=== PATIENT | female | born 1930 | race Caucasian/White ===

== ENCOUNTER → 2017-03-08 | Outpatient (CLI) | payer MEDICARE, BC ==
--- NOTE | 2017-03-08 17:31 | XR ---
EXAMINATION TYPE: XR thoracic spine complete DATE OF EXAM: 03/08/2017 5:08 PM COMPARISON: 03/18/2016 HISTORY: Back pain TECHNIQUE: 3 views FINDINGS: There is a mild thoracic kyphotic curvature. There is degenerative disc space narrowing and spur formation. There is slight anterior wedging of several thoracic vertebra. This is 5-10%. There is no sign of paraspinal mass. Posterior elements are intact. IMPRESSION: Mild anterior wedging of several thoracic vertebra is fairly stable compared to old chest x-ray. Spondylosis. No acute fracture seen.
--- NOTE | 2017-03-08 18:07 | XR ---
EXAMINATION TYPE: XR chest 2V DATE OF EXAM: 03/08/2017 5:08 PM COMPARISON: 03/18/2016 HISTORY: Back pain TECHNIQUE: Frontal and lateral views of the chest are obtained. FINDINGS: The heart is enlarged. There is no heart failure. There are no hilar masses. Costophrenic angles are clear. There is minor spurring in the thoracic spine. IMPRESSION: Mild cardiomegaly. No heart failure. No adverse change compared to old exam.
== END | disposition home or self-care (01) ==
LOC: RADXRMAIN 16:20
PROVIDERS: ATTEND Internal Medicine Geriatric Medicine
DX: M48.54XA Collapsed vertebra, not elsewhere classified, thoracic region, initial encounter for fracture (principal); M47.894 Other spondylosis, thoracic region; I51.7 Cardiomegaly
CPT/HCPCS: 71020; 72072

== ENCOUNTER → 2017-07-14 | Outpatient (CLI) | payer MEDICARE, BC ==
--- NOTE | 2017-07-15 10:12 | MM ---
Reason for exam: screening (asymptomatic). Last mammogram was performed 1 year and 4 months ago. History: Patient is postmenopausal. Family history of breast cancer in sister at age 78. Physical Findings: A clinical breast exam by your physician is recommended on an annual basis and results should be correlated with mammographic findings. MG 3D Screening Mammo W/Cad Bilateral CC and MLO view(s) were taken. Prior study comparison: March 24, 2016, bilateral MG 3d screening mammo w/cad. March 20, 2015, bilateral MG screening mammo w CAD. There are scattered fibroglandular densities. Finding: There are typically benign diffuse/scattered calcifications in both breasts. No suspicious abnormality. No significant changes in finding since March 24, 2016 and March 20, 2015. ASSESSMENT: Negative, BI-RAD 1 RECOMMENDATION: Routine screening mammogram of both breasts in 1 year.
== END ==
LOC: RADMAMWWP 13:18
PROVIDERS: ATTEND Internal Medicine Geriatric Medicine
DX: Z12.31 Encounter for screening mammogram for malignant neoplasm of breast (principal)
CPT/HCPCS: 77063; G0202

== ENCOUNTER 2018-07-06 23:09 | Inpatient (IN) | payer MEDICARE, BC ==
[2018-07-06 23:53] LABS: Basophils # (A) 0.1 k/uL (0-0.2); Basophils % (A) 0 %; Eosinophils # (A) 0.2 k/uL (0-0.7); Eosinophils % (A) 2 %; HCT 45.8 % (34.0-46.0); HGB 14.3 gm/dL (11.4-16.0); Lymphocytes # (A) 2.9 k/uL (1.0-4.8); Lymphocytes % (A) 24 %; MCH 28.9 pg (25.0-35.0); MCHC 31.2 g/dL (31.0-37.0); MCV 92.6 fL (80.0-100.0); Mean Platelet Volume 6.9; Monocytes # (A) 0.7 k/uL (0-1.0); Monocytes % (A) 6 %; Neutrophils # (A) 7.9 k/uL (1.3-7.7); Neutrophils % (A) 66 %; Platelet Count 320 k/uL (150-450); RBC 4.95 m/uL (3.80-5.40); RDW 13.8 % (11.5-15.5)
[2018-07-07 00:02] LABS: Albumin 4.1 g/dL (3.5-5.0); Calcium 9.6 mg/dL (8.4-10.2); Potassium 3.8 mmol/L (3.5-5.1); Total Bilirubin 1.5 mg/dL (0.2-1.3); Total Protein 7.3 g/dL (6.3-8.2)
[2018-07-07] MEDS ORDERED: ONDANSETRON 4 MG/2 ML VIAL IVP STA (00:32)
--- NOTE | 2018-07-07 00:41 | ED ---
Dizziness HPI - General Chief Complaint: Dizziness Stated Complaint: dizziness/vomiting Time Seen by Provider: 07/06/18 23:32 Source: patient Mode of arrival: wheelchair Limitations: no limitations - History of Present Illness MD Complaint: dizziness, difficulty walking -: hour(s) Timing: sudden onset Description: sense of movement, off-balance, difficulty walking, nausea History of Same: No History of Trauma: No Severity: severe Improves With: remaining still Worsens With: movement Associated Symptoms: denies other symptoms - Related Data Home Medications Medication Instructions Recorded Confirmed Budesonide-Formot 160-4.5 Mcg 2 puff INHALATION RT-BID PRN 10/15/15 03/18/16 [Symbicort 160-4.5 Mcg Inhaler] Cholecalciferol [Vitamin D3] 1,000 unit PO DAILY 10/15/15 03/18/16 HYDROcodone/APAP 5-325MG [[place] 1 tab PO Q4HR PRN 10/15/15 03/18/16 5-325] Lansoprazole 30 mg PO DAILY 10/15/15 03/18/16 Metoprolol Tartrate [Lopressor] 25 mg PO BID 10/15/15 03/18/16 Vitamin B Complex 1 cap PO DAILY 10/15/15 03/18/16 cloNIDine HCL [Catapres] 0.4 mg PO TID 10/15/15 03/18/16 Multivitamins, Thera [Theragran] 1 tab PO DAILY 11/12/15 03/18/16 Losartan [Cozaar] 50 mg PO BID 03/15/16 03/18/16 Baclofen [Lioresal] 10 mg PO DAILY 03/18/16 03/18/16 Bimatoprost [[place] .01% Ophth 1 drop BOTH EYES HS 03/18/16 03/18/16 Soln] Furosemide [Lasix] 40 mg PO DAILY 03/18/16 03/18/16 Previous Rx's Medication Instructions Recorded amLODIPine [Norvasc] 5 mg PO DAILY #10 tab 03/18/16 Allergies Allergy/AdvReac Type Severity Reaction Status Date / Time Sulfa (Sulfonamide Allergy Rash/Hives Verified 07/06/18 23:18 Antibiotics) calcium AdvReac Unknown Unknown Verified 07/06/18 23:18 baclofen AdvReac NUMBNESS Verified 07/06/18 23:18 WAS WORSE IN FEET" UNSTEADY" clotrimazole AdvReac Unknown Verified 07/06/18 23:18 fluconazole AdvReac Unknown Verified 07/06/18 23:18 Review of Systems ROS Statement: Those systems with pertinent positive or pertinent negative responses have been documented in the HPI. ROS Other: All systems not noted in ROS Statement are negative. Constitutional: Denies: fever, chills, weakness Eyes: Denies: vision change ENT: Denies: ear pain, hearing loss Respiratory: Denies: cough, dyspnea Cardiovascular: Denies: chest pain, palpitations, orthopnea, edema Gastrointestinal: Reports: abdominal pain, nausea, vomiting. Denies: diarrhea, constipation, hematemesis Genitourinary: Denies: dysuria, frequency, hematuria Musculoskeletal: Denies: back pain Skin: Denies: rash Neurological: Denies: headache, weakness, numbness Past Medical History Past Medical History: Asthma, Eye Disorder, GERD/Reflux, Hypertension, Osteoarthritis (OA) Additional Past Medical History / Comment(s): glaucoma,lower back pain, NEUROPATHY History of Any Multi-Drug Resistant Organisms: None Reported Past Surgical History: Orthopedic Surgery Additional Past Surgical History / Comment(s): eye surgery- stent in rt eye for glaucoma, carpal tunnel repair padmini.BILATERAL CATARACT Past Anesthesia/Blood Transfusion Reactions: No Reported Reaction Past Psychological History: No Psychological Hx Reported Smoking Status: Never smoker Past Alcohol Use History: None Reported Past Drug Use History: None Reported - Past Family History Sister(s) Family Medical History: Cancer Additional Family Medical History / Comment(s): breast cancer General Exam Limitations: no limitations General appearance: alert, other (Patient having intermittent retching during exam, especially after movement of her head.) Head exam: Present: atraumatic, normocephalic Eye exam: Present: normal appearance, PERRL, EOMI, nystagmus. Absent: scleral icterus, conjunctival injection ENT exam: Present: normal oropharynx Neck exam: Present: normal inspection Respiratory exam: Present: normal lung sounds bilaterally. Absent: respiratory distress, wheezes, rales, rhonchi, stridor Cardiovascular Exam: Present: regular rate, normal rhythm, normal heart sounds. Absent: systolic murmur, diastolic murmur, rubs, gallop GI/Abdominal exam: Present: soft. Absent: distended, tenderness, guarding, rebound, mass Extremities exam: Present: normal inspection, normal capillary refill. Absent: pedal edema, calf tenderness Back exam: Present: normal inspection. Absent: CVA tenderness (R), CVA tenderness (L) Neurological exam: Present: alert, oriented X3, CN II-XII intact. Absent: motor sensory deficit Skin exam: Present: warm, dry, intact, normal color. Absent: rash Course Vital Signs 07/06/18 23:16 Temperature 97.9 F Pulse Rate 85 Respiratory 18 Rate Blood Pressure 181/88 O2 Sat by Pulse 97 Oximetry EKG Findings - EKG Results: EKG: interpreted by ALLYN ROLDAN, sinus rhythm (Rate 79 bpm), normal axis, normal QRS, normal ST/T, no acute changes - CT, Pacemaker, Normal: Normal tracing: normal tracing Medical Decision Making - Lab Data Result diagrams: 07/06/18 23:40 07/06/18 23:40 Lab Results 07/06/18 07/06/18 07/06/18 Range/Units 23:40 23:40 23:40 WBC 12.0 H (3.8-10.6) k/uL RBC 4.95 (3.80-5.40) m/uL Hgb 14.3 (11.4-16.0) gm/dL Hct 45.8 (34.0-46.0) % MCV 92.6 (80.0-100.0) fL MCH 28.9 (25.0-35.0) pg MCHC 31.2 (31.0-37.0) g/dL RDW 13.8 (11.5-15.5) % Plt Count 320 (150-450) k/uL Neutrophils % 66 % Lymphocytes % 24 % Monocytes % 6 % Eosinophils % 2 % Basophils % 0 % Neutrophils # 7.9 H (1.3-7.7) k/uL Lymphocytes # 2.9 (1.0-4.8) k/uL Monocytes # 0.7 (0-1.0) k/uL Eosinophils # 0.2 (0-0.7) k/uL Basophils # 0.1 (0-0.2) k/uL Sodium 139 (137-145) mmol/L Potassium 3.8 (3.5-5.1) mmol/L Chloride 103 (98-107) mmol/L Carbon Dioxide 26 (22-30) mmol/L Anion Gap 10 mmol/L BUN 19 H (7-17) mg/dL Creatinine 0.82 (0.52-1.04) mg/dL Est GFR (CKD-EPI)AfAm 75 (>60 ml/min/1.73 sqM) Est GFR (CKD-EPI)NonAf 65 (>60 ml/min/1.73 sqM) Glucose 157 H (74-99) mg/dL Plasma Lactic Acid Aubrey 1.8 (0.7-2.0) mmol/L Calcium 9.6 (8.4-10.2) mg/dL Total Bilirubin 1.5 H (0.2-1.3) mg/dL AST 38 H (14-36) U/L ALT 29 (9-52) U/L Alkaline Phosphatase 102 (38-126) U/L Troponin I (0.000-0.034) ng/mL Total Protein 7.3 (6.3-8.2) g/dL Albumin 4.1 (3.5-5.0) g/dL Urine Color Urine Appearance (Clear) Urine pH (5.0-8.0) Ur Specific [place] (1.001-1.035) Urine Protein (Negative) Urine Glucose (UA) (Negative) Urine Ketones (Negative) Urine Blood (Negative) Urine Nitrite (Negative) Urine Bilirubin (Negative) Urine Urobilinogen (<2.0) mg/dL Ur Leukocyte Esterase (Negative) Urine RBC (0-5) /hpf Urine WBC (0-5) /hpf Ur Squamous Epith Cells (0-4) /hpf Amorphous Sediment (None) /hpf Urine Bacteria (None) /hpf Urine Mucus (None) /hpf 07/06/18 07/07/18 Range/Units 23:40 02:05 WBC (3.8-10.6) k/uL RBC (3.80-5.40) m/uL Hgb (11.4-16.0) gm/dL Hct (34.0-46.0) % MCV (80.0-100.0) fL MCH (25.0-35.0) pg MCHC (31.0-37.0) g/dL RDW (11.5-15.5) % Plt Count (150-450) k/uL Neutrophils % % Lymphocytes % % Monocytes % % Eosinophils % % Basophils % % Neutrophils # (1.3-7.7) k/uL Lymphocytes # (1.0-4.8) k/uL Monocytes # (0-1.0) k/uL Eosinophils # (0-0.7) k/uL Basophils # (0-0.2) k/uL Sodium (137-145) mmol/L Potassium (3.5-5.1) mmol/L Chloride (98-107) mmol/L Carbon Dioxide (22-30) mmol/L Anion Gap mmol/L BUN (7-17) mg/dL Creatinine (0.52-1.04) mg/dL Est GFR (CKD-EPI)AfAm (>60 ml/min/1.73 sqM) Est GFR (CKD-EPI)NonAf (>60 ml/min/1.73 sqM) Glucose (74-99) mg/dL Plasma Lactic Acid Aubrey (0.7-2.0) mmol/L Calcium (8.4-10.2) mg/dL Total Bilirubin (0.2-1.3) mg/dL AST (14-36) U/L ALT (9-52) U/L Alkaline Phosphatase (38-126) U/L Troponin I <0.012 (0.000-0.034) ng/mL Total Protein (6.3-8.2) g/dL Albumin (3.5-5.0) g/dL Urine Color Light Yellow Urine Appearance Clear (Clear) Urine pH 6.5 (5.0-8.0) Ur Specific [place] 1.009 (1.001-1.035) Urine Protein 2+ H (Negative) Urine Glucose (UA) Negative (Negative) Urine Ketones Negative (Negative) Urine Blood Negative (Negative) Urine Nitrite Negative (Negative) Urine Bilirubin Negative (Negative) Urine Urobilinogen <2.0 (<2.0) mg/dL Ur Leukocyte Esterase Negative (Negative) Urine RBC 10 H (0-5) /hpf Urine WBC 1 (0-5) /hpf Ur Squamous Epith Cells 2 (0-4) /hpf Amorphous Sediment Rare H (None) /hpf Urine Bacteria Rare H (None) /hpf Urine Mucus Rare H (None) /hpf Disposition Referrals: Grupo Beard MD [Primary Care Provider] - 1-2 days
--- NOTE | 2018-07-07 00:43 | XR ---
EXAMINATION TYPE: XR chest 1V portable DATE OF EXAM: 07/07/2018 COMPARISON: 03/08/2017 HISTORY: Dizziness TECHNIQUE: Single frontal view of the chest is obtained. FINDINGS: Heart appears enlarged. Thoracic aorta is atheromatous. There is no heart failure. There i s no pleural effusion. Costophrenic angles are clear. IMPRESSION: Cardiomegaly. No active cardiopulmonary disease. Inspiration is improved slightly compar ed to old exam.
[2018-07-07 02:30] LABS: Amorphous Sediment,Urine Rare /hpf; Appearance,Urine Clear (Clear); Bacteria,Urine Rare /hpf; Bilirubin,Urine Negative (Negative); Blood,Urine Negative (Negative); Color,Urine Light Yellow; Glucose,Urine (UA) Negative (Negative); Ketones,Urine Negative (Negative); Leukocyte Esterase,Urine Negative (Negative); Mucus,Urine Rare /hpf; Nitrite,Urine Negative (Negative); PH, Urine 6.5 (5.0-8.0); Protein,Urine 2+ (Negative); RBC,Urine 10 /hpf (0-5); Specific Gravity,Urine 1.009 (1.001-1.035); Squamous Epithelial Cell,Urine 2 /hpf (0-4); Urobilinogen,Urine <2.0 mg/dL (<2.0); WBC,Urine 1 /hpf (0-5)
--- NOTE | 2018-07-07 02:35 | CT ---
EXAMINATION TYPE: CT brain wo con DATE OF EXAM: 07/07/2018 COMPARISON: None HISTORY: Dizziness CT DLP: 995.50 mGycm Automated exposure control for dose reduction was used. FINDINGS: There is some hypodensity in the cortex right cerebellar hemisphere suggestive of old small cortical infarct. Ventricles of normal size. There is no mass effect nor midline shift. There is no sign of intracrania l hemorrhage. The calvarium is intact. 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 NO ACUTE INTRACRANIAL ABNORMALITY.
[2018-07-07] MEDS ORDERED: MECLIZINE 12.5 MG TAB PO STA (03:40)
[2018-07-07] MEDS ORDERED: ASPIRIN 81 MG PO STA (03:57)
[2018-07-07] MEDS ORDERED: SYMBICORT 160-4.5 MCG INHALER INHALATION PRN (04:01)
[2018-07-07] MEDS ORDERED: HYDROcodone/APAP 5-325MG 1 EACH TAB PO PRN (04:01)
[2018-07-07] MEDS: SODIUM CHLORIDE 0.9% 1,000 ML IV SCH (04:33)
[2018-07-07 06:02] VITALS: BMI 33.5
[2018-07-07] MEDS ORDERED: ONDANSETRON 4 MG/2 ML VIAL IVP PRN (07:16)
[2018-07-07] MEDS ORDERED: cloNIDine HCL 0.2 MG TAB PO SCH (09:00)
[2018-07-07] MEDS ORDERED: BACLOFEN 10 MG TAB PO SCH (09:00)
[2018-07-07] MEDS ORDERED: FAMOTIDINE 20 MG TAB PO SCH (09:00)
[2018-07-07] MEDS: CHOLECALCIFEROL 1,000 UNIT TAB PO SCH (09:09)
[2018-07-07] MEDS: DOCUSATE 100 MG CAP PO SCH ×3 (09:09→23:44)
[2018-07-07] MEDS: PANTOPRAZOLE 40 MG TABLET PO SCH (09:09)
[2018-07-07] MEDS: cloNIDine HCL 0.1 MG TAB PO SCH ×3 (09:11→21:12)
[2018-07-07] MEDS: METOPROLOL TARTRATE 25 MG TAB PO SCH ×2 (09:12→21:12)
[2018-07-07] MEDS: LOSARTAN 50 MG TAB PO SCH ×2 (10:59→21:12)
[2018-07-07] MEDS: amLODIPine 5 MG TAB PO SCH (10:59)
[2018-07-07] MEDS: predniSONE 20 MG TAB PO SCH (10:59)
[2018-07-07] MEDS: FUROSEMIDE 40 MG TAB PO SCH (11:42)
--- NOTE | 2018-07-07 11:50 | US ---
EXAMINATION TYPE: US carotid duplex BILAT DATE OF EXAM: 07/07/2018 COMPARISON: NONE CLINICAL HISTORY: Stenosis. Vertigo, stenosis EXAM MEASUREMENTS: RIGHT: Peak Systolic Velocity (PSV) cm/sec ----- Right CCA: 100.2 ----- Right ICA: 84.5 ----- Right ECA: 114.7 ICA/CCA ratio: 0.8 RIGHT: End Diastole cm/sec ----- Right CCA: 17.3 ----- Right ICA: 16.4 ----- Right ECA: 0.0 LEFT: Peak Systolic Velocity (PSV) cm/sec ----- Left CCA: 97.0 ----- Left ICA: 107.3 ----- Left ECA: 142.0 ICA/CCA ratio: 1.1 LEFT: End Diastole cm/sec ----- Left CCA: 15.3 ----- Left ICA: 24.5 ----- Left ECA: 3.1 VERTEBRALS (direction of flow): Right Vertebral: Antegrade Left Vertebral: Antegrade Rhythm: Arrhythmia Elevated velocities left ECA, otherwise no evidence of significant stenosis Grayscale, color Doppler, spectral Doppler imaging performed of the carotid arteries. Waveform analys is does not show significant stenosis of the proximal internal carotid arteries bilaterally by Dopple r criteria IMPRESSION: No hemodynamic significant stenosis of the proximal internal carotid arteries bilaterall y by Doppler criteria, an indirect measurement of carotid stenosis, cardiac arrhythmia noted incident ally
[2018-07-07] MEDS ORDERED: IPRATROPIUM-ALBUTEROL 3 ML NEB INHALATION PRN (11:59)
--- NOTE | 2018-07-07 12:00 | P.HPIM ---
History of Present Illness H&P Date: 07/07/18 Chief Complaint: dizziness 88 years old female patient of Dr. Beard with past medical history of asthma, GERD, hypertension presents with an episode of dizziness when she woke up this morning. Dizziness is associated with headache, nausea and vomiting and fullness in the right ear. No improvement with meclizine given in the ER Patient denies any previous history of stroke or similar presentation. She denies any ear ache, tinnitus or ringing in the ears. CT head was done in the ER that suggested a small cerebellar infarct on the right that is old. Carotid Dopplers ordered. MRI and MRA of the head and neck ordered for evaluation for cerebellar stroke. Continue patient on aspirin, atorvastatin. Neurology evaluation pending Review of Systems Constitutional: Denies chills, Denies fever, Denies lethargy, Denies malaise, Denies poor appetite, Denies weakness, Denies weight loss Eyes: denies decreased vision, denies diplopia, denies discharge, denies pain Ears: deny: decreased hearing, positive for ear fullness on the right Ears, nose, mouth and throat: Denies dental pain, endorses headache, Denies nasal discharge, Denies nose pain Cardiovascular: Denies chest pain, Denies decreased exercise tolerance, Denies edema, Denies high blood pressure, Denies irregular heart beat, Denies palpitations, Denies paroxysmal nocturnal dyspnea, Denies rapid heart beat, Denies shortness of breath Respiratory: Denies congestion, Denies cough, Denies cough with sputum, Denies dyspnea, Denies home oxygen, Denies wheezing Gastrointestinal: Denies abdominal pain, Denies change in bowel habits, Denies coffee ground emesis, Denies early satiety, Denies excessive gas, Denies heartburn, Denies hematemesis, Denies hematochezia, Denies loss of appetite, Denies nausea, Denies vomiting Genitourinary: Denies dysuria, Denies flank pain, Denies kidney stones, Denies menorrhagia, Denies urgency, Denies urinary frequency Musculoskeletal: Denies gait dysfunction, Denies limitation of motion, Denies morning stiffness, Denies muscle cramps Integumentary: Denies rash, Denies wounds, Denies brittle nails, Denies change in hair/nails, Denies darkening of skin Neurological: Denies balance difficulties, Denies change in speech, Denies double vision, Denies gait dysfunction, Denies loss of vision, Denies motor disturbance, Denies numbness, Denies paralysis, Denies paresthesias, Denies seizures endorses vertical Psychiatric: Denies anxiety, Denies depression Endocrine: Denies excessive sweating, Denies excessive thirst, Denies high blood sugars, Denies palpitations Hematologic/Lymphatic: Denies easy bruising, Denies lymphadenopathy Past Medical History Past Medical History: Asthma, Eye Disorder, GERD/Reflux, Hypertension, Osteoarthritis (OA) Additional Past Medical History / Comment(s): glaucoma,lower back pain, NEUROPATHY History of Any Multi-Drug Resistant Organisms: None Reported Past Surgical History: Orthopedic Surgery Additional Past Surgical History / Comment(s): eye surgery- stent in rt eye for glaucoma, carpal tunnel repair padmini.BILATERAL CATARACT Past Anesthesia/Blood Transfusion Reactions: No Reported Reaction Past Psychological History: No Psychological Hx Reported Smoking Status: Never smoker Past Alcohol Use History: None Reported Past Drug Use History: None Reported - Past Family History Sister(s) Family Medical History: Cancer Additional Family Medical History / Comment(s): breast cancer Medications and Allergies Home Medications Medication Instructions Recorded Confirmed Type Cholecalciferol [Vitamin D3] 1,000 unit PO DAILY 10/15/15 07/07/18 History HYDROcodone/APAP 5-325MG [[place] 1 tab PO Q4HR PRN 10/15/15 07/07/18 History 5-325] Lansoprazole 30 mg PO DAILY 10/15/15 07/07/18 History Metoprolol Tartrate [Lopressor] 25 mg PO BID 10/15/15 07/07/18 History Vitamin B Complex 1 cap PO DAILY 10/15/15 07/07/18 History cloNIDine HCL [Catapres] 0.4 mg PO TID 10/15/15 07/07/18 History Losartan [Cozaar] 50 mg PO BID 03/15/16 07/07/18 History Furosemide [Lasix] 40 mg PO DAILY 03/18/16 07/07/18 History amLODIPine [Norvasc] 5 mg PO DAILY #10 tab 03/18/16 07/07/18 Rx Gabapentin [Neurontin] 100 mg PO BID 07/07/18 07/07/18 History Tracie-L[place] 1 tab PO DAILY 07/07/18 07/07/18 History Allergies Allergy/AdvReac Type Severity Reaction Status Date / Time Sulfa (Sulfonamide Allergy Rash/Hives Verified 07/07/18 09:54 Antibiotics) calcium AdvReac Unknown Unknown Verified 07/07/18 09:54 baclofen AdvReac NUMBNESS Verified 07/07/18 09:54 WAS WORSE IN FEET" UNSTEADY" clotrimazole AdvReac Unknown Verified 07/07/18 09:54 fluconazole AdvReac Unknown Verified 07/07/18 09:54 Physical Exam Vitals: Vital Signs Temp Pulse Pulse Resp BP BP Pulse Ox 07/07/18 08:00 98.0 F 93 20 165/76 94 L 07/07/18 07:39 95 07/07/18 06:14 84 21 07/07/18 05:03 97.6 F 84 21 154/75 94 L 07/07/18 04:07 81 16 165/83 94 L 07/06/18 23:16 97.9 F 85 18 181/88 97 Intake and Output 07/06/18 07/07/18 07/07/18 22:59 06:59 14:59 Intake Total 20 Balance 20 Intake: IV 20 Sodium Chloride 0.9% 1, 20 000 ml @ 20 mls/hr IV . Q24H [facility] Rx#:[id number] Other: Voiding Method Bedpan Diaper # Voids 1 Weight 91.6 kg - Constitutional General appearance: cooperative, no acute distress, obese - EENT Eyes: anicteric sclerae, PERRLA, normal appearance ENT: hearing grossly normal, no cerumen impaction seen on examination of the ear , no sign of inflammation or otitis media - Neck Neck: no lymphadenopathy, normal ROM, no other, no rigidity, no stridor, no thyromegaly - Respiratory Respiratory: bilateral: CTA, negative: diminished, dullness, rales, rhonchi - Cardiovascular Rhythm: regular Heart sounds: normal: S1, S2 Abnormal Heart Sounds: no systolic murmur, no diastolic murmur, no rub, no S3 Gallop, no S4 Gallop, no click, no other - Gastrointestinal General gastrointestinal: normal bowel sounds, soft - Integumentary Integumentary: no rash - Neurologic Neurologic: CNII-XII intact no motor or sensory deficit noted, no coordination defect, normal proprioception - Musculoskeletal Musculoskeletal: strength equal bilaterally - Psychiatric Psychiatric: A&O x's 3, appropriate affect Results CBC & Chem 7: 07/06/18 23:40 07/06/18 23:40 Labs: Abnormal Lab Results - Last 24 Hours (Table) 07/06/18 07/06/18 07/07/18 Range/Units 23:40 23:40 02:05 WBC 12.0 H (3.8-10.6) k/uL Neutrophils # 7.9 H (1.3-7.7) k/uL BUN 19 H (7-17) mg/dL Glucose 157 H (74-99) mg/dL Total Bilirubin 1.5 H (0.2-1.3) mg/dL AST 38 H (14-36) U/L Urine Protein 2+ H (Negative) Urine RBC 10 H (0-5) /hpf Amorphous Sediment Rare H (None) /hpf Urine Bacteria Rare H (None) /hpf Urine Mucus Rare H (None) /hpf Thrombosis Risk Factor Assmnt - DVT/VTE Prophylaxis DVT/VTE Prophylaxis: Pharmacologic Prophylaxis ordered Assessment and Plan Plan: #1 acute vertigo likely differential cerebellar infarct as patient has a history of old cerebellar infarct. Other differential include vestibular neuritis due to persistent nausea and vomiting with headache and ear fullness. Carotid Dopplers ordered. CT head showing finding of old infarct in the right cerebellar region. MRI/MRA ordered. Meclizine ordered for dizziness. Prednisone 60 mg by mouth daily for possible vestibular neuritis. Continue aspirin and Lipitor 40 mg by mouth daily lipid panel ordered Neurology evaluation pending #2 Hypertensive urgency - blood pressure well controlled on losartan 50 bid , metoprolol 25 MG PO bid , Lasix 40 MG PO DAILY , clonidine 0.3 mg 3 times a day AND NORVASC 5 MG PO DAILY # 3 asthma DuoNeb as needed for shortness of breath. Continue Symbicort twice a day #4 history of glaucoma continue latanoprost drops at bedtime #5 GI prophylaxis continue 40 mg by mouth daily X #6 DVT prophylaxis with heparin every 12 CODE STATUS full code
[2018-07-07 12:10] LABS: Cholesterol 189 mg/dL (<200); HDL Cholesterol 45 mg/dL (40-60); LDL Cholesterol,Calculated 129 mg/dL (0-99); Triglycerides 77 mg/dL (<150)
[2018-07-07] MEDS: ONDANSETRON 4 MG/2 ML VIAL IVP PRN ×2 (12:31→17:50)
[2018-07-07] MEDS ORDERED: PROMETHAZINE INJ 12.5 MG in SODIUM CHLORIDE 0.9% 50 ML IVPB PRN (13:27)
[2018-07-07] MEDS: METOCLOPRAMIDE 5 MG/ML 2 ML VIAL IVP PRN ×2 (13:45→22:28)
--- NOTE | 2018-07-07 14:08 | ECHOF ---
Referral Reason:stroke MEASUREMENTS -------- HEIGHT: 165.1 cm WEIGHT: 91.2 kg BP: 165/76 IVSd: 1.1 cm (0.6 - 1.1) LVIDd: 3.2 cm (3.9 - 5.3) LVPWd: 1.1 cm (0.6 - 1.1) IVSs: 1.3 cm LVIDs: 1.5 cm LVPWs: 1.3 cm LAESV Index (A-L): 29.95 ml/m Ao Diam: 2.9 cm (2.0 - 3.7) AV Cusp: 1.9 cm (1.5 - 2.6) LA Diam: 4.2 cm (2.7 - 3.8) MV E Edin: 0.89 m/s MV DecT: 257 ms MV A Edin: 1.11 m/s MV E/A Ratio: 0.80 RAP: 10.00 mmHg RVSP: 77.53 mmHg FINDINGS -------- Sinus rhythm. This was a technically adequate study. The left ventricular size is normal. There is borderline concentric left ventricular hypertrophy. Overall left ventricular systolic function is normal with, an EF between 55 - 60 %. The right ventricle is normal in size and function. LA is midly dilated 29-33ml/m2. RA appears enlarged. There is mild aortic valve sclerosis. There is no evidence of aortic regurgitation. There is no e vidence of aortic stenosis. The mitral valve leaflets are mildly thickened. Mild mitral annular calcification present. Mild m itral regurgitation is present. [id number] tricuspid regurgitation present. There is severe pulmonary hypertension. The rig ht ventricular systolic pressure, as measured by Doppler, is 77.53mmHg. The pulmonic valve was not well visualized. The aortic root size is normal. The IVC is dilated with normal collapse. There is no pericardial effusion. CONCLUSIONS -------- 1. Sinus rhythm. 2. This was a technically adequate study. 3. The left ventricular size is normal. 4. There is borderline concentric left ventricular hypertrophy. 5. Overall left ventricular systolic function is normal with, an EF between 55 - 60 %. 6. LA is midly dilated 29-33ml/m2. 7. RA appears enlarged. 8. There is mild aortic valve sclerosis. 9. The mitral valve leaflets are mildly thickened. 10. Mild mitral annular calcification present. 11. Mild mitral regurgitation is present. 12. [id number] tricuspid regurgitation present. 13. There is severe pulmonary hypertension. 14. The right ventricular systolic pressure, as measured by Doppler, is 77.53mmHg. 15. The pulmonic valve was not well visualized. 16. The aortic root size is normal. 17. The IVC is dilated with normal collapse. 18. There is no pericardial effusion. CNC APPLICATIONS ENGINEER: Buck Rubalcava RDCS
[2018-07-07] MEDS: MECLIZINE 12.5 MG TAB PO PRN ×2 (14:09→22:33)
[2018-07-07] MEDS: ATORVASTATIN 40 MG TAB PO SCH (21:12)
[2018-07-07] MEDS: LATANOPROST 0.005% OPHTH DROPS 2.5 ML BTL BOTH EYES SCH (21:15)
[2018-07-07] MEDS: HEPARIN SODIUM,PORCINE 5,000 UNIT/ML 1 ML VIAL SQ SCH (21:16)
--- NOTE | 2018-07-07 22:15 | P.CNNES ---
History of Present Illness Consult date: 07/07/18 Reason for Consult: Patient with symptoms of vertigo. History of Present Illness: This patient is a 88-year-old right-handed white female who was admitted to Hospital with symptoms of acute onset of dizziness and unsteadiness. Patient states that she went to bed yesterday and laid down and within 10 minutes she began expressing severe vertigo. She describes it as a spinning sensation. She was unable to stand up due to the severity of her symptoms yesterday. The onset of the dizziness and vertigo was also associated with headache as well as some nausea and vomiting. She did also notice fullness in both ears worse on her right side prior to the event. She has no previous history of vertigo or closed head injury. She denies any previous history of stroke. She was brought into the emergency room at [facility] for further evaluation. She was seen in the ER by Dr. Patel and was sent for a computed tomography scan of the brain. 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 No evidence of acute intracranial abnormality was noted. Patient denies having any history of stroke in the past. These may be silent areas of infarction. She has been complaining of increase balance issues and difficulty with ambulation. According to the patient she was evaluated in the ER and was given Antivert which did not really help her symptoms. She did not have any severe vomiting in the ER. Given the CAT scan findings which suggest right cerebellar strokes it is unclear as to the age of these infarctions. We have recommended the patient undergo MRI of the brain as well as MRA of the vertebral arteries for further evaluation. The patient did have evidence of hypertensive urgency on her initial presentation to the ER. Her antihypertensive medications are being adjusted by Dr. Diaz. The patient underwent carotid Doppler ultrasound study today the results of which indicated no evidence of any significant carotid artery stenosis. We have recommended the patient to be started on aspirin for secondary stroke prevention. Her neurological examination at this time is nonfocal. She does not show evidence of nystagmus on gaze testing. It is still of some concern as to her CAT scan of the brain results. We have recommended to follow up with the MRI MRA of the brain as noted above. Overall the patient's prognosis at this time remains guarded. We will continue close neurological follow-up with the patient during this admission. Her overall prognosis remains guarded. Neurology is now been consulted for further evaluation and recommendations. Review of Systems Constitutional: Denies chills, Denies fever Eyes: denies blurred vision, denies pain Ears, nose, mouth and throat: Denies headache, Denies sore throat Cardiovascular: Denies chest pain, Denies shortness of breath Respiratory: Denies cough Gastrointestinal: Denies abdominal pain, Denies diarrhea, Denies nausea, Denies vomiting Genitourinary: Denies dysuria, Denies hematuria Musculoskeletal: Denies myalgias Integumentary: Denies pruritus, Denies rash Neurological: Reports balance difficulties, Reports confusion, Reports headaches , Reports lack of coordination, Reports tingling, Reports vertigo, Denies numbness, Denies weakness Psychiatric: Denies anxiety, Denies depression Endocrine: Denies fatigue, Denies weight change Past Medical History Past Medical History: Asthma, Eye Disorder, GERD/Reflux, Hypertension, Osteoarthritis (OA) Additional Past Medical History / Comment(s): glaucoma,lower back pain, NEUROPATHY History of Any Multi-Drug Resistant Organisms: None Reported Past Surgical History: Orthopedic Surgery Additional Past Surgical History / Comment(s): eye surgery- stent in rt eye for glaucoma, carpal tunnel repair padmini.BILATERAL CATARACT Past Anesthesia/Blood Transfusion Reactions: No Reported Reaction Past Psychological History: No Psychological Hx Reported Smoking Status: Never smoker Past Alcohol Use History: None Reported Past Drug Use History: None Reported - Past Family History Sister(s) Family Medical History: Cancer Additional Family Medical History / Comment(s): breast cancer Medications and Allergies Home Medications Medication Instructions Recorded Confirmed Type Cholecalciferol [Vitamin D3] 1,000 unit PO DAILY 10/15/15 07/07/18 History HYDROcodone/APAP 5-325MG [[place] 1 tab PO Q4HR PRN 10/15/15 07/07/18 History 5-325] Lansoprazole 30 mg PO DAILY 10/15/15 07/07/18 History Metoprolol Tartrate [Lopressor] 25 mg PO BID 10/15/15 07/07/18 History Vitamin B Complex 1 cap PO DAILY 10/15/15 07/07/18 History cloNIDine HCL [Catapres] 0.4 mg PO TID 10/15/15 07/07/18 History Losartan [Cozaar] 50 mg PO BID 03/15/16 07/07/18 History Furosemide [Lasix] 40 mg PO DAILY 03/18/16 07/07/18 History amLODIPine [Norvasc] 5 mg PO DAILY #10 tab 03/18/16 07/07/18 Rx Gabapentin [Neurontin] 100 mg PO BID 07/07/18 07/07/18 History Tracie-Lpoez 1 tab PO DAILY 07/07/18 07/07/18 History Allergies Allergy/AdvReac Type Severity Reaction Status Date / Time Sulfa (Sulfonamide Allergy Rash/Hives Verified 07/07/18 09:54 Antibiotics) calcium AdvReac Unknown Unknown Verified 07/07/18 09:54 baclofen AdvReac NUMBNESS Verified 07/07/18 09:54 WAS WORSE IN FEET" UNSTEADY" clotrimazole AdvReac Unknown Verified 07/07/18 09:54 fluconazole AdvReac Unknown Verified 07/07/18 09:54 Physical Examination - Vital Signs Vital Signs: Vital Signs Temp Pulse Pulse Resp BP BP Pulse Ox 07/07/18 12:00 98.1 F 74 23 158/85 96 07/07/18 08:00 98.0 F 93 20 165/76 94 L 07/07/18 07:39 95 07/07/18 06:14 84 21 07/07/18 05:03 97.6 F 84 21 154/75 94 L 07/07/18 04:07 81 16 165/83 94 L 07/06/18 23:16 97.9 F 85 18 181/88 97 Intake and Output 07/07/18 07/07/18 07/07/18 06:59 14:59 22:59 Intake Total 20 100 Balance 20 100 Intake: IV 20 100 Sodium Chloride 0.9% 1, 20 100 000 ml @ 20 mls/hr IV . Q24H [facility] Rx#:[id number] Other: Voiding Method Bedpan Diaper # Voids 1 3 Weight 91.6 kg - Constitutional General appearance: average body habitus, cooperative - EENT EENT: PERRL, mucous membranes moist - Respiratory Respiratory: lungs clear, normal breath sounds - Cardiovascular Cardiovascular: regular rate, normal S1, normal S2 Extremities: no peripheral edema bilaterally - Gastrointestinal Gastrointestinal: normoactive bowel sounds - Integumentary Integumentary: normal - Neurologic Cranial nerve examination: PERRL, EOMI, VFF, V1/V2/V3 grossly intact, face symmetric, tongue midline, intact gag reflex, intact corneal reflex, normal palatal elevation Speech examination: intact Sensorimotor examination: intact Motor examination - right side: 4/5: biceps, triceps, wrist flexion, wrist extension, tail end rider, hip flexors, knee extensors, dorsiflexion, toe extension (EHL) , plantarflexion Motor examination - left side: 4/5: biceps, triceps, wrist flexion, wrist extension, tail end rider, hip flexors, knee extensors, dorsiflexion, toe extension (EHL) , plantarflexion Detailed sensory examination: intact Reflex and gait examination: intact Reflexes: 1+: ankle, bicep, knee, tricep - Musculoskeletal Musculoskeletal: no pain - Psychiatric Psychiatric: mood/affect appropriate, cooperative Results - Laboratory Findings CBC and BMP: 07/06/18 23:40 07/06/18 23:40 Abnormal Lab Findings: Abnormal Labs 07/06/18 07/06/18 07/07/18 23:40 23:40 02:05 WBC 12.0 H Neutrophils # 7.9 H BUN 19 H Glucose 157 H Total Bilirubin 1.5 H AST 38 H LDL Cholesterol, Calc Urine Protein 2+ H Urine RBC 10 H Amorphous Sediment Rare H Urine Bacteria Rare H Urine Mucus Rare H 07/07/18 08:03 WBC Neutrophils # BUN Glucose Total Bilirubin AST LDL Cholesterol, Calc 129 H Urine Protein Urine RBC Amorphous Sediment Urine Bacteria Urine Mucus Assessment and Plan (1) Cerebellar stroke Current Visit: Yes Status: Acute Code(s): I63.9 - CEREBRAL INFARCTION, UNSPECIFIED SNOMED Code(s): 35113916182431383 (2) Benign paroxysmal positional vertigo Current Visit: Yes Status: Acute Code(s): H81.10 - BENIGN PAROXYSMAL VERTIGO , UNSPECIFIED EAR SNOMED Code(s): 502146684 (3) TIA (transient ischemic attack) Current Visit: Yes Status: Acute Code(s): G45.9 - TRANSIENT CEREBRAL ISCHEMIC ATTACK, UNSPECIFIED SNOMED Code(s): 313731307 (4) Hypertensive urgency Current Visit: Yes Status: Acute Code(s): I16.0 - HYPERTENSIVE URGENCY SNOMED Code(s): 489961703 Plan: This patient is a 88-year-old right-handed white female who was admitted to Hospital with symptoms of dizziness and headache. Symptoms began acutely yesterday while she was trying to go to bed. After laying in bed for 10 minutes her symptoms began with severe dizziness and vertigo. The room was spinning severely for her and she was unable to stand and ambulate. She was brought into the emergency room at [facility] for further evaluation. She underwent a computed tomography scan of the brain which revealed evidence of multiple ischemic infarctions involving the right cerebellum. We have recommended the patient undergo an MRI of the brain as well as MRA for further evaluation. The exact age of her strokes involving the right cerebellum is unknown. We will await the final interpretation from radiology regarding these CAT scan findings. The patient is advised to continue on 1 aspirin daily for secondary stroke prevention. She was given some Antivert but this was not of much benefit for her. We have recommended a MRA to be done to evaluate for vertebral artery stenosis. Neurologically she otherwise remains very much intact with no focal weakness or paresthesias. Her neurological examination suggest possibility of cerebellar stroke. The differential would also include benign paroxysmal positional vertigo. We will give further recommendations pending the results of her MRI and MRA. Her overall prognosis at this time remains very guarded. We will continue close neurological follow-up for the patient during this admission. Time with Patient: Greater than 30
[2018-07-08] MEDS: SODIUM CHLORIDE 0.9% 1,000 ML IV SCH (05:22)
[2018-07-08] MEDS: ASPIRIN 325 MG TAB PO SCH ×2 (05:34→08:20)
[2018-07-08] MEDS: DOCUSATE 100 MG CAP PO SCH ×2 (08:19→17:12)
[2018-07-08] MEDS: predniSONE 20 MG TAB PO SCH (08:20)
[2018-07-08] MEDS: CHOLECALCIFEROL 1,000 UNIT TAB PO SCH (08:21)
[2018-07-08] MEDS: FUROSEMIDE 40 MG TAB PO SCH (08:21)
[2018-07-08] MEDS: METOPROLOL TARTRATE 25 MG TAB PO SCH ×2 (08:22→21:50)
[2018-07-08] MEDS: HEPARIN SODIUM,PORCINE 5,000 UNIT/ML 1 ML VIAL SQ SCH ×2 (08:22→21:50)
[2018-07-08] MEDS: amLODIPine 5 MG TAB PO SCH (08:22)
[2018-07-08] MEDS: PANTOPRAZOLE 40 MG TABLET PO SCH (08:22)
[2018-07-08] MEDS: cloNIDine HCL 0.1 MG TAB PO SCH ×3 (08:23→23:41)
[2018-07-08] MEDS: LOSARTAN 50 MG TAB PO SCH ×2 (08:23→21:50)
--- NOTE | 2018-07-08 12:02 | P.PN ---
Subjective Progress Note Date: 07/08/18 Principal diagnosis: Dizziness Patient symptoms has improved overnight and feels at least 50% better than yesterday no major events reported by nursing staff Objective - Vital Signs Vital signs: Vital Signs Temp 97.9 F 07/08/18 07:00 Pulse 72 07/08/18 07:00 Resp 18 07/08/18 07:00 BP 168/81 07/08/18 07:00 Pulse Ox 97 07/08/18 07:00 Intake & Output 07/07/18 07/08/18 07/08/18 18:59 06:59 18:59 Intake Total 100 720 Balance 100 720 Weight 91.6 kg Intake: IV 100 Sodium Chloride 0.9% 1, 100 000 ml @ 20 mls/hr IV . Q24H [facility] Rx#:[id number] Oral 720 Other: Voiding Method Bedpan Bedside Commode Bedside Commode Diaper Diaper # Voids 3 4 3 - Exam Gen.: in stated age, no acute distress Heart: Normal S1-S2 Lungs: Clear to auscultation bilaterally Abdomen: Soft, no tenderness, positive bowel sounds in all 4 quadrant no guarding or rebound Skin: No new rash Psych: Alert and oriented 3 Neuro: No focal deficit - Labs CBC & Chem 7: 07/06/18 23:40 07/06/18 23:40 Labs: Abnormal Lab Results - Last 24 Hours (Table) 07/07/18 Range/Units 08:03 LDL Cholesterol, Calc 129 H (0-99) mg/dL Assessment and Plan Assessment: 1. Dizziness. 2. History of CVA. 3. Benign paroxysmal positional vertigo. 4. Uncontrolled hypertension 5. Glaucoma. 6. Asthma. MRI and MRA an process with follow-up on test results continue with PT OT evaluation check on her orthostatic repeat blood work in the morning and monitor vital signs closely and I would like to continue with evidence based medicine at this point. Will follow-up with neurology recommendation regarding discharge planning
[2018-07-08] MEDS: MECLIZINE 12.5 MG TAB PO PRN (14:39)
--- NOTE | 2018-07-08 21:16 | P.PN ---
Subjective Progress Note Date: 07/08/18 This patient is a pleasant 88-year-old right-handed white female who is being evaluated for sudden onset of vertigo and dizziness. She was brought into the hospital yesterday and underwent a computed tomography scan of the brain which revealed evidence of an old right cerebellar infarct. Patient symptoms suggested possibility of recurrent cerebellar stroke. She is been scheduled for MRI of the brain which unfortunately cannot be done until Tuesday. She needs to obtain clearance in terms of her stents that are in her eyes to see if they are MRI compatible. The patient otherwise states she is feeling somewhat better but still has some degree of dizziness. She is staying in bed most of the day and avoid standing and walking in her room at this time. As noted her CAT scan of the brain revealed evidence of old right cerebellar stroke. The patient is quite clear and appropriate for her age. She is answering all questions appropriately. We will give further recommendations depending on the results of her MRI and MRA study. Overall she seems to be doing quite well today and we will continue close neurological follow-up with this patient during this admission. Objective - Vital Signs Vital signs: Vital Signs Temp 97.8 F 07/08/18 14:41 Pulse 86 07/08/18 16:00 Resp 16 07/08/18 16:00 BP 178/80 07/08/18 14:41 Pulse Ox 91 L 07/08/18 14:41 Intake & Output 07/08/18 07/08/18 07/09/18 06:59 18:59 06:59 Intake Total 720 580 Balance 720 580 Weight 91.6 kg Intake: Oral 720 580 Other: Voiding Method Bedside Commode Bedside Commode Diaper # Voids 4 9 - Exam Physical examination: PHYSICAL EXAMINATION: Patient is resting comfortably in bed. VITAL SIGNS: Blood pressure is [178/80]. Heart rate is [86]. Respiration is [16] . Temperature is [97.0]. HEENT: Head is atraumatic, neck is supple, there were no carotid bruits. CHEST: Lungs are clear to auscultation and percussion. CARDIAC: S1, S2 normal rate and rhythm. There is no murmur. ABDOMEN: Soft and nontender. Bowel sounds are present. EXTREMITIES: There is no pedal edema. Peripheral pulses are present. Neurological examination: Patient neurological examinations unchanged from yesterday. - Labs CBC & Chem 7: 07/06/18 23:40 07/06/18 23:40 Assessment and Plan (1) Cerebellar stroke Current Visit: Yes Status: Acute Code(s): I63.9 - CEREBRAL INFARCTION, UNSPECIFIED SNOMED Code(s): 47364857480232726 (2) Benign paroxysmal positional vertigo Current Visit: Yes Status: Acute Code(s): H81.10 - BENIGN PAROXYSMAL VERTIGO , UNSPECIFIED EAR SNOMED Code(s): 633275061 (3) TIA (transient ischemic attack) Current Visit: Yes Status: Acute Code(s): G45.9 - TRANSIENT CEREBRAL ISCHEMIC ATTACK, UNSPECIFIED SNOMED Code(s): 346036508 (4) Hypertensive urgency Current Visit: Yes Status: Acute Code(s): I16.0 - HYPERTENSIVE URGENCY SNOMED Code(s): 119332926 Plan: This patient is a pleasant 88-year-old right-handed white female being evaluated for recent episode of severe and acute dizziness and vertigo. She is being scheduled for MRI and MRA of the brain for further evaluation. CAT scan of the brain did reveal evidence of old right cerebellar stroke. Her symptoms also could be related to benign paroxysmal positional vertigo. Further recommendations will be given depending on the results of her MRI and MRA. The patient's blood pressure is being closely monitored. She has noticed slight improvement in her condition but still has some episodic dizziness. 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 We will continue close neurological follow-up for this patient during this admission. Her overall prognosis at this time remains guarded.
[2018-07-08] MEDS: ATORVASTATIN 40 MG TAB PO SCH (21:50)
[2018-07-08] MEDS: LATANOPROST 0.005% OPHTH DROPS 2.5 ML BTL BOTH EYES SCH (21:51)
[2018-07-09] MEDS: DOCUSATE 100 MG CAP PO SCH ×3 (00:23→15:23)
[2018-07-09] MEDS: SODIUM CHLORIDE 0.9% 1,000 ML IV SCH (05:17)
[2018-07-09] MEDS: ACETAMINOPHEN TAB 325 MG TAB PO PRN ×3 (07:34→21:25)
[2018-07-09] MEDS: ONDANSETRON 4 MG/2 ML VIAL IVP PRN (07:34)
[2018-07-09] MEDS: METOPROLOL TARTRATE 25 MG TAB PO SCH ×2 (07:38→21:23)
[2018-07-09] MEDS: predniSONE 20 MG TAB PO SCH (07:39)
[2018-07-09] MEDS: ASPIRIN 325 MG TAB PO SCH (07:39)
[2018-07-09] MEDS: amLODIPine 5 MG TAB PO SCH (07:39)
[2018-07-09] MEDS: LOSARTAN 50 MG TAB PO SCH ×2 (07:40→21:23)
[2018-07-09] MEDS: cloNIDine HCL 0.1 MG TAB PO SCH ×3 (07:41→23:34)
[2018-07-09] MEDS: HEPARIN SODIUM,PORCINE 5,000 UNIT/ML 1 ML VIAL SQ SCH ×2 (07:41→21:23)
[2018-07-09] MEDS: FUROSEMIDE 40 MG TAB PO SCH (07:41)
[2018-07-09] MEDS: CHOLECALCIFEROL 1,000 UNIT TAB PO SCH (07:42)
[2018-07-09] MEDS: PANTOPRAZOLE 40 MG TABLET PO SCH (07:42)
[2018-07-09] MEDS: MECLIZINE 12.5 MG TAB PO PRN ×2 (10:19→23:42)
--- NOTE | 2018-07-09 11:02 | P.PN ---
Subjective Progress Note Date: 07/09/18 Principal diagnosis: Dizziness Patient reported ongoing dizziness when changing position and stated that it's stable from yesterday but patient was able to go to the bathroom successfully on her own without any fall. Patient stated that her dizziness worse when she tries to sit to stand up and keep going Objective - Vital Signs Vital signs: Vital Signs Temp 97.6 F 07/09/18 07:50 Pulse 80 07/09/18 07:50 Resp 18 07/09/18 07:50 BP 199/92 07/09/18 07:50 Pulse Ox 92 L 07/09/18 07:50 Intake & Output 07/08/18 07/09/18 07/09/18 18:59 06:59 18:59 Intake Total 580 450 Balance 580 450 Weight 91.6 kg 91.6 kg Intake: Oral 580 450 Other: Voiding Method Bedside Commode Bedside Commode Toilet Diaper Incontinent # Voids 9 2 1 # Bowel Movements 1 - Exam Gen.: in stated age, no acute distress Heart: Normal S1-S2 Lungs: Clear to auscultation bilaterally Abdomen: Soft, no tenderness, positive bowel sounds in all 4 quadrant no guarding or rebound Skin: No new rash Psych: Alert and oriented 3 Neuro: No focal deficit - Labs CBC & Chem 7: 07/06/18 23:40 07/06/18 23:40 Assessment and Plan Assessment: 1. Dizziness. 2. History of CVA. 3. Benign paroxysmal positional vertigo. 4. Uncontrolled hypertension 5. Glaucoma. 6. Asthma. MRI and MRA an process with follow-up on test results continue with PT OT evaluation check on her orthostatic repeat blood work in the morning and monitor vital signs closely and I would like to continue with evidence based medicine at this point. Will follow-up with neurology recommendation regarding discharge planning. Plan discussed with her son at the bedside who is agreeable to the current treatment plan and will consider discharging based on clinical progress
[2018-07-09] MEDS: LATANOPROST 0.005% OPHTH DROPS 2.5 ML BTL BOTH EYES SCH (21:22)
[2018-07-09] MEDS: ATORVASTATIN 40 MG TAB PO SCH (21:23)
[2018-07-10] MEDS: DOCUSATE 100 MG CAP PO SCH ×3 (00:06→17:54)
[2018-07-10] MEDS: ONDANSETRON 4 MG/2 ML VIAL IVP PRN (02:02)
[2018-07-10] MEDS: SODIUM CHLORIDE 0.9% 1,000 ML IV SCH (05:07)
[2018-07-10] MEDS: ASPIRIN 325 MG TAB PO SCH (08:16)
[2018-07-10] MEDS: amLODIPine 5 MG TAB PO SCH (08:17)
[2018-07-10] MEDS: cloNIDine HCL 0.1 MG TAB PO SCH ×3 (08:17→22:20)
[2018-07-10] MEDS: FUROSEMIDE 40 MG TAB PO SCH (08:17)
[2018-07-10] MEDS: LOSARTAN 50 MG TAB PO SCH ×2 (08:17→20:26)
[2018-07-10] MEDS: predniSONE 20 MG TAB PO SCH (08:17)
[2018-07-10] MEDS: PANTOPRAZOLE 40 MG TABLET PO SCH (08:18)
[2018-07-10] MEDS: METOPROLOL TARTRATE 25 MG TAB PO SCH ×2 (08:18→20:26)
[2018-07-10] MEDS: HEPARIN SODIUM,PORCINE 5,000 UNIT/ML 1 ML VIAL SQ SCH ×2 (08:18→20:26)
[2018-07-10] MEDS: MECLIZINE 12.5 MG TAB PO PRN ×2 (09:19→20:26)
[2018-07-10] MEDS: CHOLECALCIFEROL 1,000 UNIT TAB PO SCH (09:19)
--- NOTE | 2018-07-10 12:11 | CDI ---
Documentation Clarification Form Date: 07/10/18 CDS: Josefina Shepard RN Admit Date: 07/07/18 Patient Name: Sindi Fairchild ATTENTION: The Clinical Documentation Specialists (CDI) and [facility] Coding Staff appreciate your assistance in clarifying documentation. Please respond to the clarification below the line at the bottom and electronically sign. The CDI & [facility] [employer] Coding staff will review the response and follow-up if needed. Please note: Queries are made part of the Legal Health Record. If you have any questions, please contact the author of this message via ITS. Dr. Sandy Diaz MD, Diagnosis and location in medical record Benign paroxysmal positional vertigo. Patient history/risk factors: GERD, asthma, HTN, OA Clinical Indicators: Consult Dr. Rico 9.7: " PT. denies any previous hx of stroke. 1)Cerebellar stroke, 3: TIA" Brain CT: There is some hypodensity in the cortex right cerebellar hemisphere suggestive of old small cortical infarct. Vital Signs on admission: T 97.9, P 85, R 18, 181/88, 97% RA Pt. states weakness and dizziness, difficulty walking, off balance Treatment: ASA daily, Antivert TID Consults: Neurology consult In your professional opinion, can you please clarify primary diagnosis? Benign paroxysmal positional vertigo Cerebellar stroke TIA Other, please specify Unable to determine cerebeller stroke MTDD
[2018-07-10] MEDS: SPIRONOLACTONE 25 MG TAB PO SCH (12:57)
--- NOTE | 2018-07-10 14:52 | P.PN ---
Subjective Progress Note Date: 07/10/18 88 years old female patient of Dr. Beard with past medical history of asthma, GERD, hypertension presents with an episode of dizziness when she woke up this morning. Dizziness is associated with headache, nausea and vomiting and fullness in the right ear. No improvement with meclizine given in the ER Patient denies any previous history of stroke or similar presentation. She denies any ear ache, tinnitus or ringing in the ears. CT head was done in the ER that suggested a small cerebellar infarct on the right that is old. Carotid Dopplers ordered. MRI and MRA of the head and neck ordered for evaluation for cerebellar stroke. Continue patient on aspirin, atorvastatin. Neurology evaluation pending 07/08: Patient symptoms has improved overnight and feels at least 50% better than yesterday no major events reported by nursing staff. MRI and MRA an process with follow-up on test results continue with PT OT evaluation check on her orthostatic repeat blood work in the morning and monitor vital signs closely and I would like to continue with evidence based medicine at this point. Will follow-up with neurology recommendation regarding discharge planning 07/09: Patient reported ongoing dizziness when changing position and stated that it's stable from yesterday but patient was able to go to the bathroom successfully on her own without any fall. Patient stated that her dizziness worse when she tries to sit to stand up and keep going. MRI and MRA an process with follow-up on test results continue with PT OT evaluation check on her orthostatic repeat blood work in the morning and monitor vital signs closely and I would like to continue with evidence based medicine at this point. Will follow-up with neurology recommendation regarding discharge planning. Plan discussed with her son at the bedside who is agreeable to the current treatment plan and will consider discharging based on clinical progress 07/10: Patient has been seen by Dr. Rico for benign paroxysmal positional vertigo suspected. Patient states she continues to have dizziness whenever she moves her head to either side but does okay without it straight on. Prednisone will be decreased from 60-50 mg. Continue to wait for MRI and MRA of the brain for further evaluation as records needed to be obtained from public weigher regarding eye stents. Anticipate this will be completed today. Telemetry will be discontinued. Orthostatic vital signs to be checked. Echocardiogram reveals EF of 55-60%, borderline concentric left hypertrophy, probably mildly dilated, mild mitral regurgitation, moderate tricuspid regurgitation, severe pulmonary hypertension. Carotid ultrasound showed no hemodynamically significant stenosis. Await MRI/MRA of the brain for final diagnosis. Hopefully this can be completed in the next 24 hours and patient will be discharged to rehab. Objective - Vital Signs Vital signs: Vital Signs Temp 97.4 F L 07/10/18 05:00 Pulse 59 L 07/10/18 05:00 Resp 16 07/10/18 05:00 BP 160/79 07/10/18 05:00 Pulse Ox 93 L 07/10/18 05:00 Intake & Output 07/09/18 07/10/18 07/10/18 18:59 06:59 18:59 Intake Total 60 Balance 60 Weight 91.6 kg Intake: Oral 60 Other: Voiding Method Toilet Bedside Commode Bedside Commode Diaper Diaper Diaper Incontinent Incontinent Incontinent # Voids 3 1 # Bowel Movements 1 - Exam General appearance: cooperative, no acute distress, obese - EENT Eyes: anicteric sclerae, PERRLA, normal appearance ENT: hearing grossly normal, no cerumen impaction seen on examination of the ear , no sign of inflammation or otitis media - Neck Neck: no lymphadenopathy, normal ROM, no other, no rigidity, no stridor, no thyromegaly - Respiratory Respiratory: bilateral: CTA, negative: diminished, dullness, rales, rhonchi - Cardiovascular Rhythm: regular Heart sounds: normal: S1, S2 Abnormal Heart Sounds: no systolic murmur, no diastolic murmur, no rub, no S3 Gallop, no S4 Gallop, no click, no other - Gastrointestinal General gastrointestinal: normal bowel sounds, soft - Integumentary Integumentary: no rash - Neurologic Neurologic: CNII-XII intact no motor or sensory deficit noted, no coordination defect, normal proprioception - Musculoskeletal Musculoskeletal: strength equal bilaterally - Psychiatric Psychiatric: A&O x's 3, appropriate affect - Labs CBC & Chem 7: 07/06/18 23:40 07/06/18 23:40 Assessment and Plan Plan: 1 acute vertigo likely differential cerebellar infarct as patient has a history of old cerebellar infarct. Other differential include vestibular neuritis due to persistent nausea and vomiting with headache and ear fullness. Carotid Dopplers as above. CT head showing finding of old infarct in the right cerebellar region. MRI/MRA ordered. Meclizine ordered for dizziness. Prednisone 60 mg decreased to 50 mg for possible vestibular neuritis. Continue aspirin and Lipitor 40 mg by mouth daily. Neurology consult appreciated. #2 Hypertensive urgency - blood pressure well controlled on losartan 50 bid, metoprolol 25 MG PO bid , Lasix 40 MG PO DAILY, clonidine 0.3 mg 3 times a day AND NORVASC 5 MG PO DAILY # 3 asthma, moderate intermittent. DuoNeb as needed for shortness of breath. Continue Symbicort twice a day #4 history of glaucoma continue latanoprost drops at bedtime #5 GI prophylaxis continue 40 mg by mouth daily X #6 DVT prophylaxis with heparin every 12 CODE STATUS full code Discharge plan: Subacute rehab at [facility] or [facility] Impression and plan of care have been directed as dictated by the signing physician. Marcela Love nurse practitioner acting as scribe for signing physician.
[2018-07-10] MEDS: ATORVASTATIN 40 MG TAB PO SCH (20:26)
[2018-07-10] MEDS: LATANOPROST 0.005% OPHTH DROPS 2.5 ML BTL BOTH EYES SCH (20:26)
[2018-07-10 21:59] VITALS: PULSE 55
[2018-07-11] MEDS: DOCUSATE 100 MG CAP PO SCH ×3 (00:11→17:25)
[2018-07-11] MEDS: SODIUM CHLORIDE 0.9% 1,000 ML IV SCH (03:45)
[2018-07-11] MEDS: amLODIPine 5 MG TAB PO SCH (08:45)
[2018-07-11] MEDS: ASPIRIN 325 MG TAB PO SCH (08:45)
[2018-07-11] MEDS: FUROSEMIDE 40 MG TAB PO SCH (08:46)
[2018-07-11] MEDS: HEPARIN SODIUM,PORCINE 5,000 UNIT/ML 1 ML VIAL SQ SCH (08:46)
[2018-07-11] MEDS: LOSARTAN 50 MG TAB PO SCH (08:46)
[2018-07-11] MEDS: CHOLECALCIFEROL 1,000 UNIT TAB PO SCH (08:46)
[2018-07-11] MEDS: METOPROLOL TARTRATE 25 MG TAB PO SCH (08:46)
[2018-07-11] MEDS: cloNIDine HCL 0.1 MG TAB PO SCH ×2 (08:46→17:25)
[2018-07-11] MEDS: PANTOPRAZOLE 40 MG TABLET PO SCH (08:47)
[2018-07-11] MEDS: SPIRONOLACTONE 25 MG TAB PO SCH (08:47)
[2018-07-11] MEDS ORDERED: predniSONE 50 MG TAB PO SCH (09:00)
[2018-07-11 12:35] VITALS: RESP 17; TEMP 97.7
--- NOTE | 2018-07-11 14:26 | MR ---
EXAMINATION TYPE: MR brain wo/w con DATE OF EXAM: 07/11/2018 COMPARISON: CT brain from 4 days ago. HISTORY: Stroke. Patient admitted for dizziness 4 days earlier. TECHNIQUE: Multiplanar, multisequence images of the brain and brainstem is performed without and with IV contras t, utilizing 9 mL intravenous Gadavist . FINDINGS: Diffusion weighted images demonstrate increased signal diffusely involving right cerebellar hemisphere inferior one half portion with diminished signal on ADC mapping that shows T2 hyperintens ity and T1 hypointensity consistent with evolving acute cerebellar infarct. There is new cerebellar edema causing mass effect on the posterior aspect of the velma. Some subtle midline shift at this leve l is present. The area of involvement is roughly 4 cm AP diameter by 5 cm transversely by 3 to 4 cm c raniocaudal dimension. There is no worrisome extra-axial fluid collection. There is ventricular and sulcal prominence consis tent with mild diffuse age-related cerebral atrophy. There are some scattered foci of T2 hyperintensi ty in the deep and periventricular white matter redemonstrated consistent with product of mild chroni c small vessel ischemic change. Suspect old infarct anterior left temporal region axial image 8. Midline structures demonstrate normal morphology. The craniocervical junction appears within normal limits. Post contrast images demonstrate no abnormal enhancement. The dural venous sinuses appear pa tent. There is 6 mm mucous retention cyst or polyp in the anterior medial left maxillary sinus redemo nstrated. IMPRESSION: 1. There is significant evolving acute infarct involving inferior one half the right cerebellum with local swelling and mass effect and subtle midline shift. A [place] level critical message alert has been initiated for Gold Rico MD via the [employer] Critical Results System on 07/11/2018 2:23 PM. This message alert has been sent to Gold Rico MD via the preferences provided by the clinician for the receipt of Radiology Critical Findi ngs. Message ID [id number].
--- NOTE | 2018-07-11 14:35 | MR ---
EXAMINATION TYPE: MR angio head wo/neck wo/w con DATE OF EXAM: 07/11/2018 COMPARISON: Carotid ultrasound from 4 days ago HISTORY: Stroke TECHNIQUE: Time of flight images focusing on the cervical of [place] were performed without contrast.. 2-D and 3-D postprocessing imaging is performed on MRI scanner. MRA images of the neck focusing on carotid arteries is performed without and with IV contrast, patient injected with 9 cc of gadavist fo r the study. FINDINGS: VASCULAR: There is normal three-vessel origin from aortic arch without significant stenosis. Visualiz ed portion of bilateral subclavian arteries show no significant focal stenosis. The right common kay tid artery shows normal origin from right brachiocephalic artery, there is no significant stenosis. N o significant stenosis is seen at right carotid bulb with patent external and internal carotid arteri es seen. There is tortuous course to the proximal right internal carotid artery without significant f ocal stenosis. Left common carotid artery shows no significant stenosis up to carotid bulb. No significant stenosis is seen at left carotid bulb extending into proximal internal and external carotid arteries. Tortuous course to proximal left internal carotid artery is also identified with tortuous course mid to dista l segments also seen. No significant stenosis however is noted. There is complete occlusion of the is small caliber right vertebral artery shortly after its origin. There is patency of the left vertebral artery. Distal basilar artery is markedly small caliber for re ference axial image 81 measuring up to 1.8 cm in diameter. There is patent right posterior communicat ing artery causing filling of right P2 segment and patent left posterior communicating artery causing filling of left P2 segment. There is unusual variant with communication between the bilateral oracle etl developer ior communicating arteries. There are small caliber but patent bilateral P1 segments. Anterior circulation shows tortuous course to the bilateral distal internal carotid arteries with pat ent anterior communicating artery. No significant stenosis is evident. IMPRESSION: 1. 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 2. No significant stenosis in common or internal carotid arteries bilaterally. 3. No aneurysmal change at level of [place].
[2018-07-11] MEDS ORDERED: DEXAMETHASONE SOD PHOSPHATE 10 MG/ML 1 ML VIAL IV STA (14:42)
--- NOTE | 2018-07-11 14:56 | P.PN ---
Subjective Progress Note Date: 07/11/18 This patient is a 88-year-old right-handed white female who was initially seen in neurology consultation back on 07/06/2018. She presented to the hospital with symptoms of severe dizziness and unsteadiness. She was subtotally admitted to the hospital and has been awaiting neuro imaging study with an MRI of the brain. Her CAT scan of the brain which was performed on 07/07/2018 revealed evidence of an old right cerebellar small cortical infarct. No acute intracranial abnormality was noted. The patient was ultimately admitted to the hospital and is undergone a complete stroke evaluation. We have recommended the patient to undergo an MRI and MRA of the brain given her history suggesting possibility of brainstem stroke. Unfortunately she had stents placed in her I and we were awaiting clearance from ophthalmology and Dr. Abreu to see if she could go for MRI of the brain given the placement of her stents. Clearance was finally given to the patient today. She was sent for MRI and MRA of the brain. MRI of the brain results were reviewed today and do indicate a significant evolving acute infarction involving the inferior and one half of the right cerebellar hemisphere with local swelling and mass effect and subtle midline shift. MRA of the brain revealed complete occlusion of the nondominant right vertebral artery shortly after the origin. Markedly small caliber distal basilar artery was also noted. There was no evidence of any aneurysm. We reviewed the results of this MRI and MRA today with the patient in detail. Given the degree of stroke involvement and swelling with mass effect we would recommend the patient to be transferred to a tertiary Center for neurosurgical monitoring. She is at riskrniation syndrome given the location of the stroke involving the posterior fossa of the cranium and the degree of stroke involvement. Clinically the patient has fortunately remained very much stable yet still continues to experience dizziness feeling off and on. She has not had any nausea vomiting. We have recommended starting this patient on IV Decadron 10 mg IV push 1 now followed by a maintenance dose of IV Decadron 6 mg every 4 hours. We have recommended the nursing staff to contact Dr. Diaz regarding the results of this MRI MRA and our recommendations to have this patient transferred to a tertiary center for neurosurgical evaluation and treatment. Her overall prognosis at this time remains very guarded. Objective - Vital Signs Vital signs: Vital Signs Temp 97.7 F 07/11/18 12:34 Pulse 55 L 07/11/18 12:34 Resp 17 07/11/18 12:34 BP 166/84 07/11/18 12:34 Pulse Ox 96 07/11/18 12:34 Intake & Output 07/10/18 07/11/18 07/11/18 18:59 06:59 18:59 Intake Total 840 Output Total 200 Balance 640 Weight 91.6 kg Intake: Oral 840 Output: Urine 200 Other: Voiding Method Bedside Commode Bedside Commode Bedside Commode Diaper Diaper Diaper # Voids 6 1 1 - Exam Physical examination: PHYSICAL EXAMINATION: Patient is resting comfortably in bed. VITAL SIGNS: Blood pressure is [166/64]. Heart rate is [55]. Respiration is [17] . Temperature is [97.7]. HEENT: Head is atraumatic, neck is supple, there were no carotid bruits. CHEST: Lungs are clear to auscultation and percussion. CARDIAC: S1, S2 normal rate and rhythm. There is no murmur. ABDOMEN: Soft and nontender. Bowel sounds are present. EXTREMITIES: There is no pedal edema. Peripheral pulses are present. Neurological examination: Patient neurological examinations unchanged from yesterday. The patient continues to experience episodic dizziness and vertigo. She denies any headache or nausea vomiting symptoms at this time. - Labs CBC & Chem 7: 07/06/18 23:40 07/06/18 23:40 Assessment and Plan (1) Cerebellar stroke Current Visit: Yes Status: Acute Code(s): I63.9 - CEREBRAL INFARCTION, UNSPECIFIED SNOMED Code(s): 91444069173428310 (2) Benign paroxysmal positional vertigo Current Visit: Yes Status: Acute Code(s): H81.10 - BENIGN PAROXYSMAL VERTIGO , UNSPECIFIED EAR SNOMED Code(s): 148041242 (3) TIA (transient ischemic attack) Current Visit: Yes Status: Acute Code(s): G45.9 - TRANSIENT CEREBRAL ISCHEMIC ATTACK, UNSPECIFIED SNOMED Code(s): 668961085 (4) Hypertensive urgency Current Visit: Yes Status: Acute Code(s): I16.0 - HYPERTENSIVE URGENCY SNOMED Code(s): 518518546 Plan: This patient is a 88-year-old right-handed white female who was admitted to [facility] on 07/06/2018 for evaluation of dizziness and unsteady gait. We had recommended a complete stroke evaluation for this patient including MRI MRA study of the brain. Unfortunately we were waiting for clearance from ophthalmology regarding stents in her eyes to see if she could undergo MRI study. Dr. Abreu from ophthalmology was contacted and gave clearance today. She was sent for MRI MRA of the brain the results of which are noted above. MRI of the brain reveals evidence of a large right cerebellar stroke with vasogenic edema and midline shift. Given the extent of her stroke we are recommending the patient is at risk for herniation syndrome given the location in the posterior fossa. For these reasons we are recommending the patient should be transferred to a tertiary center such as [facility] neurosurgery ICU for close monitoring for the next few days. In the meantime we will start the patient on IV Decadron 10 mg IV push followed by IV Decadron 6 mg every 4 hours. We have discussed all of the MRI results today with the patient. We are strongly recommending that she be transferred to neurosurgery ICU for further management of her acute stroke and vasogenic edema with midline shift. Overall she is remaining stable despite her passive stroke. We will continue close neurological follow-up the patient during this admission. We have instructed the nursing staff to contact Dr. Diaz to make arrangements to have this patient transferred to [facility] neurosurgery as soon as possible. This patient's overall prognosis at this time remains very guarded.
--- NOTE | 2018-07-11 15:20 | P.DS ---
Providers Date of admission: 07/07/18 03:57 Expected date of discharge: 07/11/18 Attending physician: Sandy Diaz MD Consults: 07/07/18 03:58 Consult Physician Routine Consulting Provider: Gold Rico Consult Reason/Comments: Vertigo. Previous cerebellar stroke Do you want consulting provider notified?: Yes Primary care physician: [facility] Course: 88 years old female patient of Dr. Beard with past medical history of asthma, GERD, hypertension presents with an episode of dizziness when she woke up this morning. Dizziness is associated with headache, nausea and vomiting and fullness in the right ear. No improvement with meclizine given in the ER Patient denies any previous history of stroke or similar presentation. She denies any ear ache, tinnitus or ringing in the ears. CT head was done in the ER that suggested a small cerebellar infarct on the right that is old. Carotid Dopplers ordered. MRI and MRA of the head and neck ordered for evaluation for cerebellar stroke. Continue patient on aspirin, atorvastatin. Neurology evaluation pending 07/08: Patient symptoms has improved overnight and feels at least 50% better than yesterday no major events reported by nursing staff. MRI and MRA an process with follow-up on test results continue with PT OT evaluation check on her orthostatic repeat blood work in the morning and monitor vital signs closely and I would like to continue with evidence based medicine at this point. Will follow-up with neurology recommendation regarding discharge planning 07/09: Patient reported ongoing dizziness when changing position and stated that it's stable from yesterday but patient was able to go to the bathroom successfully on her own without any fall. Patient stated that her dizziness worse when she tries to sit to stand up and keep going. MRI and MRA an process with follow-up on test results continue with PT OT evaluation check on her orthostatic repeat blood work in the morning and monitor vital signs closely and I would like to continue with evidence based medicine at this point. Will follow-up with neurology recommendation regarding discharge planning. Plan discussed with her son at the bedside who is agreeable to the current treatment plan and will consider discharging based on clinical progress 07/10: Patient has been seen by Dr. Rico for benign paroxysmal positional vertigo suspected. Patient states she continues to have dizziness whenever she moves her head to either side but does okay without it straight on. Prednisone will be decreased from 60-50 mg. Continue to wait for MRI and MRA of the brain for further evaluation as records needed to be obtained from log hauler regarding eye stents. Anticipate this will be completed today. Telemetry will be discontinued. Orthostatic vital signs to be checked. Echocardiogram reveals EF of 55-60%, borderline concentric left hypertrophy, probably mildly dilated, mild mitral regurgitation, moderate tricuspid regurgitation, severe pulmonary hypertension. Carotid ultrasound showed no hemodynamically significant stenosis. Await MRI/MRA of the brain for final diagnosis. Hopefully this can be completed in the next 24 hours and patient will be discharged to rehab. 07/11: Patient symptoms were surprisingly improved today. She underwent an MRI revealed significant evolving acute infarct involving the inferior one half of the right cerebellum with local swelling and mass effect and subtle midline shift. MRI of the brain showed complete occlusion of the nondominant right vertebral artery shortly after origin. Markedly small caliber distal basilar artery. No significant stenosis and common or internal carotid arteries bilaterally. No aneurysmal change at the level of [place]. Dr. Rico recommended urgent transfer to [facility] for neurosurgery as patient is at high risk for herniation syndrome given the location and the posterior fossa. IV Decadron 10 mg IV push followed by 6 mg every 4 hours was ordered by Dr. Rico. Arrangements are in process and patient will be transferred to [facility] wedge arrangements are completed. Discharge diagnoses: 1. Acute ischemic infarct involving the inferior one half of the right cerebellum with vasogenic edema and midline shift #2 Hypertensive urgency # 3 asthma, moderate intermittent. #4 history of glaucoma Impression and plan of care have been directed as dictated by the signing physician. Marcela Love nurse practitioner acting as scribe for signing physician. Patient Condition at Discharge: Stable Plan - Discharge Summary Discharge Rx Participant: No New Discharge Prescriptions: No Action HYDROcodone/APAP 5-325MG [Jackson 5-325] 1 tab PO Q4HR PRN PRN Reason: Pain Cholecalciferol [Vitamin D3] 1,000 unit PO DAILY cloNIDine HCL [Catapres] 0.4 mg PO TID Metoprolol Tartrate [Lopressor] 25 mg PO BID Lansoprazole 30 mg PO DAILY Vitamin B Complex 1 cap PO DAILY Losartan [Cozaar] 50 mg PO BID Furosemide [Lasix] 40 mg PO DAILY amLODIPine [Norvasc] 5 mg PO DAILY #10 tab Gabapentin [Neurontin] 100 mg PO BID Tracie-Lopez 1 tab PO DAILY Discharge Medication List Cholecalciferol [Vitamin D3] 1,000 unit PO DAILY 10/15/15 [History] HYDROcodone/APAP 5-325MG [Jackson 5-325] 1 tab PO Q4HR PRN 10/15/15 [History] Lansoprazole 30 mg PO DAILY 10/15/15 [History] Metoprolol Tartrate [Lopressor] 25 mg PO BID 10/15/15 [History] Vitamin B Complex 1 cap PO DAILY 10/15/15 [History] cloNIDine HCL [Catapres] 0.4 mg PO TID 10/15/15 [History] Losartan [Cozaar] 50 mg PO BID 03/15/16 [History] Furosemide [Lasix] 40 mg PO DAILY 03/18/16 [History] amLODIPine [Norvasc] 5 mg PO DAILY #10 tab 03/18/16 [Rx] Gabapentin [Neurontin] 100 mg PO BID 07/07/18 [History] Tracie-Lopez 1 tab PO DAILY 07/07/18 [History] Follow up Appointment(s)/Referral(s): Grupo Beard MD [Primary Care Provider] - 1-2 days
[2018-07-11 17:26] VITALS: BP 176/83
[2018-07-11] MEDS: ONDANSETRON 4 MG/2 ML VIAL IVP PRN (18:19)
[2018-07-11] MEDS ORDERED: DEXAMETHASONE SOD PHOSPHATE 4 MG/ML 1 ML VIAL IV SCH (20:00)
== END 2018-07-11 18:25 | disposition short-term general hospital (02) | DRG 64 ==
LOC: EC 23:09 → 6ICU 07-07 03:57 → 5MS5E 07-07 16:35
PROVIDERS: ADMIT Internal Medicine; ATTEND Internal Medicine
DX: I63.211 Cerebral infarction due to unspecified occlusion or stenosis of right vertebral artery (principal); G93.6 Cerebral edema; H40.9 Unspecified glaucoma; H81.10 Benign paroxysmal vertigo, unspecified ear; I08.1 Rheumatic disorders of both mitral and tricuspid valves; I10 Essential (primary) hypertension; I16.0 Hypertensive urgency; I27.20 Pulmonary hypertension, unspecified; J45.909 Unspecified asthma, uncomplicated; K21.9 Gastro-esophageal reflux disease without esophagitis; Z79.51 Long term (current) use of inhaled steroids; Z79.899 Other long term (current) drug therapy; Z80.3 Family history of malignant neoplasm of breast; Z79.891 Long term (current) use of opiate analgesic; Z88.2 Allergy status to sulfonamides; Z98.42 Cataract extraction status, left eye; Z98.41 Cataract extraction status, right eye; R29.700 NIHSS score 0
CPT/HCPCS: 36415; 70450; 70544; 70549; 70553; 71045; 80053; 80061; 81001; 83605; 84484; 85025; 93005; 93306; 93880; 94760; 96374; 99285

== ENCOUNTER 2018-08-29 10:17 | Emergency (ER) | payer MEDICARE, BC ==
[2018-08-29 10:44] VITALS: TEMP 98.8
[2018-08-29] MEDS ORDERED: hydrALAZINE HCL 20 MG/ML 1 ML VIAL IVP STA (10:55)
--- NOTE | 2018-08-29 11:12 | ED ---
General Adult HPI - General Chief complaint: Recheck/Abnormal Lab/Rx Stated complaint: high bp Time Seen by Provider: 08/29/18 10:35 Source: patient, family, RN notes reviewed Mode of arrival: ambulatory - History of Present Illness Initial comments: This is an 88-year-old female presents emergency Department complaining that she woke up this morning and just didn't feel right felt a little bit dizzy. Patient states she continued Lasix from the house but when the physical therapist came in her blood pressure was elevated physical therapist insisted she come to the emergency department. Patient told me that she is on clonidine but since or Tuesday she's been out of her clonidine so she has been taking it twice a day. Patient denies any chest pain difficulty breathing shortness of breath. Patient denies any recent fever chills or cough. Patient denies any abdominal pain patient denies nausea vomiting diarrhea. Patient denies any new pain anywhere. Patient denies headache patient denies numbness weakness. She denies any near syncopal episode. - Related Data Home Medications Medication Instructions Recorded Confirmed Cholecalciferol [Vitamin D3] 1,000 unit PO DAILY 10/15/15 08/29/18 HYDROcodone/APAP 5-325MG [[place] 1 tab PO Q12HR PRN 10/15/15 08/29/18 5-325] Metoprolol Tartrate [Lopressor] 25 mg PO BID 10/15/15 08/29/18 Vitamin B Complex 1 cap PO DAILY 10/15/15 08/29/18 cloNIDine HCL [Catapres] 0.4 mg PO TID 10/15/15 08/29/18 Losartan [Cozaar] 50 mg PO BID 03/15/16 08/29/18 Gabapentin [Neurontin] 100 mg PO BID 07/07/18 08/29/18 Tracie-Lopez 1 tab PO DAILY 07/07/18 08/29/18 Atorvastatin [Lipitor] 80 mg PO HS 08/29/18 08/29/18 Budesonide-Formot 160-4.5 Mcg 2 puff INHALATION RT-BID 08/29/18 08/29/18 [Symbicort 160-4.5 Mcg Inhaler] Meclizine [Antivert] 12.5 mg PO BID 08/29/18 08/29/18 Tumeric (Unknown Dose) 1 tab PO BID 08/29/18 08/29/18 Previous Rx's Medication Instructions Recorded amLODIPine [Norvasc] 5 mg PO DAILY #10 tab 03/18/16 cloNIDine HCL [Catapres] 0.4 mg PO BID #120 tab 08/29/18 Allergies Allergy/AdvReac Type Severity Reaction Status Date / Time Sulfa (Sulfonamide Allergy Rash/Hives Verified 08/29/18 11:01 Antibiotics) calcium AdvReac Unknown Unknown Verified 08/29/18 11:01 baclofen AdvReac NUMBNESS Verified 08/29/18 11:01 WAS WORSE IN FEET" UNSTEADY" clotrimazole AdvReac Unknown Verified 08/29/18 11:01 fluconazole AdvReac Unknown Verified 08/29/18 11:01 Review of Systems ROS Statement: Those systems with pertinent positive or pertinent negative responses have been documented in the HPI. ROS Other: All systems not noted in ROS Statement are negative. Past Medical History Past Medical History: Asthma, Eye Disorder, GERD/Reflux, Hypertension, Osteoarthritis (OA) Additional Past Medical History / Comment(s): glaucoma,lower back pain, NEUROPATHY History of Any Multi-Drug Resistant Organisms: None Reported Past Surgical History: Orthopedic Surgery Additional Past Surgical History / Comment(s): eye surgery- stent in rt eye for glaucoma, carpal tunnel repair padmini.BILATERAL CATARACT Past Anesthesia/Blood Transfusion Reactions: No Reported Reaction Past Psychological History: No Psychological Hx Reported Smoking Status: Never smoker Past Alcohol Use History: None Reported Past Drug Use History: None Reported - Past Family History Sister(s) Family Medical History: Cancer Additional Family Medical History / Comment(s): breast cancer General Exam - General Exam Comments Initial Comments: GENERAL: Patient is well-developed and well-nourished. Patient is nontoxic and well- hydrated and is in mild distress. ENT: Neck is soft and supple. No significant lymphadenopathy is noted. Oropharynx is clear. Moist mucous membranes. Neck has full range of motion without eliciting any pain. EYES: The sclera were anicteric and conjunctiva were pink and moist. Extraocular movements were intact and pupils were equal round and reactive to light. Eyelids were unremarkable. PULMONARY: Unlabored respirations. Good breath sounds bilaterally. No audible rales rhonchi or wheezing was noted. CARDIOVASCULAR: There is a regular rate and rhythm without any murmurs gallops or rubs. ABDOMEN: Soft and nontender with normal bowel sounds. No palpable organomegaly was noted. There is no palpable pulsatile mass. SKIN: Skin is clear with no lesions or rashes and otherwise unremarkable. NEUROLOGIC: Patient is alert and oriented x3. Cranial nerves II through XII are grossly intact. Motor and sensory are also intact. Normal speech, volume and content. Symmetrical smile. MUSCULOSKELETAL: Normal extremities with adequate strength and full range of motion. No lower extremity swelling or edema. No calf tenderness. LYMPHATICS: No significant lymphadenopathy is noted PSYCHIATRIC: Normal psychiatric evaluation. Course Vital Signs 08/29/18 08/29/18 08/29/18 10:36 10:42 10:50 Temperature 98.8 F Pulse Rate 87 Respiratory 18 Rate Blood Pressure 179/103 179/103 O2 Sat by Pulse 93 L 93 L 94 L Oximetry 08/29/18 08/29/18 08/29/18 11:00 11:01 11:10 Temperature Pulse Rate 86 84 84 Respiratory 18 16 20 Rate Blood Pressure 168/108 174/93 174/93 O2 Sat by Pulse 95 95 Oximetry 08/29/18 08/29/18 08/29/18 11:20 11:30 11:40 Temperature Pulse Rate 92 93 Respiratory 18 18 Rate Blood Pressure 163/84 163/84 160/81 O2 Sat by Pulse 95 95 Oximetry 08/29/18 08/29/18 08/29/18 11:50 12:00 12:10 Temperature Pulse Rate 92 98 97 Respiratory 18 18 18 Rate Blood Pressure 160/81 160/81 158/83 O2 Sat by Pulse 95 94 L 94 L Oximetry Medical Decision Making - Medical Decision Making EKG shows normal sinus rhythm at 92 bpm NH interval 150 QRS is 82 QT interval 370 QTC is 457 per patient's EKG shows no ST segment elevation or depression or T wave abnormalities are noted. Patient got hydralazine in emergency department. Patient received Catapres emergency heart. I spoke with Dr. Beard about the patient Dr. Beard wanted the patient to continue on the Catapres 0.4 mg 3 times a day. Patient's chest x-ray showed no acute abnormalities. I will begin to reevaluate the patient she was feeling good she did get some the emergency department and she will be discharged home with Catapres. Patient ambulated to the bathroom and back and stated she felt back to her baseline. - Lab Data Result diagrams: 08/29/18 10:57 08/29/18 10:57 Lab Results 08/29/18 08/29/18 08/29/18 Range/Units 10:57 10:57 10:57 WBC 12.1 H (3.8-10.6) k/uL RBC 4.80 (3.80-5.40) m/uL Hgb 14.3 (11.4-16.0) gm/dL Hct 44.8 (34.0-46.0) % MCV 93.3 (80.0-100.0) fL MCH 29.8 (25.0-35.0) pg MCHC 31.9 (31.0-37.0) g/dL RDW 13.9 (11.5-15.5) % Plt Count 261 (150-450) k/uL Neutrophils % 78 % Lymphocytes % 14 % Monocytes % 5 % Eosinophils % 1 % Basophils % 1 % Neutrophils # 9.5 H (1.3-7.7) k/uL Lymphocytes # 1.7 (1.0-4.8) k/uL Monocytes # 0.6 (0-1.0) k/uL Eosinophils # 0.1 (0-0.7) k/uL Basophils # 0.1 (0-0.2) k/uL PT (9.0-12.0) sec INR (<1.2) APTT (22.0-30.0) sec Sodium 142 (137-145) mmol/L Potassium (3.5-5.1) mmol/L Chloride 107 (98-107) mmol/L Carbon Dioxide 26 (22-30) mmol/L Anion Gap 9 mmol/L BUN 19 H (7-17) mg/dL Creatinine 0.89 (0.52-1.04) mg/dL Est GFR (CKD-EPI)AfAm 68 (>60 ml/min/1.73 sqM) Est GFR (CKD-EPI)NonAf 59 (>60 ml/min/1.73 sqM) Glucose 143 H (74-99) mg/dL Calcium 9.4 (8.4-10.2) mg/dL Magnesium 1.9 (1.6-2.3) mg/dL Total Bilirubin 2.0 H (0.2-1.3) mg/dL AST 31 (14-36) U/L ALT 24 (9-52) U/L Alkaline Phosphatase 108 (38-126) U/L Total Creatine Kinase 34 (30-135) U/L CK-MB (CK-2) 0.7 (0.0-2.4) ng/mL CK-MB (CK-2) Rel Index 2.1 Troponin I <0.012 (0.000-0.034) ng/mL Total Protein 7.4 (6.3-8.2) g/dL Albumin 4.0 (3.5-5.0) g/dL 08/29/18 Range/Units 10:57 WBC (3.8-10.6) k/uL RBC (3.80-5.40) m/uL Hgb (11.4-16.0) gm/dL Hct (34.0-46.0) % MCV (80.0-100.0) fL MCH (25.0-35.0) pg MCHC (31.0-37.0) g/dL RDW (11.5-15.5) % Plt Count (150-450) k/uL Neutrophils % % Lymphocytes % % Monocytes % % Eosinophils % % Basophils % % Neutrophils # (1.3-7.7) k/uL Lymphocytes # (1.0-4.8) k/uL Monocytes # (0-1.0) k/uL Eosinophils # (0-0.7) k/uL Basophils # (0-0.2) k/uL PT 10.4 (9.0-12.0) sec INR 1.1 (<1.2) APTT 24.3 (22.0-30.0) sec Sodium (137-145) mmol/L Potassium (3.5-5.1) mmol/L Chloride (98-107) mmol/L Carbon Dioxide (22-30) mmol/L Anion Gap mmol/L BUN (7-17) mg/dL Creatinine (0.52-1.04) mg/dL Est GFR (CKD-EPI)AfAm (>60 ml/min/1.73 sqM) Est GFR (CKD-EPI)NonAf (>60 ml/min/1.73 sqM) Glucose (74-99) mg/dL Calcium (8.4-10.2) mg/dL Magnesium (1.6-2.3) mg/dL Total Bilirubin (0.2-1.3) mg/dL AST (14-36) U/L ALT (9-52) U/L Alkaline Phosphatase (38-126) U/L Total Creatine Kinase (30-135) U/L CK-MB (CK-2) (0.0-2.4) ng/mL CK-MB (CK-2) Rel Index Troponin I (0.000-0.034) ng/mL Total Protein (6.3-8.2) g/dL Albumin (3.5-5.0) g/dL Disposition Clinical Impression: Hypertensive urgency Disposition: HOME SELF-CARE Condition: Good Instructions: Hypertension (ED) Prescriptions: cloNIDine HCL [Catapres] 0.4 mg PO BID #120 tab Is patient prescribed a controlled substance at d/c from ED?: No Referrals: Grupo Beard MD [Primary Care Provider] - 1-2 days
[2018-08-29 11:20] LABS: Basophils # (A) 0.1 k/uL (0-0.2); Basophils % (A) 1 %; Eosinophils # (A) 0.1 k/uL (0-0.7); Eosinophils % (A) 1 %; HCT 44.8 % (34.0-46.0); HGB 14.3 gm/dL (11.4-16.0); Lymphocytes # (A) 1.7 k/uL (1.0-4.8); Lymphocytes % (A) 14 %; MCH 29.8 pg (25.0-35.0); MCHC 31.9 g/dL (31.0-37.0); MCV 93.3 fL (80.0-100.0); Mean Platelet Volume 7.3; Monocytes # (A) 0.6 k/uL (0-1.0); Monocytes % (A) 5 %; Neutrophils # (A) 9.5 k/uL (1.3-7.7); Neutrophils % (A) 78 %; Platelet Count 261 k/uL (150-450); RDW 13.9 % (11.5-15.5); WBC 12.1 k/uL (3.8-10.6)
[2018-08-29 11:46] LABS: INR 1.1 (<1.2); Partial Thromboplastin Time 24.3 sec (22.0-30.0); Prothrombin Time 10.4 sec (9.0-12.0)
[2018-08-29 11:50] LABS: Creatine Kinase 34 U/L (30-135)
[2018-08-29 11:53] LABS: Calcium 9.4 mg/dL (8.4-10.2); Magnesium 1.9 mg/dL (1.6-2.3); Total Protein 7.4 g/dL (6.3-8.2)
[2018-08-29] MEDS ORDERED: NITROGLYCERIN OINT 1 INCH/GM PACKET TOPICAL STA (11:56)
[2018-08-29] MEDS ORDERED: LORazepam 2 MG/ML INJ IV STA (11:56)
[2018-08-29 12:02] LABS: Creatine Kinase MB 0.7 ng/mL (0.0-2.4); Troponin I <0.012 ng/mL (0.000-0.034)
--- NOTE | 2018-08-29 12:10 | XR ---
EXAMINATION TYPE: XR chest 2V DATE OF EXAM: 08/29/2018 COMPARISON: 07/07/2018 HISTORY: Shortness of breath TECHNIQUE: Frontal and lateral views of the chest are obtained. FINDINGS: Scattered senescent parenchymal changes noted. Hyperinflation compatible with COPD. No evidence for infiltrate. No evidence for atelectasis. Heart size is stable. Mediastinal structures are stable and grossly unremarkable. No evidence for hilar prominence. Degenerative changes dorsal spine. IMPRESSION: 1. No evidence for acute pulmonary disease.
[2018-08-29] MEDS ORDERED: cloNIDine HCL 0.1 MG TAB PO STA (12:11)
[2018-08-29 12:20] VITALS: BP 158/83; PULSE 97
[2018-08-29 12:21] VITALS: RESP 18
== END 2018-08-29 12:46 | disposition home or self-care (01) ==
LOC: EC 10:17
DX: I16.0 Hypertensive urgency (principal); J45.909 Unspecified asthma, uncomplicated; I10 Essential (primary) hypertension; G62.9 Polyneuropathy, unspecified; Z79.51 Long term (current) use of inhaled steroids; Z79.899 Other long term (current) drug therapy; Z88.2 Allergy status to sulfonamides; Z88.8 Allergy status to other drugs, medicaments and biological substances; Z88.1 Allergy status to other antibiotic agents
CPT/HCPCS: 36415; 93005; 80053; 82550; 82553; 83735; 84484; 85025; 85610; 85730; 71046; 99283; 96374; J0360

== ENCOUNTER 2018-11-27 21:51 | Inpatient (IN) | payer MEDICARE, BC ==
[2018-11-27 22:51] LABS: Basophils # (A) 0.1 k/uL (0-0.2); Basophils % (A) 1 %; Eosinophils # (A) 0.4 k/uL (0-0.7); Eosinophils % (A) 2 %; HCT 42.8 % (34.0-46.0); HGB 12.9 gm/dL (11.4-16.0); Hypochromasia Slight; Lymphocytes # (A) 1.6 k/uL (1.0-4.8); Lymphocytes % (A) 10 %; MCH 28.4 pg (25.0-35.0); MCHC 30.2 g/dL (31.0-37.0); MCV 94.1 fL (80.0-100.0); Mean Platelet Volume 6.7; Monocytes # (A) 0.9 k/uL (0-1.0); Monocytes % (A) 6 %; Neutrophils # (A) 13.5 k/uL (1.3-7.7); Neutrophils % (A) 80 %; Platelet Count 278 k/uL (150-450); RBC 4.55 m/uL (3.80-5.40); WBC 16.8 k/uL (3.8-10.6)
--- NOTE | 2018-11-27 23:01 | XR ---
EXAMINATION TYPE: XR chest 2V DATE OF EXAM: 11/27/2018 COMPARISON: 08/29/2018 HISTORY: Difficulty breathing TECHNIQUE: Frontal and lateral views of the chest are obtained. FINDINGS: There is no heart failure nor confluent pneumonic infiltrate. Costophrenic angles are liam r. Thoracic aorta is atheromatous. There is calcification at the greater tuberosity of the left humer us. IMPRESSION: No active cardiopulmonary disease. 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 No signific ant change compared to old exam.
[2018-11-27 23:04] LABS: Creatine Kinase 60 U/L (30-135)
[2018-11-27 23:05] LABS: Calcium 8.9 mg/dL (8.4-10.2); Potassium 4.5 mmol/L (3.5-5.1); Total Bilirubin 1.2 mg/dL (0.2-1.3)
[2018-11-27 23:12] LABS: INR 0.9 (<1.2); Prothrombin Time 9.5 sec (9.0-12.0)
[2018-11-27 23:16] LABS: Creatine Kinase MB 0.6 ng/mL (0.0-2.4); Troponin I <0.012 ng/mL (0.000-0.034)
[2018-11-27 23:26] LABS: D-Dimer 1.18 mg/L FEU (<0.60)
[2018-11-27] MEDS ORDERED: SODIUM CHLORIDE 0.9% 500 ML 500 ML IV ONE (23:32)
--- NOTE | 2018-11-28 00:32 | CT ---
EXAMINATION TYPE: CT chest angio for PE DATE OF EXAM: 11/27/2018 COMPARISON: 05/13/2014 HISTORY: PE chest pain CT DLP: 430.7 mGycm Automated exposure control for dose reduction was used. CONTRAST: CT Chest for pulmonary embolism performed with with IV Contrast, patient injected with 80 mL of Isovu e 370. FINDINGS: There are 3-D post processed images. There is some interstitial mild nodular infiltrates in both lower lobes. This probably relates to inf lammatory disease. There is a 17 mm noncalcified nodule medial left lower lobe. There is no pleural e ffusion. There is no pleural effusion. Heart is enlarged. There is no pericardial effusion. I see no filling defects in the pulmonary arteries. There are no hilar masses. There is no mediastinal adenopa thy. Thyroid gland is enlarged.. The bony thorax is intact. There is spurring in the thoracic spine. There is no evidence of aortic an eurysm or dissection. There are calcified splenic granulomata. IMPRESSION: No evidence of pulmonary embolism. There is some interstitial and nodular infiltrate in the lower lobes that is increased compared to la st exam. there is stable dominant 17 mm nodule left lower lobe. Pulmonary density likely relates to inflammat ory disease. Mild multinodular goiter.
[2018-11-28] MEDS ORDERED: IPRATROPIUM-ALBUTEROL 3 ML NEB INHALATION STA (01:05)
[2018-11-28] MEDS ORDERED: methylPREDNISolone SOD SUCCI 125 MG/2 ML VIAL IV STA (01:05)
--- NOTE | 2018-11-28 01:05 | ED ---
General Adult HPI - General Source: patient, family Mode of arrival: wheelchair Limitations: no limitations <Migdalia Islas - Last Filed: 11/28/18 01:17> <Renetta Mcintosh - Last Filed: 11/28/18 03:25> - General Chief complaint: Upper Respiratory Infection Stated complaint: Cough, SOB Time Seen by Provider: 11/27/18 21:58 - History of Present Illness Initial comments: 88-year-old female patient with past medical history significant for asthma, acid reflux, and hypertension presents to the emergency department today for complaints of shortness of breath and cough. Patient states for the last 2-3 days she has had a dry nonproductive cough. Denies any fevers or chills with this. She states today she became very short of breath. She says that she becomes winded with talking and with any activity. States that she feels as though she can't catch her breath. She denies any sore throat or nasal congestion. Denies any chest pain, back pain, neck pain, or jaw pain. Denies any leg pain. Patient denies any recent rash, abdominal pain, nausea, vomiting, diarrhea, constipation, back pain, numbness, tingling, dizziness, weakness, hematuria, dysuria, urinary urgency, urinary frequency, headache, visual changes , or any other complaints. (Migdalia Islas) - Related Data Home Medications Medication Instructions Recorded Confirmed Cholecalciferol [Vitamin D3] 1,000 unit PO DAILY 10/15/15 11/27/18 HYDROcodone/APAP 5-325MG [[place] 1 tab PO Q6H PRN 10/15/15 11/27/18 5-325] Metoprolol Tartrate [Lopressor] 25 mg PO BID 10/15/15 11/27/18 Vitamin B Complex 1 cap PO DAILY 10/15/15 11/27/18 Losartan [Cozaar] 50 mg PO BID 03/15/16 11/27/18 Gabapentin [Neurontin] 100 mg PO BID 07/07/18 11/27/18 Tracie-Lopez 1 tab PO DAILY 07/07/18 11/27/18 Lansoprazole 30 mg PO DAILY 11/27/18 11/27/18 cloNIDine HCL [Catapres] 0.2 mg PO TID 11/27/18 11/27/18 Previous Rx's Medication Instructions Recorded amLODIPine [Norvasc] 5 mg PO DAILY #10 tab 03/18/16 Allergies Allergy/AdvReac Type Severity Reaction Status Date / Time Sulfa (Sulfonamide Allergy Rash/Hives Verified 11/27/18 22:26 Antibiotics) calcium AdvReac Unknown Unknown Verified 11/27/18 22:26 baclofen AdvReac NUMBNESS Verified 11/27/18 22:26 WAS WORSE IN FEET" UNSTEADY" clotrimazole AdvReac Unknown Verified 11/27/18 22:26 fluconazole AdvReac Unknown Verified 11/27/18 22:26 Review of Systems ROS Other: All systems not noted in ROS Statement are negative. <Migdalia Islas - Last Filed: 11/28/18 01:17> ROS Other: All systems not noted in ROS Statement are negative. <Renetta Mcintosh - Last Filed: 11/28/18 03:25> ROS Statement: Those systems with pertinent positive or pertinent negative responses have been documented in the HPI. Past Medical History Past Medical History: Asthma, Eye Disorder, GERD/Reflux, Hypertension, Osteoarthritis (OA) Additional Past Medical History / Comment(s): glaucoma,lower back pain, NEUROPATHY History of Any Multi-Drug Resistant Organisms: None Reported Past Surgical History: Orthopedic Surgery Additional Past Surgical History / Comment(s): eye surgery- stent in rt eye for glaucoma, carpal tunnel repair padmini.BILATERAL CATARACT Past Anesthesia/Blood Transfusion Reactions: No Reported Reaction Past Psychological History: No Psychological Hx Reported Smoking Status: Never smoker Past Alcohol Use History: None Reported Past Drug Use History: None Reported - Past Family History Sister(s) Family Medical History: Cancer Additional Family Medical History / Comment(s): breast cancer <Migdalia Islas - Last Filed: 11/28/18 01:17> General Exam Limitations: no limitations General appearance: alert, in no apparent distress, other (Physical well- developed, well-nourished elderly female patient in mild respiratory distress. Vital signs upon presentation are temperature 100.3F, pulse 99, respirations 20 , blood pressure 191/84, pulse ox 91% on room air.) Eye exam: Present: normal appearance, PERRL, EOMI. Absent: scleral icterus, conjunctival injection, periorbital swelling ENT exam: Present: normal exam, normal oropharynx, mucous membranes moist Respiratory exam: Present: decreased breath sounds. Absent: normal lung sounds bilaterally, respiratory distress, wheezes, rales, rhonchi, stridor Cardiovascular Exam: Present: regular rate, normal rhythm, normal heart sounds. Absent: systolic murmur, diastolic murmur, rubs, gallop, clicks GI/Abdominal exam: Present: soft, normal bowel sounds. Absent: distended, tenderness, guarding, rebound, rigid Neurological exam: Present: alert, oriented X3, CN II-XII intact Psychiatric exam: Present: normal affect, normal mood Skin exam: Present: warm, dry, intact, normal color. Absent: rash <Bantle,Migdalia M - Last Filed: 11/28/18 01:17> Vital Signs 11/27/18 11/27/18 11/27/18 21:55 22:13 22:20 Temperature 100.3 F H Pulse Rate 99 89 Respiratory 20 24 14 Rate Blood Pressure 191/84 181/93 O2 Sat by Pulse 91 L 95 Oximetry 11/27/18 11/27/18 11/27/18 23:00 23:10 23:20 Temperature Pulse Rate 80 78 80 Respiratory 0 L 3 L 7 L Rate Blood Pressure 167/86 165/86 165/86 O2 Sat by Pulse 96 96 96 Oximetry 11/27/18 11/27/18 11/27/18 23:30 23:40 23:50 Temperature Pulse Rate 81 74 Respiratory 32 H 22 Rate Blood Pressure 165/86 174/105 174/105 O2 Sat by Pulse 96 95 Oximetry 11/28/18 11/28/18 11/28/18 00:00 00:10 01:10 Temperature Pulse Rate 90 87 85 Respiratory 18 18 18 Rate Blood Pressure 151/98 174/87 158/81 O2 Sat by Pulse 96 97 96 Oximetry 11/28/18 11/28/18 11/28/18 01:46 01:56 01:58 Temperature 98.5 F Pulse Rate 89 92 Respiratory Rate Blood Pressure O2 Sat by Pulse Oximetry 11/28/18 03:19 Temperature 98.4 F Pulse Rate 103 H Respiratory 22 Rate Blood Pressure 156/100 O2 Sat by Pulse 95 Oximetry EKG Findings - EKG Comments: EKG Findings:: EKG obtained at 2208 shows normal sinus rhythm with a ventricular rate of 91, [place] interval 160, QRS duration 84, QT 336, QTc 413. No evidence of ST elevation or depression. <Migdalia Islas - Last Filed: 11/28/18 01:17> Medical Decision Making - Lab Data Result diagrams: 11/27/18 22:13 11/27/18 22:13 - Radiology Data Radiology results: report reviewed, image reviewed <Migdalia Islas - Last Filed: 11/28/18 01:17> - Lab Data Result diagrams: 11/27/18 22:13 11/27/18 22:13 <Renetta Mcintosh - Last Filed: 11/28/18 03:25> - Medical Decision Making 88 year-old female patient presented to the emergency department today for complaints of shortness of breath and dry cough. Physical examination did reveal diminished lung sounds to the posterior lung carrera. Labs reviewed and are relatively unremarkable, however d-dimer was elevated. Chest x-ray showed no acute cardio pulmonary process. CT angiography of the chest to rule out PE was performed, showed no evidence of pulmonary and wasn't however did social inflammatory changes. Patient most likely has a viral pneumonia and asthma exacerbation we will admit with nebulizer treatments, IV steroids, and antibiotics. Patient is agreeable with this plan. (Migdalia Islas) I personally saw and examined the patient. I reviewed and agree with the mid- level provider findings including all diagnostic interpretations and treatment plans as written. I agree with the plan for admission for what is likely a viral pneumonia and asthma exacerbation, I discussed patient care with patient' s primary care physician Dr. Beard who agrees with plan for admission he does want empiric antibiotics to cover community-acquired pneumonia and a consult to patient's hardboard panel printer Dr. Crowley. Admission orders were placed. (Renetta Mcintosh) - Lab Data Lab Results 11/27/18 11/27/18 11/27/18 Range/Units 22:13 22:13 22:13 WBC 16.8 H (3.8-10.6) k/uL RBC 4.55 (3.80-5.40) m/uL Hgb 12.9 (11.4-16.0) gm/dL Hct 42.8 (34.0-46.0) % MCV 94.1 (80.0-100.0) fL MCH 28.4 (25.0-35.0) pg MCHC 30.2 L (31.0-37.0) g/dL RDW 14.0 (11.5-15.5) % Plt Count 278 (150-450) k/uL Neutrophils % 80 % Lymphocytes % 10 % Monocytes % 6 % Eosinophils % 2 % Basophils % 1 % Neutrophils # 13.5 H (1.3-7.7) k/uL Lymphocytes # 1.6 (1.0-4.8) k/uL Monocytes # 0.9 (0-1.0) k/uL Eosinophils # 0.4 (0-0.7) k/uL Basophils # 0.1 (0-0.2) k/uL Hypochromasia Slight PT (9.0-12.0) sec INR (<1.2) APTT (22.0-30.0) sec D-Dimer (<0.60) mg/L FEU Sodium 142 (137-145) mmol/L Potassium 4.5 (3.5-5.1) mmol/L Chloride 105 (98-107) mmol/L Carbon Dioxide 27 (22-30) mmol/L Anion Gap 10 mmol/L BUN 21 H (7-17) mg/dL Creatinine 0.93 (0.52-1.04) mg/dL Est GFR (CKD-EPI)AfAm 65 (>60 ml/min/1.73 sqM) Est GFR (CKD-EPI)NonAf 56 (>60 ml/min/1.73 sqM) Glucose 149 H (74-99) mg/dL Plasma Lactic Acid Aubrey (0.7-2.0) mmol/L Calcium 8.9 (8.4-10.2) mg/dL Total Bilirubin 1.2 (0.2-1.3) mg/dL AST 43 H (14-36) U/L ALT 33 (9-52) U/L Alkaline Phosphatase 121 (38-126) U/L Total Creatine Kinase 60 (30-135) U/L CK-MB (CK-2) 0.6 (0.0-2.4) ng/mL CK-MB (CK-2) Rel Index 1.0 Troponin I <0.012 (0.000-0.034) ng/mL NT-Pro-B Natriuret Pep pg/mL Total Protein 7.0 (6.3-8.2) g/dL Albumin 4.0 (3.5-5.0) g/dL Influenza Type A RNA (Not Detectd) Influenza Type B (PCR) (Not Detectd) 11/27/18 11/27/18 11/27/18 Range/Units 22:13 22:13 22:13 WBC (3.8-10.6) k/uL RBC (3.80-5.40) m/uL Hgb (11.4-16.0) gm/dL Hct (34.0-46.0) % MCV (80.0-100.0) fL MCH (25.0-35.0) pg MCHC (31.0-37.0) g/dL RDW (11.5-15.5) % Plt Count (150-450) k/uL Neutrophils % % Lymphocytes % % Monocytes % % Eosinophils % % Basophils % % Neutrophils # (1.3-7.7) k/uL Lymphocytes # (1.0-4.8) k/uL Monocytes # (0-1.0) k/uL Eosinophils # (0-0.7) k/uL Basophils # (0-0.2) k/uL Hypochromasia PT 9.5 (9.0-12.0) sec INR 0.9 (<1.2) APTT 26.0 (22.0-30.0) sec D-Dimer 1.18 H (<0.60) mg/L FEU Sodium (137-145) mmol/L Potassium (3.5-5.1) mmol/L Chloride (98-107) mmol/L Carbon Dioxide (22-30) mmol/L Anion Gap mmol/L BUN (7-17) mg/dL Creatinine (0.52-1.04) mg/dL Est GFR (CKD-EPI)AfAm (>60 ml/min/1.73 sqM) Est GFR (CKD-EPI)NonAf (>60 ml/min/1.73 sqM) Glucose (74-99) mg/dL Plasma Lactic Acid Aubrey 1.3 (0.7-2.0) mmol/L Calcium (8.4-10.2) mg/dL Total Bilirubin (0.2-1.3) mg/dL AST (14-36) U/L ALT (9-52) U/L Alkaline Phosphatase (38-126) U/L Total Creatine Kinase (30-135) U/L CK-MB (CK-2) (0.0-2.4) ng/mL CK-MB (CK-2) Rel Index Troponin I (0.000-0.034) ng/mL NT-Pro-B Natriuret Pep 545 pg/mL Total Protein (6.3-8.2) g/dL Albumin (3.5-5.0) g/dL Influenza Type A RNA (Not Detectd) Influenza Type B (PCR) (Not Detectd) 11/27/18 Range/Units 22:42 WBC (3.8-10.6) k/uL RBC (3.80-5.40) m/uL Hgb (11.4-16.0) gm/dL Hct (34.0-46.0) % MCV (80.0-100.0) fL MCH (25.0-35.0) pg MCHC (31.0-37.0) g/dL RDW (11.5-15.5) % Plt Count (150-450) k/uL Neutrophils % % Lymphocytes % % Monocytes % % Eosinophils % % Basophils % % Neutrophils # (1.3-7.7) k/uL Lymphocytes # (1.0-4.8) k/uL Monocytes # (0-1.0) k/uL Eosinophils # (0-0.7) k/uL Basophils # (0-0.2) k/uL Hypochromasia PT (9.0-12.0) sec INR (<1.2) APTT (22.0-30.0) sec D-Dimer (<0.60) mg/L FEU Sodium (137-145) mmol/L Potassium (3.5-5.1) mmol/L Chloride (98-107) mmol/L Carbon Dioxide (22-30) mmol/L Anion Gap mmol/L BUN (7-17) mg/dL Creatinine (0.52-1.04) mg/dL Est GFR (CKD-EPI)AfAm (>60 ml/min/1.73 sqM) Est GFR (CKD-EPI)NonAf (>60 ml/min/1.73 sqM) Glucose (74-99) mg/dL Plasma Lactic Acid Aubrey (0.7-2.0) mmol/L Calcium (8.4-10.2) mg/dL Total Bilirubin (0.2-1.3) mg/dL AST (14-36) U/L ALT (9-52) U/L Alkaline Phosphatase (38-126) U/L Total Creatine Kinase (30-135) U/L CK-MB (CK-2) (0.0-2.4) ng/mL CK-MB (CK-2) Rel Index Troponin I (0.000-0.034) ng/mL NT-Pro-B Natriuret Pep pg/mL Total Protein (6.3-8.2) g/dL Albumin (3.5-5.0) g/dL Influenza Type A RNA Not Detected (Not Detectd) Influenza Type B (PCR) Not Detected (Not Detectd) - Radiology Data CT chest angiography for PE was performed. Report was reviewed in its entirety. Impression by Dr. Dallas shows no evidence of pulmonary embolism. There is some interstitial nodular infiltrate in the lower lobes that is increased compared to last exam. There is stable down and 17 mm nodule left lower lobe. Pulmonary density likely related to inflammatory change. Two-view x-ray of the chest is obtained, report was reviewed in its entirety. Impression by Dr. Dallas shows no active cardio pulmonary disease. Calcific tendinitis the left shoulder. No significant change compared to old exam. ( Migdalia Islas) Disposition Decision to Admit Reason: Admit from EC Decision Date: 11/28/18 Decision Time: 01:21 <Migdalia Islas - Last Filed: 11/28/18 01:17> <Renetta Mcnitosh - Last Filed: 11/28/18 03:25> Clinical Impression: Pneumonia, Dyspnea Disposition: ADMITTED IP TO THIS HOSP Condition: Serious
[2018-11-28] MEDS ORDERED: AZITHROMYCIN 500 MG in SODIUM CHLORIDE 0.9% 250 ML IVPB STA (01:09)
[2018-11-28] MEDS ORDERED: IPRATROPIUM-ALBUTEROL 3 ML NEB INHALATION PRN (01:10)
[2018-11-28] MEDS ORDERED: cloNIDine HCL 0.1 MG TAB PO STA (03:12)
[2018-11-28] MEDS: PANTOPRAZOLE 40 MG TABLET PO SCH (08:08)
[2018-11-28] MEDS: METOPROLOL TARTRATE 25 MG TAB PO SCH ×2 (08:08→21:07)
[2018-11-28] MEDS: LOSARTAN 50 MG TAB PO SCH ×2 (08:08→21:07)
[2018-11-28] MEDS: GABAPENTIN 100 MG CAP PO SCH ×2 (08:08→21:07)
[2018-11-28] MEDS: predniSONE 20 MG TAB PO SCH (08:08)
[2018-11-28] MEDS: amLODIPine 5 MG TAB PO SCH (08:08)
[2018-11-28] MEDS: cloNIDine HCL 0.2 MG TAB PO SCH ×3 (08:08→22:23)
[2018-11-28] MEDS: CHOLECALCIFEROL 1,000 UNIT TAB PO SCH (08:08)
[2018-11-28] MEDS ORDERED: NON-FORMULARY DRUG (Vitamin B Complex [Vitamin B Complex] 1 CAP) PO SCH (09:00)
[2018-11-28] MEDS ORDERED: [UNRECOGNIZED DRUG - OTHER] PO SCH (09:00)
[2018-11-28] MEDS: HYDROcodone/APAP 5-325MG 1 EACH TAB PO PRN ×2 (12:22→21:06)
[2018-11-28] MEDS: HEPARIN SODIUM,PORCINE 5,000 UNIT/ML 1 ML VIAL SQ SCH ×2 (12:23→21:08)
[2018-11-28] MEDS: FAMOTIDINE 20 MG TAB PO SCH (15:40)
[2018-11-28] MEDS: FUROSEMIDE 40 MG TAB PO SCH (15:40)
--- NOTE | 2018-11-28 18:33 | CONS ---
CONSULTATION PULMONARY/CRITICAL CARE CONSULTATION: DATE OF CONSULTATION: 11/28/2018 This is an 88-year-old female who apparently presented to the emergency room with complaints of shortness of breath, cough and possible upper respiratory tract infection. This is an 88-year-old female who sees Dr. Beard. She also sees my partner, Dr. Seo, for mild asthma. She apparently has a history of mild asthma, acid reflux disease, hypertension and CVA. She came to the emergency department because of 2 to 3 days' worth of increasing and progressive shortness of breath and cough. The cough is mostly nonproductive, although occasionally she feels like there is something to bring up. There is no fever or chills. No chest pain or chest discomfort. She became very short of breath and felt like she could not really catch her breath. She denied any sore throat. There was no nasal congestion or drainage. Again there was no chest pain or chest discomfort. The patient denies any nausea, vomiting or diarrhea. There are no other complaints to mention. The patient states that her asthma is relatively mild, and she really does not take anything for it on a regular basis. She sees my partner infrequently. HOME MEDICATIONS: Include: 1. Vitamin D3. 2. [place]. 3. Metoprolol .. 4. Vitamin B. 5. Losartan. 6. Gabapentin. 7. Lansoprazole. 8. Clonidine. 9. Amlodipine. ALLERGIES: INCLUDE: 1. SULFA. 2. CALCIUM. 3. BACLOFEN. 4. CLOTRIMAZOLE. 5. FLUCONAZOLE. PAST MEDICAL HISTORY: Includes: 1. Asthma. 2. Gastroesophageal reflux disease. 3. Hypertension. 4. DJD. 5. Neuropathy. 6. Chronic back pain. 7. Glaucoma. 8. 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 9. Some other minor medical problems. As I mentioned above, her asthma is mild. SURGICAL HISTORY: Includes: 1. Eye surgery. 2. Stent in her right eye for glaucoma. 3. Carpal tunnel repair. 4. Bilateral cataract surgery. SOCIAL HISTORY: Negative for tobacco use. She denies any significant alcohol use or any illicit drug use. FAMILY HISTORY: Positive for breast cancer. REVIEW OF SYSTEMS: CONSTITUTIONAL: Negative. NEUROLOGIC: Negative. HEENT: Negative. CARDIOVASCULAR: Negative. PULMONARY: Cough, shortness of breath, minimal phlegm production, chest tightness. GI/: Negative. RHEUMATOLOGIC/IMMUNOLOGIC: Negative. ENDOCRINOLOGIC: Negative. DERMATOLOGIC: Negative. PHYSICAL EXAMINATION: Current vital signs are reviewed. Her temperature is 97.7, heart rate 80, respiratory rate 18, blood pressure 139/66, mean 90, two-liter saturation 94%. Appears in no acute distress. HEENT examination is grossly unremarkable. Mucous membranes are moist. No oral lesions. NECK: Supple. Full range of motion. No adenopathy or thyromegaly. Neck veins are flat. Cardiovascular examination reveals regular rhythm and rate. Heart rate 80. S1, S2 normal. No S3, S4, or murmur. Lungs reveal a few scattered expiratory rhonchi and wheezes. Breath sounds are diminished. There is prolongation. Breath sounds are equal bilaterally. ABDOMEN: Soft but obese. Bowel sounds are heard. Extremities are intact. No cyanosis, clubbing or edema. Skin without rash. There is a mild left facial droop noted; mostly noted in the area of the left nasolabial fold and the corner of the left mouth. LAB DATA: Reviewed. White count 16.8, hemoglobin 12.9, hematocrit 42.8, platelet count normal. PT, INR normal. PTT normal. D-dimer 1.18. Sodium, potassium, chloride, CO2 all normal. Anion gap normal. BUN and creatinine were 21 and 0.93. Glucose 149, AST 43. Influenza studies were negative. Troponins were negative. IMAGING: Chest x-ray was done and evaluated. It shows no active cardiopulmonary disease. A chest CT was done because of the elevated D-dimer. It shows some interstitial nodular infiltrates in the lower lobe that have increased from the previous examination. They likely represent inflammatory disease. There is also a 17 mm non- calcified nodule medial to the left lower lobe. No pleural effusion. Heart is not enlarged. No pericardial effusion. No filling defects in the pulmonary arteries to suggest pulmonary embolism. Medications are reviewed. She is on Rocephin and Zithromax. She is also on Pulmicort. She is getting DuoNeb. She is also getting some prednisone 40 mg a day. ASSESSMENT: 1. Mild asthma exacerbation complicated by purulent tracheobronchitis and possible bronchial pneumonia in lower lobes. 2. Non-calcified 17 mm pulmonary nodule, medial left lower lobe. 3. History of glaucoma. 4. History of gastroesophageal reflux disease. 5. History of hypertension. 6. History of degenerative joint disease. 7. History of neuropathy. 8. Previous right-sided cerebrovascular accident with left facial droop. PLAN: The patient's medications are appropriate. We will follow along. Likely discharge in the next 24-48 hours. No additional recommendations are made at this time. MMODL / IJN: [id number] /
[2018-11-28] MEDS: BUDESONIDE 0.5 MG/2 ML NEBU INHALATION SCH (19:30)
--- NOTE | 2018-11-28 19:59 | P.HPIM ---
History of Present Illness H&P Date: 11/28/18 Chief Complaint: Acute respiratory failure, bilateral pneumonia, COPD exacerbation, intersti 88-year-old female one of my office patient with past medical history of asthma, acid reflux, hypertension, CVA, chronic lower back pain and neuropathy who presented to the emergency department on the 129 with the complaining of severe shortness of breath and slight tightness with cough productive dark phlegm for the last few days become much worse over the last 24 hours started having trouble ambulating started having significant problem with shortness of breath and shortness time. Also has been complaining of slight fullness and discomfort having slight pain when not taking a deep breath with mild pleuritic effect as well. Her workup demurs from shows possible infiltrate by basilar with her d-dimer elevated patient ended up going for CTA showed the slight interstitial effect in the lower lobes bilaterally with increased compared to last exam was done. Patient was loaded with steroid consult pulmonary started on updraft treatment and admitted to the hospital shortly after with the Mike problem. Review of Systems CONSTITUTIONAL: Well-developed no acute respiratory distress. EYES: No icterus sclerae, no conjunctivitis. EARS, NOSE, MOUTH, THROAT, and FACE: No sore throat, lymphadenopathy, carotid bruits or deformity. RESPIRATORY: positive shortnth cough wheeze with significant dyspne along with cough product CARDIOVASCULAR: mild PND orthopnea no angina positive mild dyspnea with exertio and still have mild palpit GASTROINTESTINAL: No Abd pain, Nausea or vomiting, no Diarrhea or constipation, No GI Bleed, no distention or masses. GENITOURINARY: Negative for Hematuria or UTI, no kidney stones. INTEGUMENT/BREAST: Negative for any muscular injury with mild osteoarthritis.. HEMATOLOGIC/LYMPHATIC: Negative for bleed or purpura. MUSCULOSKELTAL: Negative for Myalgia or arthralgia.positive edema NEURLOGICAL: No LOC, Sz or syncope, blurred vision dizziness or abnormality.. BEHAVIORAL/PSYCH: Negative. ENDOCRINE: Negative. 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 History of Any Multi-Drug Resistant Organisms: None Reported Past Surgical History: Orthopedic Surgery Additional Past Surgical History / Comment(s): Lumbar epidural injections, bilateral eyes cataracts removed and stents placed d/t glaucoma, bilateral carpal tunnel releases, colonoscopy. Past Anesthesia/Blood Transfusion Reactions: No Reported Reaction Smoking Status: Never smoker - Past Family History Mother Family Medical History: No Reported History Additional Family Medical History / Comment(s): Mother was healthy and live to be 79yrs old. Father Additional Family Medical History / Comment(s): Father was an alcoholic. Sister(s) Family Medical History: Cancer Additional Family Medical History / Comment(s): breast cancer Medications and Allergies Home Medications Medication Instructions Recorded Confirmed Type Cholecalciferol [Vitamin D3] 1,000 unit PO DAILY 10/15/15 11/27/18 History HYDROcodone/APAP 5-325MG [[place] 1 tab PO Q6H PRN 10/15/15 11/27/18 History 5-325] Metoprolol Tartrate [Lopressor] 25 mg PO BID 10/15/15 11/27/18 History Vitamin B Complex 1 cap PO DAILY 10/15/15 11/27/18 History Losartan [Cozaar] 50 mg PO BID 03/15/16 11/27/18 History amLODIPine [Norvasc] 5 mg PO DAILY #10 tab 03/18/16 11/27/18 Rx Gabapentin [Neurontin] 100 mg PO BID 07/07/18 11/27/18 History Tracie-Lopez 1 tab PO DAILY 07/07/18 11/27/18 History Lansoprazole 30 mg PO DAILY 11/27/18 11/27/18 History cloNIDine HCL [Catapres] 0.2 mg PO TID 11/27/18 11/27/18 History Allergies Allergy/AdvReac Type Severity Reaction Status Date / Time Sulfa (Sulfonamide Allergy Rash/Hives Verified 11/27/18 22:26 Antibiotics) calcium AdvReac Unknown Unknown Verified 11/27/18 22:26 baclofen AdvReac NUMBNESS Verified 11/27/18 22:26 WAS WORSE IN FEET" UNSTEADY" clotrimazole AdvReac Unknown Verified 11/27/18 22:26 fluconazole AdvReac Unknown Verified 11/27/18 22:26 Physical Exam Vitals: Vital Signs Temp Pulse Pulse Resp BP BP Pulse Ox 11/28/18 12:24 97.8 F 80 18 139/66 93 L 11/28/18 07:00 97.7 F 88 18 156/81 93 L 11/28/18 05:28 98.6 F 89 18 138/73 96 11/28/18 03:19 98.4 F 103 H 22 156/100 95 11/28/18 01:58 98.5 F 11/28/18 01:56 92 11/28/18 01:46 89 11/28/18 01:10 85 18 158/81 96 11/28/18 00:10 87 18 174/87 97 11/28/18 00:00 90 18 151/98 96 11/27/18 23:50 74 22 174/105 95 11/27/18 23:40 174/105 11/27/18 23:30 81 32 H 165/86 96 11/27/18 23:20 80 7 L 165/86 96 11/27/18 23:10 78 3 L 165/86 96 11/27/18 23:00 80 0 L 167/86 96 11/27/18 22:20 89 14 181/93 95 11/27/18 22:13 24 11/27/18 21:55 100.3 F H 99 20 191/84 91 L Intake and Output 11/27/18 11/28/18 11/28/18 22:59 06:59 14:59 Output Total 1 Balance -1 Output: Urine 1 Other: Voiding Method Toilet Weight 91.172 kg General Appearance: Alert, cooperative, no distress, appears stated age.she is raising the head 30 to feel little bit better still coughing during the exam Neck HEENT: Supple, no lymphadenopathy, no thyroid enlargement, no carotid bruits. Lungs: decreased breath sound at bases positive for rhonchi with crackle Chest Wall: decreased expansion with deep respiration no tenderness no deformi, still using her accesso Heart: irregular rhythm and rate S1-S2 positive S3 posit positive JVD. Back: Symmetric, no curvature, ROM normal, no CVA tenderness. Abdomen: Soft, non-tender, bowel sounds active all four quadrants, no masses, no organomegaly. Extremities:trace edema with mild discoloration no trauma or injury. Pulses: 2+ and symmetric. Skin: Skin color, texture, tugor normal, no rashes or lesions. Neurologic: Alert oriented with slight confusion cranial nerves II through XII intact, no motor deficit, no abnormal balance or gait. Results CBC & Chem 7: 11/27/18 22:13 11/27/18 22:13 Labs: Abnormal Lab Results - Last 24 Hours (Table) 11/27/18 11/27/18 11/27/18 Range/Units 22:13 22:13 22:13 WBC 16.8 H (3.8-10.6) k/uL MCHC 30.2 L (31.0-37.0) g/dL Neutrophils # 13.5 H (1.3-7.7) k/uL D-Dimer 1.18 H (<0.60) mg/L FEU BUN 21 H (7-17) mg/dL Glucose 149 H (74-99) mg/dL AST 43 H (14-36) U/L Thrombosis Risk Factor Assmnt - DVT/VTE Prophylaxis DVT/VTE Prophylaxis: Pharmacologic Prophylaxis ordered, Mechanical Prophylaxis ordered - Choose All That Apply Any of the Below Risk Factors Present?: Yes Each Factor Represents 1 point: Obesity (BMI >25), Serious lung disease incl. pneumonia (< 1month) Other Risk Factors: No Each Risk Factor Represents 3 Points: Age 75 years or older Other congenital or acquired thrombophilia - If yes, enter type in comment: No Thrombosis Risk Factor Assessment Total Risk Factor Score: 5 Thrombosis Risk Factor Assessment Level: High Risk Assessment and Plan Plan: 1 acute respiratory failure: Combination of bilateral pneumonia, interstitial pneumonitis along with mild obstructive lung disease. 2 bilateral pneumonia: Patient was started on Rocephin and azithromycin continue current management. 3 asthma/COPD with mild exacerbation: Patient was started on Solu-Medrol continue albuterol/ipratropium and Pulmicort will consult pulmonary as well patient seen Dr. Haynes on regular basis. 4 interstitial pneumonitis with possible interstitial edema probably can benefit from smaller dose of diuretics Lasix up to 40 mg daily will be giving while watching the kidney function carefully. 5 hypertension: Has been well controlled on Lopressor 25 mg twice a day Cozaar 50 mg twice a day along with amlodipine 5 mg daily continue medication. 6 chronic pain management: Has been on gabapentin 100 mg twice a day and hydrocodone 5 every 6 hours as needed. 7 hyperglycemia: Patient will be on Accu-Chek with sliding scales coverage for now. 8 GI prophylaxis: Patient will be on Pepcid daily. 9 DVT prophylaxis: Patient will be on heparin subcutaneous. CODE STATUS: Full code. Admit patient to inpatient status for more than 2 nights.
[2018-11-28] MEDS: AZITHROMYCIN 500 MG TAB PO SCH (21:07)
[2018-11-29] MEDS: FAMOTIDINE 20 MG TAB PO SCH (07:04)
[2018-11-29] MEDS: METOPROLOL TARTRATE 25 MG TAB PO SCH ×2 (07:04→21:20)
[2018-11-29] MEDS: predniSONE 20 MG TAB PO SCH (07:05)
[2018-11-29] MEDS: PANTOPRAZOLE 40 MG TABLET PO SCH (07:05)
[2018-11-29] MEDS: CHOLECALCIFEROL 1,000 UNIT TAB PO SCH (07:05)
[2018-11-29] MEDS: FUROSEMIDE 40 MG TAB PO SCH (07:05)
[2018-11-29] MEDS: GABAPENTIN 100 MG CAP PO SCH ×2 (07:05→21:19)
[2018-11-29] MEDS: LOSARTAN 50 MG TAB PO SCH ×2 (07:05→21:20)
[2018-11-29] MEDS: HEPARIN SODIUM,PORCINE 5,000 UNIT/ML 1 ML VIAL SQ SCH ×2 (07:06→21:20)
[2018-11-29] MEDS: amLODIPine 5 MG TAB PO SCH (07:06)
[2018-11-29] MEDS: cloNIDine HCL 0.2 MG TAB PO SCH ×3 (07:08→21:19)
[2018-11-29] MEDS: BUDESONIDE 0.5 MG/2 ML NEBU INHALATION SCH (09:21)
--- NOTE | 2018-11-29 12:27 | P.PN ---
Subjective Progress Note Date: 11/29/18 88-year-old female one of my office patient with past medical history of asthma, acid reflux, hypertension, CVA, chronic lower back pain and neuropathy who presented to the emergency department on the 129 with the complaining of severe shortness of breath and slight tightness with cough productive dark phlegm for the last few days become much worse over the last 24 hours started having trouble ambulating started having significant problem with shortness of breath and shortness time. Also has been complaining of slight fullness and discomfort having slight pain when not taking a deep breath with mild pleuritic effect as well. Her workup demurs from shows possible infiltrate by basilar with her d-dimer elevated patient ended up going for CTA showed the slight interstitial effect in the lower lobes bilaterally with increased compared to last exam was done. Patient was loaded with steroid consult pulmonary started on updraft treatment and admitted to the hospital shortly after with the Mike problem. 11/29: Patient has been seen by Dr. Monique for mild asthma exacerbation with purulent tracheobronchitis and possible bronchial pneumonia in the lower lobes. Patient states that her breathing is much improved from yesterday. She has worked with physical therapy with recommendations for home with homecare. Patient has been afebrile, pulse ox 95% but drops down to 85% with ambulation, blood pressure 162/83, heart rate running in the 80s and 90s. She is continued on antibiotics, nebulizers and oral prednisone. Anticipate discharge home tomorrow or Tuesday. Review of Systems CONSTITUTIONAL: Well-developed no acute respiratory distress. EYES: No icterus sclerae, no conjunctivitis. EARS, NOSE, MOUTH, THROAT, and FACE: No sore throat, lymphadenopathy, carotid bruits or deformity. RESPIRATORY: positive shortnth cough wheeze with significant dyspne along with cough product CARDIOVASCULAR: mild PND orthopnea no angina positive mild dyspnea with exertio and still have mild palpit GASTROINTESTINAL: No Abd pain, Nausea or vomiting, no Diarrhea or constipation, No GI Bleed, no distention or masses. GENITOURINARY: Negative for Hematuria or UTI, no kidney stones. INTEGUMENT/BREAST: Negative for any muscular injury with mild osteoarthritis.. HEMATOLOGIC/LYMPHATIC: Negative for bleed or purpura. MUSCULOSKELTAL: Negative for Myalgia or arthralgia.positive edema NEURLOGICAL: No LOC, Sz or syncope, blurred vision dizziness or abnormality.. BEHAVIORAL/PSYCH: Negative. ENDOCRINE: Negative. Objective - Vital Signs Vital signs: Vital Signs Temp 97.4 F L 11/29/18 04:50 Pulse 76 11/29/18 04:50 Resp 18 11/29/18 04:50 BP 135/80 11/29/18 04:50 Pulse Ox 97 11/29/18 04:50 Intake & Output 11/28/18 11/29/18 11/29/18 18:59 06:59 18:59 Other: Voiding Method Toilet Toilet Toilet # Voids 2 2 - Exam General Appearance: Alert, cooperative, no distress, appears stated age. Neck HEENT: Supple, no lymphadenopathy, no thyroid enlargement, no carotid bruits. Lungs: decreased breath sound at bases positive for rhonchi with crackle Chest Wall: decreased expansion with deep respiration no tenderness no deformi, still using her accesso Heart: irregular rhythm and rate S1-S2 positive S3 posit positive JVD. Back: Symmetric, no curvature, ROM normal, no CVA tenderness. Abdomen: Soft, non-tender, bowel sounds active all four quadrants, no masses, no organomegaly. Extremities:trace edema with mild discoloration no trauma or injury. Pulses: 2+ and symmetric. Skin: Skin color, texture, tugor normal, no rashes or lesions. Neurologic: Alert oriented with slight confusion cranial nerves II through XII intact, no motor deficit, no abnormal balance or gait. - Labs CBC & Chem 7: 11/27/18 22:13 11/27/18 22:13 Labs: Microbiology - Last 24 Hours (Table) 11/27/18 22:13 Blood Culture - Preliminary Blood No Growth after 24 hours Assessment and Plan Plan: 1 acute hypoxic respiratory failure: Combination of bilateral pneumonia, interstitial pneumonitis along with mild asthma exacerbation. Consult with Dr. Ronaldo vela. Continue DuoNeb, Pulmicort, Perforomist, oral prednisone and antibiotics. Patient may require home oxygen. 2 bilateral pneumonia: Patient was started on Rocephin and azithromycin continue current management. 3 mild intermittent asthma with mild exacerbation: Continue prednisone, albuterol/ipratropium and Pulmicort, Perforomist. Patient sees Dr. Seo on regular basis. 4 interstitial pneumonitis with possible interstitial edema probably can benefit from smaller dose of diuretics Lasix up to 40 mg daily will be giving while watching the kidney function carefully. 5 hypertension: Has been well controlled on Lopressor 25 mg twice a day Cozaar 50 mg twice a day along with amlodipine 5 mg daily continue medication. 6 chronic pain management: Has been on gabapentin 100 mg twice a day and hydrocodone 5 every 6 hours as needed. 7 hyperglycemia: Patient will be on Accu-Chek with sliding scales coverage for now. 8 GI prophylaxis: Patient will be on Pepcid daily. 9 DVT prophylaxis: Patient will be on heparin subcutaneous. CODE STATUS: Full code. Discharge plan: Most likely home with homecare on or Tuesday. Patient may require home oxygen. Case management is following. Impression and plan of care have been directed as dictated by the signing physician. Marcela Love nurse practitioner acting as scribe for signing physician.
[2018-11-29] MEDS: IPRATROPIUM-ALBUTEROL 3 ML NEB INHALATION SCH ×3 (12:48→19:24)
--- NOTE | 2018-11-29 14:35 | P.PN ---
Subjective Progress Note Date: 11/29/18 Principal diagnosis: Acute exacerbation of mild chronic persistent bronchial asthma. The patient is seen today 11/29/2017 in follow-up on the regular medical floor. She is awake and alert in no acute distress. Currently sitting up in a chair at the bedside. She is maintaining good O2 saturations in the upper 90s on 2 L/ m per nasal cannula. She did decrease to 85% on room air during a walk. She does qualify for home oxygen. Blood culture reveals no growth to date. She has been maintained on bronchodilators, Pulmicort and Perforomist, antibiotics in the form of ceftriaxone, oral prednisone. She is improving but not quite back to her baseline. Objective - Vital Signs Vital signs: Vital Signs Temp 98.5 F 11/29/18 12:06 Pulse 87 11/29/18 13:49 Resp 16 11/29/18 13:49 BP 162/83 11/29/18 12:06 Pulse Ox 97 11/29/18 12:06 Intake & Output 11/28/18 11/29/18 11/29/18 18:59 06:59 18:59 Intake Total 1210 Balance 1210 Intake: Intake, IV Titration 100 Amount cefTRIAXone 1,000 mg In 100 Sodium Chloride 0.9% 50 ml @ 100 mls/hr IVPB Q24HR [facility] Rx#:[id number] Oral 1110 Other: Voiding Method Toilet Toilet Toilet # Voids 2 2 1 - Exam GENERAL EXAM: Alert, active, comfortable in no apparent distress. On nasal cannula. HEAD: Normocephalic. EYES: Normal reaction of pupils, equal size. NOSE: Clear with pink turbinates. THROAT: No erythema or exudates. NECK: No masses, no JVD. CHEST: No chest wall deformity. LUNGS: Equal air entry with faint end expiratory wheeze. CVS: S1 and S2 normal with no audible murmur, regular rhythm. ABDOMEN: No hepatosplenomegaly, normal bowel sounds, no guarding or rigidity. SPINE: No scoliosis or deformity SKIN: No rashes CENTRAL NERVOUS SYSTEM: No focal deficits, tone is normal in all 4 extremities. EXTREMITIES: There is no peripheral edema. No clubbing, no cyanosis. Peripheral pulses are intact. - Labs CBC & Chem 7: 11/27/18 22:13 11/27/18 22:13 Labs: Microbiology - Last 24 Hours (Table) 11/27/18 22:13 Blood Culture - Preliminary Blood No Growth after 24 hours Assessment and Plan Assessment: Impression: #1 Acute hypoxic respiratory failure secondary to an acute exacerbation of mild intermittent asthma, complicated by tracheobronchitis and possible bronchial pneumonia in the lower lobes. #2 Noncalcified 70 mm pulmonary nodule, medial left lower lobe. #3 Glaucoma. #4 History of gastroesophageal reflux disease. #5 Hypertension. #6 Degenerative joint disease. #7 Neuropathy. 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 Plan: The patient was seen and evaluated by Dr. Higgins. She is improved today as compared to yesterday. We'll continue with the current treatment plan. Continue to titrate the FiO2 as tolerated. Increase her activity as tolerated. We'll continue to follow. I, the cosigning physician, performed a history & physical examination of the patient. Lungs sounds with faint end expiratory wheeze.. Maintaining good O2 saturations in the 90s on 2 L/m per nasal cannula. I discussed the assessment and plan of care with my nurse practitioner, Nitza Enriquez. I attest to the above note as dictated by her.
[2018-11-29] MEDS: FORMOTEROL FUMARATE 20 MCG/2 ML NEBU INHALATION SCH (19:25)
[2018-11-29] MEDS: BUDESONIDE 1 MG/2 ML NEBU INHALATION SCH (19:25)
[2018-11-29] MEDS: AZITHROMYCIN 500 MG TAB PO SCH (21:19)
[2018-11-29] MEDS: HYDROcodone/APAP 5-325MG 1 EACH TAB PO PRN (21:19)
[2018-11-30] MEDS: FORMOTEROL FUMARATE 20 MCG/2 ML NEBU INHALATION SCH ×2 (09:11→20:21)
[2018-11-30] MEDS: BUDESONIDE 1 MG/2 ML NEBU INHALATION SCH ×2 (09:11→20:21)
[2018-11-30] MEDS: IPRATROPIUM-ALBUTEROL 3 ML NEB INHALATION SCH ×4 (09:11→20:21)
[2018-11-30] MEDS: METOPROLOL TARTRATE 25 MG TAB PO SCH ×2 (09:32→21:26)
[2018-11-30] MEDS: GABAPENTIN 100 MG CAP PO SCH ×2 (09:32→21:25)
[2018-11-30] MEDS: HEPARIN SODIUM,PORCINE 5,000 UNIT/ML 1 ML VIAL SQ SCH ×2 (09:32→21:26)
[2018-11-30] MEDS: LOSARTAN 50 MG TAB PO SCH ×2 (09:32→21:25)
[2018-11-30] MEDS: predniSONE 20 MG TAB PO SCH (09:32)
[2018-11-30] MEDS: amLODIPine 5 MG TAB PO SCH (09:32)
[2018-11-30] MEDS: PANTOPRAZOLE 40 MG TABLET PO SCH (09:32)
[2018-11-30] MEDS: CHOLECALCIFEROL 1,000 UNIT TAB PO SCH (09:32)
[2018-11-30] MEDS: FUROSEMIDE 40 MG TAB PO SCH (09:32)
[2018-11-30] MEDS: cloNIDine HCL 0.2 MG TAB PO SCH ×3 (09:34→21:26)
--- NOTE | 2018-11-30 12:03 | P.PN ---
Subjective Progress Note Date: 11/30/18 88-year-old female one of my office patient with past medical history of asthma, acid reflux, hypertension, CVA, chronic lower back pain and neuropathy who presented to the emergency department on the 129 with the complaining of severe shortness of breath and slight tightness with cough productive dark phlegm for the last few days become much worse over the last 24 hours started having trouble ambulating started having significant problem with shortness of breath and shortness time. Also has been complaining of slight fullness and discomfort having slight pain when not taking a deep breath with mild pleuritic effect as well. Her workup demurs from shows possible infiltrate by basilar with her d-dimer elevated patient ended up going for CTA showed the slight interstitial effect in the lower lobes bilaterally with increased compared to last exam was done. Patient was loaded with steroid consult pulmonary started on updraft treatment and admitted to the hospital shortly after with the Mike problem. 11/29: Patient has been seen by Dr. Monique for mild asthma exacerbation with purulent tracheobronchitis and possible bronchial pneumonia in the lower lobes. Patient states that her breathing is much improved from yesterday. She has worked with physical therapy with recommendations for home with homecare. Patient has been afebrile, pulse ox 95% but drops down to 85% with ambulation, blood pressure 162/83, heart rate running in the 80s and 90s. She is continued on antibiotics, nebulizers and oral prednisone. Anticipate discharge home tomorrow or Tuesday. 11/30: Patient has been afebrile, pulse oximetry between 91 and 94% on room air, blood pressure 181/84, heart rate running between 80 and 105. We'll plan to discontinue telemetry. Discussed discharge planning with the patient and she is [facility] the past. Social work is following to make arrangements. We anticipate she will be ready for discharge tomorrow. Review of Systems CONSTITUTIONAL: Well-developed, denies fever, chills EYES: No icterus sclerae, no conjunctivitis. EARS, NOSE, MOUTH, THROAT, and FACE: No sore throat, lymphadenopathy, carotid bruits or deformity. RESPIRATORY: positive shortnth cough wheeze with significant dyspnea along with cough product CARDIOVASCULAR: mild PND orthopnea no angina positive mild dyspnea with exertio and still have mild palpit GASTROINTESTINAL: No Abd pain, Nausea or vomiting, no Diarrhea or constipation, No GI Bleed, no distention or masses. GENITOURINARY: Negative for Hematuria or UTI, no kidney stones. INTEGUMENT/BREAST: Negative for any muscular injury with mild osteoarthritis.. HEMATOLOGIC/LYMPHATIC: Negative for bleed or purpura. MUSCULOSKELTAL: Negative for Myalgia or arthralgia.positive edema NEURLOGICAL: No LOC, Sz or syncope, blurred vision dizziness or abnormality.. BEHAVIORAL/PSYCH: Negative. ENDOCRINE: Negative. Objective - Vital Signs Vital signs: Vital Signs Temp 97.4 F L 11/30/18 05:00 Pulse 95 11/30/18 05:00 Resp 20 11/30/18 05:00 BP 166/82 11/30/18 05:00 Pulse Ox 96 11/30/18 05:00 Intake & Output 11/29/18 11/30/18 11/30/18 18:59 06:59 18:59 Intake Total 1210 200 Balance 1210 200 Intake: Intake, IV Titration 100 Amount cefTRIAXone 1,000 mg In 100 Sodium Chloride 0.9% 50 ml @ 100 mls/hr IVPB Q24HR [facility] Rx#:[id number] Oral 1110 200 Other: Voiding Method Toilet Toilet # Voids 1 2 - Exam General Appearance: Alert, cooperative, no distress, appears stated age. Patient relates to the bathroom and gait appears to be steady Neck HEENT: Supple, no lymphadenopathy, no thyroid enlargement, no carotid bruits. Lungs: decreased breath sound at bases positive for rhonchi with crackle Chest Wall: decreased expansion with deep respiration no tenderness no deformi, still using her accesso Heart: irregular rhythm and rate S1-S2 positive S3 posit positive JVD. Back: Symmetric, no curvature, ROM normal, no CVA tenderness. Abdomen: Soft, non-tender, bowel sounds active all four quadrants, no masses, no organomegaly. Extremities:trace edema with mild discoloration no trauma or injury. Pulses: 2+ and symmetric. Skin: Skin color, texture, tugor normal, no rashes or lesions. Neurologic: Alert oriented with slight confusion cranial nerves II through XII intact, no motor deficit, no abnormal balance or gait. - Labs CBC & Chem 7: 11/27/18 22:13 11/27/18 22:13 Labs: Microbiology - Last 24 Hours (Table) 11/27/18 22:13 Blood Culture - Preliminary Blood No Growth after 48 hours Assessment and Plan Plan: 1 acute hypoxic respiratory failure: Combination of bilateral pneumonia, interstitial pneumonitis along with mild asthma exacerbation. Consult with Dr. Ronaldo vela. Continue DuoNeb, Pulmicort, Perforomist, oral prednisone and antibiotics. Patient may require home oxygen. 2 bilateral pneumonia: Patient was started on Rocephin and azithromycin continue current management. 3 mild intermittent asthma with mild exacerbation: Continue prednisone, albuterol/ipratropium and Pulmicort, Perforomist. Patient sees Dr. Seo on regular basis. 4 interstitial pneumonitis with possible interstitial edema probably can benefit from smaller dose of diuretics Lasix up to 40 mg daily will be giving while watching the kidney function carefully. 5 hypertension: Has been well controlled on Lopressor 25 mg twice a day Cozaar 50 mg twice a day along with amlodipine 5 mg daily continue medication. 6 chronic pain management: Has been on gabapentin 100 mg twice a day and hydrocodone 5 every 6 hours as needed. 7 hyperglycemia: Patient will be on Accu-Chek with sliding scales coverage for now. 8 GI prophylaxis: Patient will be on Pepcid daily. 9 DVT prophylaxis: Patient will be on heparin subcutaneous. CODE STATUS: Full code. Discharge plan: [facility] on Tuesday Impression and plan of care have been directed as dictated by the signing physician. Marcela Love nurse practitioner acting as scribe for signing physician.
--- NOTE | 2018-11-30 13:22 | P.PN ---
Subjective Progress Note Date: 11/30/18 Principal diagnosis: Acute exacerbation of mild chronic persistent bronchial asthma. Patient is seen today 11/30/2018 in follow-up on the regular medical floor. She is awake and alert in no acute distress. She is resting quite comfortably in bed. She has been somewhat slow to progress. Still somewhat bronchospastic and wheezy. Still dyspneic on minimal exertion. She is maintaining O2 saturations in the low 90s on room air. She's been afebrile. A culture reveals no growth to date. She is continued on oral prednisone, DuoNeb inhalations, Pulmicort and Perforomist inhalations, empiric antibiotics. Objective - Vital Signs Vital signs: Vital Signs Temp 97.8 F 11/30/18 11:53 Pulse 90 11/30/18 11:53 Resp 18 11/30/18 11:53 BP 181/84 11/30/18 11:53 Pulse Ox 91 L 11/30/18 11:53 Intake & Output 11/29/18 11/30/18 11/30/18 18:59 06:59 18:59 Intake Total 1210 200 Balance 1210 200 Intake: Intake, IV Titration 100 Amount cefTRIAXone 1,000 mg In 100 Sodium Chloride 0.9% 50 ml @ 100 mls/hr IVPB Q24HR [facility] Rx#:[id number] Oral 1110 200 Other: Voiding Method Toilet Toilet Toilet # Voids 1 2 - Exam GENERAL EXAM: Alert, active, comfortable in no apparent distress. On room air. HEAD: Normocephalic. EYES: Normal reaction of pupils, equal size. NOSE: Clear with pink turbinates. THROAT: No erythema or exudates. NECK: No masses, no JVD. CHEST: No chest wall deformity. LUNGS: Equal air entry with faint end expiratory wheeze. CVS: S1 and S2 normal with no audible murmur, regular rhythm. ABDOMEN: No hepatosplenomegaly, normal bowel sounds, no guarding or rigidity. SPINE: No scoliosis or deformity SKIN: No rashes CENTRAL NERVOUS SYSTEM: No focal deficits, tone is normal in all 4 extremities. EXTREMITIES: There is no peripheral edema. No clubbing, no cyanosis. Peripheral pulses are intact. - Labs CBC & Chem 7: 11/27/18 22:13 11/27/18 22:13 Labs: Microbiology - Last 24 Hours (Table) 11/27/18 22:13 Blood Culture - Preliminary Blood No Growth after 48 hours Assessment and Plan Assessment: Impression: #1 Acute hypoxic respiratory failure secondary to an acute exacerbation of mild intermittent asthma, complicated by tracheobronchitis and possible bronchial pneumonia in the lower lobes. #2 Noncalcified 70 mm pulmonary nodule, medial left lower lobe. #3 Glaucoma. #4 History of gastroesophageal reflux disease. #5 Hypertension. #6 Degenerative joint disease. #7 Neuropathy. 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 Plan: The patient was seen and evaluated by Dr. Higgins. She is improved today as compared to yesterday. We'll continue with the current treatment plan. Repeat a chest x-ray in the a.m. Increase her activity as tolerated. We'll continue to follow. I, the cosigning physician, performed a history & physical examination of the patient. Lungs sounds with faint end expiratory wheeze.. Maintaining good O2 saturations in the 90s on room air. I discussed the assessment and plan of care with my nurse practitioner, Nitza Enriquez. I attest to the above note as dictated by her.
[2018-11-30] MEDS: AZITHROMYCIN 500 MG TAB PO SCH (21:25)
[2018-12-01] MEDS: HYDROcodone/APAP 5-325MG 1 EACH TAB PO PRN ×2 (01:47→09:46)
[2018-12-01] MEDS: FORMOTEROL FUMARATE 20 MCG/2 ML NEBU INHALATION SCH (07:14)
[2018-12-01] MEDS: BUDESONIDE 1 MG/2 ML NEBU INHALATION SCH (07:14)
[2018-12-01] MEDS: IPRATROPIUM-ALBUTEROL 3 ML NEB INHALATION SCH ×2 (07:14→11:03)
[2018-12-01 08:19] LABS: HGB 11.7 gm/dL (11.4-16.0); Hypochromasia Slight; MCH 29.1 pg (25.0-35.0); MCHC 30.9 g/dL (31.0-37.0); MCV 94.3 fL (80.0-100.0); Mean Platelet Volume 6.9; Platelet Count 286 k/uL (150-450); RBC 4.03 m/uL (3.80-5.40); RDW 13.9 % (11.5-15.5); WBC 10.2 k/uL (3.8-10.6)
--- NOTE | 2018-12-01 08:37 | P.DS ---
Providers Date of admission: 11/28/18 01:09 Expected date of discharge: 12/01/18 Attending physician: Grupo Beard Consults: 11/28/18 01:10 Consult Physician Routine Consulting Provider: Kris Seo Consult Reason/Comments: established patient, hypoxia Do you want consulting provider notified?: Yes, Notify in am Primary care physician: [facility] Course: 88-year-old female one of my office patient with past medical history of asthma, acid reflux, hypertension, CVA, chronic lower back pain and neuropathy who presented to the emergency department on the 129 with the complaining of severe shortness of breath and slight tightness with cough productive dark phlegm for the last few days become much worse over the last 24 hours started having trouble ambulating started having significant problem with shortness of breath and shortness time. Also has been complaining of slight fullness and discomfort having slight pain when not taking a deep breath with mild pleuritic effect as well. Her workup demurs from shows possible infiltrate by basilar with her d-dimer elevated patient ended up going for CTA showed the slight interstitial effect in the lower lobes bilaterally with increased compared to last exam was done. Patient was loaded with steroid consult pulmonary started on updraft treatment and admitted to the hospital shortly after with the Mike problem. 11/29: Patient has been seen by Dr. Monique for mild asthma exacerbation with purulent tracheobronchitis and possible bronchial pneumonia in the lower lobes. Patient states that her breathing is much improved from yesterday. She has worked with physical therapy with recommendations for home with homecare. Patient has been afebrile, pulse ox 95% but drops down to 85% with ambulation, blood pressure 162/83, heart rate running in the 80s and 90s. She is continued on antibiotics, nebulizers and oral prednisone. Anticipate discharge home tomorrow or Tuesday. 11/30: Patient has been afebrile, pulse oximetry between 91 and 94% on room air, blood pressure 181/84, heart rate running between 80 and 105. We'll plan to discontinue telemetry. Discussed discharge planning with the patient and she is willing to go to [facility] where she has been in the past. Social work is following to make arrangements. We anticipate she will be ready for discharge tomorrow. 12/01: Pulse ox is 93-97% on room air, heart rate running between 70 and 100, afebrile. Blood pressure 151/77. CBC is normal. Electrolytes normal, CO2 34, BUN 31, creatinine 1. Blood culture showing no growth. Repeat chest x-ray reveals correlate for pulmonary venous hypertension and interstitial edema. Possible basilar atelectasis. Patient has been cleared for discharge by Dr. Monique. Patient will be discharged to [facility] today in stable condition. Discharge diagnoses: 1 acute hypoxic respiratory failure: Combination of bilateral pneumonia, interstitial pneumonitis along with mild asthma exacerbation. 2 bilateral pneumonia 3 mild intermittent asthma with mild exacerbation 4 interstitial pneumonitis with possible interstitial edema 5 hypertension 6 chronic pain management 7 hyperglycemia Discharge plan: [facility] Impression and plan of care have been directed as dictated by the signing physician. Marcela Love nurse practitioner acting as scribe for signing physician. Patient Condition at Discharge: Good Plan - Discharge Summary Discharge Rx Participant: No New Discharge Prescriptions: New Azithromycin [Zithromax] 500 mg PO HS #5 tab Budesonide [Pulmicort] 1 mg INHALATION RT-BID nebu Furosemide [Lasix] 40 mg PO DAILY tab Ipratropium-Albuterol Nebulize [Duoneb 0.5 mg-3 mg/3 ml Soln] 3 ml INHALATION RT-QID ampul.neb predniSONE 0 mg PO DIRECTED #40 tab Continue Cholecalciferol [Vitamin D3] 1,000 unit PO DAILY Metoprolol Tartrate [Lopressor] 25 mg PO BID Vitamin B Complex 1 cap PO DAILY Losartan [Cozaar] 50 mg PO BID amLODIPine [Norvasc] 5 mg PO DAILY #10 tab Tracie-Lopez 1 tab PO DAILY Lansoprazole 30 mg PO DAILY cloNIDine HCL [Catapres] 0.2 mg PO TID HYDROcodone/APAP 5-325MG [Weir 5-325] 1 tab PO Q6H PRN #12 tab PRN Reason: Pain Gabapentin [Neurontin] 100 mg PO BID #6 cap Discharge Medication List Cholecalciferol [Vitamin D3] 1,000 unit PO DAILY 10/15/15 [History] Metoprolol Tartrate [Lopressor] 25 mg PO BID 10/15/15 [History] Vitamin B Complex 1 cap PO DAILY 10/15/15 [History] Losartan [Cozaar] 50 mg PO BID 03/15/16 [History] amLODIPine [Norvasc] 5 mg PO DAILY #10 tab 03/18/16 [Rx] Tracie-Lopez 1 tab PO DAILY 07/07/18 [History] Lansoprazole 30 mg PO DAILY 11/27/18 [History] cloNIDine HCL [Catapres] 0.2 mg PO TID 11/27/18 [History] Azithromycin [Zithromax] 500 mg PO HS #5 tab 12/01/18 [Rx] Budesonide [Pulmicort] 1 mg INHALATION RT-BID nebu 12/01/18 [Rx] Furosemide [Lasix] 40 mg PO DAILY tab 12/01/18 [Rx] Gabapentin [Neurontin] 100 mg PO BID #6 cap 12/01/18 [Rx] HYDROcodone/APAP 5-325MG [Weir 5-325] 1 tab PO Q6H PRN #12 tab 12/01/18 [Rx] Ipratropium-Albuterol Nebulize [Duoneb 0.5 mg-3 mg/3 ml Soln] 3 ml INHALATION RT -QID ampul.neb 12/01/18 [Rx] predniSONE 0 mg PO DIRECTED #40 tab 12/01/18 [Rx] Follow up Appointment(s)/Referral(s): Kris Seo MD [STAFF PHYSICIAN] - 1 Week Grupo Beard MD [Primary Care Provider] - 1 Week (After discharge from [facility]) Discharge Disposition: TRANSFER TO SNF/ECF
[2018-12-01 08:38] LABS: Albumin 3.3 g/dL (3.5-5.0); Calcium 8.5 mg/dL (8.4-10.2); Potassium 3.9 mmol/L (3.5-5.1); Total Bilirubin 0.8 mg/dL (0.2-1.3); Total Protein 5.9 g/dL (6.3-8.2)
--- NOTE | 2018-12-01 09:40 | XR ---
EXAMINATION TYPE: XR chest 1V DATE OF EXAM: 12/01/2018 COMPARISON: Prior chest x-ray 11/27/2018 HISTORY: Follow-up pneumonia TECHNIQUE: Single frontal view of the chest is obtained. FINDINGS: Patient is rotated. Heart is enlarged. No evident pneumothorax or pleural effusion. Interv al patchy basilar density is noted. Interstitium appears prominently. Aorta is ectatic and dense. IMPRESSION: Rotated exam. Correlate for pulmonary venous hypertension and interstitial edema, possibl e basilar atelectasis, follow-up as indicated.
[2018-12-01] MEDS: cloNIDine HCL 0.2 MG TAB PO SCH (09:44)
[2018-12-01] MEDS: GABAPENTIN 100 MG CAP PO SCH (09:44)
[2018-12-01] MEDS: FUROSEMIDE 40 MG TAB PO SCH (09:44)
[2018-12-01] MEDS: predniSONE 20 MG TAB PO SCH (09:44)
[2018-12-01] MEDS: HEPARIN SODIUM,PORCINE 5,000 UNIT/ML 1 ML VIAL SQ SCH (09:45)
[2018-12-01] MEDS: amLODIPine 5 MG TAB PO SCH (09:45)
[2018-12-01] MEDS: CHOLECALCIFEROL 1,000 UNIT TAB PO SCH (09:45)
[2018-12-01] MEDS: PANTOPRAZOLE 40 MG TABLET PO SCH (09:45)
[2018-12-01] MEDS: LOSARTAN 50 MG TAB PO SCH (09:45)
[2018-12-01] MEDS: METOPROLOL TARTRATE 25 MG TAB PO SCH (09:45)
[2018-12-01 12:18] VITALS: PULSE 66; RESP 17; TEMP 97.7
[2018-12-01 12:58] VITALS: BP 188/71
--- NOTE | 2018-12-01 13:20 | P.PN ---
Subjective Progress Note Date: 12/01/18 Principal diagnosis: Acute exacerbation of mild chronic persistent bronchial asthma. The patient is seen today 12/01/2017 in follow-up on the regular medical floor. She is currently up ambulating with her walker. She is doing well. No worsening shortness of breath, cough or congestion. Today's chest x-ray shows basilar atelectasis. She is maintaining good O2 saturations in the 90s on room air. She's been afebrile. Somewhat hypertensive. Blood culture reveals no growth. White count 10.2. Hemoglobin 11.7. Creatinine 1.00. She has been maintained on DuoNeb inhalations, Pulmicort and Perforomist inhalations, prednisone. Antibiotics in the form of ceftriaxone. Objective - Vital Signs Vital signs: Vital Signs Temp 97.7 F 12/01/18 12:17 Pulse 66 12/01/18 12:17 Resp 17 12/01/18 12:17 BP 188/71 12/01/18 12:58 Pulse Ox 94 L 12/01/18 12:17 Intake & Output 11/30/18 12/01/18 12/01/18 18:59 06:59 18:59 Intake Total 0 Balance 0 Intake: Oral 0 Other: Voiding Method Toilet Toilet # Voids 10 2 # Bowel Movements 2 - Exam GENERAL EXAM: Alert, active, comfortable in no apparent distress. On room air. HEAD: Normocephalic. EYES: Normal reaction of pupils, equal size. NOSE: Clear with pink turbinates. THROAT: No erythema or exudates. NECK: No masses, no JVD. CHEST: No chest wall deformity. LUNGS: Equal air entry with faint end expiratory wheeze. CVS: S1 and S2 normal with no audible murmur, regular rhythm. ABDOMEN: No hepatosplenomegaly, normal bowel sounds, no guarding or rigidity. SPINE: No scoliosis or deformity SKIN: No rashes CENTRAL NERVOUS SYSTEM: No focal deficits, tone is normal in all 4 extremities. EXTREMITIES: There is no peripheral edema. No clubbing, no cyanosis. Peripheral pulses are intact. - Labs CBC & Chem 7: 12/01/18 06:59 12/01/18 06:59 Labs: Abnormal Lab Results - Last 24 Hours (Table) 12/01/18 12/01/18 Range/Units 06:59 06:59 MCHC 30.9 L (31.0-37.0) g/dL Carbon Dioxide 34 H (22-30) mmol/L BUN 31 H (7-17) mg/dL Total Protein 5.9 L (6.3-8.2) g/dL Albumin 3.3 L (3.5-5.0) g/dL Microbiology - Last 24 Hours (Table) 11/27/18 22:13 Blood Culture - Preliminary Blood No Growth after 72 hours Assessment and Plan Assessment: Impression: #1 Acute hypoxic respiratory failure secondary to an acute exacerbation of mild intermittent asthma, complicated by tracheobronchitis and possible bronchial pneumonia in the lower lobes. #2 Noncalcified 70 mm pulmonary nodule, medial left lower lobe. #3 Glaucoma. #4 History of gastroesophageal reflux disease. #5 Hypertension. #6 Degenerative joint disease. #7 Neuropathy. 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 Plan: The patient was seen and evaluated by Dr. Higgins. His chest x-ray and labs reviewed. The patient is cleared for discharge from the pulmonary standpoint. Continue prednisone taper. Complete her course of antibiotics. Continue her pulmonary medications. She will follow-up with Dr. Seo in our office in 1-2 weeks' time. I, the cosigning physician, performed a history & physical examination of the patient. Lungs sounds with faint end expiratory wheeze. Maintaining good O2 saturations in the 90s on room air. I discussed the assessment and plan of care with my nurse practitioner, Nitza Enriquez. I attest to the above note as dictated by her.
== END 2018-12-01 13:35 | DRG 193 ==
LOC: EC 21:51 → 4SSUR 11-28 01:09 → 3NMEDONC 11-28 06:12
PROVIDERS: ADMIT Internal Medicine Geriatric Medicine; ATTEND Internal Medicine Geriatric Medicine
DX: J18.9 Pneumonia, unspecified organism (principal); J96.01 Acute respiratory failure with hypoxia; J45.21 Mild intermittent asthma with (acute) exacerbation; J44.1 Chronic obstructive pulmonary disease with (acute) exacerbation; I69.951 Hemiplegia and hemiparesis following unspecified cerebrovascular disease affecting right dominant side; J44.0 Chronic obstructive pulmonary disease with (acute) lower respiratory infection; J98.11 Atelectasis; J84.89 Other specified interstitial pulmonary diseases; G62.9 Polyneuropathy, unspecified; I69.992 Facial weakness following unspecified cerebrovascular disease; R40.2362 Coma scale, best motor response, obeys commands, at arrival to emergency department; R40.2142 Coma scale, eyes open, spontaneous, at arrival to emergency department; R40.2252 Coma scale, best verbal response, oriented, at arrival to emergency department; R91.1 Solitary pulmonary nodule; I10 Essential (primary) hypertension; K21.9 Gastro-esophageal reflux disease without esophagitis; E78.5 Hyperlipidemia, unspecified; G89.29 Other chronic pain; M54.5 Low back pain; M19.90 Unspecified osteoarthritis, unspecified site; H40.9 Unspecified glaucoma; R73.9 Hyperglycemia, unspecified; E66.9 Obesity, unspecified; Z68.33 Body mass index [BMI] 33.0-33.9, adult; Z79.899 Other long term (current) drug therapy; Z96.89 Presence of other specified functional implants; Z98.42 Cataract extraction status, left eye; Z98.41 Cataract extraction status, right eye; Z88.2 Allergy status to sulfonamides; Z88.8 Allergy status to other drugs, medicaments and biological substances; Z80.3 Family history of malignant neoplasm of breast; Z81.1 Family history of alcohol abuse and dependence
CPT/HCPCS: 36415; 71045; 71046; 71275; 80053; 82550; 82553; 83605; 83880; 84484; 85025; 85027; 85379; 85610; 85730; 87040; 87502; 93005; 94640; 94760; 96361; 96365; 96366; 96368; 96375; 99285

== ENCOUNTER → 2018-11-27 | Outpatient (CLI) | payer MEDICARE, BC ==
--- NOTE | 2018-11-29 08:07 | MM ---
Reason for exam: screening (asymptomatic). Last mammogram was performed 1 year and 4 months ago. History: Patient is postmenopausal. Family history of breast cancer in sister at age 78. Physical Findings: A clinical breast exam by your physician is recommended on an annual basis and results should be correlated with mammographic findings. MG 3D Screening Mammo W/Cad Bilateral CC and MLO view(s) were taken. Prior study comparison: July 14, 2017, bilateral MG 3d screening mammo w/cad. March 24, 2016, bilateral MG 3d screening mammo w/cad. The breast tissue is heterogeneously dense. This may lower the sensitivity of mammography. Stable secretory calcifications. There is no discrete abnormality. No significant changes when compared with prior studies. ASSESSMENT: Benign, BI-RAD 2 RECOMMENDATION: Routine screening mammogram of both breasts in 1 year.
== END | disposition home or self-care (01) ==
LOC: RADMAMWWP 10:53
PROVIDERS: ATTEND Internal Medicine Geriatric Medicine
DX: Z12.31 Encounter for screening mammogram for malignant neoplasm of breast (principal)
CPT/HCPCS: 77063; 77067

== ENCOUNTER 2019-03-19 09:04 | Inpatient (IN) | payer MEDICARE, BC ==
--- NOTE | 2019-03-19 09:27 | ED ---
General Adult HPI - General Chief complaint: Fall Stated complaint: weakness Time Seen by Provider: 03/19/19 09:05 Source: patient, EMS, RN notes reviewed Mode of arrival: EMS Limitations: no limitations - History of Present Illness Initial comments: This is an 88-year-old female who presents emergency department complaining that her legs gave out on her today and she fell backwards onto her butt. Patient states she did not get hurt in the fall at all. Patient states lying in bed here she feels just fine. Patient states she has fallen 10 times in the last year and she is very unsteady on her feet normally. Patient states she does not want to leave her home and does not want her halfway. Patient denies any chest pain difficulty breathing shortness of breath. Patient denies any headache patient denies numbness weakness. Patient denies lightheadedness dizziness or near syncopal episode. Patient denies any abdominal pain. Patient denies any fever chills. Patient denies any hip pain or leg pain. Patient states she stopped taking her Lasix weeks ago and on arrival she was 88% on room air and she has noticed increased edema in her legs. - Related Data Home Medications Medication Instructions Recorded Confirmed Cholecalciferol [Vitamin D3 (25 1,000 unit PO DAILY 10/15/15 03/19/19 Mcg = 1000 Iu)] Metoprolol Tartrate [Lopressor] 25 mg PO BID 10/15/15 03/19/19 Vitamin B Complex 1 cap PO DAILY 10/15/15 03/19/19 Tracie-Lopez 1 tab PO DAILY 07/07/18 03/19/19 cloNIDine HCL [Catapres] 0.2 mg PO TID 11/27/18 03/19/19 Aspirin 325 mg PO DAILY 03/19/19 03/19/19 Atorvastatin Calcium [Lipitor] 10 mg PO DAILY 03/19/19 03/19/19 HYDROcodone/APAP 5-325MG [[place] 0.5 tab PO BID PRN 03/19/19 03/19/19 5-325] Sennosides [Senna] 17.2 mg PO DAILY PRN 03/19/19 03/19/19 Previous Rx's Medication Instructions Recorded amLODIPine [Norvasc] 5 mg PO DAILY #10 tab 03/18/16 Gabapentin [Neurontin] 100 mg PO BID #6 cap 12/01/18 Allergies Allergy/AdvReac Type Severity Reaction Status Date / Time clotrimazole Allergy Unknown Verified 03/19/19 10:41 fluconazole Allergy Unknown Verified 03/19/19 10:41 Sulfa (Sulfonamide Allergy Rash/Hives Verified 03/19/19 10:41 Antibiotics) calcium AdvReac Unknown Unknown Verified 03/19/19 10:41 baclofen AdvReac NUMBNESS Verified 03/19/19 10:41 WAS WORSE IN FEET" UNSTEADY" Review of Systems ROS Statement: Those systems with pertinent positive or pertinent negative responses have been documented in the HPI. ROS Other: All systems not noted in ROS Statement are negative. 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 History of Any Multi-Drug Resistant Organisms: None Reported Past Surgical History: Orthopedic Surgery Additional Past Surgical History / Comment(s): Lumbar epidural injections, bilateral eyes cataracts removed and stents placed d/t glaucoma, bilateral carp al tunnel releases, colonoscopy. Past Anesthesia/Blood Transfusion Reactions: No Reported Reaction Past Psychological History: No Psychological Hx Reported Smoking Status: Never smoker Past Alcohol Use History: None Reported Past Drug Use History: None Reported - Past Family History Mother Family Medical History: No Reported History Additional Family Medical History / Comment(s): Mother was healthy and live to be 79yrs old. Father Additional Family Medical History / Comment(s): Father was an alcoholic. Sister(s) Family Medical History: Cancer Additional Family Medical History / Comment(s): breast cancer General Exam - General Exam Comments Initial Comments: GENERAL: Patient is well-developed and well-nourished. Patient is nontoxic and well- hydrated and is in no acute distress. Pulse ox was 88% on room air ENT: Neck is soft and supple. No significant lymphadenopathy is noted. Oropharynx is clear. Moist mucous membranes. Neck has full range of motion without eliciting any pain. EYES: The sclera were anicteric and conjunctiva were pink and moist. Extraocular movements were intact and pupils were equal round and reactive to light. Eyelids were unremarkable. PULMONARY: Unlabored respirations. Good breath sounds bilaterally. No audible rales rhonchi or wheezing was noted. CARDIOVASCULAR: There is a regular rate and rhythm without any murmurs gallops or rubs. ABDOMEN: Soft and nontender with normal bowel sounds. No palpable organomegaly was noted. There is no palpable pulsatile mass. SKIN: Skin is clear with no lesions or rashes and otherwise unremarkable. NEUROLOGIC: Patient is alert and oriented x3. Cranial nerves II through XII are grossly intact. Motor and sensory are also intact. Normal speech, volume and content. Symmetrical smile. MUSCULOSKELETAL: Normal extremities with adequate strength and full range of motion. 2+ edema bilaterally LYMPHATICS: No significant lymphadenopathy is noted PSYCHIATRIC: Normal psychiatric evaluation. Limitations: no limitations Course Vital Signs 03/19/19 03/19/19 03/19/19 09:13 09:22 09:42 Temperature 99.3 F Pulse Rate 94 90 Respiratory 18 18 Rate Blood Pressure 177/93 165/84 O2 Sat by Pulse 88 L 96 96 Oximetry Medical Decision Making - Medical Decision Making EKG shows normal sinus rhythm at 80 bpm MS interval 176 QRS is 90 QT interval 366 QTC is 442. Patient's EKG shows no ST segment elevation or depression or T wave abnormalities are noted. Patient's troponin was elevated I spoke with Dr. Beard he wanted the patient admitted the patient repeated troponins and I consult to cardiology. - Lab Data Result diagrams: 03/19/19 09:30 03/19/19 09:30 Lab Results 03/19/19 03/19/19 03/19/19 Range/Units 09:30 09:30 09:30 WBC 14.0 H (3.8-10.6) k/uL RBC 4.56 (3.80-5.40) m/uL Hgb 12.8 (11.4-16.0) gm/dL Hct 41.9 (34.0-46.0) % MCV 91.9 (80.0-100.0) fL MCH 28.1 (25.0-35.0) pg MCHC 30.6 L (31.0-37.0) g/dL RDW 14.1 (11.5-15.5) % Plt Count 322 (150-450) k/uL Neutrophils % 87 % Lymphocytes % 6 % Monocytes % 5 % Eosinophils % 1 % Basophils % 1 % Neutrophils # 12.2 H (1.3-7.7) k/uL Lymphocytes # 0.8 L (1.0-4.8) k/uL Monocytes # 0.7 (0-1.0) k/uL Eosinophils # 0.1 (0-0.7) k/uL Basophils # 0.1 (0-0.2) k/uL Hypochromasia Slight PT (9.0-12.0) sec INR (<1.2) APTT (22.0-30.0) sec Sodium 142 (137-145) mmol/L Potassium 4.2 (3.5-5.1) mmol/L Chloride 107 (98-107) mmol/L Carbon Dioxide 27 (22-30) mmol/L Anion Gap 8 mmol/L BUN 19 H (7-17) mg/dL Creatinine 0.78 (0.52-1.04) mg/dL Est GFR (CKD-EPI)AfAm 80 (>60 ml/min/1.73 sqM) Est GFR (CKD-EPI)NonAf 69 (>60 ml/min/1.73 sqM) Glucose 125 H (74-99) mg/dL Plasma Lactic Acid Aubrey 1.3 (0.7-2.0) mmol/L Calcium 9.3 (8.4-10.2) mg/dL Total Bilirubin 1.2 (0.2-1.3) mg/dL AST 35 (14-36) U/L ALT 25 (9-52) U/L Alkaline Phosphatase 100 (38-126) U/L Troponin I (0.000-0.034) ng/mL NT-Pro-B Natriuret Pep pg/mL Total Protein 7.4 (6.3-8.2) g/dL Albumin 4.0 (3.5-5.0) g/dL Urine Color Urine Appearance (Clear) Urine pH (5.0-8.0) Ur Specific [place] (1.001-1.035) Urine Protein (Negative) Urine Glucose (UA) (Negative) Urine Ketones (Negative) Urine Blood (Negative) Urine Nitrite (Negative) Urine Bilirubin (Negative) Urine Urobilinogen (<2.0) mg/dL Ur Leukocyte Esterase (Negative) Urine RBC (0-5) /hpf Urine WBC (0-5) /hpf Ur Squamous Epith Cells (0-4) /hpf Hyaline Casts (0-2) /lpf Urine Mucus (None) /hpf Urine Yeast (Budding) (None) /hpf 03/19/19 03/19/19 03/19/19 Range/Units 09:30 09:30 09:30 WBC (3.8-10.6) k/uL RBC (3.80-5.40) m/uL Hgb (11.4-16.0) gm/dL Hct (34.0-46.0) % MCV (80.0-100.0) fL MCH (25.0-35.0) pg MCHC (31.0-37.0) g/dL RDW (11.5-15.5) % Plt Count (150-450) k/uL Neutrophils % % Lymphocytes % % Monocytes % % Eosinophils % % Basophils % % Neutrophils # (1.3-7.7) k/uL Lymphocytes # (1.0-4.8) k/uL Monocytes # (0-1.0) k/uL Eosinophils # (0-0.7) k/uL Basophils # (0-0.2) k/uL Hypochromasia PT 9.8 (9.0-12.0) sec INR 0.9 (<1.2) APTT 24.2 (22.0-30.0) sec Sodium (137-145) mmol/L Potassium (3.5-5.1) mmol/L Chloride (98-107) mmol/L Carbon Dioxide (22-30) mmol/L Anion Gap mmol/L BUN (7-17) mg/dL Creatinine (0.52-1.04) mg/dL Est GFR (CKD-EPI)AfAm (>60 ml/min/1.73 sqM) Est GFR (CKD-EPI)NonAf (>60 ml/min/1.73 sqM) Glucose (74-99) mg/dL Plasma Lactic Acid Aubrey (0.7-2.0) mmol/L Calcium (8.4-10.2) mg/dL Total Bilirubin (0.2-1.3) mg/dL AST (14-36) U/L ALT (9-52) U/L Alkaline Phosphatase (38-126) U/L Troponin I 0.279 H* (0.000-0.034) ng/mL NT-Pro-B Natriuret Pep 720 pg/mL Total Protein (6.3-8.2) g/dL Albumin (3.5-5.0) g/dL Urine Color Urine Appearance (Clear) Urine pH (5.0-8.0) Ur Specific [place] (1.001-1.035) Urine Protein (Negative) Urine Glucose (UA) (Negative) Urine Ketones (Negative) Urine Blood (Negative) Urine Nitrite (Negative) Urine Bilirubin (Negative) Urine Urobilinogen (<2.0) mg/dL Ur Leukocyte Esterase (Negative) Urine RBC (0-5) /hpf Urine WBC (0-5) /hpf Ur Squamous Epith Cells (0-4) /hpf Hyaline Casts (0-2) /lpf Urine Mucus (None) /hpf Urine Yeast (Budding) (None) /hpf 03/19/19 Range/Units 09:30 WBC (3.8-10.6) k/uL RBC (3.80-5.40) m/uL Hgb (11.4-16.0) gm/dL Hct (34.0-46.0) % MCV (80.0-100.0) fL MCH (25.0-35.0) pg MCHC (31.0-37.0) g/dL RDW (11.5-15.5) % Plt Count (150-450) k/uL Neutrophils % % Lymphocytes % % Monocytes % % Eosinophils % % Basophils % % Neutrophils # (1.3-7.7) k/uL Lymphocytes # (1.0-4.8) k/uL Monocytes # (0-1.0) k/uL Eosinophils # (0-0.7) k/uL Basophils # (0-0.2) k/uL Hypochromasia PT (9.0-12.0) sec INR (<1.2) APTT (22.0-30.0) sec Sodium (137-145) mmol/L Potassium (3.5-5.1) mmol/L Chloride (98-107) mmol/L Carbon Dioxide (22-30) mmol/L Anion Gap mmol/L BUN (7-17) mg/dL Creatinine (0.52-1.04) mg/dL Est GFR (CKD-EPI)AfAm (>60 ml/min/1.73 sqM) Est GFR (CKD-EPI)NonAf (>60 ml/min/1.73 sqM) Glucose (74-99) mg/dL Plasma Lactic Acid Aubrey (0.7-2.0) mmol/L Calcium (8.4-10.2) mg/dL Total Bilirubin (0.2-1.3) mg/dL AST (14-36) U/L ALT (9-52) U/L Alkaline Phosphatase (38-126) U/L Troponin I (0.000-0.034) ng/mL NT-Pro-B Natriuret Pep pg/mL Total Protein (6.3-8.2) g/dL Albumin (3.5-5.0) g/dL Urine Color Yellow Urine Appearance Clear (Clear) Urine pH 5.5 (5.0-8.0) Ur Specific [place] 1.015 (1.001-1.035) Urine Protein 2+ H (Negative) Urine Glucose (UA) Negative (Negative) Urine Ketones Negative (Negative) Urine Blood Negative (Negative) Urine Nitrite Negative (Negative) Urine Bilirubin Negative (Negative) Urine Urobilinogen <2.0 (<2.0) mg/dL Ur Leukocyte Esterase Negative (Negative) Urine RBC 1 (0-5) /hpf Urine WBC 1 (0-5) /hpf Ur Squamous Epith Cells 1 (0-4) /hpf Hyaline Casts 102 H (0-2) /lpf Urine Mucus Rare H (None) /hpf Urine Yeast (Budding) Rare H (None) /hpf Disposition Clinical Impression: Generalized weakness, Fall, Elevated troponin Disposition: ADMITTED IP TO THIS HOSP Referrals: Grupo Beard MD [Primary Care Provider] - 1-2 days Time of Disposition: 12:00
[2019-03-19] MEDS ORDERED: FUROSEMIDE 10 MG/ML 4 ML VIAL IV STA (09:28)
[2019-03-19 09:54] LABS: Basophils # (A) 0.1 k/uL (0-0.2); Basophils % (A) 1 %; Eosinophils # (A) 0.1 k/uL (0-0.7); Eosinophils % (A) 1 %; HCT 41.9 % (34.0-46.0); HGB 12.8 gm/dL (11.4-16.0); Hypochromasia Slight; Lymphocytes # (A) 0.8 k/uL (1.0-4.8); Lymphocytes % (A) 6 %; MCH 28.1 pg (25.0-35.0); MCHC 30.6 g/dL (31.0-37.0); MCV 91.9 fL (80.0-100.0); Mean Platelet Volume 7.4; Monocytes # (A) 0.7 k/uL (0-1.0); Monocytes % (A) 5 %; Neutrophils # (A) 12.2 k/uL (1.3-7.7); Neutrophils % (A) 87 %; Platelet Count 322 k/uL (150-450); RBC 4.56 m/uL (3.80-5.40); RDW 14.1 % (11.5-15.5)
[2019-03-19 10:01] LABS: INR 0.9 (<1.2); Partial Thromboplastin Time 24.2 sec (22.0-30.0); Prothrombin Time 9.8 sec (9.0-12.0)
[2019-03-19 10:05] LABS: Appearance,Urine Clear (Clear); Bilirubin,Urine Negative (Negative); Blood,Urine Negative (Negative); Budding Yeast,Urine Rare /hpf; Color,Urine Yellow; Glucose,Urine (UA) Negative (Negative); Hyaline Casts,Urine 102 /lpf (0-2); Ketones,Urine Negative (Negative); Leukocyte Esterase,Urine Negative (Negative); Mucus,Urine Rare /hpf; Nitrite,Urine Negative (Negative); PH, Urine 5.5 (5.0-8.0); Protein,Urine 2+ (Negative); RBC,Urine 1 /hpf (0-5); Specific Gravity,Urine 1.015 (1.001-1.035); Squamous Epithelial Cell,Urine 1 /hpf (0-4); Urobilinogen,Urine <2.0 mg/dL (<2.0); WBC,Urine 1 /hpf (0-5)
--- NOTE | 2019-03-19 10:07 | XR ---
EXAMINATION TYPE: XR chest 2V DATE OF EXAM: 03/19/2019 COMPARISON: Prior chest x-ray 12/27/2018, 12/01/[address] chest 11/27/2018 HISTORY: Weakness, abnormal chest x-ray, multiple fall history TECHNIQUE: Frontal and lateral views of the chest are obtained. FINDINGS: Prominent lung volumes, increased AP diameter chest again noted. The heart is enlarged. Int erstitium is increased. No evident pneumothorax or pleural effusion. There are overlying cardiac lead s. Patient is rotated. IMPRESSION: Exam. Correlate for possible pulmonary venous hypertension and interstitial edema, follo w-up recommended. Patient's previously identified lung mass is not identified with certainty in today 's exam.
[2019-03-19 11:00] LABS: Calcium 9.3 mg/dL (8.4-10.2); Potassium 4.2 mmol/L (3.5-5.1); Total Bilirubin 1.2 mg/dL (0.2-1.3); Total Protein 7.4 g/dL (6.3-8.2)
[2019-03-19] MEDS ORDERED: NITROGLYCERIN SL TABS 0.4 MG TAB SUBLINGUAL PRN (12:35)
[2019-03-19] MEDS ORDERED: ASPIRIN 81 MG PO STA (12:35)
[2019-03-19] MEDS: NITROGLYCERIN OINT 1 INCH/GM PACKET TOPICAL SCH ×2 (16:14→23:23)
[2019-03-19 16:46] LABS: Glucose,Whole Blood 152 mg/dL (75-99)
[2019-03-19] MEDS ORDERED: SENNOSIDES 8.6 MG TAB PO PRN (19:55)
[2019-03-19 20:28] LABS: Glucose,Whole Blood 121 mg/dL (75-99)
[2019-03-19] MEDS: INSULIN ASPART (NovoLOG) 100 UNIT/ML VIAL SQ SCH (20:33)
[2019-03-19] MEDS: GABAPENTIN 100 MG CAP PO SCH (21:14)
[2019-03-19] MEDS: cloNIDine HCL 0.2 MG TAB PO SCH (21:14)
[2019-03-19] MEDS: LOSARTAN 50 MG TAB PO SCH (21:14)
[2019-03-19] MEDS: METOPROLOL TARTRATE 25 MG TAB PO SCH (21:14)
[2019-03-19] MEDS: HYDROcodone/APAP 5-325MG 1 EACH TAB PO PRN (22:02)
[2019-03-20 01:29] LABS: Cholesterol 112 mg/dL (<200); HDL Cholesterol 37 mg/dL (40-60); LDL Cholesterol,Calculated 58 mg/dL (0-99); Triglycerides 86 mg/dL (<150)
[2019-03-20 06:02] LABS: Glucose,Whole Blood 120 mg/dL (75-99)
[2019-03-20] MEDS: INSULIN ASPART (NovoLOG) 100 UNIT/ML VIAL SQ SCH ×4 (06:25→21:25)
[2019-03-20] MEDS: NITROGLYCERIN OINT 1 INCH/GM PACKET TOPICAL SCH (06:25)
[2019-03-20] MEDS ORDERED: ASPIRIN 325 MG TAB PO SCH (09:00)
[2019-03-20] MEDS ORDERED: amLODIPine 5 MG TAB PO SCH (09:00)
[2019-03-20] MEDS: METOPROLOL TARTRATE 25 MG TAB PO SCH ×2 (09:34→20:40)
[2019-03-20] MEDS: ATORVASTATIN 10 MG TAB PO SCH (09:34)
[2019-03-20] MEDS: FUROSEMIDE 40 MG TAB PO SCH (09:34)
[2019-03-20] MEDS: LOSARTAN 50 MG TAB PO SCH ×2 (09:34→20:40)
[2019-03-20] MEDS: CHOLECALCIFEROL 1,000 UNIT TAB PO SCH (09:34)
[2019-03-20] MEDS: cloNIDine HCL 0.2 MG TAB PO SCH ×3 (09:34→20:40)
[2019-03-20] MEDS: GABAPENTIN 100 MG CAP PO SCH ×2 (09:34→20:40)
--- NOTE | 2019-03-20 10:08 | P.CRDCN ---
History of Present Illness Consult date: 03/20/19 Requesting physician: Grupo Beard Reason for Consult (text): abn trop Chief complaint: falls History of present illness: This is a pleasant 88 stroke female who has a known history of h ypertension, prior CVA, asthma, neuropathy, she is a nondiabetic, nonsmoker. She presents to the hospital on this occasion with falling. According to the patient, she was walking with her walker, her legs gave out and she fell down onto her but, subsequent to that she fell back onto her head. She does state that she has a small bump on her head otherwise no injuries. Over the past year patient has fallen more than 10 times. She denies having any dizziness or lightheadedness no syncopal episodes, no chest discomfort or difficulty in breathing. According to her, her balance has been off because of her neuropathy, her legs become weak and she falls. A troponin was drawn in the emergency room which is why cardiology consultation has been requested. Chest x-ray was performed which showed possible pulmonary venous hypertension and interstitial edema. Patient does state that she stopped taking her diuretics at home because she was having to get up and go to the bathroom too frequently. EKG shows normal sinus rhythm with no acute changes. Most recent echocardiogram with Doppler study was performed in 2018 which revealed a normal left ventricular systolic function at that time, mild to moderate tricuspid regurg with severe pulmonary hypertension. Blood pressure on arrival here 177/90, 88% on room air, heart rate in the 90s. Blood pressure this morning 182/80 with a heart rate in the 90s, 100% on 2 L of oxygen. White blood cell count 14.0, hemoglobin 12.8, platelet count 322 sodium 142, potassium 4.2, BUN 19 and creatinine 0.7. Magnesium 1.3. Troponins 0.27, 0.68, 0.72. At the time of my examination this morning, patient is sitting up in her chair at bedside, feels well overall with no complaints. 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 History of Any Multi-Drug Resistant Organisms: None Reported Past Surgical History: Orthopedic Surgery Additional Past Surgical History / Comment(s): Lumbar epidural injections, bilateral eyes cataracts removed and stents placed d/t glaucoma, bilateral carpal tunnel releases, colonoscopy. Past Anesthesia/Blood Transfusion Reactions: No Reported Reaction Smoking Status: Never smoker - Past Family History Mother Family Medical History: No Reported History Additional Family Medical History / Comment(s): Mother was healthy and live to be 79yrs old. Father Additional Family Medical History / Comment(s): Father was an alcoholic. Sister(s) Family Medical History: Cancer Additional Family Medical History / Comment(s): breast cancer Medications and Allergies Home Medications Medication Instructions Recorded Confirmed Type Cholecalciferol [Vitamin D3 (25 1,000 unit PO DAILY 10/15/15 03/19/19 History Mcg = 1000 Iu)] Metoprolol Tartrate [Lopressor] 25 mg PO BID 10/15/15 03/19/19 History Vitamin B Complex 1 cap PO DAILY 10/15/15 03/19/19 History amLODIPine [Norvasc] 5 mg PO DAILY #10 tab 03/18/16 03/19/19 Rx Tracie-Lopez 1 tab PO DAILY 07/07/18 03/19/19 History cloNIDine HCL [Catapres] 0.2 mg PO TID 11/27/18 03/19/19 History Gabapentin [Neurontin] 100 mg PO BID #6 cap 12/01/18 03/19/19 Rx Aspirin 325 mg PO DAILY 03/19/19 03/19/19 History Atorvastatin Calcium [Lipitor] 10 mg PO DAILY 03/19/19 03/19/19 History Furosemide [Lasix] 40 mg PO DAILY 03/19/19 03/19/19 History HYDROcodone/APAP 5-325MG [[place] 0.5 tab PO BID PRN 03/19/19 03/19/19 History 5-325] Losartan [Cozaar] 50 mg PO BID 03/19/19 03/19/19 History Sennosides [Senna] 17.2 mg PO DAILY PRN 03/19/19 03/19/19 History Allergies Allergy/AdvReac Type Severity Reaction Status Date / Time clotrimazole Allergy Unknown Verified 03/19/19 10:41 fluconazole Allergy Unknown Verified 03/19/19 10:41 Sulfa (Sulfonamide Allergy Rash/Hives Verified 03/19/19 10:41 Antibiotics) calcium AdvReac Unknown Unknown Verified 03/19/19 10:41 baclofen AdvReac NUMBNESS Verified 03/19/19 10:41 WAS WORSE IN FEET" UNSTEADY" Physical Exam Vitals: Vital Signs Temp Pulse Pulse Resp BP BP Pulse Ox 03/20/19 08:20 97.8 F 97 18 182/86 100 03/20/19 05:25 185/79 03/20/19 03:59 98.9 F 67 18 184/74 95 03/19/19 23:39 75 18 03/19/19 23:29 98.1 F 75 18 131/69 93 L 03/19/19 20:00 99.1 F 95 18 141/65 95 03/19/19 16:16 95 16 142/67 93 L 03/19/19 12:58 98.4 F 93 18 158/62 95 Intake and Output 03/19/19 03/20/19 03/20/19 22:59 06:59 14:59 Intake Total 118 Output Total 500 200 Balance -382 -200 Intake: Oral 118 Output: Urine 500 200 Other: Voiding Method Bedpan Bedpan Diaper # Voids 1 1 # Bowel Movements 1 Weight 91.5 kg GENERAL EXAM: Alert, active, comfortable in no apparent distress. On room air. HEAD: Normocephalic. EYES: Normal reaction of pupils, equal size. NOSE: Clear with pink turbinates. THROAT: No erythema or exudates. NECK: No masses, no JVD. CHEST: No chest wall deformity. LUNGS: Diminished air entry to bilateral bases CVS: S1 and S2 systolic murmur is heard ABDOMEN: No hepatosplenomegaly, normal bowel sounds, no guarding or rigidity. SPINE: No scoliosis or deformity SKIN: No rashes CENTRAL NERVOUS SYSTEM: No focal deficits, tone is normal in all 4 extremities. Mild left-sided facial droop EXTREMITIES: There is no peripheral edema. No clubbing, no cyanosis. Peripheral pulses are intact. Results 03/19/19 09:30 03/19/19 09:30 Cardiac Enzymes 03/19/19 03/19/19 03/19/19 Range/Units 09:30 09:30 15:34 AST 35 (14-36) U/L Troponin I 0.279 H* 0.680 H* (0.000-0.034) ng/mL 03/19/19 Range/Units 21:34 AST (14-36) U/L Troponin I 0.722 H* (0.000-0.034) ng/mL Coagulation 03/19/19 Range/Units 09:30 PT 9.8 (9.0-12.0) sec APTT 24.2 (22.0-30.0) sec Lipids 03/19/19 Range/Units 09:30 Triglycerides 86 (<150) mg/dL Cholesterol 112 (<200) mg/dL HDL Cholesterol 37 L (40-60) mg/dL CBC 03/19/19 Range/Units 09:30 WBC 14.0 H (3.8-10.6) k/uL RBC 4.56 (3.80-5.40) m/uL Hgb 12.8 (11.4-16.0) gm/dL Hct 41.9 (34.0-46.0) % Plt Count 322 (150-450) k/uL Comprehensive Metabolic Panel 03/19/19 Range/Units 09:30 Sodium 142 (137-145) mmol/L Potassium 4.2 (3.5-5.1) mmol/L Chloride 107 (98-107) mmol/L Carbon Dioxide 27 (22-30) mmol/L BUN 19 H (7-17) mg/dL Creatinine 0.78 (0.52-1.04) mg/dL Glucose 125 H (74-99) mg/dL Calcium 9.3 (8.4-10.2) mg/dL AST 35 (14-36) U/L ALT 25 (9-52) U/L Alkaline Phosphatase 100 (38-126) U/L Total Protein 7.4 (6.3-8.2) g/dL Albumin 4.0 (3.5-5.0) g/dL Current Medications Generic Name Dose Route Start Last Admin Trade Name Freq PRN Reason Stop Dose Admin Hydrocodone Bitart/Acetaminophen 0.5 each 03/19/19 19:55 03/19/19 22:02 [place] 5-325 PO 0.5 each BID PRN Administration Pain Amlodipine Besylate 5 mg 03/20/19 09:00 03/20/19 09:34 Norvasc PO 5 mg DAILY AIC[facility] Administration Aspirin 325 mg 03/20/19 09:00 03/20/19 09:34 Aspirin PO 325 mg DAILY [facility] Administration Atorvastatin Calcium 10 mg 03/20/19 09:00 03/20/19 09:34 Lipitor PO 10 mg DAILY [facility] Administration Cholecalciferol 1,000 unit 03/20/19 09:00 03/20/19 09:34 Vitamin D3 (25 Mcg = 1000 Iu) PO 1,000 unit DAILY [facility] Administration Clonidine 0.2 mg 03/19/19 22:00 03/20/19 09:34 Catapres PO 0.2 mg TID AICHA Administration Furosemide 40 mg 03/20/19 09:00 03/20/19 09:34 Lasix PO 40 mg DAILY [facility] Administration Gabapentin 100 mg 03/19/19 21:00 03/20/19 09:34 Neurontin PO 100 mg BID [facility] Administration Insulin Aspart 0 unit 03/19/19 21:00 03/20/19 06:25 Novolog SQ Not Given ACHS [facility] Protocol Losartan Potassium 50 mg 03/19/19 21:00 03/20/19 09:34 Cozaar PO 50 mg BID [facility] Administration Metoprolol Tartrate 25 mg 03/19/19 21:00 03/20/19 09:34 Lopressor PO 25 mg BID [facility] Administration Nitroglycerin 1 inch 03/19/19 18:00 03/20/19 06:25 Nitro-Bid Oint TOPICAL Not Given Q6HR [facility] Nitroglycerin 0.4 mg 03/19/19 12:35 Nitrostat SUBLINGUAL Q5M PRN Chest Pain Senna 17.2 mg 03/19/19 19:55 Senokot PO DAILY PRN Constipation Intake and Output 03/19/19 03/20/19 03/20/19 22:59 06:59 14:59 Intake Total 118 Output Total 500 200 Balance -382 -200 Intake: Oral 118 Output: Urine 500 200 Other: Voiding Method Bedpan Bedpan Diaper # Voids 1 1 # Bowel Movements 1 Weight 91.5 kg 03/19/19 09:30 03/19/19 09:30 EKG Interpretations (text) EKG shows normal sinus rhythm with no acute changes. Assessment and Plan Plan: Assessment and plan #1 episode of fall, likely secondary to loss of balance, no syncope #2 abnormality in troponin, could be secondary to hypoxia, O2 saturation on admission was 88% #3 hypertension, uncontrolled #4 prior CVA #5 history of asthma Plan We will obtain an echocardiogram with Doppler study. The most recent echo was performed in 2018 and revealed a normal left ventricular systolic function with mild mitral regurgitation, mild to moderate tricuspid regurg and severe pu lmonary hypertension. Chest x-ray also demonstrated some vomiting vascular congestion and patient was given a one-time dose of IV Lasix in the emergency room, continue oral diuretics. Discontinue Nitropaste and decrease aspirin to 81 mg daily. Increase Norvasc to 10 mg daily for more optimal blood pressure control. Further recommendations to follow. DNP note has been reviewed, I agree with a documented findings and plan of care. Patient was seen and examined.
[2019-03-20 11:56] LABS: Glucose,Whole Blood 187 mg/dL (75-99)
--- NOTE | 2019-03-20 12:53 | ECHOF ---
Referral Reason:abn trop MEASUREMENTS -------- HEIGHT: 165.1 cm WEIGHT: 91.2 kg BP: 182/86 RVIDd: 2.9 cm (< 3.3) IVSd: 1.6 cm (0.6 - 1.1) LVIDd: 3.1 cm (3.9 - 5.3) LVPWd: 1.5 cm (0.6 - 1.1) IVSs: 2.0 cm LVIDs: 2.2 cm LVPWs: 2.1 cm LA Diam: 3.7 cm (2.7 - 3.8) LAESV Index (A-L): 28.14 ml/m Ao Diam: 3.4 cm (2.0 - 3.7) AV Cusp: 2.2 cm (1.5 - 2.6) MV EXCURSION: 18.438 mm (> 18.000) MV EF SLOPE: 47 mm/s (70 - 150) EPSS: 0.7 cm MV E Edin: 0.62 m/s MV DecT: 351 ms MV A Edin: 0.98 m/s MV E/A Ratio: 0.63 RAP: 5.00 mmHg RVSP: 39.34 mmHg FINDINGS -------- Sinus rhythm. This was a technically adequate study. The left ventricular size is normal. There is moderate concentric left ventricular hypertrophy. O verall left ventricular systolic function is normal with, an EF between 60 - 65 %. The right ventricle is normal in size. Normal LA size by volume 22+/-6 ml/m2. The right atrium is normal in size. Interatrial and interventricular septum intact. The aortic valve is trileaflet and appears structurally normal. The mitral valve leaflets are mildly thickened. Mild mitral annular calcification present. There is trace to mild mitral regurgitation. Mild tricuspid regurgitation present. There is mild pulmonary hypertension. The right ventricular systolic pressure, as measured by Doppler, is 39.34mmHg. The pulmonic valve was not well visualized. The aortic root size is normal. Normal inferior vena cava with normal inspiratory collapse consistent with estimated right atrial pre ssure of 5 mmHg. The inferior vena cava is mildly dilated. There is no pericardial effusion. CONCLUSIONS -------- 1. Sinus rhythm. 2. This was a technically adequate study. 3. The left ventricular size is normal. 4. There is moderate concentric left ventricular hypertrophy. 5. Overall left ventricular systolic function is normal with, an EF between 60 - 65 %. 6. The right ventricle is normal in size. 7. Normal LA size by volume 22+/-6 ml/m2. 8. The right atrium is normal in size. 9. Interatrial and interventricular septum intact. 10. The aortic valve is trileaflet and appears structurally normal. 11. The mitral valve leaflets are mildly thickened. 12. Mild mitral annular calcification present. 13. There is trace to mild mitral regurgitation. 14. Mild tricuspid regurgitation present. 15. There is mild pulmonary hypertension. 16. The right ventricular systolic pressure, as measured by Doppler, is 39.34mmHg. 17. The pulmonic valve was not well visualized. 18. The aortic root size is normal. 19. Normal inferior vena cava with normal inspiratory collapse consistent with estimated right atrial pressure of 5 mmHg. 20. The inferior vena cava is mildly dilated. 21. There is no pericardial effusion. FIELD RING ASSEMBLER: Fanny Purvis RDCS
--- NOTE | 2019-03-20 13:47 | P.PN ---
Subjective Progress Note Date: 03/20/19 Principal diagnosis: Non-ST DE, generalized weakness, multiple falls, type 2 diabetes, CK D, debility, memory loss, abnormal balance and gait. 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 Patient was hospitalized at [facility] late October early December for pneumonia and worsening distention breath continue to have debilitation but refuses to go for rehab or fci with management. She was not office 2 weeks ago for follow-up was doing well. Patient apparently sustained a fall today backward landed on her but she was not able template to walk continued to have slight confusion and worsening mentation did not feel well with a friend of her end up coming to the emergency department at [facility] of around arrival was quite but hypoxic with pulse ox around 88 percentile EKG didn't show any change troponin was mildly elevated the rest of her blood work was not abnormal patient will be admitted to the hospital will do troponin 3 continue to monitor patient on cold rolling supervisor we'll consult cardiology and depend on her testing the next 24 hours we'll decide on further intervention. 03/20: Patient is feeling slightly but better, still having problem with balance and gait. No fall since yesterday, troponin was still slightly bit abnormal patient be seen cardiology no intervention to be decided time if her echocardio gram doesn't show any wall made motion abnormality patient to be treated medically. Patient still argument about going to assisted living or rehab. Objective - Vital Signs Vital signs: Vital Signs Temp 97.5 F L 03/20/19 11:55 Pulse 69 03/20/19 11:55 Resp 18 03/20/19 11:55 BP 135/61 03/20/19 11:55 Pulse Ox 95 03/20/19 11:55 Intake & Output 03/19/19 03/20/19 03/20/19 18:59 06:59 18:59 Intake Total 118 240 Output Total 1892 350 Balance -1774 -110 Weight 91.626 kg 91.5 kg Intake: Oral 118 240 Output: Urine 1700 350 Post Void Residual 192 Other: Voiding Method Bedpan Bedpan Diaper Diaper # Voids 1 1 1 # Bowel Movements 1 - Exam CONSTITUTIONAL: Well-developed no acute respiratory distress. Elderly mildly overweight EYES: No icterus sclerae, no conjunctivitis. EARS, NOSE, MOUTH, THROAT, and FACE: No sore throat, lymphadenopathy, carotid bruits or deformity. RESPIRATORY: No SOB cough or wheezes. CARDIOVASCULAR: Positive PND or troponin palpitation GASTROINTESTINAL: No Abd pain, Nausea or vomiting, no Diarrhea or constipation, No GI Bleed, no distention or masses. GENITOURINARY: Negative for Hematuria or UTI, no kidney stones. INTEGUMENT/BREAST: Negative for any muscular injury with mild osteoarthritis.. HEMATOLOGIC/LYMPHATIC: Negative for bleed or purpura. MUSCULOSKELTAL: Trace edema with generalized myalgia and arthralgia. NEURLOGICAL: No LOC, Sz or syncope, blurred vision dizziness or abnormality.. Mild memory loss. BEHAVIORAL/PSYCH: Negative. ENDOCRINE: Negative. General Appearance: Alert, cooperative, no distress, appears stated age. Neck HEENT: Supple, no lymphadenopathy, no thyroid enlargement, no carotid bruits. Lungs: Clear to auscultation without crackles or wheezes no rhonchi, no deformity. Chest Wall: Decrease expansion with deep inspiration no tenderness and no deformity was found on exam, no costochondral pain or discomfort. Heart: Regular rate and rhythm, S1, S2 normal, positive S3 positive systolic murmur, no rub or gallop. Back: Symmetric, no curvature, ROM normal, no CVA tenderness. Abdomen: Soft, non-tender, bowel sounds active all four quadrants, no masses, no organomegaly. Extremities: Extremities normal, atraumatic, no cyanosis or edema. Pulses: 2+ and symmetric. Skin: Skin color, texture, tugor normal, no rashes or lesions. Neurologic: Alert oriented x2 cranial nerves II through XII intact, positive generalized weakness with abnormal balance and gait. - Labs CBC & Chem 7: 03/19/19 09:30 03/19/19 09:30 Labs: Abnormal Lab Results - Last 24 Hours (Table) 03/19/19 03/19/19 03/19/19 Range/Units 09:30 15:34 16:21 POC Glucose (mg/dL) 152 H (75-99) mg/dL Troponin I 0.680 H* (0.000-0.034) ng/mL HDL Cholesterol 37 L (40-60) mg/dL 03/19/19 03/19/19 03/20/19 Range/Units 20:26 21:34 06:01 POC Glucose (mg/dL) 121 H 120 H (75-99) mg/dL Troponin I 0.722 H* (0.000-0.034) ng/mL HDL Cholesterol (40-60) mg/dL 03/20/19 Range/Units 11:53 POC Glucose (mg/dL) 187 H (75-99) mg/dL Troponin I (0.000-0.034) ng/mL HDL Cholesterol (40-60) mg/dL Assessment and Plan Plan: 1 non-ST DE: With patient's current symptom patient be admitted to the hospital on cold rolling supervisor consult cardiology continue current management aspirin was giving patient still on beta sanaz continue nitro no heparin at this point specially with high risk for bleed depend on her troponin the next 24 hours we'll decide on further management with her to go for intervention or stress test, echocardiogram was ordered as well. Final decision most likely on medical management no intervention required at this time. 2 mild change mental status: Most likely from her current presentation along with hypoxia hypertension and previous history of CVA continue to do neuro exam every few hours. 3 multiple falls with severe abnormal balance and gait patient will be hospitalized PTOT continue to consult patient about going to assisted living or [facility] re[facility]. 4 hypertension: Has been doing well on clonidine 0.2 mg 3 times a day Norvasc 5 mg daily and metoprolol 25 mg twice a day. 5 hyperlipidemia: Remain on atorvastatin 10 mg daily. 6 type 2 diabetes: Patient is off medication at this point her A1c was 7.0 continue diet control continue Accu-Chek with sliding scales coverage. 7 chronic lower back pain with back injury, patient remain on hydrocodone and gabapentin on as-needed basis. 8 chronic neuropathy: Remain on gabapentin. 9 Severe GERD/GI prophylaxis: Patient will be on Pepcid 20 mg daily. Long talk with patient and her son she'll be agreeable to go to rehab to do physical therapy and possibly to be looking for assisted living afterward.
--- NOTE | 2019-03-20 13:48 | P.HPIM ---
History of Present Illness H&P Date: 03/19/19 Chief Complaint: Non-ST TX, generalized weakness, multiple falls, type 2 lesa minoes, CK D 88-year-old female one of my office patient with past medical history of asthma, diabetes, hypertension, hyperlipidemia and chronic kidney disease who had history of CVA back in July 2018 with slight residual continue to have abnormal balance and gait also known to have chronic history of lower back pain with multiple management by pain management in the past. Patient was hospitalized at [facility] late October early December for pneumonia and worsening distention breath continue to have debilitation but refuses to go for rehab or detention with management. She was not office 2 weeks ago for follow-up was doing well. Patient apparently sustained a fall today backward landed on her but she was not able template to walk continued to have slight confusion and worsening mentation did not feel well with a friend of her end up coming to the emergency department at [facility] of around arrival was quite but hypoxic with pulse ox around 88 percentile EKG didn't show any change troponin was mildly elevated the rest of her blood work was not abnormal patient will be admitted to the hospital will do troponin 3 continue to monitor patient on guide delegate we'll consult cardiology and depend on her testing the next 24 hours we'll decide on further intervention. Review of Systems CONSTITUTIONAL: Well-developed no acute respiratory distress. Elderly mildly overweight EYES: No icterus sclerae, no conjunctivitis. EARS, NOSE, MOUTH, THROAT, and FACE: No sore throat, lymphadenopathy, carotid bruits or deformity. RESPIRATORY: No SOB cough or wheezes. CARDIOVASCULAR: Positive PND or troponin palpitation GASTROINTESTINAL: No Abd pain, Nausea or vomiting, no Diarrhea or constipation, No GI Bleed, no distention or masses. GENITOURINARY: Negative for Hematuria or UTI, no kidney stones. INTEGUMENT/BREAST: Negative for any muscular injury with mild osteoarthritis.. HEMATOLOGIC/LYMPHATIC: Negative for bleed or purpura. MUSCULOSKELTAL: Trace edema with generalized myalgia and arthralgia. NEURLOGICAL: No LOC, Sz or syncope, blurred vision dizziness or abnormality.. Mild memory loss. BEHAVIORAL/PSYCH: Negative. ENDOCRINE: Negative. 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 History of Any Multi-Drug Resistant Organisms: None Reported Past Surgical History: Orthopedic Surgery Additional Past Surgical History / Comment(s): Lumbar epidural injections, bilat eral eyes cataracts removed and stents placed d/t glaucoma, bilateral carpal tunnel releases, colonoscopy. Past Anesthesia/Blood Transfusion Reactions: No Reported Reaction Smoking Status: Never smoker - Past Family History Mother Family Medical History: No Reported History Additional Family Medical History / Comment(s): Mother was healthy and live to be 79yrs old. Father Additional Family Medical History / Comment(s): Father was an alcoholic. Sister(s) Family Medical History: Cancer Additional Family Medical History / Comment(s): breast cancer Medications and Allergies Home Medications Medication Instructions Recorded Confirmed Type Cholecalciferol [Vitamin D3 (25 1,000 unit PO DAILY 10/15/15 03/19/19 History Mcg = 1000 Iu)] Metoprolol Tartrate [Lopressor] 25 mg PO BID 10/15/15 03/19/19 History Vitamin B Complex 1 cap PO DAILY 10/15/15 03/19/19 History amLODIPine [Norvasc] 5 mg PO DAILY #10 tab 03/18/16 03/19/19 Rx Tracie-Lopez 1 tab PO DAILY 07/07/18 03/19/19 History cloNIDine HCL [Catapres] 0.2 mg PO TID 11/27/18 03/19/19 History Gabapentin [Neurontin] 100 mg PO BID #6 cap 12/01/18 03/19/19 Rx Aspirin 325 mg PO DAILY 03/19/19 03/19/19 History Atorvastatin Calcium [Lipitor] 10 mg PO DAILY 03/19/19 03/19/19 History Furosemide [Lasix] 40 mg PO DAILY 03/19/19 03/19/19 History HYDROcodone/APAP 5-325MG [[place] 0.5 tab PO BID PRN 03/19/19 03/19/19 History 5-325] Losartan [Cozaar] 50 mg PO BID 03/19/19 03/19/19 History Sennosides [Senna] 17.2 mg PO DAILY PRN 03/19/19 03/19/19 History Allergies Allergy/AdvReac Type Severity Reaction Status Date / Time clotrimazole Allergy Unknown Verified 03/19/19 10:41 fluconazole Allergy Unknown Verified 03/19/19 10:41 Sulfa (Sulfonamide Allergy Rash/Hives Verified 03/19/19 10:41 Antibiotics) calcium AdvReac Unknown Unknown Verified 03/19/19 10:41 baclofen AdvReac NUMBNESS Verified 03/19/19 10:41 WAS WORSE IN FEET" UNSTEADY" Physical Exam Vitals: Vital Signs Temp Pulse Resp BP Pulse Ox 03/19/19 12:58 98.4 F 93 18 158/62 95 03/19/19 09:42 90 18 165/84 96 03/19/19 09:22 96 03/19/19 09:13 99.3 F 94 18 177/93 88 L Intake and Output 03/18/19 03/19/19 03/19/19 22:59 06:59 14:59 Output Total 1200 Balance -1200 Output: Urine 1200 Other: Weight 91.626 kg General Appearance: Alert, cooperative, no distress, appears stated age. Neck HEENT: Supple, no lymphadenopathy, no thyroid enlargement, no carotid bruits. Lungs: Clear to auscultation without crackles or wheezes no rhonchi, no deformity. Chest Wall: Decrease expansion with deep inspiration no tenderness and no deformity was found on exam, no costochondral pain or discomfort. Heart: Regular rate and rhythm, S1, S2 normal, positive S3 positive systolic murmur, no rub or gallop. Back: Symmetric, no curvature, ROM normal, no CVA tenderness. Abdomen: Soft, non-tender, bowel sounds active all four quadrants, no masses, no organomegaly. Extremities: Extremities normal, atraumatic, no cyanosis or edema. Pulses: 2+ and symmetric. Skin: Skin color, texture, tugor normal, no rashes or lesions. Neurologic: Alert oriented x2 cranial nerves II through XII intact, positive generalized weakness with abnormal balance and gait. Results CBC & Chem 7: 03/19/19 09:30 03/19/19 09:30 Labs: Abnormal Lab Results - Last 24 Hours (Table) 03/19/19 03/19/19 03/19/19 Range/Units 09:30 09:30 09:30 WBC 14.0 H (3.8-10.6) k/uL MCHC 30.6 L (31.0-37.0) g/dL Neutrophils # 12.2 H (1.3-7.7) k/uL Lymphocytes # 0.8 L (1.0-4.8) k/uL BUN 19 H (7-17) mg/dL Glucose 125 H (74-99) mg/dL Troponin I 0.279 H* (0.000-0.034) ng/mL Urine Protein (Negative) Hyaline Casts (0-2) /lpf Urine Mucus (None) /hpf Urine Yeast (Budding) (None) /hpf 03/19/19 Range/Units 09:30 WBC (3.8-10.6) k/uL MCHC (31.0-37.0) g/dL Neutrophils # (1.3-7.7) k/uL Lymphocytes # (1.0-4.8) k/uL BUN (7-17) mg/dL Glucose (74-99) mg/dL Troponin I (0.000-0.034) ng/mL Urine Protein 2+ H (Negative) Hyaline Casts 102 H (0-2) /lpf Urine Mucus Rare H (None) /hpf Urine Yeast (Budding) Rare H (None) /hpf Thrombosis Risk Factor Assmnt - DVT/VTE Prophylaxis DVT/VTE Prophylaxis: Pharmacologic Prophylaxis ordered, Mechanical Prophylaxis ordered - Choose All That Apply Any of the Below Risk Factors Present?: Yes Each Factor Represents 1 point: Obesity (BMI >25) Other Risk Factors: Yes Each Risk Factor Represents 3 Points: Age 75 years or older Other congenital or acquired thrombophilia - If yes, enter type in comment: No Thrombosis Risk Factor Assessment Total Risk Factor Score: 4 Thrombosis Risk Factor Assessment Level: Moderate Risk Assessment and Plan Plan: 1 non-ST TX: With patient's current symptom patient be admitted to the hospital on guide delegate consult cardiology continue current management aspirin was giving patient still on beta sanaz continue nitro no heparin at this point specially with high risk for bleed depend on her troponin the next 24 hours we'll decide on further management with her to go for intervention or stress test, echocardiogram was ordered as well. 2 mild change mental status: Most likely from her current presentation along w ith hypoxia hypertension and previous history of CVA continue to do neuro exam every few hours. 3 multiple falls with severe abnormal balance and gait patient will be hospitalized PTOT continue to consult patient about going to assisted living or [facility] rehab detention. 4 hypertension: Has been doing well on clonidine 0.2 mg 3 times a day Norvasc 5 mg daily and metoprolol 25 mg twice a day. 5 hyperlipidemia: Remain on atorvastatin 10 mg daily. 6 type 2 diabetes: Patient is off medication at this point her A1c was 7.0 continue diet control continue Accu-Chek with sliding scales coverage. 7 chronic lower back pain with back injury, patient remain on hydrocodone and gabapentin on as-needed basis. 8 chronic neuropathy: Remain on gabapentin. Severe GERD/GI prophylaxis: Patient will be on Pepcid 20 mg daily. DVT prophylaxis: Continue patient on heparin 5000 units subcutaneous twice a d ay. CODE STATUS: Full code. Admit patient to inpatient status for more than 2 nights.
[2019-03-20] MEDS ORDERED: hydrALAZINE HCL 50 MG TAB PO SCH (16:00)
[2019-03-20] MEDS ORDERED: hydrALAZINE HCL 20 MG/ML 1 ML VIAL IVP PRN (16:53)
[2019-03-20 17:00] LABS: Glucose,Whole Blood 134 mg/dL (75-99)
[2019-03-20 20:57] LABS: Glucose,Whole Blood 121 mg/dL (75-99)
[2019-03-21] MEDS: HYDROcodone/APAP 5-325MG 1 EACH TAB PO PRN (03:44)
[2019-03-21 06:20] LABS: Glucose,Whole Blood 99 mg/dL (75-99)
[2019-03-21 06:23] LABS: Basophils % (A) 0 %; Eosinophils # (A) 0.6 k/uL (0-0.7); Eosinophils % (A) 6 %; HCT 39.9 % (34.0-46.0); HGB 12.1 gm/dL (11.4-16.0); Hypochromasia Moderate; Lymphocytes # (A) 2.1 k/uL (1.0-4.8); Lymphocytes % (A) 22 %; MCH 28.3 pg (25.0-35.0); MCHC 30.4 g/dL (31.0-37.0); MCV 93.2 fL (80.0-100.0); Mean Platelet Volume 7.3; Monocytes # (A) 0.5 k/uL (0-1.0); Monocytes % (A) 6 %; Neutrophils # (A) 6.2 k/uL (1.3-7.7); Neutrophils % (A) 64 %; Platelet Count 283 k/uL (150-450); RBC 4.28 m/uL (3.80-5.40); RDW 13.8 % (11.5-15.5); WBC 9.6 k/uL (3.8-10.6)
[2019-03-21] MEDS: INSULIN ASPART (NovoLOG) 100 UNIT/ML VIAL SQ SCH ×4 (06:37→21:51)
[2019-03-21 06:38] LABS: Albumin 3.2 g/dL (3.5-5.0); Total Bilirubin 1.3 mg/dL (0.2-1.3)
[2019-03-21] MEDS: ASPIRIN 81 MG PO SCH (09:45)
[2019-03-21] MEDS: amLODIPine 10 MG TAB PO SCH (09:45)
[2019-03-21] MEDS: GABAPENTIN 100 MG CAP PO SCH ×2 (09:45→21:52)
[2019-03-21] MEDS: cloNIDine HCL 0.2 MG TAB PO SCH ×3 (09:45→21:52)
[2019-03-21] MEDS: CHOLECALCIFEROL 1,000 UNIT TAB PO SCH (09:45)
[2019-03-21] MEDS: FUROSEMIDE 40 MG TAB PO SCH (09:46)
[2019-03-21] MEDS: METOPROLOL TARTRATE 25 MG TAB PO SCH ×2 (09:46→21:50)
[2019-03-21] MEDS: ATORVASTATIN 10 MG TAB PO SCH (09:46)
[2019-03-21] MEDS: LOSARTAN 50 MG TAB PO SCH ×2 (09:50→21:51)
[2019-03-21 11:38] LABS: Glucose,Whole Blood 105 mg/dL (75-99)
--- NOTE | 2019-03-21 11:58 | CDI ---
Documentation Clarification Form Date: 03/21/2019 CDS: Lori Erazo, CCS, CCDS Admit Date: 03/20/2019 Patient Name: Sindi Fairchild Discharge Date: ATTENTION: The Clinical Documentation Specialists (CDI) and [facility] Coding Staff appreciate your assistance in clarifying documentation. Please respond to the clarification below the line at the bottom and electronically sign. The CDI & [facility] Coding staff will review the response and follow-up if needed. Please note: Queries are made part of the Legal Health Record. If you have any questions, please contact the author of this message via ITS. Dear Dr. Beard: Patient was admitted with NSTEMI. History/Risk Factors: CKD, Hypertension, DM II with chronic neuropathy, Hyperlipidemia, Chronic low back pain, severe GERD. History of pneumonia, multiple falls. Clinical Indicators: Presented with weakness, multiple falls, mild altered mental status. LAB: BUN: 24 - 19 Creatinine: 0.78 - 0.94 GFR: 55 - 69 Treatment: IV Lasix, Nitro sl, Nitropaste In order to capture the severity of condition, please clarify the stage of CKD if known: CKD Stage 1 (GFR > 90) CKD Stage 2 (GFR 60-89) CKD Stage 3 (GFR 30-59) Other, please specify Unable to determine (Last Revision: January 2018) CKD 2 MTDD
--- NOTE | 2019-03-21 13:56 | P.PN ---
Subjective Progress Note Date: 03/21/19 88-year-old female one of my office patient with past medical history of asthma, diabetes, hypertension, hyperlipidemia and chronic kidney disease who had history of CVA back in July 2018 with slight residual continue to have abnormal balance and gait also known to have chronic history of lower back pain with multiple management by pain management in the past. Patient was hospitalized at [facility] late October early December for pneumonia and worsening distention breath continue to have debilitation but refuses to go for rehab or [place] [facility] with management. She was not office 2 weeks ago for follow-up was doing well. Patient apparently sustained a fall today backward l anded on her but she was not able template to walk continued to have slight confusion and worsening mentation did not feel well with a friend of her end up coming to the emergency department at [facility] of around arrival was quite but hypoxic with pulse ox around 88 percentile EKG didn't show any change troponin was mildly elevated the rest of her blood work was not abnormal patient will be admitted to the hospital will do troponin 3 continue to monitor patient on concaver we'll consult cardiology and depend on her testing the next 24 hours we'll decide on further intervention. 03/20: Patient is feeling slightly but better, still having problem with balance and gait. No fall since yesterday, troponin was still slightly bit abnormal patient be seen cardiology no intervention to be decided time if her echocardiogram doesn't show any wall made motion abnormality patient to be treat ed medically. Patient still argument about going to assisted living or rehab 03/21: Echocardiogram reveals moderate concentric left ventricular hypertrophy, EF 60-65%, trace to mild mitral regurgitation, mild tricuspid regurgitation, mild pulmonary hypertension. Cardiology has determined troponin abnormality secondary to hypoxia. No acute coronary syndrome. The patient is awake alert. She is found sitting in recliner and appears to be comfortable. She has been afebrile, heart rate 60s to 90s, blood pressure 141/63, pulse ox 94% on 2 L nasal cannula. Repeat lab work reveals normal CBC, BUN 24 and creatinine 0.94. Blood sugars have been running between 99 and 134. ProBNP 1550. Patient is being followed by PT and OT with recommendations for subacute rehab. Social work is following for subacute rehab to [facility]. Anticipate patient will be ready for discharge on Tuesday. . Objective - Vital Signs Vital signs: Vital Signs Temp 97.0 F L 03/21/19 08:00 Pulse 97 03/21/19 08:00 Resp 14 03/21/19 08:00 BP 141/63 03/21/19 08:00 Pulse Ox 94 L 03/21/19 08:00 Intake & Output 03/20/19 03/21/19 03/21/19 18:59 06:59 18:59 Intake Total 1062 240 Output Total 350 300 Balance 712 -300 240 Weight 86.6 kg Intake: Oral 1062 240 Output: Urine 350 300 Other: Voiding Method Bedpan Toilet Diaper Diaper # Voids 1 1 1 # Bowel Movements 1 - Exam CONSTITUTIONAL: Well-developed no acute respiratory distress. Elderly mildly overweight, denies fever, denies chills EYES: No icterus sclerae, no conjunctivitis. EARS, NOSE, MOUTH, THROAT, and FACE: No sore throat, lymphadenopathy, carotid bruits or deformity. RESPIRATORY: No SOB cough or wheezes. CARDIOVASCULAR: Positive PND or troponin palpitation GASTROINTESTINAL: No Abd pain, Nausea or vomiting, no Diarrhea or constipation, No GI Bleed, no distention or masses. GENITOURINARY: Negative for Hematuria or UTI, no kidney stones. INTEGUMENT/BREAST: Negative for any muscular injury with mild osteoarthritis.. HEMATOLOGIC/LYMPHATIC: Negative for bleed or purpura. MUSCULOSKELTAL: Trace edema with generalized myalgia and arthralgia. NEURLOGICAL: No LOC, Sz or syncope, blurred vision dizziness or abnormality.. Mild memory loss. BEHAVIORAL/PSYCH: Negative. ENDOCRINE: Negative. General Appearance: Alert, cooperative, no distress, appears stated age. Neck HEENT: Supple, no lymphadenopathy, no thyroid enlargement, no carotid bruits. Lungs: Clear to auscultation without crackles or wheezes no rhonchi, no deformity. Chest Wall: Decrease expansion with deep inspiration no tenderness and no deformity was found on exam, no costochondral pain or discomfort. Heart: Regular rate and rhythm, S1, S2 normal, positive S3 positive systolic murmur, no rub or gallop. Back: Symmetric, no curvature, ROM normal, no CVA tenderness. Abdomen: Soft, non-tender, bowel sounds active all four quadrants, no masses, no organomegaly. Extremities: Extremities normal, atraumatic, no cyanosis or edema. Pulses: 2+ and symmetric. Skin: Skin color, texture, tugor normal, no rashes or lesions. Neurologic: Alert oriented x3 cranial nerves II through XII intact, positive generalized weakness with abnormal balance and gait. - Labs CBC & Chem 7: 03/21/19 06:08 03/21/19 06:08 Labs: Abnormal Lab Results - Last 24 Hours (Table) 03/20/19 03/20/19 03/21/19 Range/Units 16:46 20:55 06:08 MCHC 30.4 L (31.0-37.0) g/dL Carbon Dioxide (22-30) mmol/L BUN (7-17) mg/dL Glucose (74-99) mg/dL POC Glucose (mg/dL) 134 H 121 H (75-99) mg/dL Total Protein (6.3-8.2) g/dL Albumin (3.5-5.0) g/dL 03/21/19 03/21/19 Range/Units 06:08 11:29 MCHC (31.0-37.0) g/dL Carbon Dioxide 34 H (22-30) mmol/L BUN 24 H (7-17) mg/dL Glucose 102 H (74-99) mg/dL POC Glucose (mg/dL) 105 H (75-99) mg/dL Total Protein 6.0 L (6.3-8.2) g/dL Albumin 3.2 L (3.5-5.0) g/dL Assessment and Plan Plan: 1 non-ST MD ruled out by cardiology. Echocardiogram as above. Cardiology consult appreciated. Continue aspirin 81 mg daily, Lipitor 10 mg daily, Lopressor 25 mg twice daily. 2 acute hypoxic respiratory failure with presentation of mild metabolic encephalopathy secondary to hypoxia and hypertension and previous history of CVA. 3 multiple falls with severe abnormal balance and gait patient will be hospitalized PTOT continue to consult patient about going to assisted living or rehab [place] [facility]. 4 hypertension: Has been doing well on clonidine 0.2 mg 3 times a day Norvasc has been increased to 10 mg daily by cardiology, continue metoprolol 25 mg twice a day, losartan 50 mg twice daily, Lasix 40 mg daily. 5 hyperlipidemia: Remain on atorvastatin 10 mg daily. 6 type 2 diabetes: Patient is off medication at this point her A1c was 7.0 continue diet control continue Accu-Chek with sliding scales coverage. 7 chronic lower back pain with back injury, patient remain on hydrocodone and gabapentin on as-needed basis. 8 chronic neuropathy: Remain on gabapentin. 9 Severe GERD/GI prophylaxis: Patient will be on Pepcid 20 mg daily. 10 DVT prophylaxis. Heparin subcu. 11 chronic kidney disease stage II, stable. Discharge plan: Subacute rehab at [facility] on Tuesday Impression and plan of care have been directed as dictated by the signing physician. Marcela Love nurse practitioner acting as scribe for signing phys ician.
--- NOTE | 2019-03-21 14:13 | P.PN ---
Subjective Progress Note Date: 03/21/19 This is a pleasant 88 stroke female who has a known history of hypertension, prior CVA, asthma, neuropathy, she is a nondiabetic, nonsmoker. She presents to the hospital on this occasion with falling. According to the patient, she was walking with her walker, her legs gave out and she fell down onto her but, subsequent to that she fell back onto her head. She does state that she has a small bump on her head otherwise no injuries. Over the past year patient has fallen more than 10 times. She denies having any dizziness or lightheadedness no syncopal episodes, no chest discomfort or difficulty in breathing. According to her, her balance has been off because of her neuropathy, her legs become weak and she falls. A troponin was drawn in the emergency room which is why cardiology consultation has been requested. Chest x-ray was performed which showed possible pulmonary venous hypertension and interstitial edema. Patient does state that she stopped taking her diuretics at home because she was having to get up and go to the bathroom too frequently. EKG shows normal sinus rhythm with no acute changes. Most recent echocardiogram with Doppler study was performed in 2018 which revealed a normal left ventricular systolic function at that time, mild to moderate tricuspid regurg with severe pulmonary hypertension. Blood pressure on arrival here 177/90, 88% on room air, heart rate in the 90s. Blood pressure this morning 182/80 with a heart rate in the 90s, 100% on 2 L of oxygen. White blood cell count 14.0, hemoglobin 12.8, platelet count 322 sodium 142, potassium 4.2, BUN 19 and creatinine 0.7. Magnesium 1.3. Troponins 0.27, 0.68, 0.72. At the time of my examination this morning, patient is sitting up in her chair at bedside, feels well overall with no complaints. 03/21/2018 Patient was seen and examined this morning, sitting up in her chair at bedside. Echocardiogram with Doppler study was performed and revealed a normal left ventricular systolic function. She feels well overall. No dizziness or lightheadedness. Blood pressure 104/50, heart rate in the 60s, 95% on 2 L of oxygen. Objective - Vital Signs Vital signs: Vital Signs Temp 97.6 F 03/21/19 12:00 Pulse 65 03/21/19 12:00 Resp 15 03/21/19 12:00 BP 104/56 05/22/19 12:00 Pulse Ox 95 03/21/19 12:00 Intake & Output 03/20/19 03/21/19 03/21/19 18:59 06:59 18:59 Intake Total 1062 480 Output Total 350 300 Balance 712 -300 480 Weight 86.6 kg Intake: Oral 1062 480 Output: Urine 350 300 Other: Voiding Method Bedpan Toilet Diaper Diaper # Voids 1 1 1 # Bowel Movements 1 - Exam GENERAL EXAM: Alert, active, comfortable in no apparent distress. On room air. HEAD: Normocephalic. EYES: Normal reaction of pupils, equal size. NOSE: Clear with pink turbinates. THROAT: No erythema or exudates. NECK: No masses, no JVD. CHEST: No chest wall deformity. LUNGS: Diminished air entry to bilateral bases CVS: S1 and S2 systolic murmur is heard ABDOMEN: No hepatosplenomegaly, normal bowel sounds, no guarding or rigidity. SPINE: No scoliosis or deformity SKIN: No rashes CENTRAL NERVOUS SYSTEM: No focal deficits, tone is normal in all 4 extremities. Mild left-sided facial droop EXTREMITIES: There is no peripheral edema. No clubbing, no cyanosis. Peripheral pulses are intact. - Labs CBC & Chem 7: 03/21/19 06:08 03/21/19 06:08 Labs: Abnormal Lab Results - Last 24 Hours (Table) 03/20/19 03/20/19 03/21/19 Range/Units 16:46 20:55 06:08 MCHC 30.4 L (31.0-37.0) g/dL Carbon Dioxide (22-30) mmol/L BUN (7-17) mg/dL Glucose (74-99) mg/dL POC Glucose (mg/dL) 134 H 121 H (75-99) mg/dL Total Protein (6.3-8.2) g/dL Albumin (3.5-5.0) g/dL 03/21/19 03/21/19 Range/Units 06:08 11:29 MCHC (31.0-37.0) g/dL Carbon Dioxide 34 H (22-30) mmol/L BUN 24 H (7-17) mg/dL Glucose 102 H (74-99) mg/dL POC Glucose (mg/dL) 105 H (75-99) mg/dL Total Protein 6.0 L (6.3-8.2) g/dL Albumin 3.2 L (3.5-5.0) g/dL Assessment and Plan Plan: Assessment and plan #1 episode of fall, likely secondary to loss of balance, no syncope #2 abnormality in troponin, could be secondary to hypoxia, O2 saturation on admission was 88% #3 hypertension, uncontrolled #4 prior CVA #5 history of asthma Plan Cardiology's perspective, patient may be discharged once cleared by primary. We will follow her along with you now on an as-needed basis only, please don't hesitate to call with any questions. DNP note has been reviewed, I agree with a documented findings and plan of care. Patient was seen and examined.
[2019-03-21 16:38] LABS: Glucose,Whole Blood 110 mg/dL (75-99)
[2019-03-21 20:56] LABS: Glucose,Whole Blood 136 mg/dL (75-99)
[2019-03-21] MEDS: HEPARIN SODIUM,PORCINE 5,000 UNIT/ML 1 ML VIAL SQ SCH (21:52)
[2019-03-21 22:33] VITALS: RESP 20
[2019-03-22] MEDS: HYDROcodone/APAP 5-325MG 1 EACH TAB PO PRN ×2 (00:52→21:53)
[2019-03-22] MEDS: INSULIN ASPART (NovoLOG) 100 UNIT/ML VIAL SQ SCH ×4 (07:38→22:04)
[2019-03-22 07:41] LABS: Glucose,Whole Blood 94 mg/dL (75-99)
[2019-03-22] MEDS: FAMOTIDINE 20 MG TAB PO SCH (09:08)
[2019-03-22] MEDS: amLODIPine 10 MG TAB PO SCH (09:08)
[2019-03-22] MEDS: LOSARTAN 50 MG TAB PO SCH ×2 (09:08→22:05)
[2019-03-22] MEDS: cloNIDine HCL 0.2 MG TAB PO SCH ×3 (09:08→22:05)
[2019-03-22] MEDS: ATORVASTATIN 10 MG TAB PO SCH (09:08)
[2019-03-22] MEDS: FUROSEMIDE 40 MG TAB PO SCH (09:09)
[2019-03-22] MEDS: METOPROLOL TARTRATE 25 MG TAB PO SCH ×2 (09:09→22:05)
[2019-03-22] MEDS: ASPIRIN 81 MG PO SCH (09:09)
[2019-03-22] MEDS: GABAPENTIN 100 MG CAP PO SCH ×2 (09:09→21:52)
[2019-03-22] MEDS: CHOLECALCIFEROL 1,000 UNIT TAB PO SCH (09:09)
[2019-03-22] MEDS: HEPARIN SODIUM,PORCINE 5,000 UNIT/ML 1 ML VIAL SQ SCH ×2 (09:09→21:53)
[2019-03-22 12:22] LABS: Glucose,Whole Blood 101 mg/dL (75-99)
--- NOTE | 2019-03-22 16:30 | P.PN ---
Subjective Progress Note Date: 03/22/19 88-year-old female one of my office patient with past medical history of asthma, diabetes, hypertension, hyperlipidemia and chronic kidney disease who had history of CVA back in July 2018 with slight residual continue to have abnormal balance and gait also known to have chronic history of lower back pain with multiple management by pain management in the past. Patient was hospitalized at [facility] late October early December for pneumonia and worsening distention breath continue to have debilitation but refuses to go for rehab or custodial with management. She was not office 2 weeks ago for follow-up was doing well. 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 03/20: Patient is feeling slightly but better, still having problem with balance and gait. No fall since yesterday, troponin was still slightly bit abnormal patient be seen cardiology no intervention to be decided time if her echocardiogram doesn't show any wall made motion abnormality patient to be treat ed medically. Patient still argument about going to assisted living or rehab 03/21: Echocardiogram reveals moderate concentric left ventricular hypertrophy, EF 60-65%, trace to mild mitral regurgitation, mild tricuspid regurgitation, mild pulmonary hypertension. Cardiology has determined troponin abnormality secondary to hypoxia. No acute coronary syndrome. The patient is awake alert. She is found sitting in recliner and appears to be comfortable. She has been afebrile, heart rate 60s to 90s, blood pressure 141/63, pulse ox 94% on 2 L nasal cannula. Repeat lab work reveals normal CBC, BUN 24 and creatinine 0.94. Blood sugars have been running between 99 and 134. ProBNP 1550. Patient is being followed by PT and OT with recommendations for subacute rehab. Social work is following for subacute rehab to [facility]. Anticipate patient will be ready for discharge on Tuesday. 03/22: Patient is afebrile, heart rate in the 60s, blood pressure 116/48, pulse ox 95% on 2 L nasal cannula. Patient denies any shortness of breath is concerned about she needs home oxygen therapy. Her discharge plan is go to [facility] [place] [facility] [place] tomorrow. Objective - Vital Signs Vital signs: Vital Signs Temp 97.9 F 03/22/19 05:30 Pulse 65 03/22/19 05:30 Resp 20 03/22/19 05:30 BP 100/61 03/22/19 05:30 Pulse Ox 94 L 03/22/19 05:30 Intake & Output 03/21/19 03/22/19 03/22/19 18:59 06:59 18:59 Intake Total 720 100 Output Total 500 Balance 220 100 Intake: Oral 720 100 Output: Urine 500 Other: Voiding Method Toilet Toilet # Voids 1 2 - Exam CONSTITUTIONAL: Well-developed no acute respiratory distress. Elderly mildly overweight, denies fever, denies chills EYES: No icterus sclerae, no conjunctivitis. EARS, NOSE, MOUTH, THROAT, and FACE: No sore throat, lymphadenopathy, carotid bruits or deformity. RESPIRATORY: No SOB cough or wheezes. CARDIOVASCULAR: Positive PND or troponin palpitation GASTROINTESTINAL: No Abd pain, Nausea or vomiting, no Diarrhea or constipation, No GI Bleed, no distention or masses. GENITOURINARY: Negative for Hematuria or UTI, no kidney stones. INTEGUMENT/BREAST: Negative for any muscular injury with mild osteoarthritis.. HEMATOLOGIC/LYMPHATIC: Negative for bleed or purpura. MUSCULOSKELTAL: Trace edema with generalized myalgia and arthralgia. NEURLOGICAL: No LOC, Sz or syncope, blurred vision dizziness or abnormality.. Mild memory loss. BEHAVIORAL/PSYCH: Negative. General Appearance: Alert, cooperative, no distress, appears stated age. Patti ent is resting comfortable in recliner at the bedside. Neck HEENT: Supple, no lymphadenopathy, no thyroid enlargement, no carotid bruits. Lungs: Clear to auscultation without crackles or wheezes no rhonchi, no deformity. Chest Wall: Decrease expansion with deep inspiration no tenderness and no defor mity was found on exam, no costochondral pain or discomfort. Heart: Regular rate and rhythm, S1, S2 normal, positive S3 positive systolic murmur, no rub or gallop. Back: Symmetric, no curvature, ROM normal, no CVA tenderness. Abdomen: Soft, non-tender, bowel sounds active all four quadrants, no masses, no organomegaly. Extremities: Extremities normal, atraumatic, no cyanosis or edema. Pulses: 2+ and symmetric. Skin: Skin color, texture, tugor normal, no rashes or lesions. Neurologic: Alert oriented x3 cranial nerves II through XII intact, positive generalized weakness with abnormal balance and gait. - Labs CBC & Chem 7: 03/21/19 06:08 03/21/19 06:08 Labs: Abnormal Lab Results - Last 24 Hours (Table) 03/21/19 03/21/19 03/21/19 Range/Units 11:29 16:36 20:55 POC Glucose (mg/dL) 105 H 110 H 136 H (75-99) mg/dL Assessment and Plan Plan: 1 non-ST DC ruled out by cardiology. Echocardiogram as above. Cardiology consult appreciated. Continue aspirin 81 mg daily, Lipitor 10 mg daily, Lopressor 25 mg twice daily. 2 acute hypoxic respiratory failure with presentation of mild metabolic encephalopathy secondary to hypoxia and hypertension and previous history of CVA. Continue O2 therapy. 3 multiple falls with severe abnormal balance and gait patient will be hospitalized PTOT continue to consult patient about going to assisted living or rehab custodial. 4 hypertension: Has been doing well on clonidine 0.2 mg 3 times a day Norvasc has been increased to 10 mg daily by cardiology, continue metoprolol 25 mg twice a day, losartan 50 mg twice daily, Lasix 40 mg daily. 5 hyperlipidemia: Remain on atorvastatin 10 mg daily. 6 type 2 diabetes: Patient is off medication at this point her A1c was 7.0 continue diet control continue Accu-Chek with sliding scales coverage. 7 chronic lower back pain with back injury, patient remain on hydrocodone and gabapentin on as-needed basis. 8 chronic neuropathy: Remain on gabapentin. 9 Severe GERD/GI prophylaxis: Patient will be on Pepcid 20 mg daily. 10 DVT prophylaxis. Heparin subcu. 11 chronic kidney disease stage II, stable. Discharge plan: Subacute rehab at [facility] on Tuesday Impression and plan of care have been directed as dictated by the signing physician. Marcela Love nurse practitioner acting as scribe for signing physician.
[2019-03-22 17:54] LABS: Glucose,Whole Blood 160 mg/dL (75-99)
[2019-03-22 20:59] LABS: Glucose,Whole Blood 135 mg/dL (75-99)
[2019-03-23 05:46] VITALS: BP 152/75; PULSE 77; TEMP 97.8
[2019-03-23 07:46] LABS: Glucose,Whole Blood 107 mg/dL (75-99)
[2019-03-23] MEDS: INSULIN ASPART (NovoLOG) 100 UNIT/ML VIAL SQ SCH (08:11)
[2019-03-23] MEDS: HYDROcodone/APAP 5-325MG 1 EACH TAB PO PRN (08:32)
[2019-03-23] MEDS: METOPROLOL TARTRATE 25 MG TAB PO SCH (08:33)
[2019-03-23] MEDS: FAMOTIDINE 20 MG TAB PO SCH (08:33)
[2019-03-23] MEDS: HEPARIN SODIUM,PORCINE 5,000 UNIT/ML 1 ML VIAL SQ SCH (08:33)
[2019-03-23] MEDS: amLODIPine 10 MG TAB PO SCH (08:33)
[2019-03-23] MEDS: GABAPENTIN 100 MG CAP PO SCH (08:33)
[2019-03-23] MEDS: FUROSEMIDE 40 MG TAB PO SCH (08:33)
[2019-03-23] MEDS: CHOLECALCIFEROL 1,000 UNIT TAB PO SCH (08:33)
[2019-03-23] MEDS: cloNIDine HCL 0.2 MG TAB PO SCH (08:33)
[2019-03-23] MEDS: ATORVASTATIN 10 MG TAB PO SCH (08:33)
[2019-03-23] MEDS: ASPIRIN 81 MG PO SCH (08:33)
[2019-03-23] MEDS: LOSARTAN 50 MG TAB PO SCH (08:34)
--- NOTE | 2019-03-23 10:05 | P.DS ---
Providers Date of admission: 03/20/19 13:00 Expected date of discharge: 03/23/19 Attending physician: Grupo Beard Consults: 03/19/19 12:35 Consult Physician Urgent Consulting Provider: [facility] Consult Reason/Comments: Elevated troponin Do you want consulting provider notified?: Yes Primary care physician: Grupo Beard [facility] Course: 88-year-old female one of my office patient with past medical history of asthma, diabetes, hypertension, hyperlipidemia and chronic kidney disease who had history of CVA back in July 2018 with slight residual continue to have abnormal balance and gait also known to have chronic history of lower back pain with multiple management by pain management in the past. Patient was hospitalized at [facility] late October early December for pneumonia and worsening distention breath continue to have debilitation but refuses to go for rehab or custodial with management. She was not office 2 weeks ago for fo llow-up was doing well. Patient apparently sustained a fall today backward landed on her but she was not able template to walk continued to have slight confusion and worsening mentation did not feel well with a friend of her end up coming to the emergency department at [facility] of around arrival was quite but hypoxic with pulse ox around 88 percentile EKG didn't show any change troponin was mildly elevated the rest of her blood work was not abnormal patient will be admitted to the hospital will do troponin 3 continue to monitor patient on cafeteria monitor we'll consult cardiology and depend on her testing the next 24 hours we'll decide on further intervention. 03/20: Patient is feeling slightly but better, still having problem with balance and gait. No fall since yesterday, troponin was still slightly bit abnormal patient be seen cardiology no intervention to be decided time if her echocardiogram doesn't show any wall made motion abnormality patient to be treated medically. Patient still argument about going to assisted living or rehab 03/21: Echocardiogram reveals moderate concentric left ventricular hypertrophy, EF 60-65%, trace to mild mitral regurgitation, mild tricuspid regurgitation, mild pulmonary hypertension. Cardiology has determined troponin abnormality secondary to hypoxia. No acute coronary syndrome. The patient is awake alert. She is found sitting in recliner and appears to be comfortable. She has been afebrile, heart rate 60s to 90s, blood pressure 141/63, pulse ox 94% on 2 L nasal cannula. Repeat lab work reveals normal CBC, BUN 24 and creatinine 0.94. Blood sugars have been running between 99 and 134. ProBNP 1550. Patient is being followed by PT and OT with recommendations for subacute rehab. Social work is following for subacute rehab to [facility]. Anticipate patient will be ready for discharge on Tuesday. 03/22: Patient is afebrile, heart rate in the 60s, blood pressure 116/48, pulse ox 95% on 2 L nasal cannula. Patient denies any shortness of breath is concerned about she needs home oxygen therapy. Her discharge plan is go [facility]. 03/23: Patient denies any new complaints. She states her breathing is a little bit better. She mainly states that she is stiff and sore. She has been afebrile, heart rate in the 70s to 80s, blood pressure 152/75 and pulse ox 93% on 2 L nasal cannula. Patient will continue oxygen therapy at the custodial and will be evaluated there for home oxygen need at the time of discharge. Medication reconciliation has been completed. Patient will be discharged to [facility] in stable condition. Discharge diagnoses: 1 non-ST OH ruled out by cardiology. 2 acute hypoxic respiratory failure with presentation of mild metabolic e ncephalopathy secondary to hypoxia and hypertension and previous history of CVA. 3 multiple falls with severe abnormal balance and gait 4 hypertension 5 hyperlipidemia 6 type 2 diabetes, A1c was 7.0, diet control 7 chronic lower back pain with back injury 8 chronic neuropathy 9 Severe GERD 10 chronic kidney disease stage II, stable. Discharge plan: Subacute rehab at [facility] on Tuesday Impression and plan of care have been directed as dictated by the signing physician. Marcela Love nurse practitioner acting as scribe for signing physician. Patient Condition at Discharge: Good Plan - Discharge Summary Discharge Rx Participant: No New Discharge Prescriptions: New amLODIPine [Norvasc] 10 mg PO DAILY #30 tab Aspirin 81 mg PO DAILY chew Continue Cholecalciferol [Vitamin D3 (25 Mcg = 1000 Iu)] 1,000 unit PO DAILY Metoprolol Tartrate [Lopressor] 25 mg PO BID Vitamin B Complex 1 cap PO DAILY Tracie-Lopez 1 tab PO DAILY cloNIDine HCL [Catapres] 0.2 mg PO TID Sennosides [Senna] 17.2 mg PO DAILY PRN PRN Reason: Constipation Atorvastatin Calcium [Lipitor] 10 mg PO DAILY Furosemide [Lasix] 40 mg PO DAILY Losartan [Cozaar] 50 mg PO BID HYDROcodone/APAP 5-325MG [[place] 5-325] 0.5 tab PO BID PRN #3 tab PRN Reason: Pain Gabapentin [Neurontin] 100 mg PO BID #6 cap Discontinued amLODIPine [Norvasc] 5 mg PO DAILY #10 tab Aspirin 325 mg PO DAILY Discharge Medication List Cholecalciferol [Vitamin D3 (25 Mcg = 1000 Iu)] 1,000 unit PO DAILY 10/15/15 [History] Metoprolol Tartrate [Lopressor] 25 mg PO BID 10/15/15 [History] Vitamin B Complex 1 cap PO DAILY 10/15/15 [History] Tracie-Lopez 1 tab PO DAILY 07/07/18 [History] cloNIDine HCL [Catapres] 0.2 mg PO TID 11/27/18 [History] Atorvastatin Calcium [Lipitor] 10 mg PO DAILY 03/19/19 [History] Furosemide [Lasix] 40 mg PO DAILY 03/19/19 [History] Losartan [Cozaar] 50 mg PO BID 03/19/19 [History] Sennosides [Senna] 17.2 mg PO DAILY PRN 03/19/19 [History] Aspirin 81 mg PO DAILY chew 03/23/19 [Rx] Gabapentin [Neurontin] 100 mg PO BID #6 cap 03/23/19 [Rx] HYDROcodone/APAP 5-325MG [[place] 5-325] 0.5 tab PO BID PRN #3 tab 03/23/19 [Rx] amLODIPine [Norvasc] 10 mg PO DAILY #30 tab 03/23/19 [Rx] Follow up Appointment(s)/Referral(s): Grupo Beard MD [Primary Care Provider] - 1-2 days
[2019-03-23 12:09] LABS: Glucose,Whole Blood 106 mg/dL (75-99)
== END 2019-03-23 13:35 | DRG 189 ==
LOC: EC 09:04 → 3SCARD 12:35 → OBSVTOIN 03-20 13:00 → 4MS4W 03-21 22:19
PROVIDERS: ADMIT Internal Medicine Geriatric Medicine; ATTEND Internal Medicine Geriatric Medicine
DX: J96.01 Acute respiratory failure with hypoxia (principal); G93.41 Metabolic encephalopathy; K21.9 Gastro-esophageal reflux disease without esophagitis; E11.22 Type 2 diabetes mellitus with diabetic chronic kidney disease; E78.5 Hyperlipidemia, unspecified; E11.42 Type 2 diabetes mellitus with diabetic polyneuropathy; G89.29 Other chronic pain; H40.9 Unspecified glaucoma; I07.1 Rheumatic tricuspid insufficiency; I12.9 Hypertensive chronic kidney disease with stage 1 through stage 4 chronic kidney disease, or unspecified chronic kidney disease; I27.20 Pulmonary hypertension, unspecified; J45.909 Unspecified asthma, uncomplicated; N18.2 Chronic kidney disease, stage 2 (mild); R29.6 Repeated falls; W19.XXXA Unspecified fall, initial encounter; Z79.82 Long term (current) use of aspirin; Z79.899 Other long term (current) drug therapy; Z80.3 Family history of malignant neoplasm of breast; Z81.1 Family history of alcohol abuse and dependence; Z86.73 Personal history of transient ischemic attack (TIA), and cerebral infarction without residual deficits; Z88.1 Allergy status to other antibiotic agents; Z88.2 Allergy status to sulfonamides; Z88.8 Allergy status to other drugs, medicaments and biological substances; Z98.42 Cataract extraction status, left eye; Z98.41 Cataract extraction status, right eye; Z96.1 Presence of intraocular lens
CPT/HCPCS: 36415; 71046; 80053; 80061; 81001; 83605; 83880; 84484; 85025; 85610; 85730; 93005; 93306; 96374; 99285

== ENCOUNTER 2021-02-15 11:47 | Inpatient (IN) | payer MEDICARE, BC ==
[2021-02-15 12:46] LABS: Basophils # (A) 0.1 k/uL (0-0.2); Basophils % (A) 1 %; Eosinophils # (A) 0.1 k/uL (0-0.7); Eosinophils % (A) 2 %; HCT 40.9 % (34.0-46.0); HGB 12.7 gm/dL (11.4-16.0); Hypochromasia Marked; Lymphocytes # (A) 0.8 k/uL (1.0-4.8); Lymphocytes % (A) 9 %; MCH 28.3 pg (25.0-35.0); MCHC 31.1 g/dL (31.0-37.0); MCV 91.2 fL (80.0-100.0); Mean Platelet Volume 7.7; Monocytes # (A) 0.5 k/uL (0-1.0); Monocytes % (A) 6 %; Neutrophils # (A) 6.6 k/uL (1.3-7.7); Neutrophils % (A) 81 %; Platelet Count 281 k/uL (150-450); RBC 4.48 m/uL (3.80-5.40); RDW 15.5 % (11.5-15.5); WBC 8.1 k/uL (3.8-10.6)
[2021-02-15 12:55] LABS: Partial Thromboplastin Time 23.7 sec (22.0-30.0); Prothrombin Time 10.4 sec (9.0-12.0)
[2021-02-15 13:02] LABS: Albumin 3.7 g/dL (3.5-5.0); Calcium 8.8 mg/dL (8.4-10.2); Potassium 4.3 mmol/L (3.5-5.1); Total Bilirubin 1.5 mg/dL (0.2-1.3); Total Protein 6.5 g/dL (6.3-8.2)
--- NOTE | 2021-02-15 13:04 | XR ---
EXAMINATION TYPE: XR chest 1V portable DATE OF EXAM: 02/15/2021 COMPARISON: Chest x-ray March 19, 2019 annular study May 12, 2020 HISTORY: Fall injury with weakness and pain. TECHNIQUE: Single frontal view of the chest is obtained. FINDINGS: There is cardiomegaly with ectatic aorta redemonstrated. The osseous structures are irais neralized. Advanced arthropathy bilateral glenohumeral joints again seen. There is new small right pl eural effusion on background chronic parenchymal change. New mild to moderate central vascular conges tion and interstitial edema is seen. IMPRESSION: Suspect CHF exacerbation as there is more prominent cardiomegaly with mild to moderate c entral vascular congestion and interstitial edema bilaterally and new small right pleural effusion no sabine. Correlate clinically.
--- NOTE | 2021-02-15 13:07 | CT ---
EXAMINATION TYPE: CT brain wo con DATE OF EXAM: 02/15/2021 HISTORY: Weakness, fall , Left sided facial trauma and headache. CT DLP: 1098.4 mGycm. Automated Exposure Control for Dose Reduction was Utilized. TECHNIQUE: CT scan of the head is performed without contrast. COMPARISON: CT brain July 07, 2018. MRI brain July 11, 2018. FINDINGS: There is no acute intracranial hemorrhage or midline shift identified. There is mild diff use ventricular and sulcal prominence consistent with diffuse age-related cerebral atrophy. There is mild low-attenuation in the periventricular white matter consistent with chronic small vessel ischemi c change. Suspect old infarct inferior right cerebellar hemisphere correlates with 2018 MRI. Anterio r focal scleral calcification in both globes. Visualized paranasal sinuses are clear. IMPRESSION: No acute intracranial hemorrhage or midline shift. There is mild diffuse age-related ce rebral atrophy and chronic small vessel ischemic change redemonstrated. Old right cerebellar infarct now present.
--- NOTE | 2021-02-15 13:33 | ED ---
General Adult HPI - General Chief complaint: Neuro Symptoms/Deficit Stated complaint: Facial Droop/Slurred speech Time Seen by Provider: 02/15/21 12:11 Source: patient Mode of arrival: wheelchair Limitations: no limitations - History of Present Illness Initial comments: Sindi 89-year-old female is brought to the emergency department today for evaluation of generalized weakness, falls at home, bruising that she cannot explain. Son at bedside reports that he visited her today and felt like her face might be asymmetric maybe have some drooping and her speech was not as clear as usual. - Related Data Home Medications Medication Instructions Recorded Confirmed Metoprolol Tartrate [Lopressor] 25 mg PO BID 10/15/15 02/15/21 cloNIDine HCL [Catapres] 0.2 mg PO TID 11/27/18 02/15/21 Atorvastatin Calcium [Lipitor] 10 mg PO DAILY 03/19/19 02/15/21 Furosemide [Lasix] 40 mg PO DAILY PRN 03/19/19 02/15/21 Albuterol Inhaler [Ventolin Hfa 2 puff INHALATION RT-Q4H PRN 02/15/21 02/15/21 Inhaler] Baclofen [Lioresal] 5 mg PO BID 02/15/21 02/15/21 HYDROcodone/APAP 5-325MG [[place] 0.5 tab PO Q12H PRN 02/15/21 02/15/21 5-325] Lansoprazole 15 mg PO DAILY 02/15/21 02/15/21 Triamcinolone 0.1% Lotion [Kenalog 1 applic TOPICAL BID PRN 02/15/21 02/15/21 0.1% Lotion] amLODIPine [Norvasc] 5 mg PO DAILY 02/15/21 02/15/21 metOLazone 2.5 mg PO MOTH 02/15/21 02/15/21 Previous Rx's Medication Instructions Recorded Gabapentin [Neurontin] 100 mg PO BID #6 cap 03/23/19 Allergies Allergy/AdvReac Type Severity Reaction Status Date / Time clotrimazole Allergy Unknown Verified 02/15/21 13:36 fluconazole Allergy Unknown Verified 02/15/21 13:36 Sulfa (Sulfonamide Allergy Rash/Hives Verified 02/15/21 13:36 Antibiotics) calcium AdvReac Unknown Unknown Verified 02/15/21 13:36 baclofen AdvReac NUMBNESS Verified 02/15/21 13:36 WAS WORSE IN FEET" UNSTEADY" Review of Systems ROS Statement: Those systems with pertinent positive or pertinent negative responses have been documented in the HPI. ROS Other: All systems not noted in ROS Statement are negative. 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 History of Any Multi-Drug Resistant Organisms: None Reported Past Surgical History: Orthopedic Surgery Additional Past Surgical History / Comment(s): Lumbar epidural injections, bilateral eyes cataracts removed and stents placed d/t glaucoma, bilateral ca rpal tunnel releases, colonoscopy. Past Anesthesia/Blood Transfusion Reactions: No Reported Reaction Past Psychological History: No Psychological Hx Reported Smoking Status: Never smoker Past Alcohol Use History: None Reported Past Drug Use History: None Reported - Past Family History Mother Family Medical History: No Reported History Additional Family Medical History / Comment(s): Mother was healthy and live to be 79yrs old. Father Additional Family Medical History / Comment(s): Father was an alcoholic. Sister(s) Family Medical History: Cancer Additional Family Medical History / Comment(s): breast cancer General Exam - General Exam Comments Initial Comments: Physical Exam GENERAL: Elderly, chronically ill appearing HENT: Normocephalic Contusion to left side of face, appears older, is healing EYES: PERRL, EOMI PULMONARY: Unlabored respirations. No audible rales rhonchi or wheezing was noted. CARDIOVASCULAR: RRR ABDOMEN: Soft and nontender with normal bowel sounds. SKIN: Contusion posterior right shoulder Bruising on bilateral upper extremities : Deferred NEUROLOGIC: Patient is alert and oriented x3 cannot recall any falls Moving all extremities spontaneously MUSCULOSKELETAL: 2+ pitting lower extremity edema PSYCHIATRIC: Normal psychiatric evaluation. Limitations: no limitations Course Vital Signs 02/15/21 02/15/21 02/15/21 11:50 13:50 14:53 Temperature 98.1 F Pulse Rate 104 H 74 90 Respiratory 18 18 20 Rate Blood Pressure 214/90 193/91 185/85 O2 Sat by Pulse 97 99 96 Oximetry Medical Decision Making - Medical Decision Making The patient was seen and evaluated history is obtained from patient and son at bedside Elderly female with falls at home has bruising on her right back and left side o f her face cannot recall how 7 considering that she seemed confused and they have had facial droop this morning Labs and imaging were obtained and are consistent with chronic ischemic changes on computed tomography scan no acute findings there is 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 Eugene who accepts the admission for recurrent falls, generalized debility, congestive heart failure - Lab Data Result diagrams: 02/15/21 12:37 02/15/21 12:37 Lab Results 02/15/21 02/15/21 02/15/21 Range/Units 12:19 12:37 12:37 WBC 8.1 (3.8-10.6) k/uL RBC 4.48 (3.80-5.40) m/uL Hgb 12.7 (11.4-16.0) gm/dL Hct 40.9 (34.0-46.0) % MCV 91.2 (80.0-100.0) fL MCH 28.3 (25.0-35.0) pg MCHC 31.1 (31.0-37.0) g/dL RDW 15.5 (11.5-15.5) % Plt Count 281 (150-450) k/uL MPV 7.7 Neutrophils % 81 % Lymphocytes % 9 % Monocytes % 6 % Eosinophils % 2 % Basophils % 1 % Neutrophils # 6.6 (1.3-7.7) k/uL Lymphocytes # 0.8 L (1.0-4.8) k/uL Monocytes # 0.5 (0-1.0) k/uL Eosinophils # 0.1 (0-0.7) k/uL Basophils # 0.1 (0-0.2) k/uL Hypochromasia Marked PT 10.4 (9.0-12.0) sec INR 1.0 (<1.2) APTT 23.7 (22.0-30.0) sec Sodium (137-145) mmol/L Potassium (3.5-5.1) mmol/L Chloride (98-107) mmol/L Carbon Dioxide (22-30) mmol/L Anion Gap mmol/L BUN (7-17) mg/dL Creatinine (0.52-1.04) mg/dL Est GFR (CKD-EPI)AfAm (>60 ml/min/1.73 sqM) Est GFR (CKD-EPI)NonAf (>60 ml/min/1.73 sqM) Glucose (74-99) mg/dL Calcium (8.4-10.2) mg/dL Total Bilirubin (0.2-1.3) mg/dL AST (14-36) U/L ALT (4-34) U/L Alkaline Phosphatase (38-126) U/L Troponin I (0.000-0.034) ng/mL NT-Pro-B Natriuret Pep 4440 pg/mL Total Protein (6.3-8.2) g/dL Albumin (3.5-5.0) g/dL Urine Color Urine Appearance (Clear) Urine pH (5.0-8.0) Ur Specific [place] (1.001-1.035) Urine Protein (Negative) Urine Glucose (UA) (Negative) Urine Ketones (Negative) Urine Blood (Negative) Urine Nitrite (Negative) Urine Bilirubin (Negative) Urine Urobilinogen (<2.0) mg/dL Ur Leukocyte Esterase (Negative) Urine RBC (0-5) /hpf Urine WBC (0-5) /hpf Urine WBC Clumps (None) /hpf Ur Squamous Epith Cells (0-4) /hpf Amorphous Sediment (None) /hpf Urine Bacteria (None) /hpf Hyaline Casts (0-2) /lpf Urine Mucus (None) /hpf Coronavirus (PCR) (Not Detectd) 02/15/21 02/15/21 02/15/21 Range/Units 12:37 12:37 12:37 WBC (3.8-10.6) k/uL RBC (3.80-5.40) m/uL Hgb (11.4-16.0) gm/dL Hct (34.0-46.0) % MCV (80.0-100.0) fL MCH (25.0-35.0) pg MCHC (31.0-37.0) g/dL RDW (11.5-15.5) % Plt Count (150-450) k/uL MPV Neutrophils % % Lymphocytes % % Monocytes % % Eosinophils % % Basophils % % Neutrophils # (1.3-7.7) k/uL Lymphocytes # (1.0-4.8) k/uL Monocytes # (0-1.0) k/uL Eosinophils # (0-0.7) k/uL Basophils # (0-0.2) k/uL Hypochromasia PT (9.0-12.0) sec INR (<1.2) APTT (22.0-30.0) sec Sodium 144 (137-145) mmol/L Potassium 4.3 (3.5-5.1) mmol/L Chloride 105 (98-107) mmol/L Carbon Dioxide 30 (22-30) mmol/L Anion Gap 9 mmol/L BUN 22 H (7-17) mg/dL Creatinine 1.16 H (0.52-1.04) mg/dL Est GFR (CKD-EPI)AfAm 49 (>60 ml/min/1.73 sqM) Est GFR (CKD-EPI)NonAf 42 (>60 ml/min/1.73 sqM) Glucose 128 H (74-99) mg/dL Calcium 8.8 (8.4-10.2) mg/dL Total Bilirubin 1.5 H (0.2-1.3) mg/dL AST 30 (14-36) U/L ALT 20 (4-34) U/L Alkaline Phosphatase 126 (38-126) U/L Troponin I <0.012 (0.000-0.034) ng/mL NT-Pro-B Natriuret Pep pg/mL Total Protein 6.5 (6.3-8.2) g/dL Albumin 3.7 (3.5-5.0) g/dL Urine Color Yellow Urine Appearance Cloudy H (Clear) Urine pH 6.0 (5.0-8.0) Ur Specific [place] 1.017 (1.001-1.035) Urine Protein 3+ H (Negative) Urine Glucose (UA) Negative (Negative) Urine Ketones Negative (Negative) Urine Blood Trace H (Negative) Urine Nitrite Negative (Negative) Urine Bilirubin Negative (Negative) Urine Urobilinogen <2.0 (<2.0) mg/dL Ur Leukocyte Esterase Negative (Negative) Urine RBC 1 (0-5) /hpf Urine WBC 5 (0-5) /hpf Urine WBC Clumps Few H (None) /hpf Ur Squamous Epith Cells 1 (0-4) /hpf Amorphous Sediment Moderate H (None) /hpf Urine Bacteria Rare H (None) /hpf Hyaline Casts 7 H (0-2) /lpf Urine Mucus Rare H (None) /hpf Coronavirus (PCR) (Not Detectd) 02/15/21 Range/Units 13:43 WBC (3.8-10.6) k/uL RBC (3.80-5.40) m/uL Hgb (11.4-16.0) gm/dL Hct (34.0-46.0) % MCV (80.0-100.0) fL MCH (25.0-35.0) pg MCHC (31.0-37.0) g/dL RDW (11.5-15.5) % Plt Count (150-450) k/uL MPV Neutrophils % % Lymphocytes % % Monocytes % % Eosinophils % % Basophils % % Neutrophils # (1.3-7.7) k/uL Lymphocytes # (1.0-4.8) k/uL Monocytes # (0-1.0) k/uL Eosinophils # (0-0.7) k/uL Basophils # (0-0.2) k/uL Hypochromasia PT (9.0-12.0) sec INR (<1.2) APTT (22.0-30.0) sec Sodium (137-145) mmol/L Potassium (3.5-5.1) mmol/L Chloride (98-107) mmol/L Carbon Dioxide (22-30) mmol/L Anion Gap mmol/L BUN (7-17) mg/dL Creatinine (0.52-1.04) mg/dL Est GFR (CKD-EPI)AfAm (>60 ml/min/1.73 sqM) Est GFR (CKD-EPI)NonAf (>60 ml/min/1.73 sqM) Glucose (74-99) mg/dL Calcium (8.4-10.2) mg/dL Total Bilirubin (0.2-1.3) mg/dL AST (14-36) U/L ALT (4-34) U/L Alkaline Phosphatase (38-126) U/L Troponin I (0.000-0.034) ng/mL NT-Pro-B Natriuret Pep pg/mL Total Protein (6.3-8.2) g/dL Albumin (3.5-5.0) g/dL Urine Color Urine Appearance (Clear) Urine pH (5.0-8.0) Ur Specific [place] (1.001-1.035) Urine Protein (Negative) Urine Glucose (UA) (Negative) Urine Ketones (Negative) Urine Blood (Negative) Urine Nitrite (Negative) Urine Bilirubin (Negative) Urine Urobilinogen (<2.0) mg/dL Ur Leukocyte Esterase (Negative) Urine RBC (0-5) /hpf Urine WBC (0-5) /hpf Urine WBC Clumps (None) /hpf Ur Squamous Epith Cells (0-4) /hpf Amorphous Sediment (None) /hpf Urine Bacteria (None) /hpf Hyaline Casts (0-2) /lpf Urine Mucus (None) /hpf Coronavirus (PCR) Not Detected (Not Detectd) Disposition Clinical Impression: CHF (congestive heart failure), Falls, Weakness Disposition: ADMITTED IP TO THIS [facility] Condition: Stable Referrals: Grupo Beard MD [Primary Care Provider] - 1-2 days
[2021-02-15 13:57] LABS: Amorphous Sediment,Urine Moderate /hpf; Appearance,Urine Cloudy (Clear); Bacteria,Urine Rare /hpf; Bilirubin,Urine Negative (Negative); Blood,Urine Trace (Negative); Color,Urine Yellow; Glucose,Urine (UA) Negative (Negative); Hyaline Casts,Urine 7 /lpf (0-2); Ketones,Urine Negative (Negative); Leukocyte Esterase,Urine Negative (Negative); Mucus,Urine Rare /hpf; Nitrite,Urine Negative (Negative); Protein,Urine 3+ (Negative); RBC,Urine 1 /hpf (0-5); Specific Gravity,Urine 1.017 (1.001-1.035); Squamous Epithelial Cell,Urine 1 /hpf (0-4); Urobilinogen,Urine <2.0 mg/dL (<2.0); WBC,Urine 5 /hpf (0-5)
[2021-02-15] MEDS ORDERED: TRIAMCINOLONE 0.1% CREAM 80 GM TUBE TOPICAL PRN (17:05)
[2021-02-15] MEDS ORDERED: ALBUTEROL HFA INHALER INHALATION PRN (17:05)
[2021-02-15] MEDS ORDERED: IPRATROPIUM-ALBUTEROL 3 ML NEB INHALATION PRN (17:06)
[2021-02-15] MEDS ORDERED: ACETAMINOPHEN TAB 325 MG TAB PO PRN (17:06)
[2021-02-15] MEDS ORDERED: ONDANSETRON 4 MG/2 ML VIAL IVP PRN (17:06)
[2021-02-15] MEDS ORDERED: NALOXONE 0.4 MG/ML 1 ML VIAL IV PRN (17:59)
[2021-02-15 19:23] LABS: T4, Free (Free Thyroxine) 1.71 ng/dL (0.78-2.19)
[2021-02-15] MEDS: FUROSEMIDE 10 MG/ML 4 ML VIAL IV SCH (20:58)
[2021-02-15] MEDS: METOPROLOL TARTRATE 25 MG TAB PO SCH (21:01)
[2021-02-15] MEDS: cloNIDine HCL 0.2 MG TAB PO SCH (21:01)
[2021-02-15] MEDS: GABAPENTIN 100 MG CAP PO SCH (21:02)
[2021-02-16] MEDS: HYDROcodone/APAP 5-325MG 1 EACH TAB PO PRN (02:05)
[2021-02-16 06:43] LABS: Basophils # (A) 0.1 k/uL (0-0.2); Basophils % (A) 1 %; Eosinophils # (A) 0.3 k/uL (0-0.7); Eosinophils % (A) 3 %; HCT 41.2 % (34.0-46.0); HGB 12.7 gm/dL (11.4-16.0); Hypochromasia Marked; Lymphocytes # (A) 1.1 k/uL (1.0-4.8); Lymphocytes % (A) 13 %; MCH 28.6 pg (25.0-35.0); MCHC 30.8 g/dL (31.0-37.0); Mean Platelet Volume 7.7; Monocytes # (A) 0.6 k/uL (0-1.0); Monocytes % (A) 7 %; Neutrophils # (A) 6.1 k/uL (1.3-7.7); Neutrophils % (A) 74 %; Platelet Count 273 k/uL (150-450); RBC 4.43 m/uL (3.80-5.40); RDW 15.4 % (11.5-15.5); WBC 8.2 k/uL (3.8-10.6)
--- NOTE | 2021-02-16 09:05 | XR ---
EXAMINATION TYPE: XR chest 2V DATE OF EXAM: 02/16/2021 COMPARISON: Chest x-ray 02/15/2021 HISTORY: Shortness of breath TECHNIQUE: Frontal and lateral views of the chest are obtained. FINDINGS: Interstitium is prominent, there is bilateral airspace disease. No evident pneumothorax or sizable pleural effusion, some blunting the right costophrenic angle suggests possible small effusio n. Cardiac mediastinal silhouette is stable. There is increased AP diameter chest, flattening hemidia phragms. IMPRESSION: Correlate for congestive heart failure, interstitial edema in a patient with pre-existin g COPD, difficult to exclude pneumonia.
[2021-02-16] MEDS: PANTOPRAZOLE 40 MG TABLET PO SCH (09:39)
[2021-02-16] MEDS: ATORVASTATIN 10 MG TAB PO SCH (09:39)
[2021-02-16] MEDS: GABAPENTIN 100 MG CAP PO SCH ×2 (09:40→22:18)
[2021-02-16] MEDS: FUROSEMIDE 10 MG/ML 4 ML VIAL IV SCH ×2 (09:40→22:19)
[2021-02-16] MEDS: cloNIDine HCL 0.2 MG TAB PO SCH ×3 (09:40→21:49)
[2021-02-16] MEDS: amLODIPine 5 MG TAB PO SCH (09:40)
[2021-02-16] MEDS: METOPROLOL TARTRATE 25 MG TAB PO SCH ×2 (09:40→21:43)
[2021-02-16] MEDS: ENOXAPARIN 40 MG/0.4 ML SYRINGE SQ SCH (09:40)
[2021-02-16] MEDS ORDERED: ASPIRIN 81 MG PO STA (10:18)
[2021-02-16 10:31] LABS: African American GFR (CKD) 51.9 (60.0-200.0); Albumin 3.8 g/dL (3.80-4.90); Albumin/Globulin Ratio 1.73 (1.60-3.17); BUN/Creat Ratio 15.45 Ratio (12.00-20.00); Calcium 8.6 mg/dL (8.7-10.3); Globulin 2.2 g/dL (1.6-3.3); Non-African American GFR(CKD) 44.8 (60.0-200.0); Potassium 4.1 mmol/L (3.5-5.5); Total Bilirubin 1.6 mg/dL (0.3-1.2)
[2021-02-16 11:47] LABS: Prolactin 12.2 ng/mL (2.8-29.2)
--- NOTE | 2021-02-16 12:04 | P.HPIM ---
History of Present Illness H&P Date: 02/16/21 HISTORY OF PRESENT ILLNESS This is an 89-year-old female patient of Dr. 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 Patient has a son that lives within a half mile and 1 in [place] and there is also a neighbor that helps her with bathing. The neighbor went to check on her yesterday and found that she was having slurred speech more weak and confused. She does have a problem with falling frequently. Patient denies having any dizziness. She states she was standing by the dryer and her knees gave out on her and she went to the floor. She states she was trying to clean up the mess as she was trying to go to the bathroom but had an accident on the floor. Patient presented to [facility] emergency center for evaluation. She was afebrile, heart rate 104, blood pressure 214/90, pulse ox 97% on room air. CBC was unremarkable. Electrolytes normal. BUN 22 and creatinine 1.16. Blood sugar 128. ProBNP 4440. Total bilirubin 1.5 otherwise liver function tests were normal. Troponin negative 3 draws. Urinalysis cloudy, nitrate and leukoesterase negative. COVID-19 not detected. TSH 0.173 and free T4 1 0.71. Prolactin 12.2. Cortisol 17. EKG was a sinus tachycardia at heart rate of 102. Chest x-ray reveals heart failure, interstitial edema and a patient with pre-existing COPD. Difficult to exclude pneumonia. Patient was started on IV Lasix, neurology consult requested and patient admitted to the [facility] floor. REVIEW OF SYSTEMS Constitutional: No fever, no chills, no night sweats. No weight change. No weakness, fatigue or lethargy. No daytime sleepiness. EENT: No headache. No blurred vision or double vision, no loss of vision. No dizziness. No nasal drainage or congestion. No epistaxis. No sore throat. Lungs: No shortness of breath, cough, no sputum production. No wheezing. Cardiovascular: No chest pain, no lower extremity edema. No palpitations. No paroxysmal nocturnal dyspnea. No orthopnea. No lightheadedness or dizziness. No syncopal episodes. Abdominal: No abdominal pain. No nausea, vomiting. No diarrhea. No constipation. No bloody or tarry stools.. No loss of appetite. Genitourinary: No dysuria, increased frequency, urgency. No urinary retention. Musculoskeletal: No myalgias. Positive muscle weakness, positive gait dysfunction, positive frequent falls. Chronic back pain. No neck pain. Integumentary: No wounds, no lesions. No rash or pruritus. No unusual bruising. No change in hair or nails. Neurologic: Reported aphasia. Reported facial droop. Reported change in mentation. No head injury. No headache. No paralysis. No paresthesia. Psychiatric: No depression. No anxiety. No mood swings. Endocrine: No abnormal blood sugars. No weight change. No excessive sweating or thirst. No cold intolerance. SOCIAL HISTORY Patient states that she is a lifelong nonsmoker, no alcohol use. She lives at home alone. Patient has 3 sons and one lives within a half a mile and 1 in [facility]. She is a walker at home. FAMILY HISTORY Mother at 80 years of age with history of hypertension. Father at age 50 from complications from alcohol abuse. Patient has 3 brothers all living and patient does not know their medical history. Patient has a total of 4 sisters 3 are living with no major medical problems that she is aware of. One sister has of breast cancer. She has 3 sons with no major medical problems. PHYSICAL EXAMINATION Gen: This is an 89-year-old female. She is resting in recliner and working with speech therapy. HEENT: Head is atraumatic, normocephalic. Pupils equal, round. Sclerae is anicteric. NECK: Supple. No JVD. No lymphadenopathy. No thyromegaly. LUNGS: Bilateral rhonchi. No intercostal retractions. HEART: Regular rate and rhythm. Systolic murmur. ABDOMEN: Soft. Bowel sounds are present. No masses. No tenderness. EXTREMITIES: 2+ bilateral pedal edema. No calf tenderness. 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 NEUROLOGICAL: Patient is awake, alert and oriented x3. Equal muscle strength bilateral extremities. Cranial nerves 2 through 12 are grossly intact. No noted aphasia, facial droop. ASSESSMENT AND PLAN 1. Metabolic encephalopathy, slurred speech and weakness, rule out CVA/TIA. MRI of the brain, consult with neurology, echocardiogram. PT, OT and ST consults. 2. Acute diastolic heart failure. Patient started on Lasix 40 mg IV every 12 hours, monitor daily weights and I&O, monitor electrolytes and renal function. Obtain echocardiogram. 3. Mild intermittent asthma, stable. Continue albuterol inhaler 2 puffs every 4 hours as needed. 4. Hypertension. Continue amlodipine 5 mg daily, clonidine 0.2 mg 3 times daily, Lopressor 25 mg twice daily. 5. Chronic kidney disease stage III. Avoid hypotension and nephrotoxic agents. 6. History of CVA in 2018 presenting with dizziness. 7. Chronic low back pain and peripheral neuropathy. Continue gabapentin 100 mg twice daily, Tylenol as needed for pain. 8. GI prophylaxis. Protonix 40 mg daily. 9. DVT prophylaxis. Continue Lovenox 40 mg subcu daily. 10. COVID-19 testing negative. Patient has been hospitalized during a pandemic. Patient will be admitted to the hospital for a minimum of 2 night stay. CODE STATUS: Full code DISCHARGE PLAN Subacute rehab. PT, OT and ST consults added. Impression and plan of care have been directed as dictated by the signing physician. Marcela Love nurse practitioner acting as scribe for signing physician. 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 History of Any Multi-Drug Resistant Organisms: None Reported Past Surgical History: Orthopedic Surgery Additional Past Surgical History / Comment(s): Lumbar epidural injections, bilateral eyes cataracts removed and stents placed d/t glaucoma, bilateral carpal tunnel releases, colonoscopy. Past Anesthesia/Blood Transfusion Reactions: No Reported Reaction Past Psychological History: No Psychological Hx Reported Additional Psychological History / Comment(s): Pt resides alone. She uses a walker to ambulate. She manages her own medications but is having difficulty. She gets meals on wheels. She states she no longer drives, her friend drives her to [employer]. She states she has an aide from [employer] comes once a week for showers. Smoking Status: Never smoker Past Alcohol Use History: None Reported Past Drug Use History: None Reported - Past Family History Mother Family Medical History: No Reported History Additional Family Medical History / Comment(s): Mother was healthy and live to be 79yrs old. Father Additional Family Medical History / Comment(s): Father was an alcoholic. Sister(s) Family Medical History: Cancer Additional Family Medical History / Comment(s): breast cancer Medications and Allergies Home Medications Medication Instructions Recorded Confirmed Type Metoprolol Tartrate [Lopressor] 25 mg PO BID 10/15/15 02/15/21 History cloNIDine HCL [Catapres] 0.2 mg PO TID 11/27/18 02/15/21 History Atorvastatin Calcium [Lipitor] 10 mg PO DAILY 03/19/19 02/15/21 History Furosemide [Lasix] 40 mg PO DAILY PRN 03/19/19 02/15/21 History Gabapentin [Neurontin] 100 mg PO BID #6 cap 03/23/19 02/15/21 Rx Albuterol Inhaler [Ventolin Hfa 2 puff INHALATION RT-Q4H PRN 02/15/21 02/15/21 History Inhaler] Baclofen [Lioresal] 5 mg PO BID 02/15/21 02/15/21 History HYDROcodone/APAP 5-325MG [[place] 0.5 tab PO Q12H PRN 02/15/21 02/15/21 History 5-325] Lansoprazole 15 mg PO DAILY 02/15/21 02/15/21 History Triamcinolone 0.1% Lotion [Kenalog 1 applic TOPICAL BID PRN 02/15/21 02/15/21 History 0.1% Lotion] amLODIPine [Norvasc] 5 mg PO DAILY 02/15/21 02/15/21 History metOLazone 2.5 mg PO MOTH 02/15/21 02/15/21 History Allergies Allergy/AdvReac Type Severity Reaction Status Date / Time clotrimazole Allergy Unknown Verified 02/15/21 13:36 fluconazole Allergy Unknown Verified 02/15/21 13:36 Sulfa (Sulfonamide Allergy Rash/Hives Verified 02/15/21 13:36 Antibiotics) calcium AdvReac Unknown Unknown Verified 02/15/21 13:36 baclofen AdvReac NUMBNESS Verified 02/15/21 13:36 WAS WORSE IN FEET" UNSTEADY" Physical Exam Vitals: Vital Signs Temp Pulse Pulse Resp BP BP BP 02/16/21 04:50 98.6 F 86 20 165/81 02/15/21 20:43 98.7 F 91 20 174/85 02/15/21 17:14 91 18 166/73 02/15/21 14:53 90 20 185/85 02/15/21 13:50 74 18 193/91 02/15/21 11:50 98.1 F 104 H 18 214/90 Pulse Ox 02/16/21 04:50 92 L 02/15/21 20:43 92 L 02/15/21 17:14 96 02/15/21 14:53 96 02/15/21 13:50 99 02/15/21 11:50 97 Intake and Output 02/15/21 02/16/21 02/16/21 22:59 06:59 14:59 Intake Total 0 Balance 0 Intake: Oral 0 Other: Voiding Method Bedpan # Voids 7 Weight 92.986 kg Results CBC & Chem 7: 02/16/21 05:32 02/16/21 05:32 Labs: Abnormal Lab Results - Last 24 Hours (Table) 02/15/21 02/15/21 02/15/21 Range/Units 12:37 12:37 12:37 MCHC (31.0-37.0) g/dL Lymphocytes # 0.8 L (1.0-4.8) k/uL BUN 22 H (7-17) mg/dL Creatinine 1.16 H (0.52-1.04) mg/dL Glucose 128 H (74-99) mg/dL Total Bilirubin 1.5 H (0.2-1.3) mg/dL TSH (0.465-4.680) mIU/L Urine Appearance Cloudy H (Clear) Urine Protein 3+ H (Negative) Urine Blood Trace H (Negative) Urine WBC Clumps Few H (None) /hpf Amorphous Sediment Moderate H (None) /hpf Urine Bacteria Rare H (None) /hpf Hyaline Casts 7 H (0-2) /lpf Urine Mucus Rare H (None) /hpf 02/15/21 02/16/21 Range/Units 12:37 05:32 MCHC 30.8 L (31.0-37.0) g/dL Lymphocytes # (1.0-4.8) k/uL BUN (7-17) mg/dL Creatinine (0.52-1.04) mg/dL Glucose (74-99) mg/dL Total Bilirubin (0.2-1.3) mg/dL TSH 0.173 L (0.465-4.680) mIU/L Urine Appearance (Clear) Urine Protein (Negative) Urine Blood (Negative) Urine WBC Clumps (None) /hpf Amorphous Sediment (None) /hpf Urine Bacteria (None) /hpf Hyaline Casts (0-2) /lpf Urine Mucus (None) /hpf Thrombosis Risk Factor Assmnt - Choose All That Apply Any of the Below Risk Factors Present?: Yes Each Factor Represents 1 point: Heart failure (<1month), Medical pt on bed rest Each Risk Factor Represents 3 Points: Age 75 years or older Thrombosis Risk Factor Assessment Total Risk Factor Score: 5 Thrombosis Risk Factor Assessment Level: High Risk
--- NOTE | 2021-02-16 13:37 | P.CNNES ---
History of Present Illness Consult date: 02/16/21 Requesting physician: Sandy Diaz Reason for Consult: Rule out CVA, falls at home History of Present Illness: Patient is a 89-year-old female came to the hospital yesterday at 11:47 AM for evaluation of generalized weakness, falls at home, bruising that she cannot explain. Son has noticed that her face may be slightly asymmetric, with some drooping and her speech was not as clear. Patient tells me that on Tuesday, 2 days ago she woke up as usual at 8 AM. She had an appointment to get her hair done at 11:30 AM. At around 10:30 to 11 AM, patient all of a sudden felt blurred vision, which was involving bilateral visual carrera. She did not have any headache or did not feel funny, just felt "yucky". She denies any numbness or tingling or any focal weakness. She does have chronic numbness in the right hand in ulnar nerve distribution and also has some peripheral neuropathy but nothing new. She did not seek medical attention. The next day on Tuesday which is yesterday, she woke up very late 10 AM which is unusual. When the nursing unit manager came, who comes every Tuesday to help her watch take bath, noticed that she was not right, and brought her to the hospital. Patient also states that she has had occasional falls. On 02/13/2021, she suffered from a fall, and fell against the bathtub. She suffered from bruise on the left cheek. Patient denies any loss of consciousness or any prior warning before she fell. She states that she just fell "like a baby on a slide". Patient called her son, who came over and helped her get up. He did not bring her to the hospital as patient was feeling perfectly fine afterwards. Vital signs arrival blood pressure 214/90, pulse rate 104, temperature 98.1. Computed tomography scan of head showed no acute intracranial hemorrhage or midline shift. There is mild diffuse age-related cerebral atrophy and chronic small vessel ischemic change. Old right cerebellar infarct now present. Chest x-ray showed suspected CHF exacerbation as there is more prominent are dramatically with mild to moderate central vascular congestion and interstitial edema bilaterally and new small right pleural effusion noted. Correlate clinically. EKG shows sinus tachycardia. Otherwise normal EKG. Repeat chest x-ray showed correlate for CHF, interstitial edema, COPD, difficult to exclude pneumonia. Patient's blood test shows normal CBC, PT/PTT, Chem-20 with mildly elevated BUN 22, creatinine 1.16. Hepatic panel is normal. Troponin negative. TSH is mildly decreased 0.173 UA shows negative leukocyte esterase and nitrite, no infection. Soni virus PCR negative. Patient takes metoprolol 25 mg twice a day, clonidine 0.2 mg 3 times a day, Lipitor 10 mg daily, Lasix 40 mg daily when necessary, gabapentin 100 mg twice a day amlodipine, baclofen 5 mg twice a day and [place]. Patient states that she does take aspirin 81 mg every day. Patient has history of an acute stroke on 07/11/2018 involving inferior one half of the right cerebellum with local swelling and mass effect and subtle midline shift. 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 Markedly small caliber distal basilar artery. No aneurysms. No significant stenosis in common or internal carotid arteries. Patient denies any history of diabetes. She does have hypertension. Denies any tobacco or alcohol use. She lives by herself, does not have any problems. Review of Systems As above in detail. Patient denies any headache, does have problem with blurred vision. Denies any hoarseness, sore throat or any dysphagia. Denies any new numbness tingling or focal weakness. She does have chronic numbness of the right hand and ulnar nerve distribution. Denies any chest pain shortness of breath wheezing or cough. Denies any double vision, or loss of vision. She does have some blurred vision. She has edema. Arthritis. Has left rotator cuff tear. 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 History of Any Multi-Drug Resistant Organisms: None Reported Past Surgical History: Orthopedic Surgery Additional Past Surgical History / Comment(s): Lumbar epidural injections, bilateral eyes cataracts removed and stents placed d/t glaucoma, bilateral carpal tunnel releases, colonoscopy. Past Anesthesia/Blood Transfusion Reactions: No Reported Reaction Past Psychological History: No Psychological Hx Reported Additional Psychological History / Comment(s): Pt resides alone. She uses a walker to ambulate. She manages her own medications but is having difficulty. She gets meals on wheels. She states she no longer drives, her friend drives her to appts. She states she has an aide from [employer] comes once a week for showers . Smoking Status: Never smoker Past Alcohol Use History: None Reported Past Drug Use History: None Reported - Past Family History Mother Family Medical History: No Reported History Additional Family Medical History / Comment(s): Mother was healthy and live to be 79yrs old. Father Additional Family Medical History / Comment(s): Father was an alcoholic. Sister(s) Family Medical History: Cancer Additional Family Medical History / Comment(s): breast cancer Medications and Allergies Home Medications Medication Instructions Recorded Confirmed Type Metoprolol Tartrate [Lopressor] 25 mg PO BID 10/15/15 02/15/21 History cloNIDine HCL [Catapres] 0.2 mg PO TID 11/27/18 02/15/21 History Atorvastatin Calcium [Lipitor] 10 mg PO DAILY 03/19/19 02/15/21 History Furosemide [Lasix] 40 mg PO DAILY PRN 03/19/19 02/15/21 History Gabapentin [Neurontin] 100 mg PO BID #6 cap 03/23/19 02/15/21 Rx Albuterol Inhaler [Ventolin Hfa 2 puff INHALATION RT-Q4H PRN 02/15/21 02/15/21 History Inhaler] Baclofen [Lioresal] 5 mg PO BID 02/15/21 02/15/21 History HYDROcodone/APAP 5-325MG [[place] 0.5 tab PO Q12H PRN 02/15/21 02/15/21 History 5-325] Lansoprazole 15 mg PO DAILY 02/15/21 02/15/21 History Triamcinolone 0.1% Lotion [Kenalog 1 applic TOPICAL BID PRN 02/15/21 02/15/21 History 0.1% Lotion] amLODIPine [Norvasc] 5 mg PO DAILY 02/15/21 02/15/21 History metOLazone 2.5 mg PO MOTH 02/15/21 02/15/21 History Allergies Allergy/AdvReac Type Severity Reaction Status Date / Time clotrimazole Allergy Unknown Verified 02/15/21 13:36 fluconazole Allergy Unknown Verified 02/15/21 13:36 Sulfa (Sulfonamide Allergy Rash/Hives Verified 02/15/21 13:36 Antibiotics) calcium AdvReac Unknown Unknown Verified 02/15/21 13:36 baclofen AdvReac NUMBNESS Verified 02/15/21 13:36 WAS WORSE IN FEET" UNSTEADY" Physical Examination - Vital Signs Vital Signs: Vital Signs Temp Pulse Pulse Resp BP BP BP 02/16/21 04:50 98.6 F 86 20 165/81 02/15/21 20:43 98.7 F 91 20 174/85 02/15/21 17:14 91 18 166/73 02/15/21 14:53 90 20 185/85 02/15/21 13:50 74 18 193/91 02/15/21 11:50 98.1 F 104 H 18 214/90 Pulse Ox 02/16/21 04:50 92 L 02/15/21 20:43 92 L 02/15/21 17:14 96 02/15/21 14:53 96 02/15/21 13:50 99 02/15/21 11:50 97 Intake and Output 02/15/21 02/16/21 02/16/21 22:59 06:59 14:59 Intake Total 0 Balance 0 Intake: Oral 0 Other: Voiding Method Bedpan # Voids 7 Weight 92.986 kg Patient is an elderly female, very pleasant, in no acute distress. Patient is laying comfortably in the bed. Patient is alert awake oriented to time place and person. Patient knows it is January 2021 and that she is in [facility] and name of the current president. Speech and language functions are normal. Speech is mildly slurred. Attention, concentration and fund of knowledge is adequate. On cranial examination, both pupils are surgical, whereas the left is oblong (tear shaped horizontally). Both pupils are mildly reactive. pupils are round and reacting to light, visual carrera are full on confrontation, extraocular muscles are intact with no nystagmus. Face has mild flattening of the left nasolabial fold, tongue protrudes to the midline. Palatal elevation and sensation normal, hearing is mildly decreased for finger rubbing but normal for routine converse edition and shoulder shrug normal, facial sensation normal. Shoulder shrug normal. On muscle strength testing, patient has left pronator drift due to rotator cuff tear as well. The strength is normal in arms and legs distally and proximally. Deep tendon reflexes are absent, and plantar is flat on the right, questionable up on the left Sensory to touch is equal with no neglect. Cerebellar function showed no ataxia for [id number] testing. No dysdiadochokinesia. Tone and bulk of muscles normal. Gait deferred. On general examination, there is no carotid bruit or murmur, S1-S2 audible. Abdomen is soft nontender. Chest is clear. Peripheral pulses are present. Patient has moderate peripheral edema. Results - Laboratory Findings CBC and BMP: 02/16/21 05:32 02/16/21 05:32 Abnormal Lab Findings: Abnormal Labs 02/15/21 02/15/21 02/15/21 12:37 12:37 12:37 MCHC Lymphocytes # 0.8 L BUN 22 H Creatinine 1.16 H Glucose 128 H Total Bilirubin 1.5 H TSH Urine Appearance Cloudy H Urine Protein 3+ H Urine Blood Trace H Urine WBC Clumps Few H Amorphous Sediment Moderate H Urine Bacteria Rare H Hyaline Casts 7 H Urine Mucus Rare H 02/15/21 02/16/21 12:37 05:32 MCHC 30.8 L Lymphocytes # BUN Creatinine Glucose Total Bilirubin TSH 0.173 L Urine Appearance Urine Protein Urine Blood Urine WBC Clumps Amorphous Sediment Urine Bacteria Hyaline Casts Urine Mucus Assessment and Plan Assessment: * 89-year-old female, admitted with new onset blurred vision (bilateral eyes), fall and possible mild left-sided focality. Rule out CVA. * Uncontrolled hypertension * Previous history of right cerebellar CVA in July 2018 * Obesity Plan: * Await MRI of the brain. * Patient was on aspirin 81 mg daily at home. We will increase aspirin to 325 mg for now, pending results of MRI. If positive for stroke, then may need dual antiplatelet medication. * Await 2-D echo * We will check carotid Doppler. * Permissive hypertension. * If above tests come back negative, then would recommend ophthalmology co nsultation. Patient states she does have an appointment with her report programmer Dr. Abreu on 02/18/2021 as outpatient. * Telemetry monitoring. * Fasting lipid panel, hemoglobin A1c. * Neurology will follow.
--- NOTE | 2021-02-16 16:06 | MR ---
EXAMINATION TYPE: MR brain wo/w con DATE OF EXAM: 02/16/2021 COMPARISON: CT brain 02/15/2021, prior brain MRI 07/11/2018 HISTORY: CVA, altered mental status TECHNIQUE: Multiplanar, multisequence images of the brain and brainstem is performed without and with IV contras t, utilizing 9 mL intravenous Gadavist . Fast brain protocol was utilized due to patient's debility. FINDINGS: Diffusion weighted images demonstrate no evidence of a recent infarct or other diffusion ab normality. There is no extra-axial fluid collection or significant interval change in white matter s ignal abnormality. There is encephalomalacia involving the inferior right cerebellar hemisphere is no sabine, no evident enhancement. 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 The ventricular system and cisternal spaces are normal in size and appearance. The brain volume is age appropriate. Midline structures demonstrate normal morphology. The craniocervical junction appears within normal limits. The dural venous sinuses appear patent. The visualized sinuses are clear and the globes are i ntact. IMPRESSION: Remote infarct with encephalomalacia. Age-related atrophy, chronic small vessel ischemic changes. No acute abnormalities evident.
[2021-02-16 22:03] LABS: Hemoglobin A1C 6.6 % (4.0-6.0)
--- NOTE | 2021-02-16 22:39 | US ---
EXAMINATION TYPE: US carotid duplex BILAT DATE OF EXAM: 02/16/2021 COMPARISON: NONE CLINICAL HISTORY: Blurred vision, possible CVA. EXAM MEASUREMENTS: RIGHT: Peak Systolic Velocity (PSV) cm/sec Unable to evaluate right side due to patient position and patient inability to cooperate. LEFT: Peak Systolic Velocity (PSV) cm/sec ----- Left CCA: 89.2 ----- Left ICA: 99.2 ----- Left ECA: 109.0 ICA/CCA ratio: 1.11 LEFT: End Diastole cm/sec ----- Left CCA: 24.8 ----- Left ICA: 19.2 ----- Left ECA: 0.0 VERTEBRALS (direction of flow): Left Vertebral: Antegrade Rhythm: Normal IMPRESSION: The right side vertebral artery and carotid artery were not evaluated. On the left side there is no evidence of hemodynamic stenosis. Images and measurements suggest less t sterling 15% stenosis in the left internal carotid artery. There is antegrade flow in the left vertebral a rtery. Criteria for Assigning % of Stenosis / Diameter reduction (Estimation based on the indirect measurements of the internal carotid artery velocities (ICA PSV). 1. Normal (no stenosis)=ICA PSV < 125 cm/s: ratio < 2.0: ICA EDV<40 cm/s. 2. Less than 50% stenosis=ICA PSV < 125 cm/s: ratio < 2.0: ICA EDV<40 cm/s. 3. 50 to 69% stenosis=ICA PSV of 125 to 230 cm/s: ration 2.0 ? 4.0: ICA EDV 40-100 cm/s. 4. Greater than 70% stenosis to near occlusion= ICA PSV > 230 cm/s: ratio > 4.0: ICA EDV > 100 cm/s. 5. Near occlusion= ICA PSV velocities may be low or undetectable: variable ratio and ICA EDV. 6. Total occlusion=unable to detect flow.
[2021-02-17] MEDS: HYDROcodone/APAP 5-325MG 1 EACH TAB PO PRN (04:35)
[2021-02-17 07:24] LABS: Basophils # (A) 0.1 k/uL (0-0.2); Basophils % (A) 1 %; Eosinophils # (A) 0.4 k/uL (0-0.7); Eosinophils % (A) 5 %; HCT 40.7 % (34.0-46.0); Hypochromasia Marked; Lymphocytes # (A) 1.1 k/uL (1.0-4.8); Lymphocytes % (A) 13 %; MCH 27.8 pg (25.0-35.0); MCHC 29.4 g/dL (31.0-37.0); MCV 94.6 fL (80.0-100.0); Mean Platelet Volume 8.2; Monocytes # (A) 0.7 k/uL (0-1.0); Monocytes % (A) 9 %; Neutrophils # (A) 5.9 k/uL (1.3-7.7); Neutrophils % (A) 71 %; Platelet Count 274 k/uL (150-450); RBC 4.31 m/uL (3.80-5.40); RDW 15.4 % (11.5-15.5); WBC 8.2 k/uL (3.8-10.6)
[2021-02-17] MEDS: GABAPENTIN 100 MG CAP PO SCH ×2 (07:56→21:30)
[2021-02-17] MEDS: FUROSEMIDE 10 MG/ML 4 ML VIAL IV SCH ×4 (07:56→22:51)
[2021-02-17] MEDS: amLODIPine 5 MG TAB PO SCH (07:56)
[2021-02-17] MEDS: ATORVASTATIN 10 MG TAB PO SCH (07:57)
[2021-02-17] MEDS: PANTOPRAZOLE 40 MG TABLET PO SCH (07:57)
[2021-02-17] MEDS: cloNIDine HCL 0.2 MG TAB PO SCH ×3 (07:57→21:30)
[2021-02-17] MEDS: METOPROLOL TARTRATE 25 MG TAB PO SCH ×2 (07:57→21:29)
[2021-02-17] MEDS: ENOXAPARIN 40 MG/0.4 ML SYRINGE SQ SCH (07:57)
[2021-02-17 10:22] LABS: African American GFR (CKD) 46.7 (60.0-200.0); Albumin 3.5 g/dL (3.80-4.90); Albumin/Globulin Ratio 1.84 (1.60-3.17); Anion Gap 6.3 mmol/L (4.00-12.00); BUN/Creat Ratio 14.17 Ratio (12.00-20.00); Calcium 8.2 mg/dL (8.7-10.3); Carbon Dioxide 37.7 mmol/L (21.6-31.8); Chol/HDL Ratio 2.89; Globulin 1.9 g/dL (1.6-3.3); LDL Cholesterol,Calculated 55.4 mg/dL (0.0-131.0); Non-African American GFR(CKD) 40.3 (60.0-200.0); Potassium 3.9 mmol/L (3.5-5.5); Total Bilirubin 1.5 mg/dL (0.2-1.2); Total Protein 5.4 g/dL (6.2-8.2); VLDL Calculation 12.6 mg/dL (5.00-40.00)
--- NOTE | 2021-02-17 11:38 | ECHOF ---
Referral Reason:CHF MEASUREMENTS -------- HEIGHT: 165.1 cm WEIGHT: 93.0 kg BP: RVIDd: 3.9 cm (< 3.3) IVSd: 1.3 cm (0.6 - 1.1) LVIDd: 4.0 cm (3.9 - 5.3) LVPWd: 1.1 cm (0.6 - 1.1) IVSs: 1.2 cm LVIDs: 2.2 cm LVPWs: 1.3 cm LAESV Index (A-L): 33.30 ml/m Ao Diam: 3.2 cm (2.0 - 3.7) AV Cusp: 1.8 cm (1.5 - 2.6) LA Diam: 3.9 cm (2.7 - 3.8) MV E Edin: 0.82 m/s MV DecT: 266 ms MV A Edin: 1.16 m/s MV E/A Ratio: 0.71 RAP: 5.00 mmHg RVSP: 50.57 mmHg FINDINGS -------- This was a technically difficult study with suboptimal views. The left ventricular size is normal. There is mild concentric left ventricular hypertrophy. Overa ll left ventricular systolic function is normal with, an EF between 55 - 60 %. Increased LAP Grade 2 Diastolic Dysfunction. The right ventricle is mild to moderately enlarged. LA is midly dilated 29-33ml/m2. The right atrial size is normal. Lumason used The aortic valve is trileaflet and appears structurally normal. The mitral valve is normal. There is trace mitral regurgitation. The tricuspid valve appears structurally normal. Mild tricuspid regurgitation present. There is m oderate pulmonary hypertension. The right ventricular systolic pressure, as measured by Doppler, is 50.57mmHg. There is no pulmonic regurgitation present. The aortic root size is normal. IVC Not well visulized. There is no pericardial effusion. CONCLUSIONS -------- 1. The left ventricular size is normal. 2. There is mild concentric left ventricular hypertrophy. 3. Overall left ventricular systolic function is normal with, an EF between 55 - 60 %. 4. Increased LAP Grade 2 Diastolic Dysfunction. 5. The right ventricle is mild to moderately enlarged. 6. LA is midly dilated 29-33ml/m2. 7. There is trace mitral regurgitation. 8. Mild tricuspid regurgitation present. 9. There is moderate pulmonary hypertension. 10. The right ventricular systolic pressure, as measured by Doppler, is 50.57mmHg. 11. There is no pericardial effusion. [employer] OPERATOR: Nyla Heck RDCS
--- NOTE | 2021-02-17 14:25 | P.PN ---
Subjective Progress Note Date: 02/17/21 HISTORY OF PRESENT ILLNESS This is an 89-year-old female patient of Dr. 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 Patient has a son that lives within a half mile and 1 in [place] and there is also a neighbor that helps her with bathing. The neighbor went to check on her yesterday and found that she was having slurred speech more weak and confused. She does have a problem with falling frequently. Patient denies having any dizziness. She states she was standing by the dryer and her knees gave out on her and she went to the floor. She states she was trying to clean up the mess as she was trying to go to the bathroom but had an accident on the floor. Patient presented to [facility] emergency center for evaluation. She was afebrile, heart rate 104, blood pressure 214/90, pulse ox 97% on room air. CBC was unremarkable. Electrolytes normal. BUN 22 and creatinine 1.16. Blood sugar 128. ProBNP 4440. Total bilirubin 1.5 otherwise liver function tests were normal. Troponin negative 3 draws. Urinalysis cloudy, nitrate and leukoesterase negative. COVID-19 not detected. TSH 0.173 and free T4 1 0.71. Prolactin 12.2. Cortisol 17. EKG was a sinus tachycardia at heart rate of 102. Chest x-ray reveals heart failure, interstitial edema and a patient with pre-existing COPD. Difficult to exclude pneumonia. Patient was started on IV Lasix, neurology consult requested and patient admitted to the [facility] floor. 02/17: Echocardiogram reveals EF of 55-60%, mild concentric left ventricular hypertrophy, trace mitral regurgitation, mild tricuspid regurgitation, moderate pulmonary hypertension. MRI of the brain revealed remote infarct with encephalomalacia. Age-related atrophy, chronic small vessel ischemic changes. No acute abnormalities. Carotid ultrasound revealed right side vertebral artery and carotid artery were not evaluated due to patient positioning and inability to cooperate. On the left side, no evidence of hemodynamic stenosis. Patient is seen and followed by neurology. Recommend ophthalmic consultation and she does have an appointment on Tuesday, February [address] Abreu as an outpatient. Patient has been afebrile, heart rate 86, blood pressure 148/79, pulse ox 90% on 2 L nasal cannula. Repeat blood work reveals CBC is unremarkable. Electrolytes normal, CO2 37, BUN 17 and creatinine 1.2. Blood sugar 105. Hemoglobin A1c is 6.6. Total bilirubin 1.5. Calcium 8.2. Liver function tests normal. Triglycerides 63, cholesterol 104, LDL 55, HDL 36. Patient has decreased lower extremity edema. IV Lasix changed to 3 times daily. Daily weights appear to be an accurate. Patient has been evaluated by therapies with recommendations for subacute rehab. Discharge plan will be to subacute rehab at [facility] or [facility]. REVIEW OF SYSTEMS Constitutional: No fever, no chills, no night sweats. No weight change. No weakness, fatigue or lethargy. No daytime sleepiness. EENT: No headache. No blurred vision or double vision, no loss of vision. No dizziness. No nasal drainage or congestion. No epistaxis. No sore throat. Lungs: Reports shortness of breath, cough, no sputum production. No wheezing. Cardiovascular: No chest pain, reports lower extremity edema. No palpitations. No paroxysmal nocturnal dyspnea. No orthopnea. No lightheadedness or d izziness. No syncopal episodes. Abdominal: No abdominal pain. No nausea, vomiting. No diarrhea. No constipation. No bloody or tarry stools.. No loss of appetite. Genitourinary: No dysuria, increased frequency, urgency. No urinary retention. Musculoskeletal: No myalgias. Positive muscle weakness, positive gait dysfunction, positive frequent falls. Chronic back pain. No neck pain. Integumentary: No wounds, no lesions. No rash or pruritus. No unusual bruising. No change in hair or nails. Neurologic: Reported aphasia. Reported facial droop. Reported change in mentation. No head injury. No headache. No paralysis. No paresthesia. Psychiatric: No depression. No anxiety. No mood swings. Endocrine: No abnormal blood sugars. No weight change. No excessive sweating or thirst. No cold intolerance. PHYSICAL EXAMINATION Gen: This is an 89-year-old female. She is resting in recliner and appears to be in no acute distress. HEENT: Head is atraumatic, normocephalic. Pupils equal, round. Sclerae is anicteric. NECK: Supple. No JVD. No lymphadenopathy. No thyromegaly. LUNGS: Bilateral rhonchi. No intercostal retractions. HEART: Regular rate and rhythm. Systolic murmur. ABDOMEN: Soft. Bowel sounds are present. No masses. No tenderness. EXTREMITIES: 1+ bilateral pedal edema. No calf tenderness. 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 NEUROLOGICAL: Patient is awake, alert and oriented x3. Equal muscle strength bilateral extremities. Cranial nerves 2 through 12 are grossly intact. No noted aphasia, facial droop. ASSESSMENT AND PLAN 1. Metabolic encephalopathy, slurred speech and weakness, rule out CVA/TIA. MRI of the brain negative for acute findings, consult with neurology, echocardiogram as above. PT, OT and ST consults. 2. Acute diastolic heart failure. Patient started on Lasix 40 mg IV every 12 hours and increase to 3 times daily, monitor daily weights and I&O, monitor electrolytes and renal function. 3. Mild intermittent asthma, stable. Continue albuterol inhaler 2 puffs every 4 hours as needed. 4. Hypertension. Continue amlodipine 5 mg daily, clonidine 0.2 mg 3 times daily, Lopressor 25 mg twice daily. 5. Chronic kidney disease stage III. Avoid hypotension and nephrotoxic agents. 6. History of CVA in 2018 presenting with dizziness. 7. Chronic low back pain and peripheral neuropathy. Continue gabapentin 100 mg twice daily, Tylenol as needed for pain. 8. GI prophylaxis. Protonix 40 mg daily. 9. DVT prophylaxis. Continue Lovenox 40 mg subcu daily. 10. COVID-19 testing negative. Patient has been hospitalized during a pandemic. CODE STATUS: Full code DISCHARGE PLAN Subacute rehab at [facility] on Tuesday. Impression and plan of care have been directed as dictated by the signing physician. Marcela Love nurse practitioner acting as scribe for signing physician. Objective - Vital Signs Vital signs: Vital Signs Temp 97.9 F 02/17/21 05:00 Pulse 95 02/17/21 07:55 Resp 20 02/17/21 05:00 BP 170/90 02/17/21 07:55 Pulse Ox 93 L 02/17/21 07:55 Intake & Output 02/16/21 02/17/21 02/17/21 18:59 06:59 18:59 Intake Total 200 Balance 200 Weight 83.733 kg Intake: Oral 200 Other: Voiding Method Bedpan Bedpan # Voids 5 - Labs CBC & Chem 7: 02/17/21 05:33 02/17/21 05:33 Labs: Abnormal Lab Results - Last 24 Hours (Table) 02/16/21 02/16/21 02/16/21 Range/Units 05:32 05:32 05:32 MCHC (31.0-37.0) g/dL Sodium 147 H (135-145) mmol/L Est GFR (CKD-EPI)AfAm 51.9 L (60.0-200.0) Est GFR (CKD-EPI)NonAf 44.8 L (60.0-200.0) Hemoglobin A1c 6.6 H (4.0-6.0) % Calcium 8.6 L (8.7-10.3) mg/dL Total Bilirubin 1.6 H (0.3-1.2) mg/dL Total Protein 6.0 L (6.2-8.2) g/dL Procalcitonin 0.15 H (0.02-0.09) ng/mL 02/17/21 Range/Units 05:33 MCHC 29.4 L (31.0-37.0) g/dL Sodium (135-145) mmol/L Est GFR (CKD-EPI)AfAm (60.0-200.0) Est GFR (CKD-EPI)NonAf (60.0-200.0) Hemoglobin A1c (4.0-6.0) % Calcium (8.7-10.3) mg/dL Total Bilirubin (0.3-1.2) mg/dL Total Protein (6.2-8.2) g/dL Procalcitonin (0.02-0.09) ng/mL
--- NOTE | 2021-02-17 15:52 | P.PN ---
Subjective Progress Note Date: 02/17/21 Patient is laying comfortably in the bed. Speech therapy was working with the patient when arrived. No new symptoms. No focal symptoms. Objective - Vital Signs Vital signs: Vital Signs Temp 98.0 F 02/17/21 15:39 Pulse 81 02/17/21 15:39 Resp 24 02/17/21 15:39 BP 146/72 02/17/21 15:39 Pulse Ox 90 L 02/17/21 15:39 Intake & Output 02/16/21 02/17/21 02/17/21 18:59 06:59 18:59 Intake Total 200 Balance 200 Weight 83.733 kg Intake: Oral 200 Other: Voiding Method Bedpan Bedpan Bedpan # Voids 5 - Exam Patient's mental status, speech and language functions are normal. Examination deferred. Patient offers no new complaints. - Labs CBC & Chem 7: 02/17/21 05:33 02/17/21 05:33 Labs: Abnormal Lab Results - Last 24 Hours (Table) 02/16/21 02/17/21 02/17/21 Range/Units 05:32 05:33 05:33 MCHC 29.4 L (31.0-37.0) g/dL Carbon Dioxide 37.7 H (21.6-31.8) mmol/L Est GFR (CKD-EPI)AfAm 46.7 L (60.0-200.0) Est GFR (CKD-EPI)NonAf 40.3 L (60.0-200.0) Hemoglobin A1c 6.6 H (4.0-6.0) % Calcium 8.2 L (8.7-10.3) mg/dL Total Bilirubin 1.5 H (0.2-1.2) mg/dL Total Protein 5.4 L (6.2-8.2) g/dL Albumin 3.50 L (3.80-4.90) g/dL HDL Cholesterol 36.0 L (40.0-60.0) mg/dL Assessment and Plan Assessment: * 89-year-old female, admitted with new onset blurred vision (bilateral eyes), fall and possible mild left-sided focality. Rule out CVA. MRI brain negative for acute stroke. 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 Revealed remote infarct with encephalomalacia in the right cerebellum. * Continue aspirin 81 mg daily. * 2-D echo revealed normal left-ventricular size. Mild concentric LVH. EF is 55-60%. Telemetry is mildly dilated. Moderate pulmonary hypertension. * Carotid Doppler: right side vertebral artery and carotid artery were not evaluated due to patient positioned and patient inability to cooperate. The left side is normal. Antegrade flow in the left vertebral artery.. * Optimize control of blood pressure to target blood pressure <130/80. * Recommend ophthalmology consultation. Patient states she does have an appointment with her cardiothoracic surgeon Dr. Abreu on 02/18/2021 as outpatient. * Telemetry monitoring. * Fasting lipid panel with cholesterol 104, LDL 55.4, HDL 36 and triglycerides 63. Continue Lipitor 10 mg. * Hemoglobin A1c 6.6, well controlled. * PT OT evaluate gait. Speech therapy following. * Neurologically clear for discharge, if cleared by PT and OT.
[2021-02-17] MEDS: ASPIRIN 81 MG PO SCH (16:41)
[2021-02-18] MEDS: HYDROcodone/APAP 5-325MG 1 EACH TAB PO PRN (01:28)
[2021-02-18 06:45] LABS: Basophils # (A) 0.1 k/uL (0-0.2); Basophils % (A) 1 %; Eosinophils # (A) 0.4 k/uL (0-0.7); Eosinophils % (A) 5 %; HCT 38.8 % (34.0-46.0); Hypochromasia Marked; Lymphocytes # (A) 1.5 k/uL (1.0-4.8); Lymphocytes % (A) 17 %; MCH 28.5 pg (25.0-35.0); Mean Platelet Volume 7.6; Monocytes # (A) 0.8 k/uL (0-1.0); Monocytes % (A) 9 %; Neutrophils # (A) 6.1 k/uL (1.3-7.7); Neutrophils % (A) 68 %; Platelet Count 258 k/uL (150-450); RBC 4.21 m/uL (3.80-5.40); RDW 15.1 % (11.5-15.5); WBC 9.1 k/uL (3.8-10.6)
[2021-02-18] MEDS: cloNIDine HCL 0.2 MG TAB PO SCH ×3 (09:58→21:09)
[2021-02-18] MEDS: METOPROLOL TARTRATE 25 MG TAB PO SCH ×2 (09:58→21:08)
[2021-02-18] MEDS: ASPIRIN 81 MG PO SCH (09:58)
[2021-02-18] MEDS: PANTOPRAZOLE 40 MG TABLET PO SCH (09:58)
[2021-02-18] MEDS: ATORVASTATIN 10 MG TAB PO SCH (09:58)
[2021-02-18] MEDS: amLODIPine 5 MG TAB PO SCH (09:59)
[2021-02-18] MEDS: GABAPENTIN 100 MG CAP PO SCH ×2 (09:59→21:08)
[2021-02-18] MEDS: ENOXAPARIN 30 MG/0.3 ML SYRINGE SQ SCH (09:59)
[2021-02-18] MEDS: FUROSEMIDE 10 MG/ML 4 ML VIAL IV SCH ×2 (09:59→16:57)
[2021-02-18 10:28] LABS: African American GFR (CKD) 38.8 (60.0-200.0); Albumin 3.6 g/dL (3.80-4.90); Albumin/Globulin Ratio 1.8 (1.60-3.17); Anion Gap 9.5 mmol/L (4.00-12.00); BUN/Creat Ratio 15.71 Ratio (12.00-20.00); Calcium 8.7 mg/dL (8.7-10.3); Carbon Dioxide 37.5 mmol/L (21.6-31.8); Non-African American GFR(CKD) 33.5 (60.0-200.0); Total Bilirubin 1.4 mg/dL (0.3-1.2); Total Protein 5.6 g/dL (6.2-8.2)
[2021-02-18] MEDS: INSULIN ASPART (NovoLOG) 100 UNIT/ML VIAL SQ SCH ×3 (12:40→21:09)
[2021-02-18 12:41] LABS: Glucose,Whole Blood 108 mg/dL (75-99)
--- NOTE | 2021-02-18 12:54 | P.PN ---
Subjective Progress Note Date: 02/18/21 HISTORY OF PRESENT ILLNESS This is an 89-year-old female patient of Dr. 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 Patient has a son that lives within a half mile and 1 in [place] and there is also a neighbor that helps her with bathing. The neighbor went to check on her yesterday and found that she was having slurred speech more weak and confused. She does have a problem with falling frequently. Patient denies having any dizziness. She states she was standing by the dryer and her knees gave out on her and she went to the floor. She states she was trying to clean up the mess as she was trying to go to the bathroom but had an accident on the floor. Patient presented to [facility] emergency center for evaluation. She was afebrile, heart rate 104, blood pressure 214/90, pulse ox 97% on room air. CBC was unremarkable. Electrolytes normal. BUN 22 and creatinine 1.16. Blood sugar 128. ProBNP 4440. Total bilirubin 1.5 otherwise liver function tests were normal. Troponin negative 3 draws. Urinalysis cloudy, nitrate and leukoesterase negative. COVID-19 not detected. TSH 0.173 and free T4 1 0.71. Prolactin 12.2. Cortisol 17. EKG was a sinus tachycardia at heart rate of 102. Chest x-ray reveals heart failure, interstitial edema and a patient with pre-existing COPD. Difficult to exclude pneumonia. Patient was started on IV Lasix, neurology consult requested and patient admitted to the [facility] floor. 02/17: Echocardiogram reveals EF of 55-60%, mild concentric left ventricular hypertrophy, trace mitral regurgitation, mild tricuspid regurgitation, moderate pulmonary hypertension. MRI of the brain revealed remote infarct with encephalomalacia. Age-related atrophy, chronic small vessel ischemic changes. No acute abnormalities. Carotid ultrasound revealed right side vertebral artery and carotid artery were not evaluated due to patient positioning and inability to cooperate. On the left side, no evidence of hemodynamic stenosis. Patient is seen and followed by neurology. Recommend ophthalmic consultation and she does have an appointment on February [address] Abreu as an outpatient. Patient has been afebrile, heart rate 86, blood pressure 148/79, pulse ox 90% on 2 L nasal cannula. Repeat blood work reveals CBC is unremarkable. Electrolytes normal, CO2 37, BUN 17 and creatinine 1.2. Blood sugar 105. Hemoglobin A1c is 6.6. Total bilirubin 1.5. Calcium 8.2. Liver function tests normal. Triglycerides 63, cholesterol 104, LDL 55, HDL 36. Patient has decreased lower extremity edema. IV Lasix changed to 3 times daily. Daily weights appear to be an accurate. Patient has been evaluated by therapies with recommendations for subacute rehab. Discharge plan will be to subacute rehab at [facility] or [facility]. 02/18: Patient is more wheezing today and cough. Covid 19 tests will be repeated. Blood sugars 108. Electrolytes are normal except for CO2 of 37.5. Creatinine is 1.4. ProBNP 2440. CBC is unremarkable. Pulse ox is 91% on 3 L nasal cannula. She is been afebrile, heart rate 79, blood pressure 133/77. She will be started on Solu-Medrol 60 mg IV every 6 hours. She is continued on Lasix 40 mg IV 3 times daily. Discharge plan is to [facility]. REVIEW OF SYSTEMS Constitutional: No fever, no chills, no night sweats. No weight change. No weakness, fatigue or lethargy. No daytime sleepiness. EENT: No headache. No blurred vision or double vision, no loss of vision. No dizziness. No nasal drainage or congestion. No epistaxis. No sore throat. Lungs: Reports shortness of breath, cough, no sputum production. No wheezing. Cardiovascular: No chest pain, reports lower extremity edema. No palpitations. No paroxysmal nocturnal dyspnea. No orthopnea. No lightheadedness or dizziness. No syncopal episodes. Abdominal: No abdominal pain. No nausea, vomiting. No diarrhea. No constipation. No bloody or tarry stools.. No loss of appetite. Genitourinary: No dysuria, increased frequency, urgency. No urinary retention. Musculoskeletal: No myalgias. Positive muscle weakness, positive gait dysfunction, positive frequent falls. Chronic back pain. No neck pain. Integumentary: No wounds, no lesions. No rash or pruritus. No unusual bruising. No change in hair or nails. Neurologic: Reported aphasia. Reported facial droop. Reported change in mentation. No head injury. No headache. No paralysis. No paresthesia. Psychiatric: No depression. No anxiety. No mood swings. Endocrine: No abnormal blood sugars. No weight change. No excessive sweating or thirst. No cold intolerance. PHYSICAL EXAMINATION Gen: This is an 89-year-old female. She is resting in recliner and appears to be in no acute distress. HEENT: Head is atraumatic, normocephalic. Pupils equal, round. Sclerae is anicteric. NECK: Supple. No JVD. No lymphadenopathy. No thyromegaly. LUNGS: Bilateral rhonchi. No intercostal retractions. HEART: Regular rate and rhythm. Systolic murmur. ABDOMEN: Soft. Bowel sounds are present. No masses. No tenderness. EXTREMITIES: 1+ bilateral pedal edema. No calf tenderness. 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 NEUROLOGICAL: Patient is awake, alert and oriented x3. Equal muscle strength bilateral extremities. Cranial nerves 2 through 12 are grossly intact. No noted aphasia, facial droop. ASSESSMENT AND PLAN 1. Metabolic encephalopathy, slurred speech and weakness, rule out CVA/TIA. MRI of the brain negative for acute findings, consult with neurology, echocardiogram as above. PT, OT and ST consults. 2. Acute diastolic heart failure. Patient started on Lasix 40 mg IV 3 times daily, monitor daily weights and I&O, monitor electrolytes and renal function. 3. Mild intermittent asthma with exacerbation. Patient started on Solu-Medrol 60 mg IV every 6 hours. Continue albuterol inhaler 2 puffs every 4 hours as needed. Repeat Covid 19 testing. 4. Hypertension. Continue amlodipine 5 mg daily, clonidine 0.2 mg 3 times daily, Lopressor 25 mg twice daily. 5. Chronic kidney disease stage III. Avoid hypotension and nephrotoxic agents. 6. History of CVA in 2018 presenting with dizziness. 7. Chronic low back pain and peripheral neuropathy. Continue gabapentin 100 mg twice daily, Tylenol as needed for pain. 8. GI prophylaxis. Protonix 40 mg daily. 9. DVT prophylaxis. Continue Lovenox 40 mg subcu daily. 10. COVID-19 testing negative. Patient has been hospitalized during a pandemic. CODE STATUS: Full code DISCHARGE PLAN Subacute rehab at [facility] 24-48 hours. Impression and plan of care have been directed as dictated by the signing physician. Marcela Love nurse practitioner acting as scribe for signing physician. Objective - Vital Signs Vital signs: Vital Signs Temp 97.5 F L 02/18/21 07:35 Pulse 79 02/18/21 07:35 Resp 23 02/18/21 07:35 BP 133/77 02/18/21 07:35 Pulse Ox 91 L 02/18/21 07:35 Intake & Output 02/17/21 02/18/21 02/18/21 18:59 06:59 18:59 Weight 83 kg Other: Voiding Method Bedpan Bedpan Bedpan Diaper # Voids 0 2 # Bowel Movements 1 - Labs CBC & Chem 7: 02/18/21 06:07 02/18/21 06:07 Labs: Abnormal Lab Results - Last 24 Hours (Table) 02/18/21 Range/Units 06:07 Carbon Dioxide 37.5 H (21.6-31.8) mmol/L Est GFR (CKD-EPI)AfAm 38.8 L (60.0-200.0) Est GFR (CKD-EPI)NonAf 33.5 L (60.0-200.0) Glucose 126 H (70-110) mg/dL Total Bilirubin 1.4 H (0.3-1.2) mg/dL Total Protein 5.6 L (6.2-8.2) g/dL Albumin 3.60 L (3.80-4.90) g/dL
[2021-02-18] MEDS: methylPREDNISolone SOD SUCCI 125 MG/2 ML VIAL IV SCH ×2 (14:24→17:49)
[2021-02-18 17:15] LABS: Glucose,Whole Blood 149 mg/dL (75-99)
[2021-02-18 20:27] LABS: Glucose,Whole Blood 248 mg/dL (75-99)
[2021-02-19] MEDS: methylPREDNISolone SOD SUCCI 125 MG/2 ML VIAL IV SCH ×2 (00:34→06:19)
[2021-02-19] MEDS: FUROSEMIDE 10 MG/ML 4 ML VIAL IV SCH ×2 (00:35→07:40)
[2021-02-19] MEDS: HYDROcodone/APAP 5-325MG 1 EACH TAB PO PRN (00:37)
[2021-02-19 07:22] LABS: Glucose,Whole Blood 188 mg/dL (75-99)
[2021-02-19] MEDS: PANTOPRAZOLE 40 MG TABLET PO SCH (07:39)
[2021-02-19] MEDS: INSULIN ASPART (NovoLOG) 100 UNIT/ML VIAL SQ SCH ×2 (07:39→13:08)
[2021-02-19] MEDS: ENOXAPARIN 30 MG/0.3 ML SYRINGE SQ SCH (07:39)
[2021-02-19] MEDS: ASPIRIN 81 MG PO SCH (07:39)
[2021-02-19] MEDS: cloNIDine HCL 0.2 MG TAB PO SCH (07:40)
[2021-02-19] MEDS: METOPROLOL TARTRATE 25 MG TAB PO SCH (07:40)
[2021-02-19] MEDS: GABAPENTIN 100 MG CAP PO SCH (07:40)
[2021-02-19] MEDS: ATORVASTATIN 10 MG TAB PO SCH (07:40)
[2021-02-19] MEDS: amLODIPine 5 MG TAB PO SCH (07:40)
--- NOTE | 2021-02-19 09:20 | P.PN ---
Subjective Progress Note Date: 02/18/21 Patient is laying comfortably in the bed. Patient's son was present today by the bedside. Patient's son told me that he brought her to the hospital because she was slurring, confused and dehydrated. At present he believes that she is almost back to baseline. Patient currently is taking aspirin 81 mg. She denies diabetes. Patient was scheduled for transfer to rehab facility, but she has some "water in the lungs and heart", which is being treated, therefore possible transfer tomorrow. No new symptoms. No focal symptoms. Objective - Vital Signs Vital signs: Vital Signs Temp 98.1 F 02/18/21 14:48 Pulse 71 02/18/21 14:48 Resp 24 02/18/21 14:48 BP 129/74 02/18/21 14:48 Pulse Ox 93 L 02/18/21 14:48 Intake & Output 02/17/21 02/18/21 02/18/21 18:59 06:59 18:59 Weight 83 kg Other: Voiding Method Bedpan Bedpan Bedpan Diaper # Voids 0 2 # Bowel Movements 1 - Exam Patient's mental status, speech and language functions are normal. Patient is alert and awake, fully oriented. Cranial nerves are normal, with some mild residual left facial asymmetry, which is chronic. Muscle strength appears normal in the arms. No ataxia. Sensations are equal with no neglect. - Labs CBC & Chem 7: 02/18/21 06:07 02/18/21 06:07 Labs: Abnormal Lab Results - Last 24 Hours (Table) 02/18/21 02/18/21 Range/Units 06:07 12:39 Carbon Dioxide 37.5 H (21.6-31.8) mmol/L Est GFR (CKD-EPI)AfAm 38.8 L (60.0-200.0) Est GFR (CKD-EPI)NonAf 33.5 L (60.0-200.0) Glucose 126 H (70-110) mg/dL POC Glucose (mg/dL) 108 H (75-99) mg/dL Total Bilirubin 1.4 H (0.3-1.2) mg/dL Total Protein 5.6 L (6.2-8.2) g/dL Albumin 3.60 L (3.80-4.90) g/dL Assessment and Plan Assessment: * 89-year-old female, admitted with new onset blurred vision (bilateral eyes), fall and possible mild left-sided focality. Acute CVA ruled out with negative MRI of the brain. 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 * Obesity Plan: * MRI of the brain negative for acute stroke. Revealed remote infarct with e ncephalomalacia in the right cerebellum. * Continue aspirin 81 mg daily. * 2-D echo revealed normal left-ventricular size. Mild concentric LVH. EF is 55-60%. Left atrium is mildly dilated. Moderate pulmonary hypertension. * Carotid Doppler: right side vertebral artery and carotid artery were not ev aluated due to patient positioned and patient inability to cooperate. The left side is normal. Antegrade flow in the left vertebral artery.. * Optimize control of blood pressure to target blood pressure <130/80. * Recommend ophthalmology consultation. Patient states she does have an ap pointment with her process safety engineer Dr. Abreu on 02/18/2021 as outpatient. Patient will need to reschedule appointment with ophthalmology. * Fasting lipid panel with cholesterol 104, LDL 55.4, HDL 36 and triglycerides 63. Continue Lipitor 10 mg. * Hemoglobin A1c 6.6, well controlled. Need to closely follow blood sugars. Currently on sliding scale insulin. * PT OT evaluate gait. Speech therapy following. * Patient to go to [place] when medically cleared.
[2021-02-19 10:59] LABS: Glucose,Whole Blood 194 mg/dL (75-99)
[2021-02-19 11:03] VITALS: RESP 17
[2021-02-19] MEDS ORDERED: predniSONE 20 MG TAB PO SCH (11:15)
[2021-02-19 12:23] LABS: Basophils % (A) 0 %; Eosinophils % (A) 0 %; HCT 41.3 % (34.0-46.0); HGB 12.7 gm/dL (11.4-16.0); Hypochromasia Marked; Lymphocytes # (A) 0.6 k/uL (1.0-4.8); Lymphocytes % (A) 8 %; MCH 28.3 pg (25.0-35.0); MCHC 30.7 g/dL (31.0-37.0); MCV 92.2 fL (80.0-100.0); Mean Platelet Volume 7.7; Monocytes # (A) 0.2 k/uL (0-1.0); Monocytes % (A) 2 %; Neutrophils # (A) 6.8 k/uL (1.3-7.7); Neutrophils % (A) 90 %; Platelet Count 244 k/uL (150-450); RBC 4.49 m/uL (3.80-5.40); RDW 15.1 % (11.5-15.5); WBC 7.6 k/uL (3.8-10.6)
[2021-02-19 12:51] LABS: ALT 10 U/L (4-34); AST 19 U/L (14-36); African American GFR (CKD) 43 (>60 ml/min/1.73 sqM); Albumin 3.5 g/dL (3.5-5.0); Albumin/Globulin Ratio 1.3; Alkaline Phosphatase 94 U/L (38-126); Blood Urea Nitrogen 32 mg/dL (7-17); Chloride 90 mmol/L (98-107); Globulin 2.7 g/dL; Glucose 158 mg/dL (74-99); Non-African American GFR(CKD) 37 (>60 ml/min/1.73 sqM); Potassium 4.5 mmol/L (3.5-5.1); Sodium 139 mmol/L (137-145); Total Protein 6.2 g/dL (6.3-8.2)
[2021-02-19 12:58] LABS: Anion Gap 8 mmol/L
[2021-02-19 13:07] VITALS: BP 128/58; PULSE 71; TEMP 98.3
--- NOTE | 2021-02-19 13:11 | P.DS ---
Providers Date of admission: 02/15/21 17:59 Attending physician: Sandy Diaz MD Consults: 02/15/21 17:10 Consult Physician Routine Consulting Provider: Osmin Higgins Consult Reason/Comments: r/o CVA, falls at home Do you want consulting provider notified?: Yes Primary care physician: [facility] Course: This is an 89-year-old female patient of Dr. 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 Patient has a son that lives within a half mile and 1 in [place] and there is also a neighbor that helps her with bathing. The neighbor went to check on her yesterday and found that she was having slurred speech more weak and confused. She does have a problem with falling frequently. Patient denies having any dizziness. She states she was standing by the dryer and her knees gave out on her and she went to the floor. She states she was trying to clean up the mess as she was trying to go to the bathroom but had an accident on the floor. Patient presented to [facility] for evaluation. She was afebrile, heart rate 104, blood pressure 214/90, pulse ox 97% on room air. CBC was unremarkable. Electrolytes normal. BUN 22 and creatinine 1.16. Blood sugar 128. ProBNP 4440. Total bilirubin 1.5 otherwise liver function tests were normal. Troponin negative 3 draws. Urinalysis cloudy, nitrate and leukoesterase negative. COVID-19 not detected. TSH 0.173 and free T4 1 0.71. Prolactin 12.2. Cortisol 17. EKG was a sinus tachycardia at heart rate of 102. Chest x-ray reveals heart failure, interstitial edema and a patient with pre-existing COPD. Difficult to exclude pneumonia. Patient was started on IV Lasix, neurology consult requested and patient admitted to the [facility] floor. 02/17: Echocardiogram reveals EF of 55-60%, mild concentric left ventricular hypertrophy, trace mitral regurgitation, mild tricuspid regurgitation, moderate pulmonary hypertension. MRI of the brain revealed remote infarct with encephalomalacia. Age-related atrophy, chronic small vessel ischemic changes. No acute abnormalities. Carotid ultrasound revealed right side vertebral artery and carotid artery were not evaluated due to patient positioning and inability to cooperate. On the left side, no evidence of hemodynamic stenosis. Patient is seen and followed by neurology. Recommend ophthalmic consultation and she does have an appointment on February [address] Abreu as an outpatient. Patient has been afebrile, heart rate 86, blood pressure 148/79, pulse ox 90% on 2 L nasal cannula. Repeat blood work reveals CBC is unremarkable. Electrolytes normal, CO2 37, BUN 17 and creatinine 1.2. Blood sugar 105. Hemoglobin A1c is 6.6. Total bilirubin 1.5. Calcium 8.2. Liver function tests normal. Triglycerides 63, cholesterol 104, LDL 55, HDL 36. Patient has decreased lower extremity edema. IV Lasix changed to 3 times daily. Daily weights appear to be an accurate. Patient has been evaluated by therapies with recommendations for subacute rehab. Discharge plan will be to subacute rehab at [facility] or [facility]. 02/18: Patient is more wheezing today and cough. Covid 19 tests will be repeated. Blood sugars 108. Electrolytes are normal except for CO2 of 37.5. Creatinine is 1.4. ProBNP 2440. CBC is unremarkable. Pulse ox is 91% on 3 L nasal cannula. She is been afebrile, heart rate 79, blood pressure 133/77. She will be started on Solu-Medrol 60 mg IV every 6 hours. She is continued on Lasix 40 mg IV 3 times daily. Discharge plan is to [facility]. patient examined at bedside. No wheezing or shortness of breath. Continues to require 3 L of oxygen and saturating at 90%. Will switch Lasix to 40 by mouth twice a day. Supplemental switched to prednisone 60 mg daily. Patient would need to be discharged on 3 L of oxygen PHYSICAL EXAMINATION Gen: This is an 89-year-old female. She is resting in recliner and appears to be in no acute distress. HEENT: Head is atraumatic, normocephalic. Pupils equal, round. Sclerae is anicteric. NECK: Supple. No JVD. No lymphadenopathy. No thyromegaly. LUNGS: Clear to auscultate no crackles or rhonchi No intercostal retractions. HEART: Regular rate and rhythm. Systolic murmur. ABDOMEN: Soft. Bowel sounds are present. No masses. No tenderness. EXTREMITIES: 1+ bilateral pedal edema. No calf tenderness. 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 Discharge diagnoses ASSESSMENT AND PLAN 1. Metabolic encephalopathy, slurred speech and weakness, ruled out CVA/TIA. MRI of the brain negative for acute findings 2. Acute diastolic heart failure. 3. Mild intermittent asthma with exacerbation. 4. Hypertension. 5. Chronic kidney disease stage III. 6. History of CVA in 2018 7. Chronic low back pain and peripheral neuropathy. 8. COVID-19 testing negative. Patient has been hospitalized during a pandemic. Disposition discharged to [facility] today on 3 L of oxygen Patient Condition at Discharge: Stable Plan - Discharge Summary Discharge Rx Participant: No New Discharge Prescriptions: New Aspirin 81 mg PO DAILY chew predniSONE [Deltasone] 60 mg PO DAILY #15 tab Continue Metoprolol Tartrate [Lopressor] 25 mg PO BID cloNIDine HCL [Catapres] 0.2 mg PO TID Atorvastatin Calcium [Lipitor] 10 mg PO DAILY Gabapentin [Neurontin] 100 mg PO BID #6 cap metOLazone 2.5 mg PO MOTH amLODIPine [Norvasc] 5 mg PO DAILY Albuterol Inhaler [Ventolin Hfa Inhaler] 2 puff INHALATION RT-Q4H PRN PRN Reason: Shortness Of Breath Lansoprazole 15 mg PO DAILY Triamcinolone 0.1% Lotion [Kenalog 0.1% Lotion] 1 applic TOPICAL BID PRN PRN Reason: Rash HYDROcodone/APAP 5-325MG [[place] 5-325] 0.5 tab PO Q12H PRN PRN Reason: Pain Baclofen [Lioresal] 5 mg PO BID Changed Furosemide [Lasix] 40 mg PO BID #0 Discharge Medication List Metoprolol Tartrate [Lopressor] 25 mg PO BID 10/15/15 [History] cloNIDine HCL [Catapres] 0.2 mg PO TID 11/27/18 [History] Atorvastatin Calcium [Lipitor] 10 mg PO DAILY 03/19/19 [History] Gabapentin [Neurontin] 100 mg PO BID #6 cap 03/23/19 [Rx] Albuterol Inhaler [Ventolin Hfa Inhaler] 2 puff INHALATION RT-Q4H PRN 02/15/21 [History] Baclofen [Lioresal] 5 mg PO BID 02/15/21 [History] HYDROcodone/APAP 5-325MG [[place] 5-325] 0.5 tab PO Q12H PRN 02/15/21 [History] Lansoprazole 15 mg PO DAILY 02/15/21 [History] Triamcinolone 0.1% Lotion [Kenalog 0.1% Lotion] 1 applic TOPICAL BID PRN 02/15/21 [History] amLODIPine [Norvasc] 5 mg PO DAILY 02/15/21 [History] metOLazone 2.5 mg PO MOTH 02/15/21 [History] Aspirin 81 mg PO DAILY chew 02/19/21 [Rx] Furosemide [Lasix] 40 mg PO BID #0 02/19/21 [Rx] predniSONE [Deltasone] 60 mg PO DAILY #15 tab 02/19/21 [Rx] Follow up Appointment(s)/Referral(s): Grupo Beard MD [Primary Care Provider] - 1-2 days Discharge Disposition: TRANSFER TO SNF/ECF
[2021-02-19 13:18] LABS: Carbon Dioxide 41 mmol/L (22-30)
--- NOTE | 2021-02-19 13:58 | XR ---
EXAMINATION TYPE: XR chest 2V DATE OF EXAM: 02/19/2021 COMPARISON: Chest x-ray 02/16/2021 HISTORY: Shortness of breath TECHNIQUE: Frontal and lateral views of the chest are obtained on 3 images. FINDINGS: The interstitium is increased. There is perihilar vascular status. The heart is enlarged. Bibasilar density is noted, the hemidiaphragms are obscured. Patient is rotated. IMPRESSION: Correlate for congestive heart failure. Pneumonia not excluded. There may be basilar eff usions.
== END 2021-02-19 15:59 | DRG 291 ==
LOC: EC 11:47 → 5NMEDONC 17:59
PROVIDERS: ADMIT Internal Medicine; ATTEND Internal Medicine
DX: I13.0 Hypertensive heart and chronic kidney disease with heart failure and stage 1 through stage 4 chronic kidney disease, or unspecified chronic kidney disease (principal); I50.31 Acute diastolic (congestive) heart failure; G93.41 Metabolic encephalopathy; J45.21 Mild intermittent asthma with (acute) exacerbation; E11.22 Type 2 diabetes mellitus with diabetic chronic kidney disease; E11.42 Type 2 diabetes mellitus with diabetic polyneuropathy; E66.9 Obesity, unspecified; Z68.29 Body mass index [BMI] 29.0-29.9, adult; E78.5 Hyperlipidemia, unspecified; E86.0 Dehydration; G89.29 Other chronic pain; J44.9 Chronic obstructive pulmonary disease, unspecified; N18.30 Chronic kidney disease, stage 3 unspecified; R29.6 Repeated falls; Z20.822 Contact with and (suspected) exposure to COVID-19; Z79.82 Long term (current) use of aspirin; Z79.899 Other long term (current) drug therapy; Z80.3 Family history of malignant neoplasm of breast; Z81.1 Family history of alcohol abuse and dependence; Z82.49 Family history of ischemic heart disease and other diseases of the circulatory system; Z86.73 Personal history of transient ischemic attack (TIA), and cerebral infarction without residual deficits; Z88.1 Allergy status to other antibiotic agents; Z88.2 Allergy status to sulfonamides; Z88.8 Allergy status to other drugs, medicaments and biological substances; Z87.01 Personal history of pneumonia (recurrent); M19.90 Unspecified osteoarthritis, unspecified site; H40.9 Unspecified glaucoma; Z98.42 Cataract extraction status, left eye; Z98.41 Cataract extraction status, right eye; Z96.1 Presence of intraocular lens; Z98.890 Other specified postprocedural states; M54.5 Low back pain
CPT/HCPCS: 36415; 70450; 70553; 71045; 71046; 80053; 80061; 81001; 82533; 83036; 83880; 84145; 84146; 84439; 84443; 84484; 85025; 85610; 85730; 87635; 93005; 93306; 93880; 94760; 99285

== ENCOUNTER 2021-03-14 00:32 | Inpatient (IN) | payer MEDICARE, BC ==
[2021-03-14 00:56] LABS: Glucose,Whole Blood 241 mg/dL (75-99)
[2021-03-14 01:13] LABS: Basophils % (A) 0 %; Eosinophils % (A) 0 %; HCT 43.2 % (34.0-46.0); HGB 13.9 gm/dL (11.4-16.0); Hypochromasia Slight; Lymphocytes # (A) 0.8 k/uL (1.0-4.8); Lymphocytes % (A) 6 %; MCH 28.2 pg (25.0-35.0); MCHC 32.1 g/dL (31.0-37.0); MCV 87.9 fL (80.0-100.0); Mean Platelet Volume 9.2; Monocytes # (A) 0.5 k/uL (0-1.0); Monocytes % (A) 4 %; Neutrophils # (A) 11.2 k/uL (1.3-7.7); Neutrophils % (A) 89 %; Platelet Count 162 k/uL (150-450); RBC 4.91 m/uL (3.80-5.40); RDW 15.4 % (11.5-15.5); WBC 12.6 k/uL (3.8-10.6)
[2021-03-14 01:26] LABS: Albumin 3.7 g/dL (3.5-5.0); Calcium 8.6 mg/dL (8.4-10.2); Potassium 3.3 mmol/L (3.5-5.1); Total Bilirubin 1.6 mg/dL (0.2-1.3); Total Protein 6.1 g/dL (6.3-8.2)
[2021-03-14 01:38] LABS: Prothrombin Time 10.7 sec (9.0-12.0)
[2021-03-14 01:41] LABS: Lactic Acid, Venous 2.2 mmol/L (0.7-2.0)
--- NOTE | 2021-03-14 01:46 | CT ---
EXAM: CT Head Without Intravenous Contrast CLINICAL HISTORY: ITS.REASON CT Reason: Altered mental status TECHNIQUE: Axial computed tomography images of the head/brain without intravenous contrast. CTDI is 49.27 mGy and DLP is 1098.4 mGy-cm. This CT exam was performed using one or more of the following dose reduction techniques: automated exposure control, adjustment of the mA and/or kV according to patient size, and/or use of iterative reconstruction technique. COMPARISON: 02/15/2021. FINDINGS: Brain: Chronic right cerebellar infarct with associated encephalomalacia is again noted unchanged. No abnormal extra-axial collection is noted. No hemorrhage. Midline shift: Midline anatomy is unremarkable. Ventricles: There is prominence of the ventricular system, cortical sulci, basilar cisterns, similar to the previous study. Bones/joints: Calvarium is within normal limits. No acute fracture. Soft tissues: Unremarkable. Vasculature: Atherosclerotic disease. Sinuses: 0.8 cm polyp versus mucous retention cyst left maxillary sinus. Mastoid air cells: Visualized sinuses and mastoid air cells are unremarkable. IMPRESSION: 1. Chronic infarct right cerebellum similar to that noted on the previous study. 2. Age-related changes. 3. No acute intracranial pathology. 4. If there is concern for etiology such as early acute lacunar infarct, magnetic resonance imaging of the brain with diffusion-weighted sequences should be performed for follow-up.
--- NOTE | 2021-03-14 02:05 | ED ---
Altered Mental Status HPI - General Source: patient, EMS Mode of arrival: EMS Limitations: no limitations <Wendie Grossman - Last Filed: 03/14/21 19:15> <Trey Patel - Last Filed: 03/17/21 08:24> - General Chief Complaint: Altered Mental Status Stated Complaint: Abnormal Labs Time Seen by Provider: 03/14/21 00:48 - History of Present Illness Initial Comments: 89-year-old female with extensive past medical history presenting to the ER today for chief complaint of abnormal labs. Patient who currently resides at [facility] was sent to the ER today for mental stats changes/otupatient labs. There've been changes in mentation at the outpatient facility that prompted pt outpatient provider to order labs she was found to be Hypercapnic as well as have a significantly elevated BUN. Patient denied complaints. She is AAOx4 on arrival, no complaints of chest pain, dyspnea, nausea, vomiting, abdominal pain. Pt does appear drowsy/sleepy at time. Pt denies weakness, sensation deficits, leg swelling or additional complaints. Overall poor historian. (Wendie Grossman) - Related Data Home Medications Medication Instructions Recorded Confirmed Metoprolol Tartrate [Lopressor] 25 mg PO BID@0800,1700 10/15/15 03/14/21 cloNIDine HCL [Catapres] 0.2 mg PO TID@0600,1400,2200 11/27/18 03/14/21 Atorvastatin Calcium [Lipitor] 10 mg PO HS@2100 03/19/19 03/14/21 Albuterol Inhaler [Ventolin Hfa 2 puff INHALATION RT-Q4H PRN 02/15/21 03/14/21 Inhaler] amLODIPine [Norvasc] 5 mg PO DAILY@0800 02/15/21 03/14/21 metOLazone 2.5 mg PO MOTH@0600 02/15/21 03/14/21 ALPRAZolam [Xanax] 0.25 mg PO BID@0800,1700 03/14/21 03/14/21 Aspirin 81 mg PO DAILY@1700 03/14/21 03/14/21 Baclofen 5 mg PO BID@0800,1700 03/14/21 03/14/21 Furosemide [Lasix] 40 mg PO BID@0800,1400 03/14/21 03/14/21 Gabapentin [Neurontin] 100 mg PO BID@0800,1700 03/14/21 03/14/21 Magnesium Hydroxide [Milk of 2,400 mg PO DAILY PRN 03/14/21 03/14/21 Magnesia] Na Phos,M-B/Na Phos,Di-Ba [Fleet 133 ml RECTAL DAILY PRN 03/14/21 03/14/21 Adult] Omeprazole 20 mg PO HS@2100 03/14/21 03/14/21 bisacodyL [Dulcolax] 10 mg RECTAL DAILY PRN 03/14/21 03/14/21 methocarbamoL [Methocarbamol] 500 mg PO BID@0800,2100 03/14/21 03/14/21 predniSONE [Deltasone] 60 mg PO DAILY@0800 03/14/21 03/14/21 Previous Rx's Medication Instructions Recorded HYDROcodone/APAP 5-325MG [[place] 0.5 tab PO Q12H PRN #3 tab 02/19/21 5-325] Allergies Allergy/AdvReac Type Severity Reaction Status Date / Time clotrimazole Allergy Unknown Verified 03/14/21 12:09 fluconazole Allergy Unknown Verified 03/14/21 12:09 Sulfa (Sulfonamide Allergy Rash/Hives Verified 03/14/21 12:09 Antibiotics) calcium AdvReac Unknown Unknown Verified 03/14/21 12:09 baclofen AdvReac NUMBNESS Verified 03/14/21 12:09 WAS WORSE IN FEET" UNSTEADY" Review of Systems ROS Other: All systems not noted in ROS Statement are negative. <Wendie Grossman - Last Filed: 03/14/21 19:15> ROS Other: All systems not noted in ROS Statement are negative. <Trey Patel - Last Filed: 03/17/21 08:24> ROS Statement: Those systems with pertinent positive or pertinent negative responses have been documented in the HPI. 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 History of Any Multi-Drug Resistant Organisms: None Reported Past Surgical History: Orthopedic Surgery Additional Past Surgical History / Comment(s): Lumbar epidural injections, bilateral eyes cataracts removed and stents placed d/t glaucoma, bilateral carpal tunnel releases, colonoscopy. Past Anesthesia/Blood Transfusion Reactions: No Reported Reaction Past Psychological History: No Psychological Hx Reported Smoking Status: Never smoker Past Alcohol Use History: None Reported Past Drug Use History: None Reported - Past Family History Mother Family Medical History: No Reported History Additional Family Medical History / Comment(s): Mother was healthy and live to be 79yrs old. Father Additional Family Medical History / Comment(s): Father was an alcoholic. Sister(s) Family Medical History: Cancer Additional Family Medical History / Comment(s): breast cancer <Wendie Grossman - Last Filed: 03/14/21 19:15> General Exam Limitations: no limitations <Wendie Grossman - Last Filed: 03/14/21 19:15> - General Exam Comments Initial Comments: General: The patient is awake and alert, in no distress, easily aroused to voice/touch-but does appear fatigued Eye: Pupils are equal, round and reactive to light, extra-ocular movements are intact. No nystagmus. There is normal conjunctiva bilaterally. No signs of icterus. Ears, nose, mouth and throat: There are moist mucous membranes and no oral lesions. Neck: The neck is supple, there is no tenderness or JVD. Cardiovascular: There is a regular rate and rhythm. No murmur, rub or gallop is appreciated. Respiratory: Lungs are clear to auscultation, respirations are non-labored, breath sounds are equal. No wheezes, stridor, rales, or rhonchi. Gastrointestinal: Soft, non-distended, non-tender abdomen without masses or organomegaly noted. There is no rebound or guarding present. Musculoskeletal: Normal ROM, no tenderness. Strength 5/5. Sensation intact. Pulses equal bilaterally 2+. Neurological: A&O x 3. CN II-XII intact, There are no obvious motor or sensory deficits. Coordination appears grossly intact. Speech is normal. Skin: Skin is warm and dry and no rashes or lesions are noted. Psychiatric: Cooperative, appropriate mood & affect, normal judgment. (Wendie Grossman) Course Vital Signs 03/14/21 03/14/21 03/14/21 00:35 01:55 03:55 Temperature 97.2 F L 97 F L Pulse Rate 62 61 61 Respiratory 16 16 18 Rate Blood Pressure 139/76 136/78 141/71 O2 Sat by Pulse 94 L 98 98 Oximetry 03/14/21 04:55 Temperature Pulse Rate 63 Respiratory 20 Rate Blood Pressure 124/84 O2 Sat by Pulse 97 Oximetry Medical Decision Making - Lab Data Result diagrams: 03/14/21 01:01 03/14/21 01:01 <Wendie Grossman - Last Filed: 03/14/21 19:15> - Lab Data Result diagrams: 03/16/21 06:14 03/16/21 06:14 <Trey Patel - Last Filed: 03/17/21 08:24> - Medical Decision Making Patient is found to be uremic as well as hypercapnic. 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 no signs of overload on CXR. troponin is elevated, will trend. pt case discussed with attending Dr. Patel who reviewd labs/EKG, recommends initiating bipap. gentle hydration. patient agreeable to admission, cardiology and nephrology on consultation. Dr patel is to speak with admitting provider. (Wendie Grossman) - Lab Data Lab Results 03/14/21 03/14/21 03/14/21 Range/Units 00:54 01:01 01:01 WBC 12.6 H (3.8-10.6) k/uL RBC 4.91 (3.80-5.40) m/uL Hgb 13.9 (11.4-16.0) gm/dL Hct 43.2 (34.0-46.0) % MCV 87.9 (80.0-100.0) fL MCH 28.2 (25.0-35.0) pg MCHC 32.1 (31.0-37.0) g/dL RDW 15.4 (11.5-15.5) % Plt Count 162 (150-450) k/uL MPV 9.2 Neutrophils % 89 % Lymphocytes % 6 % Monocytes % 4 % Eosinophils % 0 % Basophils % 0 % Neutrophils # 11.2 H (1.3-7.7) k/uL Lymphocytes # 0.8 L (1.0-4.8) k/uL Monocytes # 0.5 (0-1.0) k/uL Eosinophils # 0.0 (0-0.7) k/uL Basophils # 0.0 (0-0.2) k/uL Hypochromasia Slight PT 10.7 (9.0-12.0) sec INR 1.0 (<1.2) APTT 22.0 (22.0-30.0) sec VBG pH (7.31-7.41) VBG pCO2 (37-51) mmHg VBG HCO3 (24-28) mmol/L Sodium (137-145) mmol/L Potassium (3.5-5.1) mmol/L Chloride (98-107) mmol/L Carbon Dioxide (22-30) mmol/L Anion Gap mmol/L BUN (7-17) mg/dL Creatinine (0.52-1.04) mg/dL Est GFR (CKD-EPI)AfAm (>60 ml/min/1.73 sqM) Est GFR (CKD-EPI)NonAf (>60 ml/min/1.73 sqM) Glucose (74-99) mg/dL POC Glucose (mg/dL) 241 H (75-99) mg/dL POC Glu [employer] ID August, Debbie Lactic Ac Sepsis Rflx Plasma Lactic Acid Aubrey (0.7-2.0) mmol/L Calcium (8.4-10.2) mg/dL Total Bilirubin (0.2-1.3) mg/dL AST (14-36) U/L ALT (4-34) U/L Alkaline Phosphatase (38-126) U/L Ammonia (<30) umol/L Troponin I (0.000-0.034) ng/mL NT-Pro-B Natriuret Pep pg/mL Total Protein (6.3-8.2) g/dL Albumin (3.5-5.0) g/dL Urine Color Urine Appearance (Clear) Urine pH (5.0-8.0) Ur Specific [place] (1.001-1.035) Urine Protein (Negative) Urine Glucose (UA) (Negative) Urine Ketones (Negative) Urine Blood (Negative) Urine Nitrite (Negative) Urine Bilirubin (Negative) Urine Urobilinogen (<2.0) mg/dL Ur Leukocyte Esterase (Negative) Urine RBC (0-5) /hpf Urine WBC (0-5) /hpf Ur Squamous Epith Cells (0-4) /hpf Urine Bacteria (None) /hpf Urine Mucus (None) /hpf Urine Opiates Screen (NotDetected) Ur Oxycodone Screen (NotDetected) Urine Methadone Screen (NotDetected) Ur Propoxyphene Screen (NotDetected) Ur Barbiturates Screen (NotDetected) U Tricyclic Antidepress (NotDetected) Ur Phencyclidine Scrn (NotDetected) Ur Amphetamines Screen (NotDetected) U Methamphetamines Scrn (NotDetected) U Benzodiazepines Scrn (NotDetected) Urine Cocaine Screen (NotDetected) U Marijuana (THC) Screen (NotDetected) 03/14/21 03/14/21 03/14/21 Range/Units 01:01 01:01 01:01 WBC (3.8-10.6) k/uL RBC (3.80-5.40) m/uL Hgb (11.4-16.0) gm/dL Hct (34.0-46.0) % MCV (80.0-100.0) fL MCH (25.0-35.0) pg MCHC (31.0-37.0) g/dL RDW (11.5-15.5) % Plt Count (150-450) k/uL MPV Neutrophils % % Lymphocytes % % Monocytes % % Eosinophils % % Basophils % % Neutrophils # (1.3-7.7) k/uL Lymphocytes # (1.0-4.8) k/uL Monocytes # (0-1.0) k/uL Eosinophils # (0-0.7) k/uL Basophils # (0-0.2) k/uL Hypochromasia PT (9.0-12.0) sec INR (<1.2) APTT (22.0-30.0) sec VBG pH (7.31-7.41) VBG pCO2 (37-51) mmHg VBG HCO3 (24-28) mmol/L Sodium 138 (137-145) mmol/L Potassium 3.3 L (3.5-5.1) mmol/L Chloride 85 L (98-107) mmol/L Carbon Dioxide 43 H* (22-30) mmol/L Anion Gap 10 mmol/L BUN 108 H* (7-17) mg/dL Creatinine 1.39 H (0.52-1.04) mg/dL Est GFR (CKD-EPI)AfAm 39 (>60 ml/min/1.73 sqM) Est GFR (CKD-EPI)NonAf 34 (>60 ml/min/1.73 sqM) Glucose 212 H (74-99) mg/dL POC Glucose (mg/dL) (75-99) mg/dL POC Glu [employer] ID Lactic Ac Sepsis Rflx Plasma Lactic Acid Aubrey 2.2 H* (0.7-2.0) mmol/L Calcium 8.6 (8.4-10.2) mg/dL Total Bilirubin 1.6 H (0.2-1.3) mg/dL AST 39 H (14-36) U/L ALT 24 (4-34) U/L Alkaline Phosphatase 87 (38-126) U/L Ammonia 16 (<30) umol/L Troponin I (0.000-0.034) ng/mL NT-Pro-B Natriuret Pep pg/mL Total Protein 6.1 L (6.3-8.2) g/dL Albumin 3.7 (3.5-5.0) g/dL Urine Color Light Yellow Urine Appearance Cloudy H (Clear) Urine pH 6.5 (5.0-8.0) Ur Specific [place] 1.011 (1.001-1.035) Urine Protein Trace H (Negative) Urine Glucose (UA) Negative (Negative) Urine Ketones Negative (Negative) Urine Blood Negative (Negative) Urine Nitrite Positive H (Negative) Urine Bilirubin Negative (Negative) Urine Urobilinogen <2.0 (<2.0) mg/dL Ur Leukocyte Esterase Large H (Negative) Urine RBC 1 (0-5) /hpf Urine WBC 9 H (0-5) /hpf Ur Squamous Epith Cells 2 (0-4) /hpf Urine Bacteria Rare H (None) /hpf Urine Mucus Rare H (None) /hpf Urine Opiates Screen Not Detected (NotDetected) Ur Oxycodone Screen Not Detected (NotDetected) Urine Methadone Screen Not Detected (NotDetected) Ur Propoxyphene Screen Not Detected (NotDetected) Ur Barbiturates Screen Not Detected (NotDetected) U Tricyclic Antidepress Not Detected (NotDetected) Ur Phencyclidine Scrn Not Detected (NotDetected) Ur Amphetamines Screen Not Detected (NotDetected) U Methamphetamines Scrn Not Detected (NotDetected) U Benzodiazepines Scrn Detected H (NotDetected) Urine Cocaine Screen Not Detected (NotDetected) U Marijuana (THC) Screen Not Detected (NotDetected) 03/14/21 03/14/21 03/14/21 Range/Units 01:01 01:01 01:41 WBC (3.8-10.6) k/uL RBC (3.80-5.40) m/uL Hgb (11.4-16.0) gm/dL Hct (34.0-46.0) % MCV (80.0-100.0) fL MCH (25.0-35.0) pg MCHC (31.0-37.0) g/dL RDW (11.5-15.5) % Plt Count (150-450) k/uL MPV Neutrophils % % Lymphocytes % % Monocytes % % Eosinophils % % Basophils % % Neutrophils # (1.3-7.7) k/uL Lymphocytes # (1.0-4.8) k/uL Monocytes # (0-1.0) k/uL Eosinophils # (0-0.7) k/uL Basophils # (0-0.2) k/uL Hypochromasia PT (9.0-12.0) sec INR (<1.2) APTT (22.0-30.0) sec VBG pH (7.31-7.41) VBG pCO2 (37-51) mmHg VBG HCO3 (24-28) mmol/L Sodium (137-145) mmol/L Potassium (3.5-5.1) mmol/L Chloride (98-107) mmol/L Carbon Dioxide (22-30) mmol/L Anion Gap mmol/L BUN (7-17) mg/dL Creatinine (0.52-1.04) mg/dL Est GFR (CKD-EPI)AfAm (>60 ml/min/1.73 sqM) Est GFR (CKD-EPI)NonAf (>60 ml/min/1.73 sqM) Glucose (74-99) mg/dL POC Glucose (mg/dL) (75-99) mg/dL POC Glu [facility] ID Lactic Ac Sepsis Rflx Y Plasma Lactic Acid Aubrey (0.7-2.0) mmol/L Calcium (8.4-10.2) mg/dL Total Bilirubin (0.2-1.3) mg/dL AST (14-36) U/L ALT (4-34) U/L Alkaline Phosphatase (38-126) U/L Ammonia (<30) umol/L Troponin I 0.166 H* (0.000-0.034) ng/mL NT-Pro-B Natriuret Pep 2040 pg/mL Total Protein (6.3-8.2) g/dL Albumin (3.5-5.0) g/dL Urine Color Urine Appearance (Clear) Urine pH (5.0-8.0) Ur Specific [place] (1.001-1.035) Urine Protein (Negative) Urine Glucose (UA) (Negative) Urine Ketones (Negative) Urine Blood (Negative) Urine Nitrite (Negative) Urine Bilirubin (Negative) Urine Urobilinogen (<2.0) mg/dL Ur Leukocyte Esterase (Negative) Urine RBC (0-5) /hpf Urine WBC (0-5) /hpf Ur Squamous Epith Cells (0-4) /hpf Urine Bacteria (None) /hpf Urine Mucus (None) /hpf Urine Opiates Screen (NotDetected) Ur Oxycodone Screen (NotDetected) Urine Methadone Screen (NotDetected) Ur Propoxyphene Screen (NotDetected) Ur Barbiturates Screen (NotDetected) U Tricyclic Antidepress (NotDetected) Ur Phencyclidine Scrn (NotDetected) Ur Amphetamines Screen (NotDetected) U Methamphetamines Scrn (NotDetected) U Benzodiazepines Scrn (NotDetected) Urine Cocaine Screen (NotDetected) U Marijuana (THC) Screen (NotDetected) 03/14/21 Range/Units 02:32 WBC (3.8-10.6) k/uL RBC (3.80-5.40) m/uL Hgb (11.4-16.0) gm/dL Hct (34.0-46.0) % MCV (80.0-100.0) fL MCH (25.0-35.0) pg MCHC (31.0-37.0) g/dL RDW (11.5-15.5) % Plt Count (150-450) k/uL MPV Neutrophils % % Lymphocytes % % Monocytes % % Eosinophils % % Basophils % % Neutrophils # (1.3-7.7) k/uL Lymphocytes # (1.0-4.8) k/uL Monocytes # (0-1.0) k/uL Eosinophils # (0-0.7) k/uL Basophils # (0-0.2) k/uL Hypochromasia PT (9.0-12.0) sec INR (<1.2) APTT (22.0-30.0) sec VBG pH 7.47 H (7.31-7.41) VBG pCO2 65 H (37-51) mmHg VBG HCO3 46 H (24-28) mmol/L Sodium (137-145) mmol/L Potassium (3.5-5.1) mmol/L Chloride (98-107) mmol/L Carbon Dioxide (22-30) mmol/L Anion Gap mmol/L BUN (7-17) mg/dL Creatinine (0.52-1.04) mg/dL Est GFR (CKD-EPI)AfAm (>60 ml/min/1.73 sqM) Est GFR (CKD-EPI)NonAf (>60 ml/min/1.73 sqM) Glucose (74-99) mg/dL POC Glucose (mg/dL) (75-99) mg/dL POC Glu [facility] ID Lactic Ac Sepsis Rflx Plasma Lactic Acid Aubrey (0.7-2.0) mmol/L Calcium (8.4-10.2) mg/dL Total Bilirubin (0.2-1.3) mg/dL AST (14-36) U/L ALT (4-34) U/L Alkaline Phosphatase (38-126) U/L Ammonia (<30) umol/L Troponin I (0.000-0.034) ng/mL NT-Pro-B Natriuret Pep pg/mL Total Protein (6.3-8.2) g/dL Albumin (3.5-5.0) g/dL Urine Color Urine Appearance (Clear) Urine pH (5.0-8.0) Ur Specific [place] (1.001-1.035) Urine Protein (Negative) Urine Glucose (UA) (Negative) Urine Ketones (Negative) Urine Blood (Negative) Urine Nitrite (Negative) Urine Bilirubin (Negative) Urine Urobilinogen (<2.0) mg/dL Ur Leukocyte Esterase (Negative) Urine RBC (0-5) /hpf Urine WBC (0-5) /hpf Ur Squamous Epith Cells (0-4) /hpf Urine Bacteria (None) /hpf Urine Mucus (None) /hpf Urine Opiates Screen (NotDetected) Ur Oxycodone Screen (NotDetected) Urine Methadone Screen (NotDetected) Ur Propoxyphene Screen (NotDetected) Ur Barbiturates Screen (NotDetected) U Tricyclic Antidepress (NotDetected) Ur Phencyclidine Scrn (NotDetected) Ur Amphetamines Screen (NotDetected) U Methamphetamines Scrn (NotDetected) U Benzodiazepines Scrn (NotDetected) Urine Cocaine Screen (NotDetected) U Marijuana (THC) Screen (NotDetected) Disposition Is patient prescribed a controlled substance at d/c from ED?: No Time of Disposition: 19:15 Decision to Admit Reason: Admit from EC Decision Date: 03/14/21 Decision Time: 03:00 <Wendie Grossman - Last Filed: 03/14/21 19:15> <Trey Patel - Last Filed: 03/17/21 08:24> Clinical Impression: Altered mental status, Acute respiratory failure with hypoxia and hypercarbia, Uremia, Elevated troponin Disposition: ADMITTED IP TO THIS HOSP Condition: Poor
--- NOTE | 2021-03-14 02:07 | XR ---
EXAM: XR Chest, 1 View CLINICAL HISTORY: ITS.REASON XR Reason: altered mental status TECHNIQUE: Frontal view of the chest. COMPARISON: 02/19/21. FINDINGS: Lungs: Improved aeration and decreased basilar opacities/effusions. Mild basilar atelectasis or chronic changes. No focal consolidation. Pleural space: Unremarkable. No pneumothorax. Heart: Unremarkable. No cardiomegaly. Mediastinum: Unremarkable. Bones/joints: Degenerative changes left shoulder. IMPRESSION: Improved aeration and decreased basilar opacities/effusions. Mild basilar atelectasis or chronic changes. No focal consolidation.
[2021-03-14 02:09] LABS: Appearance,Urine Cloudy (Clear); Bacteria,Urine Rare /hpf; Bilirubin,Urine Negative (Negative); Blood,Urine Negative (Negative); Color,Urine Light Yellow; Glucose,Urine (UA) Negative (Negative); Ketones,Urine Negative (Negative); Leukocyte Esterase,Urine Large (Negative); Mucus,Urine Rare /hpf; Nitrite,Urine Positive (Negative); PH, Urine 6.5 (5.0-8.0); Protein,Urine Trace (Negative); RBC,Urine 1 /hpf (0-5); Specific Gravity,Urine 1.011 (1.001-1.035); Squamous Epithelial Cell,Urine 2 /hpf (0-4); Urobilinogen,Urine <2.0 mg/dL (<2.0); WBC,Urine 9 /hpf (0-5)
[2021-03-14] MEDS ORDERED: NALOXONE 0.4 MG/ML 1 ML VIAL IV PRN (02:14)
[2021-03-14 02:15] LABS: Amphetamine Screen,Urine Not Detected (NotDetected); Barbiturate Screen,Urine Not Detected (NotDetected); Benzodiazepines Screen,Urine Detected (NotDetected); Cocaine Screen,Urine Not Detected (NotDetected); Methadone Screen, Urine Not Detected (NotDetected); Opiate Screen,Urine Not Detected (NotDetected); Oxycodone Screen, Urine Not Detected (NotDetected); Phencyclidine Screen,Urine Not Detected (NotDetected); Tricyclic Antidepressant,Urine Not Detected (NotDetected); Urn Cannabinoid Scrn Not Detected (NotDetected)
[2021-03-14] MEDS ORDERED: POTASSIUM CHLORIDE ER 20 MEQ TAB.ER PO STA (02:35)
[2021-03-14] MEDS ORDERED: cefTRIAXone IN SWFI 1,000 MG/10 ML SYRINGE IVP STA (02:36)
[2021-03-14 02:46] LABS: VBG PH 7.47 (7.31-7.41)
[2021-03-14] MEDS: INSULIN ASPART (NovoLOG) 100 UNIT/ML VIAL SQ SCH ×4 (06:07→20:31)
[2021-03-14 06:26] LABS: Glucose,Whole Blood 143 mg/dL (75-99)
--- NOTE | 2021-03-14 10:30 | P.HPIM ---
History of Present Illness H&P Date: 03/14/21 Chief Complaint: Mental status changes, difficult to arouse This is an 89-year-old female patient of Dr. 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 Patient resides at [facility], [facility], and was noticed to be more hypersomnolent, was having difficulty in opening up her eyes, patient was seen by Dr. Beard yesterday afternoon, for which labs were done, and was noted to have elevated BUN of 90, with a previous BUN of 58. I had gotten a call regarding her mental status change, and decided to be sent to the emergency room. Patient was seen in the emergency room subsequent to this, BUN was 108, creatinine is 1.39, previous of 1.29, with a baseline of 0.88-1.2 over the past 5 years. Troponin was slightly elevated at 0.178, pro-calcitonin in elevated, patient denies any specific events, at Covid test was negative unknown vaccination schedule. We've requested ABG, pCO2 is elevated at 465, pH 7.47, CO2 of 43, glucose 212 [employer] proBNP of 2040. Ammonia normal at 16 Her med rec were not reconciled today from [facility] to transition her home medications. When seen today in the medical floor, patient is alert, she has short-term memory loss as noted, with no new neurologic monitor changes, consult with Dr. Dr. Hooker from nephrology, consult with Dr. Fregoso from cardiology for elevated troponin, Hemoccult requested, metoprolol restarted at this time. Pending final med rec. urine drug screen positive for benzos Dr. Ponce from pulmonary for hypercapnic respiratory failure echocardiogram requested BiPAP 12 and 5 to be started. Unable to confirm prednisone 60 mg dose if chronic or burst dosing Review of Systems ROS unobtainable: due to mental status Constitutional: Reports as per HPI, Reports daytime sleepiness, Reports lethargy, Reports malaise Ears, nose, mouth and throat: Reports as per HPI Cardiovascular: Reports as per HPI, Denies chest pain, Denies claudication, Denies decreased exercise tolerance, Denies dyspnea on exertion, Denies edema, Denies high blood pressure, Denies irregular heart beat, Denies leg edema, Denie s lightheadedness, Denies orthopnea, Denies palpitations, Denies paroxysmal nocturnal dyspnea, Denies phlebitis, Denies rapid heart beat, Denies shortness of breath, Denies syncope Respiratory: Reports as per HPI Gastrointestinal: Reports as per HPI Genitourinary: Reports as per HPI Menstruation: Reports as per HPI Musculoskeletal: Reports as per HPI Neurological: Reports as per HPI, Reports memory loss, Reports visual changes Psychiatric: Reports as per HPI, Reports confusion Endocrine: Denies as per HPI, Denies cold intolerance, Denies deepening of the voice, Denies excessive sweating, Denies excessive thirst, Denies fatigue, Denies flushing, Denies heat intolerance, Denies high blood sugars, Denies increase in ring/shoe/hat size, Denies low blood sugars, Denies nocturia, Denies palpitations, Denies polydipsia, Denies polyphagia, Denies polyuria, Denies proptosis, Denies recent glucocorticoid use, Denies thyroid mass, Denies weight change Hematologic/Lymphatic: Reports as per HPI Allergic/Immunologic: Reports as per HPI, Denies allergic rhinitis, Denies anaphylaxis, Denies angioedema, Denies gluten intolerance, Denies persistent i nfections, Denies seasonal allergies, Denies urticaria, Denies wheezing Past Medical History Past Medical History: Asthma, CVA/TIA, Diabetes Mellitus, Eye Disorder, GERD/Reflux, Hyperlipidemia, Hypertension, Osteoarthritis (OA), Pneumonia Additional Past Medical History / Comment(s): 07/2018 CVA-pt states no residual, "borderline" diabetic, bilateral glaucoma, generalized arthritis, chronic low back pain, neuropathy bilateral legs/feet, falls. History of Any Multi-Drug Resistant Organisms: None Reported Past Surgical History: Orthopedic Surgery Additional Past Surgical History / Comment(s): Lumbar epidural injections, bilateral eyes cataracts removed and stents placed d/t glaucoma, bilateral carpal tunnel releases, colonoscopy. Past Anesthesia/Blood Transfusion Reactions: No Reported Reaction Past Psychological History: No Psychological Hx Reported Additional Psychological History / Comment(s): Pt resides alone. She uses a walker to ambulate. She manages her own medications but is having difficulty. She gets meals on wheels. She states she no longer drives, her friend drives her to [employer]. She states she has an aide from [employer] comes once a week for showers. Smoking Status: Never smoker Past Alcohol Use History: None Reported Past Drug Use History: None Reported - Past Family History Mother Family Medical History: No Reported History Additional Family Medical History / Comment(s): Mother was healthy and live to be 79yrs old. Father Additional Family Medical History / Comment(s): Father was an alcoholic. Sister(s) Family Medical History: Cancer Additional Family Medical History / Comment(s): breast cancer Medications and Allergies Home Medications Medication Instructions Recorded Confirmed Type Metoprolol Tartrate [Lopressor] 25 mg PO BID 10/15/15 02/15/21 History cloNIDine HCL [Catapres] 0.2 mg PO TID 11/27/18 02/15/21 History Atorvastatin Calcium [Lipitor] 10 mg PO DAILY 03/19/19 02/15/21 History Albuterol Inhaler [Ventolin Hfa 2 puff INHALATION RT-Q4H PRN 02/15/21 02/15/21 History Inhaler] Baclofen [Lioresal] 5 mg PO BID 02/15/21 02/15/21 History Lansoprazole 15 mg PO DAILY 02/15/21 02/15/21 History Triamcinolone 0.1% Lotion [Kenalog 1 applic TOPICAL BID PRN 02/15/21 02/15/21 History 0.1% Lotion] amLODIPine [Norvasc] 5 mg PO DAILY 02/15/21 02/15/21 History metOLazone 2.5 mg PO MOTH 02/15/21 02/15/21 History Aspirin 81 mg PO DAILY chew 02/19/21 Rx Furosemide [Lasix] 40 mg PO BID #0 02/19/21 02/15/21 Rx Gabapentin [Neurontin] 100 mg PO BID #6 cap 02/19/21 Rx HYDROcodone/APAP 5-325MG [[place] 0.5 tab PO Q12H PRN #3 tab 02/19/21 Rx 5-325] predniSONE [Deltasone] 60 mg PO DAILY #15 tab 02/19/21 Rx Allergies Allergy/AdvReac Type Severity Reaction Status Date / Time clotrimazole Allergy Unknown Verified 02/15/21 13:36 fluconazole Allergy Unknown Verified 02/15/21 13:36 Sulfa (Sulfonamide Allergy Rash/Hives Verified 02/15/21 13:36 Antibiotics) calcium AdvReac Unknown Unknown Verified 02/15/21 13:36 baclofen AdvReac NUMBNESS Verified 02/15/21 13:36 WAS WORSE IN FEET" UNSTEADY" Physical Exam Vitals: Vital Signs Temp Pulse Pulse Resp BP BP Pulse Ox 03/14/21 05:32 18 03/14/21 05:15 97.7 F 62 18 123/59 94 L 03/14/21 04:55 63 20 124/84 97 03/14/21 03:55 97 F L 61 18 141/71 98 03/14/21 01:55 61 16 136/78 98 03/14/21 00:35 97.2 F L 62 16 139/76 94 L Intake and Output 03/13/21 03/14/21 03/14/21 22:59 06:59 14:59 Intake Total 180 Balance 180 Intake: Oral 180 Other: Weight 68.039 kg - Constitutional General appearance: average body habitus - EENT Eyes: abnormal pupil, no anicteric sclerae, no disc margins sharp, no edentulous, no EOMI, no PERRLA, no fundus normal, no photophobia, no dentition normal, no poor dentition, no ptosis, no scleral icterus, no normal appearance ENT: NA/AT, normal oropharynx - Respiratory Respiratory: bilateral: CTA - Cardiovascular Rhythm: regular Heart sounds: normal: S1, S2 Abnormal Heart Sounds: no systolic murmur, no diastolic murmur, no rub, no S3 Gallop, no S4 Gallop, no click, no other - Gastrointestinal General gastrointestinal: normal bowel sounds, soft - Integumentary Integumentary: decreased turgor, normal - Neurologic Neurologic: CNII-XII intact - Musculoskeletal Musculoskeletal: strength equal bilaterally - Psychiatric Psychiatric: A&O x's 3 (x2), appropriate affect Results CBC & Chem 7: 03/14/21 01:01 03/14/21 01:01 Labs: Abnormal Lab Results - Last 24 Hours (Table) 03/14/21 03/14/21 03/14/21 Range/Units 00:54 01:01 01:01 WBC 12.6 H (3.8-10.6) k/uL Neutrophils # 11.2 H (1.3-7.7) k/uL Lymphocytes # 0.8 L (1.0-4.8) k/uL VBG pH (7.31-7.41) VBG pCO2 (37-51) mmHg VBG HCO3 (24-28) mmol/L Potassium (3.5-5.1) mmol/L Chloride (98-107) mmol/L Carbon Dioxide (22-30) mmol/L BUN (7-17) mg/dL Creatinine (0.52-1.04) mg/dL Glucose (74-99) mg/dL POC Glucose (mg/dL) 241 H (75-99) mg/dL Plasma Lactic Acid Aubrey (0.7-2.0) mmol/L Total Bilirubin (0.2-1.3) mg/dL AST (14-36) U/L Troponin I (0.000-0.034) ng/mL Total Protein (6.3-8.2) g/dL Urine Appearance Cloudy H (Clear) Urine Protein Trace H (Negative) Urine Nitrite Positive H (Negative) Ur Leukocyte Esterase Large H (Negative) Urine WBC 9 H (0-5) /hpf Urine Bacteria Rare H (None) /hpf Urine Mucus Rare H (None) /hpf U Benzodiazepines Scrn Detected H (NotDetected) 03/14/21 03/14/21 03/14/21 Range/Units 01:01 01:01 01:01 WBC (3.8-10.6) k/uL Neutrophils # (1.3-7.7) k/uL Lymphocytes # (1.0-4.8) k/uL VBG pH (7.31-7.41) VBG pCO2 (37-51) mmHg VBG HCO3 (24-28) mmol/L Potassium 3.3 L (3.5-5.1) mmol/L Chloride 85 L (98-107) mmol/L Carbon Dioxide 43 H* (22-30) mmol/L BUN 108 H* (7-17) mg/dL Creatinine 1.39 H (0.52-1.04) mg/dL Glucose 212 H (74-99) mg/dL POC Glucose (mg/dL) (75-99) mg/dL Plasma Lactic Acid Aubrey 2.2 H* (0.7-2.0) mmol/L Total Bilirubin 1.6 H (0.2-1.3) mg/dL AST 39 H (14-36) U/L Troponin I 0.166 H* (0.000-0.034) ng/mL Total Protein 6.1 L (6.3-8.2) g/dL Urine Appearance (Clear) Urine Protein (Negative) Urine Nitrite (Negative) Ur Leukocyte Esterase (Negative) Urine WBC (0-5) /hpf Urine Bacteria (None) /hpf Urine Mucus (None) /hpf U Benzodiazepines Scrn (NotDetected) 03/14/21 03/14/21 03/14/21 Range/Units 02:32 04:30 05:46 WBC (3.8-10.6) k/uL Neutrophils # (1.3-7.7) k/uL Lymphocytes # (1.0-4.8) k/uL VBG pH 7.47 H (7.31-7.41) VBG pCO2 65 H (37-51) mmHg VBG HCO3 46 H (24-28) mmol/L Potassium (3.5-5.1) mmol/L Chloride (98-107) mmol/L Carbon Dioxide (22-30) mmol/L BUN (7-17) mg/dL Creatinine (0.52-1.04) mg/dL Glucose (74-99) mg/dL POC Glucose (mg/dL) 143 H (75-99) mg/dL Plasma Lactic Acid Aubrey (0.7-2.0) mmol/L Total Bilirubin (0.2-1.3) mg/dL AST (14-36) U/L Troponin I 0.178 H* (0.000-0.034) ng/mL Total Protein (6.3-8.2) g/dL Urine Appearance (Clear) Urine Protein (Negative) Urine Nitrite (Negative) Ur Leukocyte Esterase (Negative) Urine WBC (0-5) /hpf Urine Bacteria (None) /hpf Urine Mucus (None) /hpf U Benzodiazepines Scrn (NotDetected) Laboratory Results WBC 12.6 k/uL (3.8-10.6) H 03/14/21 01:01 RBC 4.91 m/uL (3.80-5.40) 03/14/21 01:01 Hgb 13.9 gm/dL (11.4-16.0) 03/14/21 01:01 Hct 43.2 % (34.0-46.0) 03/14/21 01:01 MCV 87.9 fL (80.0-100.0) 03/14/21 01:01 MCH 28.2 pg (25.0-35.0) 03/14/21 01:01 MCHC 32.1 g/dL (31.0-37.0) 03/14/21 01:01 RDW 15.4 % (11.5-15.5) 03/14/21 01:01 Plt Count 162 k/uL (150-450) 03/14/21 01:01 MPV 9.2 03/14/21 01:01 Neutrophils % 89 % 03/14/21 01:01 Lymphocytes % 6 % 03/14/21 01:01 Monocytes % 4 % 03/14/21 01:01 Eosinophils % 0 % 03/14/21 01:01 Basophils % 0 % 03/14/21 01:01 Neutrophils # 11.2 k/uL (1.3-7.7) H 03/14/21 01:01 Lymphocytes # 0.8 k/uL (1.0-4.8) L 03/14/21 01:01 Monocytes # 0.5 k/uL (0-1.0) 03/14/21 01:01 Eosinophils # 0.0 k/uL (0-0.7) 03/14/21 01:01 Basophils # 0.0 k/uL (0-0.2) 03/14/21 01:01 Hypochromasia Slight 03/14/21 01:01 PT 10.7 sec (9.0-12.0) 03/14/21 01:01 INR 1.0 (<1.2) 03/14/21 01:01 APTT 22.0 sec (22.0-30.0) 03/14/21 01:01 VBG pH 7.47 (7.31-7.41) H 03/14/21 02:32 VBG pCO2 65 mmHg (37-51) H 03/14/21 02:32 VBG HCO3 46 mmol/L (24-28) H 03/14/21 02:32 Sodium 138 mmol/L (137-145) 03/14/21 01:01 Potassium 3.3 mmol/L (3.5-5.1) L 03/14/21 01:01 Chloride 85 mmol/L (98-107) L 03/14/21 01:01 Carbon Dioxide 43 mmol/L (22-30) H* 03/14/21 01:01 Anion Gap 10 mmol/L 03/14/21 01:01 BUN 108 mg/dL (7-17) H* 03/14/21 01:01 Creatinine 1.39 mg/dL (0.52-1.04) H 03/14/21 01:01 Est GFR (CKD-EPI)AfAm 39 (>60 ml/min/1.73 sqM) 03/14/21 01:01 Est GFR (CKD-EPI)NonAf 34 (>60 ml/min/1.73 sqM) 03/14/21 01:01 Glucose 212 mg/dL (74-99) H 03/14/21 01:01 POC Glucose (mg/dL) 143 mg/dL (75-99) H 03/14/21 05:46 POC Glu [employer] SUNDEEP Chad Barnes 03/14/21 05:46 Lactic Ac Sepsis Rflx Y 03/14/21 01:41 Plasma Lactic Acid Aubrey 1.5 mmol/L (0.7-2.0) 03/14/21 04:45 Calcium 8.6 mg/dL (8.4-10.2) 03/14/21 01:01 Total Bilirubin 1.6 mg/dL (0.2-1.3) H 03/14/21 01:01 AST 39 U/L (14-36) H 03/14/21 01:01 ALT 24 U/L (4-34) 03/14/21 01:01 Alkaline Phosphatase 87 U/L (38-126) 03/14/21 01:01 Ammonia 16 umol/L (<30) 03/14/21 01:01 Troponin I 0.178 ng/mL (0.000-0.034) H* 03/14/21 04:30 NT-Pro-B Natriuret Pep 2040 pg/mL 03/14/21 01:01 Total Protein 6.1 g/dL (6.3-8.2) L 03/14/21 01:01 Albumin 3.7 g/dL (3.5-5.0) 03/14/21 01:01 Urine Color Light Yellow 03/14/21 01:01 Urine Appearance Cloudy (Clear) H 03/14/21 01:01 Urine pH 6.5 (5.0-8.0) 03/14/21 01:01 Ur Specific [place] 1.011 (1.001-1.035) 03/14/21 01:01 Urine Protein Trace (Negative) H 03/14/21 01:01 Urine Glucose (UA) Negative (Negative) 03/14/21 01:01 Urine Ketones Negative (Negative) 03/14/21 01:01 Urine Blood Negative (Negative) 03/14/21 01:01 Urine Nitrite Positive (Negative) H 03/14/21 01:01 Urine Bilirubin Negative (Negative) 03/14/21 01:01 Urine Urobilinogen <2.0 mg/dL (<2.0) 03/14/21 01:01 Ur Leukocyte Esterase Large (Negative) H 03/14/21 01:01 Urine RBC 1 /hpf (0-5) 03/14/21 01:01 Urine WBC 9 /hpf (0-5) H 03/14/21 01:01 Ur Squamous Epith Cells 2 /hpf (0-4) 03/14/21 01:01 Urine Bacteria Rare /hpf (None) H 03/14/21 01:01 Urine Mucus Rare /hpf (None) H 03/14/21 01:01 Urine Opiates Screen Not Detected (NotDetected) 03/14/21 01:01 Ur Oxycodone Screen Not Detected (NotDetected) 03/14/21 01:01 Urine Methadone Screen Not Detected (NotDetected) 03/14/21 01:01 Ur Propoxyphene Screen Not Detected (NotDetected) 03/14/21 01:01 Ur Barbiturates Screen Not Detected (NotDetected) 03/14/21 01:01 U Tricyclic Antidepress Not Detected (NotDetected) 03/14/21 01:01 Ur Phencyclidine Scrn Not Detected (NotDetected) 03/14/21 01:01 Ur Amphetamines Screen Not Detected (NotDetected) 03/14/21 01:01 U Methamphetamines Scrn Not Detected (NotDetected) 03/14/21 01:01 U Benzodiazepines Scrn Detected (NotDetected) H 03/14/21 01:01 Urine Cocaine Screen Not Detected (NotDetected) 03/14/21 01:01 U Marijuana (THC) Screen Not Detected (NotDetected) 03/14/21 01:01 Coronavirus (PCR) Not Detected (Not Detectd) 03/14/21 04:23 Thrombosis Risk Factor Assmnt - Choose All That Apply Any of the Below Risk Factors Present?: Yes Each Factor Represents 1 point: Medical pt on bed rest, Obesity (BMI >25), Swollen legs (current), Varicose veins Each Risk Factor Represents 3 Points: Age 75 years or older Other congenital or acquired thrombophilia - If yes, enter type in comment: No Thrombosis Risk Factor Assessment Total Risk Factor Score: 7 Thrombosis Risk Factor Assessment Level: High Risk Assessment and Plan Plan: 1. Metabolic encephalopathy, with obtundation, and hypersomnia, has hypercarbia, and azotemia elevated troponins, mild pyuria however WBC of 9 can't rule out UTI. Dr. Garcia consulted for hypercarbic respiratory failure, ABGs requested and reported to be elevated for hypercapnic respiratory failure, BiPAP at 12/, meds need to be reviewed for metabolic acidosis, hold Zaroxolyn, continue metoprolol. Hold baclofen secondary to mental status changes, no narcotics given at this time, request echocardiogram. PT, OT and ST IV Rocephin, awaiting cultures. consults. 2. History of diastolic heart failure currently compensated, however troponins elevated,. monitor daily weights and I&O, monitor electrolytes and renal function. Obtain echocardiogram. Consult cardiology obtain labs in morning for serial troponins 3. Mild intermittent asthma, stable. Continue albuterol inhaler 2 puffs every 4 hours as needed. 4. Pyuria, probable UTI, borderline for urine WBC, on Rocephin 1 g, with cultures 4. Hypertension. Hold amlodipine 5 mg daily, clonidine 0.2 mg 3 times daily till med rec confirmed, Lopressor 25 mg twice daily. 5. Azotemia with acute kidney injury Chronic kidney disease stage III. Avoid hypotension and nephrotoxic agents. Hemoccult stools, verified prednisone intake 6. History of CVA in 2018 aspirin 81 mg daily till Hemoccult stools 7. Chronic low back pain and peripheral neuropathy. Continue gabapentin 100 mg twice daily, Tylenol as needed for pain. 8. Short-term memory loss, check B12, TSH was normal in February 15, INR 0.173 cortisol that time was 17. 8. GI prophylaxis. Protonix 40 mg daily. 9. DVT prophylaxis. Continue Lovenox 40 mg subcu daily. 10. COVID-19 testing negative. Patient has been hospitalized during a pandemic.
[2021-03-14 11:33] LABS: Glucose,Whole Blood 150 mg/dL (75-99)
[2021-03-14 11:49] LABS: ABG Base Excess 26.7 mmol/L; ABG Oxygen Saturation 94.6 % (94-97); ABG PCO2 68 mmHg (35-45); ABG PH 7.48 (7.35-7.45); ABG PO2 72 mmHg (83-108); ABG TCO2 52 mmol/L (19-24); Allen Test Performed? Yes
[2021-03-14 11:51] LABS: ABG HCO3 50 mmol/L (21-25)
[2021-03-14] MEDS: ASPIRIN 81 MG PO SCH (12:33)
--- NOTE | 2021-03-14 13:47 | P.CRDCN ---
History of Present Illness History of present illness: HISTORY OF PRESENTING ILLNESS This is a pleasant 89-year-old female with history of asthma, diabetes mellitus type 2, hypertension, chronic kidney disease, hyperlipidemia, previous stroke 2 years ago. Patient is confused however states that she lives at home by herself and denies any medical problems other than high blood pressure. Apparently she resides at [facility] and was only discharged approximately 48 hours ago and was noted to be more somnolent, difficulty opening her eyes and was noted to have increased BUN on blood work performed there and therefore sent to emergency department. ABG was performed with increased CO2 noted. Troponin was noted to be mildly elevated at 0.17, creatinine 1.39, BUN increased at 108. She currently states she is feeling good and wants to go home. She believes she used to have lower extremity edema however currently no significant edema. Troponin 0.16, 0.17, 0.19, take acid 2.2, proBNP 2039. Patient had large leukocyte esterase, urine nitrates positive and has been treated for UTI. Carotid ultrasound from 02/16/2021 showed no significant stenosis. Echocardiogram from 02/16/2021 showed EF 55-60%, grade 2 diastolic dysfunction, moderate pulmonary hypertension with RVSP of 50. She was noted to have previously elevated troponins from her admission in February 2019. REVIEW OF SYSTEMS At the time of my exam: CONSTITUTIONAL: Denies fever or chills. CARDIOVASCULAR: Denies chest pain, shortness of breath, orthopnea, PND or palpitations. RESPIRATORY: Denies cough. GASTROINTESTINAL: Denies abdominal pain, diarrhea, constipation, nausea or vomiting. MUSCULOSKELETAL: Denies myalgias. NEUROLOGIC: Denies numbness, tingling or weakness. ENDOCRINE: Denies fatigue, weight change, polydipsia or polyurina. GENITOURINARY: Denies burning, hematuria or urgency with micturation. HEMATOLOGIC: Denies history of anemia or bleeding. PHYSICAL EXAMINATION Vital signs reviewed. CONSTITUTIONAL: No apparent distress. Poor historian, chronically ill appearing HEENT: Head is normocephalic. Pupils are equal, round. Sclerae anicteric. Mucous membranes of the mouth are moist. No JVD. No carotid bruit. CHEST EXAMINATION: Lungs are clear to auscultation. No chest wall tenderness is noted on palpation or with deep breathing. HEART EXAMINATION: Regular rate and rhythm. S1, S2 heard. No murmurs, gallops or rub. ABDOMEN: Soft, nontender. Positive bowel sounds. EXTREMITIES: 2+ peripheral pulses, no lower extremity edema and no calf tenderness. NEUROLOGIC EXAMINATION: Patient is awake, alert and oriented x3. ASSESSMENT 1. Altered mental status 2. Hypercapnic respiratory failure 3. Acute kidney injury 4. Essential hypertension 5. History of diastolic dysfunction, currently no evidence of time overload 6. Mildly elevated troponins, no angina-type symptoms, suspect due to mechanism related to acute kidney injury, urinary tract infection 7. Urinary tract infection PLAN Patient was previous similar episodes in the past with mildly elevated troponins. Last echocardiogram from 02/16 with normal ejection fraction 55-60%. Patient without any current angina-type symptoms. Suspect elevated troponins related to acute kidney injury and urosepsis. Recommend gentle IV fluids, nephrology recommendations appreciated. No need to repeat echo and would treat conservatively. Continue supportive care. No further recommendations from a c ardiology standpoint. Please call with any questions. 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 History of Any Multi-Drug Resistant Organisms: None Reported Past Surgical History: Orthopedic Surgery Additional Past Surgical History / Comment(s): Lumbar epidural injections, bilateral eyes cataracts removed and stents placed d/t glaucoma, bilateral carpal tunnel releases, colonoscopy. Past Anesthesia/Blood Transfusion Reactions: No Reported Reaction Past Psychological History: No Psychological Hx Reported Additional Psychological History / Comment(s): Pt resides alone. She uses a walker to ambulate. She manages her own medications but is having difficulty. She gets meals on wheels. She states she no longer drives, her friend drives her to [employer]. She states she has an aide from [employer] comes once a week for showers. Smoking Status: Never smoker Past Alcohol Use History: None Reported Past Drug Use History: None Reported - Past Family History Mother Family Medical History: No Reported History Additional Family Medical History / Comment(s): Mother was healthy and live to be 79yrs old. Father Additional Family Medical History / Comment(s): Father was an alcoholic. Sister(s) Family Medical History: Cancer Additional Family Medical History / Comment(s): breast cancer Medications and Allergies Home Medications Medication Instructions Recorded Confirmed Type Metoprolol Tartrate [Lopressor] 25 mg PO BID@0800,1700 10/15/15 03/14/21 History cloNIDine HCL [Catapres] 0.2 mg PO TID@0600,1400,2200 11/27/18 03/14/21 History Atorvastatin Calcium [Lipitor] 10 mg PO HS@209903/19/19 03/14/21 History Albuterol Inhaler [Ventolin Hfa 2 puff INHALATION RT-Q4H PRN 02/15/21 03/14/21 History Inhaler] amLODIPine [Norvasc] 5 mg PO DAILY@0800 02/15/21 03/14/21 History metOLazone 2.5 mg PO MOTH@0600 02/15/21 03/14/21 History HYDROcodone/APAP 5-325MG [[place] 0.5 tab PO Q12H PRN #3 tab 02/19/21 03/14/21 Rx 5-325] ALPRAZolam [Xanax] 0.25 mg PO BID@0800,1700 03/14/21 03/14/21 History Aspirin 81 mg PO DAILY@169903/14/21 03/14/21 History Baclofen 5 mg PO BID@0800,169903/14/21 03/14/21 History Furosemide [Lasix] 40 mg PO BID@0800,1400 03/14/21 03/14/21 History Gabapentin [Neurontin] 100 mg PO BID@0800,169903/14/21 03/14/21 History Magnesium Hydroxide [Milk of 2,400 mg PO DAILY PRN 03/14/21 03/14/21 History Magnesia] Na Phos,M-B/Na Phos,Di-Ba [Fleet 133 ml RECTAL DAILY PRN 03/14/21 03/14/21 History Adult] Omeprazole 20 mg PO HS@209903/14/21 03/14/21 History bisacodyL [Dulcolax] 10 mg RECTAL DAILY PRN 03/14/21 03/14/21 History methocarbamoL [Methocarbamol] 500 mg PO BID@0800,2100 03/14/21 03/14/21 History predniSONE [Deltasone] 60 mg PO DAILY@0800 03/14/21 03/14/21 History Allergies Allergy/AdvReac Type Severity Reaction Status Date / Time clotrimazole Allergy Unknown Verified 03/14/21 12:09 fluconazole Allergy Unknown Verified 03/14/21 12:09 Sulfa (Sulfonamide Allergy Rash/Hives Verified 03/14/21 12:09 Antibiotics) calcium AdvReac Unknown Unknown Verified 03/14/21 12:09 baclofen AdvReac NUMBNESS Verified 03/14/21 12:09 WAS WORSE IN FEET" UNSTEADY" Physical Exam Vitals: Vital Signs Temp Pulse Pulse Resp BP BP Pulse Ox 03/14/21 08:00 97.4 F L 76 18 156/68 97 03/14/21 05:32 18 03/14/21 05:15 97.7 F 62 18 123/59 94 L 03/14/21 04:55 63 20 124/84 97 03/14/21 03:55 97 F L 61 18 141/71 98 03/14/21 01:55 61 16 136/78 98 03/14/21 00:35 97.2 F L 62 16 139/76 94 L Intake and Output 03/13/21 03/14/21 03/14/21 22:59 06:59 14:59 Intake Total 420 Output Total 375 Balance 45 Intake: Oral 420 Output: Urine 375 Straight 375 Other: Weight 68.039 kg Results 03/14/21 01:01 03/14/21 01:01 Cardiac Enzymes 03/14/21 03/14/21 03/14/21 Range/Units 01:01 01:01 04:30 AST 39 H (14-36) U/L Troponin I 0.166 H* 0.178 H* (0.000-0.034) ng/mL 03/14/21 Range/Units 09:29 AST (14-36) U/L Troponin I 0.197 H* (0.000-0.034) ng/mL Coagulation 03/14/21 Range/Units 01:01 PT 10.7 (9.0-12.0) sec APTT 22.0 (22.0-30.0) sec CBC 03/14/21 Range/Units 01:01 WBC 12.6 H (3.8-10.6) k/uL RBC 4.91 (3.80-5.40) m/uL Hgb 13.9 (11.4-16.0) gm/dL Hct 43.2 (34.0-46.0) % Plt Count 162 (150-450) k/uL Comprehensive Metabolic Panel 03/14/21 Range/Units 01:01 Sodium 138 (137-145) mmol/L Potassium 3.3 L (3.5-5.1) mmol/L Chloride 85 L (98-107) mmol/L Carbon Dioxide 43 H* (22-30) mmol/L BUN 108 H* (7-17) mg/dL Creatinine 1.39 H (0.52-1.04) mg/dL Glucose 212 H (74-99) mg/dL Calcium 8.6 (8.4-10.2) mg/dL AST 39 H (14-36) U/L ALT 24 (4-34) U/L Alkaline Phosphatase 87 (38-126) U/L Total Protein 6.1 L (6.3-8.2) g/dL Albumin 3.7 (3.5-5.0) g/dL Current Medications Generic Name Dose Route Start Last Admin Trade Name Freq PRN Reason Stop Dose Admin Aspirin 81 mg 03/14/21 10:45 03/14/21 12:33 Aspirin 81 Mg PO 81 mg DAILY AICHA Administration Ceftriaxone Sodium 1 gm/ 50 mls @ 100 mls/hr 03/14/21 21:00 Sodium Chloride IVPB HS AICHA Sodium Chloride 1,000 mls @ 50 mls/hr 03/14/21 13:00 Saline 0.9% IV .Q20H AICHA Insulin Aspart 0 unit 03/14/21 07:30 03/14/21 12:33 Insulin Aspart (Novolog) 100 Unit/Ml Vial SQ 1 unit ACHS AICHA Administration Protocol Metoprolol Tartrate 25 mg 03/14/21 21:00 Metoprolol Tartrate 25 Mg Tab PO BID AICHA Naloxone HCl 0.2 mg 03/14/21 02:14 Naloxone 0.4 Mg/Ml 1 Ml Vial IV Q2M PRN Opioid Reversal Intake and Output 03/13/21 03/14/21 03/14/21 22:59 06:59 14:59 Intake Total 420 Output Total 375 Balance 45 Intake: Oral 420 Output: Urine 375 Straight 375 Other: Weight 68.039 kg 03/14/21 01:01 03/14/21 01:01
--- NOTE | 2021-03-14 14:07 | CONS ---
CONSULTATION REASON FOR CONSULT: Renal failure. HISTORY OF PRESENT ILLNESS: The patient is an 89-year-old female who has a history of asthma, type 2 diabetes, hypertension. The patient has a history of CKD stage 3. Baseline creatinine about 1.2- 1.4 mg/dL. She was admitted to the hospital from [facility] with mental status changes, increased lethargy and increased somnolence. BUN was elevated at 90. The patient was maintained on Lasix 40 mg p.o. b.i.d. prior to admission along with metolazone. Her blood pressure was not significantly low on admission. It is mostly on 120-130 mmHg systolic. The patient has not had significant urine output. Serum creatinine on this admission was 1.39 with BUN of 108. PAST MEDICAL HISTORY: Type 2 diabetes, CVA, TIA, gastroesophageal reflux disease, hyperlipidemia, hypertension, osteoarthritis, pneumonia, glaucoma, neuropathy. PAST SURGICAL HISTORY: Cataract surgeries, carpal tunnel release, colonoscopies. SOCIAL HISTORY: Negative for smoking, drug abuse or alcohol abuse. MEDICATIONS: Medications at home prior to admission included Lopressor, clonidine, Lipitor, Norvasc, metolazone, aspirin, Lasix, Neurontin, prednisone, [place]. ALLERGIES: INCLUDE SULFA, FLUCONAZOLE AND CLOTRIMAZOLE, BACLOFEN, CALCIUM, DETAILS NOT KNOWN. REVIEW OF SYSTEMS: As per HPI. Other systems negative. The patient is a poor historian. PHYSICAL EXAMINATION: On examination today, she is comfortable, awake, not in acute distress, confused. VITAL SIGNS: Blood pressure 156/68, heart rate 76 per minute. She is afebrile. Examination of the heart S1, S2. Examination of the lungs, decreased breath sounds at bases. Abdomen is soft, nontender. Examination of lower extremities shows no significant edema. DEEP SEA DIVER exam shows patient is moving all 4 extremities. LAB: Show sodium 138, potassium 3.3, chloride 85, CO2 is 43, BUN of 108, serum creatinine 1.39. Lactic acid was 2.2, hemoglobin 13.3 g/dL. ASSESSMENT: 1. Chronic kidney disease. Serum creatinine appears to be at baseline. 2. Disproportionately elevated BUN, most likely secondary to steroids. I am not sure how long patient was on prednisone prior to admission. No evidence of active gastrointestinal bleed. 3. The patient may also be mildly volume-depleted. I will start her on gentle IV hydration. 4. Mild pyuria. Urine culture is pending. 5. Metabolic alkalosis, possibly contraction alkalosis. Lasix is currently on hold. PLAN: Add saline at 50 mL an hour. Continue to hold Lasix for now. Repeat labs in a.m. Replace potassium. Thank you for this consultation. We will continue to follow the patient with you during her hospitalization. MMODL / IJN: [id number] /
[2021-03-14 16:25] LABS: Glucose,Whole Blood 127 mg/dL (75-99)
[2021-03-14] MEDS: SODIUM CHLORIDE 0.9% 1,000 ML IV SCH (16:50)
[2021-03-14] MEDS: METOPROLOL TARTRATE 25 MG TAB PO SCH (20:05)
[2021-03-14 20:38] LABS: Glucose,Whole Blood 151 mg/dL (75-99)
--- NOTE | 2021-03-14 22:43 | P.CNPUL ---
History of Present Illness Consult date: 03/14/21 Reason for consult: dyspnea, cough, hypoxemia Chief complaint: Altered mental status, Shortness of breath History of present illness: Patient is a 89-year-old female sees Dr. Carrero for primary care activity she has problems associated with chronic asthma as well as multiple complex past medical history of dyslipidemia hypertension hypertensive cardiovascular disease, she is fairly bedbound history of stroke in 2018, also chronic peripheral neuropathy patient is a resident of extended care facility, patient was brought into the hospital because of altered mental status and increased somnolence, also noted to have a high BUN of 90 up from baseline of 58 at [facility], in emergency department patient was placed on BiPAP 12 and 5, currently patient is off of BiPAP on 2 L oxygen, her significant laboratory data were white cell count of 12,600, venous blood gases revealed pCO2 of 65, BUN and creatinine of 108/1.39, Actiq acid was elevated 2.2, UA positive for leukocyte esterase trace, [place] up 2.19, BNP over 2000, urine for drug screen negative except benzodiazepine covid is status is negative, patient is currently on IV Rocephin along with side-lying is scale insulin gently being hydrated with IV fluids repeat labs for tomorrow are pending Review of Systems ROS unobtainable: due to mental status Past Medical History Past Medical History: Asthma, CVA/TIA, Diabetes Mellitus, Eye Disorder, GERD/Reflux, Hyperlipidemia, Hypertension, Osteoarthritis (OA), Pneumonia Additional Past Medical History / Comment(s): 07/2018 CVA-pt states no residual, "borderline" diabetic, bilateral glaucoma, generalized arthritis, chronic low back pain, neuropathy bilateral legs/feet, falls. History of Any Multi-Drug Resistant Organisms: None Reported Past Surgical History: Orthopedic Surgery Additional Past Surgical History / Comment(s): Lumbar epidural injections, bilateral eyes cataracts removed and stents placed d/t glaucoma, bilateral car pal tunnel releases, colonoscopy. Past Anesthesia/Blood Transfusion Reactions: No Reported Reaction Past Psychological History: No Psychological Hx Reported Smoking Status: Never smoker Past Alcohol Use History: None Reported Past Drug Use History: None Reported - Past Family History Mother Family Medical History: No Reported History Additional Family Medical History / Comment(s): Mother was healthy and live to be 79yrs old. Father Additional Family Medical History / Comment(s): Father was an alcoholic. Sister(s) Family Medical History: Cancer Additional Family Medical History / Comment(s): breast cancer Medications and Allergies Home Medications Medication Instructions Recorded Confirmed Type Metoprolol Tartrate [Lopressor] 25 mg PO BID@0800,1700 10/15/15 03/14/21 History cloNIDine HCL [Catapres] 0.2 mg PO TID@0600,1400,2200 11/27/18 03/14/21 History Atorvastatin Calcium [Lipitor] 10 mg PO HS@209903/19/19 03/14/21 History Albuterol Inhaler [Ventolin Hfa 2 puff INHALATION RT-Q4H PRN 02/15/21 03/14/21 History Inhaler] amLODIPine [Norvasc] 5 mg PO DAILY@0800 02/15/21 03/14/21 History metOLazone 2.5 mg PO MOTH@0600 02/15/21 03/14/21 History HYDROcodone/APAP 5-325MG [[place] 0.5 tab PO Q12H PRN #3 tab 02/19/21 03/14/21 Rx 5-325] ALPRAZolam [Xanax] 0.25 mg PO BID@0800,1700 03/14/21 03/14/21 History Aspirin 81 mg PO DAILY@169903/14/21 03/14/21 History Baclofen 5 mg PO BID@0800,169903/14/21 03/14/21 History Furosemide [Lasix] 40 mg PO BID@0800,1400 03/14/21 03/14/21 History Gabapentin [Neurontin] 100 mg PO BID@0800,0 03/14/21 03/14/21 History Magnesium Hydroxide [Milk of 2,400 mg PO DAILY PRN 03/14/21 03/14/21 History Magnesia] Na Phos,M-B/Na Phos,Di-Ba [Fleet 133 ml RECTAL DAILY PRN 03/14/21 03/14/21 History Adult] Omeprazole 20 mg PO HS@209903/14/21 03/14/21 History bisacodyL [Dulcolax] 10 mg RECTAL DAILY PRN 03/14/21 03/14/21 History methocarbamoL [Methocarbamol] 500 mg PO BID@0800,209903/14/21 03/14/21 History predniSONE [Deltasone] 60 mg PO DAILY@0800 03/14/21 03/14/21 History Allergies Allergy/AdvReac Type Severity Reaction Status Date / Time clotrimazole Allergy Unknown Verified 03/14/21 12:09 fluconazole Allergy Unknown Verified 03/14/21 12:09 Sulfa (Sulfonamide Allergy Rash/Hives Verified 03/14/21 12:09 Antibiotics) calcium AdvReac Unknown Unknown Verified 03/14/21 12:09 baclofen AdvReac NUMBNESS Verified 03/14/21 12:09 WAS WORSE IN FEET" UNSTEADY" Physical Exam Vitals: Vital Signs Temp Pulse Pulse Resp BP BP Pulse Ox 03/14/21 20:00 20 03/14/21 19:30 99.3 F 101 H 20 168/76 95 03/14/21 16:00 97.8 F 88 20 159/77 94 L 03/14/21 12:00 90 20 80/72 97 03/14/21 08:00 97.4 F L 76 18 156/68 97 03/14/21 05:32 18 03/14/21 05:15 97.7 F 62 18 123/59 94 L 03/14/21 04:55 63 20 124/84 97 03/14/21 03:55 97 F L 61 18 141/71 98 03/14/21 01:55 61 16 136/78 98 03/14/21 00:35 97.2 F L 62 16 139/76 94 L Intake and Output 03/14/21 03/14/21 03/14/21 06:59 14:59 22:59 Intake Total 420 240 Output Total 375 400 Balance 45 -160 Intake: Oral 420 240 Output: Urine 375 400 Straight 375 400 Other: # Voids 1 Weight 68.039 kg - Constitutional General appearance: disheveled, morbidly obese - EENT Eyes: EOMI, PERRLA Ears: bilateral: normal - Neck Neck: normal ROM Carotids: bilateral: upstroke normal - Respiratory Respiratory: bilateral: diminished - Cardiovascular Rhythm: regular Heart sounds: normal: S1, S2 - Integumentary Integumentary: normal turgor - Neurologic Neurologic: CNII-XII intact - Musculoskeletal Musculoskeletal: generalized weakness - Psychiatric Psychiatric: appropriate affect, intact judgment & insight Results - Laboratory Findings CBC and BMP: 03/14/21 01:01 03/14/21 01:01 ABG ABG pH 7.48 (7.35-7.45) H 03/14/21 11:42 ABG pCO2 68 mmHg (35-45) H 03/14/21 11:42 ABG pO2 72 mmHg (83-108) L 03/14/21 11:42 ABG O2 Saturation 94.6 % (94-97) 03/14/21 11:42 PT/INR, D-dimer PT 10.7 sec (9.0-12.0) 03/14/21 01:01 INR 1.0 (<1.2) 03/14/21 01:01 Abnormal lab findings: Abnormal Labs 03/14/21 03/14/21 03/14/21 00:54 01:01 01:01 WBC 12.6 H Neutrophils # 11.2 H Lymphocytes # 0.8 L ABG pH ABG pCO2 ABG pO2 ABG HCO3 ABG Total CO2 VBG pH VBG pCO2 VBG HCO3 Potassium Chloride Carbon Dioxide BUN Creatinine Glucose POC Glucose (mg/dL) 241 H Plasma Lactic Acid Aubrey Total Bilirubin AST Troponin I Total Protein Urine Appearance Cloudy H Urine Protein Trace H Urine Nitrite Positive H Ur Leukocyte Esterase Large H Urine WBC 9 H Urine Bacteria Rare H Urine Mucus Rare H U Benzodiazepines Scrn Detected H 03/14/21 03/14/21 03/14/21 01:01 01:01 01:01 WBC Neutrophils # Lymphocytes # ABG pH ABG pCO2 ABG pO2 ABG HCO3 ABG Total CO2 VBG pH VBG pCO2 VBG HCO3 Potassium 3.3 L Chloride 85 L Carbon Dioxide 43 H* BUN 108 H* Creatinine 1.39 H Glucose 212 H POC Glucose (mg/dL) Plasma Lactic Acid Aubrey 2.2 H* Total Bilirubin 1.6 H AST 39 H Troponin I 0.166 H* Total Protein 6.1 L Urine Appearance Urine Protein Urine Nitrite Ur Leukocyte Esterase Urine WBC Urine Bacteria Urine Mucus U Benzodiazepines Scrn 03/14/21 03/14/21 03/14/21 02:32 04:30 05:46 WBC Neutrophils # Lymphocytes # ABG pH ABG pCO2 ABG pO2 ABG HCO3 ABG Total CO2 VBG pH 7.47 H VBG pCO2 65 H VBG HCO3 46 H Potassium Chloride Carbon Dioxide BUN Creatinine Glucose POC Glucose (mg/dL) 143 H Plasma Lactic Acid Aubrey Total Bilirubin AST Troponin I 0.178 H* Total Protein Urine Appearance Urine Protein Urine Nitrite Ur Leukocyte Esterase Urine WBC Urine Bacteria Urine Mucus U Benzodiazepines Scrn 03/14/21 03/14/21 03/14/21 09:29 11:30 11:42 WBC Neutrophils # Lymphocytes # ABG pH 7.48 H ABG pCO2 68 H ABG pO2 72 L ABG HCO3 50 H* ABG Total CO2 52 H VBG pH VBG pCO2 VBG HCO3 Potassium Chloride Carbon Dioxide BUN Creatinine Glucose POC Glucose (mg/dL) 150 H Plasma Lactic Acid Aubrey Total Bilirubin AST Troponin I 0.197 H* Total Protein Urine Appearance Urine Protein Urine Nitrite Ur Leukocyte Esterase Urine WBC Urine Bacteria Urine Mucus U Benzodiazepines Scrn 03/14/21 03/14/21 16:23 20:25 WBC Neutrophils # Lymphocytes # ABG pH ABG pCO2 ABG pO2 ABG HCO3 ABG Total CO2 VBG pH VBG pCO2 VBG HCO3 Potassium Chloride Carbon Dioxide BUN Creatinine Glucose POC Glucose (mg/dL) 127 H 151 H Plasma Lactic Acid Aubrey Total Bilirubin AST Troponin I Total Protein Urine Appearance Urine Protein Urine Nitrite Ur Leukocyte Esterase Urine WBC Urine Bacteria Urine Mucus U Benzodiazepines Scrn - Diagnostic Findings Chest x-ray: report reviewed, image reviewed (Chest x-ray revealed bilateral basal atelectasis small effusion overall improved compared to the one done on February 19, computed tomography scan of the head revealed old right cerebellar infarct) Assessment and Plan Assessment: Sepsis due to urinary tract infection Urinary tract infection Altered mental status due to above and due to hypercapnia due to obesity hypoventilation Obesity hypoventilation syndrome Acute on chronic hypoxic hypercapnic respiratory failure Acute kidney injury likely due to dehydration and intravascular volume depletion Elevated troponin non-ST segment elevated GA versus demand ischemia cardiovascular services following Plan: BiPAP at nighttime and when necessary during the day Supplemental oxygen in between Broad-spectrum IV antibiotics Gentle rehydration Patient will benefit from sleep study as outpatient Further plan of care as per clinical response of the patient Time with Patient: Greater than 30
[2021-03-15] MEDS: INSULIN ASPART (NovoLOG) 100 UNIT/ML VIAL SQ SCH ×4 (06:34→21:35)
[2021-03-15 06:38] LABS: Glucose,Whole Blood 132 mg/dL (75-99)
[2021-03-15 08:23] LABS: Basophils % (A) 0 %; Eosinophils % (A) 0 %; HCT 47.9 % (34.0-46.0); HGB 14.5 gm/dL (11.4-16.0); Hypochromasia Moderate; Lymphocytes # (A) 1.1 k/uL (1.0-4.8); Lymphocytes % (A) 7 %; MCH 27.2 pg (25.0-35.0); MCHC 30.3 g/dL (31.0-37.0); MCV 89.8 fL (80.0-100.0); Mean Platelet Volume 9.2; Monocytes # (A) 0.7 k/uL (0-1.0); Monocytes % (A) 5 %; Neutrophils # (A) 12.7 k/uL (1.3-7.7); Neutrophils % (A) 86 %; Platelet Count 187 k/uL (150-450); RBC 5.33 m/uL (3.80-5.40); RDW 15.6 % (11.5-15.5); WBC 14.7 k/uL (3.8-10.6)
[2021-03-15 08:29] LABS: Albumin 3.5 g/dL (3.5-5.0); Calcium 8.8 mg/dL (8.4-10.2); Total Bilirubin 2.7 mg/dL (0.2-1.3); Total Protein 6.1 g/dL (6.3-8.2)
[2021-03-15] MEDS: ASPIRIN 81 MG PO SCH (08:37)
[2021-03-15] MEDS: METOPROLOL TARTRATE 25 MG TAB PO SCH ×2 (08:37→21:35)
[2021-03-15] MEDS: SODIUM CHLORIDE 0.9% 1,000 ML IV SCH (08:37)
[2021-03-15] MEDS ORDERED: acetaZOLAMIDE 250 MG TAB PO ONE (09:45)
--- NOTE | 2021-03-15 10:02 | P.PN ---
Subjective This is an 89-year-old female patient of Dr. 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 Patient resides at [facility], and was noticed to be more hypersomnolent, was having difficulty in opening up her eyes, patient was seen by Dr. Beard yesterday afternoon, for which labs were done, and was noted to have elevated BUN of 90, with a previous BUN of 58. I had gotten a call regarding her mental status change, and decided to be sent to the emergency room. Patient was seen in the emergency room subsequent to this, BUN was 108, creatinine is 1.39, previous of 1.29, with a baseline of 0.88-1.2 over the past 5 years. Troponin was slightly elevated at 0.178, pro-calcitonin in elevated, patient denies any specific events, at Covid test was negative unknown vaccination schedule. We've requested ABG, pCO2 is elevated at 465, pH 7.47, CO2 of 43, glucose 212 INTERIOR SYSTEMS CARPENTER proBNP of 2040. Ammonia normal at 16 Her med rec were not reconciled today from [facility] to transition her home medications. When seen today in the medical floor, patient is alert, she has short-term memory loss as noted, with no new neurologic monitor changes, consult with Dr. Dr. Hooker from nephrology, consult with Dr. Fregoso from cardiology for elevated troponin, Hemoccult requested, metoprolol restarted at this time. Pending final med rec. urine drug screen positive for benzos Dr. Ponce from pulmonary for hypercapnic respiratory failure echocardiogram requested BiPAP 12 and 5 to be started. Unable to confirm prednisone 60 mg dose if chronic or burst dosing 03/15: Patient evaluated this morning. Patient resting in bed, she continues to be confused, although she seems more alert today. Nephrology consult appreciated recommends to add normal saline at 50 ml per hour, Lasix on hold. Cardiology consult also appreciated for elevated troponins. Apparently patient had similar mildly elevated troponins in the past. She has also had a recent echocardiogram from last month that showed ejection fraction between 55-60%, no further recommendations from a cardiology standpoint. She continues on ceftriaxone for urinary tract infection, unfortunately urine culture was not obtained due to patient was already started on IV antibiotics. Her vital signs are stable temperature 98.4, heart rate 92, blood pressure mildly elevated 174/79, she's 92% on BiPAP with FiO2 of 28%. Laboratory values showed WBC 14.7, hemoglobin 14.5, sodium 140, potassium 3.0, carbon dioxide 46, BUN 79, creatinine 1.26. One dose of a Acetazolamide 250 mg ordered. Objective - Vital Signs Vital signs: Vital Signs Temp 98.4 F 03/15/21 03:39 Pulse 92 03/15/21 03:39 Resp 25 H 03/15/21 03:39 BP 174/79 03/15/21 03:39 Pulse Ox 92 L 03/15/21 03:39 Intake & Output 03/14/21 03/15/21 03/15/21 18:59 06:59 18:59 Intake Total 660 Output Total 775 1100 Balance -115 -1100 Weight 97.5 kg Intake: Oral 660 Output: Urine 775 1100 Straight 775 Other: Voiding Method Indwelling Catheter # Voids 1 0 - Exam - Constitutional General appearance: Obese, awake and alert - EENT Eyes: abnormal pupil, no anicteric sclerae, no disc margins sharp, no edentulous, no EOMI, no PERRLA, no fundus normal, no photophobia, no dentition normal, no poor dentition, no ptosis, no scleral icterus, no normal appearance ENT: NA/AT, normal oropharynx - Respiratory Respiratory: bilateral: Diminished bilaterally - Cardiovascular Rhythm: regular Heart sounds: normal: S1, S2 Abnormal Heart Sounds: no systolic murmur, no diastolic murmur, no rub, no S3 Gallop, no S4 Gallop, no click, no other - Gastrointestinal General gastrointestinal: normal bowel sounds, soft - Integumentary Integumentary: decreased turgor, normal - Neurologic Neurologic: CNII-XII intact - Musculoskeletal Musculoskeletal: strength equal bilaterally with generalized weakness - Psychiatric Psychiatric: A&O x's 3 (x2), appropriate affect - Labs CBC & Chem 7: 03/15/21 07:08 03/15/21 07:08 Labs: Abnormal Lab Results - Last 24 Hours (Table) 03/14/21 03/14/21 03/14/21 Range/Units 09:29 11:30 11:42 ABG pH 7.48 H (7.35-7.45) ABG pCO2 68 H (35-45) mmHg ABG pO2 72 L (83-108) mmHg ABG HCO3 50 H* (21-25) mmol/L ABG Total CO2 52 H (19-24) mmol/L POC Glucose (mg/dL) 150 H (75-99) mg/dL Troponin I 0.197 H* (0.000-0.034) ng/mL 03/14/21 03/14/21 03/15/21 Range/Units 16:23 20:25 06:34 ABG pH (7.35-7.45) ABG pCO2 (35-45) mmHg ABG pO2 (83-108) mmHg ABG HCO3 (21-25) mmol/L ABG Total CO2 (19-24) mmol/L POC Glucose (mg/dL) 127 H 151 H 132 H (75-99) mg/dL Troponin I (0.000-0.034) ng/mL Assessment and Plan Plan: 1. Metabolic encephalopathy, with obtundation, and hypersomnia, has hypercarbia, and azotemia elevated troponins, mild pyuria however WBC of 9 can't rule out UTI. Dr. Garcia consulted for hypercarbic respiratory failure, ABGs requested and reported to be elevated for hypercapnic respiratory failure, BiPAP at 10/04, meds need to be reviewed for metabolic acidosis, hold Zaroxolyn, continue metoprolol. Hold baclofen secondary to mental status changes, no narcotics given at this time, . PT, OT and ST IV continues on Rocephin 2. History of diastolic heart failure currently compensated, however troponins elevated,. monitor daily weights and I&O, monitor electrolytes and renal function. Echocardiogram obtained from January. Cardiology consult appreciated, troponins seen to be chronically elevated 3. Mild intermittent asthma, stable. Continue albuterol inhaler 2 puffs every 4 hours as needed. 4. Pyuria, probable UTI, borderline for urine WBC, on Rocephin 1 g 4. Hypertension. Hold amlodipine 5 mg daily, clonidine 0.2 mg 3 times daily till med rec confirmed, Lopressor 25 mg twice daily. 5. Azotemia with acute kidney injury Chronic kidney disease stage III. Avoid hypotension and nephrotoxic agents. Hemoccult stools, verified prednisone intake 6. History of CVA in 2018 aspirin 81 mg daily till Hemoccult stools 7. Chronic low back pain and peripheral neuropathy. Continue gabapentin 100 mg twice daily, Tylenol as needed for pain. 8. Short-term memory loss, check B12, TSH was normal in February 15, INR 0.173 cortisol that time was 17. 8. GI prophylaxis. Protonix 40 mg daily. 9. DVT prophylaxis. Continue Lovenox 40 mg subcu daily. 10. COVID-19 testing negative. Patient has been hospitalized during a pandemic. The above impression and plan of care have been discussed and directed by signing physician. Leslye Diaz nurse practitioner acting as scribe for signing physician.
[2021-03-15] MEDS ORDERED: POTASSIUM CHLORIDE ER 20 MEQ TAB.ER PO STA (10:37)
--- NOTE | 2021-03-15 11:18 | PN ---
PROGRESS NOTE Patient is seen for followup for acute kidney injury. She was found to have significant urine retention and Galvez catheter was placed. Currently maintained on IV fluids at 50 mL an hour, which was started yesterday. BUN has improved from 108 to 79. Overall, patient denies any chest pains or shortness of breath. PHYSICAL EXAMINATION: On examination today, blood pressure was elevated 174/79, heart rate 92 per minute, she is afebrile. Examination of the heart S1, S2. Examination of lungs, decreased breath sounds at bases. Abdomen is soft, nontender, obese. Examination of lower extremities shows chronic skin changes, trace edema bilaterally. AERONAUTICAL DESIGN ENGINEER exam shows patient moving all four extremities. LAB: Show sodium 140, potassium 3.0, chloride 87, CO2 is 46, BUN 79, creatinine 1.26, hemoglobin 14.5 g/dL. ASSESSMENT: 1. Acute kidney injury, prerenal, currently started on gentle IV hydration. Creatinine has improved with improvement in BUN as well. 2. Metabolic alkalosis secondary to recent diuresis, started on Diamox, currently improving. 3. Hypokalemia secondary to diuresis, will replace. 4. Urine retention currently with indwelling Galvez catheter. 5. Congestive heart failure history, diastolic with ejection fraction about 55% in January of 2021. 6. Urine retention currently with indwelling Galvez catheter. 7. History of stroke. 8. Urinary tract infection maintained on antibiotics. PLAN: Continue IV at 50 mL an hour. Replace potassium. Encourage increased oral intake. We can discontinue the IV fluids by tomorrow if patient is eating well. Continue with Diamox. MMODL / IJN: [id number] /
[2021-03-15 11:35] LABS: Glucose,Whole Blood 178 mg/dL (75-99)
[2021-03-15] MEDS ORDERED: POTASSIUM CHLORIDE 20 MEQ in WATER FOR INJECTION 1 100ML.BAG IVPB ONE (12:00)
--- NOTE | 2021-03-15 14:29 | P.PN ---
Subjective Progress Note Date: 03/15/21 Principal diagnosis: Sepsis due to urinary tract infection Urinary tract infection Altered mental status due to above and due to hypercapnia due to obesity hypoventilation Obesity hypoventilation syndrome Acute on chronic hypoxic hypercapnic respiratory failure Acute kidney injury likely due to dehydration and intravascular volume depletion Elevated troponin non-ST segment elevated [place] versus demand ischemia cardiovascular services following 03/15/2021, shouldn't seen evaluated examined awake slightly confused, has been on 2 L oxygen patient did use the BiPAP machine overnight for 5-6 hours, has been on BiPAP 10/5 with 28 percent oxygen, white cell count is 14,700, CO2 is up to 46, BUN/creatinine 70/1.26, potassium is 3 patient has been getting potassium replacement, high CO2 likely related to predominantly hypercapnia as well as some component of metabolic alkalosis due to hypokalemia, will monitor closely and replete potassium before initiating Diamox trial continue BiPAP each night and when necessary during the day Patient is a 89-year-old female sees Dr. Carrero for primary care activity she has problems associated with chronic asthma as well as multiple complex past medical history of dyslipidemia hypertension hypertensive cardiovascular disease, she is fairly bedbound history of stroke in 2018, also chronic peripheral neuropathy patient is a resident of [facility], patient was brought into the hospital because of altered mental status and increased somnolence, also noted to have a high BUN of 90 up from baseline of 58 at [facility], in emergency department patient was placed on BiPAP 12 and 5, currently patient is off of BiPAP on 2 L oxygen, her significant laboratory data were white cell count of 12,600, venous blood gases revealed pCO2 of 65, BUN and creatinine of 108/1.39, Actiq acid was elevated 2.2, UA positive for leukocyte esterase trace, [place] Or up 2.19, BNP over 2000, urine for drug screen negative except benzodiazepine covid is status is negative, patient is currently on IV Rocephin along with side-lying is scale insulin gently being hydrated with IV fluids repeat labs for tomorrow are pending Objective - Vital Signs Vital signs: Vital Signs Temp 97.8 F 03/15/21 08:00 Pulse 100 03/15/21 08:00 Resp 20 03/15/21 08:00 BP 183/78 03/15/21 08:00 Pulse Ox 93 L 03/15/21 08:00 Intake & Output 03/14/21 03/15/21 03/15/21 18:59 06:59 18:59 Intake Total 660 480 Output Total 775 1100 575 Balance -115 -1100 -95 Weight 97.5 kg Intake: Oral 660 480 Output: Urine 775 1100 575 Straight 775 Other: Voiding Method Indwelling Catheter Indwelling Catheter # Voids 1 0 - Exam - Constitutional General appearance: disheveled, morbidly obese - EENT Eyes: EOMI, PERRLA Ears: bilateral: normal - Neck Neck: normal ROM Carotids: bilateral: upstroke normal - Respiratory Respiratory: bilateral: diminished - Cardiovascular Rhythm: regular Heart sounds: normal: S1, S2 - Integumentary Integumentary: normal turgor - Neurologic Neurologic: CNII-XII intact - Musculoskeletal Musculoskeletal: generalized weakness - Psychiatric Psychiatric: appropriate affect, intact judgment & insight - Labs CBC & Chem 7: 03/15/21 07:08 03/15/21 07:08 Labs: Abnormal Lab Results - Last 24 Hours (Table) 03/14/21 03/14/21 03/15/21 Range/Units 16:23 20:25 06:34 WBC (3.8-10.6) k/uL Hct (34.0-46.0) % MCHC (31.0-37.0) g/dL RDW (11.5-15.5) % Neutrophils # (1.3-7.7) k/uL Potassium (3.5-5.1) mmol/L Chloride (98-107) mmol/L Carbon Dioxide (22-30) mmol/L BUN (7-17) mg/dL Creatinine (0.52-1.04) mg/dL Glucose (74-99) mg/dL POC Glucose (mg/dL) 127 H 151 H 132 H (75-99) mg/dL Total Bilirubin (0.2-1.3) mg/dL AST (14-36) U/L Total Protein (6.3-8.2) g/dL 03/15/21 03/15/21 03/15/21 Range/Units 07:08 07:08 11:33 WBC 14.7 H (3.8-10.6) k/uL Hct 47.9 H (34.0-46.0) % MCHC 30.3 L (31.0-37.0) g/dL RDW 15.6 H (11.5-15.5) % Neutrophils # 12.7 H (1.3-7.7) k/uL Potassium 3.0 L (3.5-5.1) mmol/L Chloride 87 L (98-107) mmol/L Carbon Dioxide 46 H* (22-30) mmol/L BUN 79 H (7-17) mg/dL Creatinine 1.26 H (0.52-1.04) mg/dL Glucose 134 H (74-99) mg/dL POC Glucose (mg/dL) 178 H (75-99) mg/dL Total Bilirubin 2.7 H (0.2-1.3) mg/dL AST 54 H (14-36) U/L Total Protein 6.1 L (6.3-8.2) g/dL Assessment and Plan Assessment: Sepsis due to urinary tract infection Urinary tract infection Altered mental status due to above and due to hypercapnia due to obesity hypoventilation Obesity hypoventilation syndrome Severe hypokalemia Acute on chronic hypoxic hypercapnic respiratory failure Acute kidney injury likely due to dehydration and intravascular volume depletion Elevated troponin non-ST segment elevated [place] versus demand ischemia cardiovascular services following Plan: Continue potassium replacement as per protocol BiPAP at nighttime and when necessary during the day Supplemental oxygen in between Broad-spectrum IV antibiotics Gentle rehydration Patient will benefit from sleep study as outpatient Further plan of care as per clinical response of the patient Time with Patient: Greater than 30
[2021-03-15 16:35] LABS: Glucose,Whole Blood 159 mg/dL (75-99)
[2021-03-15 20:49] LABS: Glucose,Whole Blood 146 mg/dL (75-99)
[2021-03-16] MEDS: INSULIN ASPART (NovoLOG) 100 UNIT/ML VIAL SQ SCH ×4 (06:38→21:32)
[2021-03-16 06:53] LABS: Glucose,Whole Blood 136 mg/dL (75-99)
[2021-03-16 07:12] LABS: HCT 48.7 % (34.0-46.0); HGB 14.9 gm/dL (11.4-16.0); Hypochromasia Moderate; MCH 27.7 pg (25.0-35.0); MCHC 30.5 g/dL (31.0-37.0); MCV 90.8 fL (80.0-100.0); Platelet Count 164 k/uL (150-450); RBC 5.37 m/uL (3.80-5.40); RDW 15.7 % (11.5-15.5)
[2021-03-16 07:23] LABS: Albumin 3.5 g/dL (3.5-5.0); Potassium 3.3 mmol/L (3.5-5.1); Total Bilirubin 2.3 mg/dL (0.2-1.3); Total Protein 6.2 g/dL (6.3-8.2)
[2021-03-16] MEDS: METOPROLOL TARTRATE 25 MG TAB PO SCH ×2 (09:56→21:32)
[2021-03-16] MEDS: ASPIRIN 81 MG PO SCH (09:56)
[2021-03-16] MEDS ORDERED: POTASSIUM CHLORIDE ER 20 MEQ TAB.ER PO STA (10:03)
[2021-03-16] MEDS ORDERED: bisacodyL 10 MG SUPP RECTAL PRN (10:18)
[2021-03-16] MEDS ORDERED: HYDROcodone/APAP 5-325MG 1 EACH TAB PO PRN (10:18)
[2021-03-16] MEDS ORDERED: ALPRAZolam 0.25 MG TAB PO PRN (10:18)
[2021-03-16] MEDS ORDERED: predniSONE 20 MG TAB PO SCH (10:21)
--- NOTE | 2021-03-16 10:33 | PN ---
PROGRESS NOTE Patient is seen for followup for acute kidney injury. The patient was initially maintained on IV fluids, which were discontinued. She continues to have fairly good urine output. She did have urine retention for which she has a Galvez catheter. Serum creatinine has increased to 1.5 today from 1.26 yesterday. A 24-hour urine output noted at 2.3 L. Overall, patient denies any chest pains or shortness of breath. PHYSICAL EXAMINATION: On examination today, blood pressure 133/60, heart rate 102 per minute. She is afebrile. EXAMINATION OF THE HEART: S1, S2. EXAMINATION OF THE LUNGS: Bilateral breath sounds are heard. Abdomen is soft, nontender. Examination of lower extremities shows chronic skin changes. Trace edema noted. FLASH DEVELOPER exam grossly intact. LABS: Labs show sodium of 143, potassium 3.3, chloride 92. CO2 is 42, BUN 57, creatinine 1.5, hemoglobin 14.9 g/dL. ASSESSMENT: 1. Acute kidney injury, prerenal, currently improved with gentle IV hydration. The IV fluids were discontinued yesterday. I will resume at about 50 mL an hour and patient is encouraged to increase oral intake. 2. Metabolic alkalosis associated with recent diuresis, started on Diamox, currently improving. 3. Hypokalemia secondary to diuretics, status post replacement. 4. Urine retention currently with indwelling Galvez catheter. 5. Congestive heart failure, diastolic, chronic. 6. Obesity. 7. Disproportionately elevated BUN secondary to steroids and recent diuresis. PLAN: Resume the fluids at 50 mL an hour. Check chest x-ray. Continue off of diuretics for now. Replace potassium. MMODL / IJN: [id number] /
--- NOTE | 2021-03-16 11:04 | P.PN ---
Subjective Progress Note Date: 03/16/21 Principal diagnosis: Sepsis due to urinary tract infection Urinary tract infection Altered mental status due to above and due to hypercapnia due to obesity hypoventilation Obesity hypoventilation syndrome Acute on chronic hypoxic hypercapnic respiratory failure Acute kidney injury likely due to dehydration and intravascular volume depletion Elevated troponin non-ST segment elevated [place] versus demand ischemia cardiovascular services following 03/16/2021, patient seen eval examined during the rounds labs reviewed medications reviewed care plan discussed, patient is awake and alert, confusion has improved, however CO2 is still up, noted that she he has been started on the Diamox as well, patient has been using BiPAP machine intermittently off and on at nighttime, most of time she pulled it off, 03/15/2021, shouldn't seen evaluated examined awake slightly confused, has been on 2 L oxygen patient did use the BiPAP machine overnight for 5-6 hours, has been on BiPAP 10/5 with 28 percent oxygen, white cell count is 14,700, CO2 is up to 46, BUN/creatinine 70/1.26, potassium is 3 patient has been getting potassium replacement, high CO2 likely related to predominantly hypercapnia as well as some component of metabolic alkalosis due to hypokalemia, will monitor closely and replete potassium before initiating Diamox trial continue BiPAP each night and when necessary during the day Patient is a 89-year-old female sees Dr. Carrero for primary care activity she has problems associated with chronic asthma as well as multiple complex past medical history of dyslipidemia hypertension hypertensive cardiovascular disease, she is fairly bedbound history of stroke in 2018, also chronic peripheral neuropathy patient is a resident of extended care facility, patient was brought into the hospital because of altered mental status and increased somnolence, also noted to have a high BUN of 90 up from baseline of 58 at [facility], in emergency department patient was placed on BiPAP 12 and 5, currently patient is off of BiPAP on 2 L oxygen, her significant laboratory data were white cell count of 12,600, venous blood gases revealed pCO2 of 65, BUN and creatinine of 108/1.39, Actiq acid was elevated 2.2, UA positive for leukocyte esterase trace, Keon Or up 2.19, BNP over 2000, urine for drug screen negative except benzodiazepine covid is status is negative, patient is currently on IV Rocephin along with side-lying is scale insulin gently being hydrated with IV fluids r epeat labs for tomorrow are pending Objective - Vital Signs Vital signs: Vital Signs Temp 98.0 F 03/16/21 08:00 Pulse 102 H 03/16/21 08:00 Resp 18 03/16/21 08:00 BP 133/60 03/16/21 08:00 Pulse Ox 95 03/16/21 08:00 Intake & Output 03/15/21 03/16/21 03/16/21 18:59 06:59 18:59 Intake Total 720 240 Output Total 1275 1100 450 Balance -555 -1100 -210 Weight 90.5 kg Intake: Oral 720 240 Output: Urine 1275 1100 450 Straight 700 Other: Voiding Method Indwelling Catheter Indwelling Catheter Indwelling Catheter # Bowel Movements 1 - Exam - Constitutional General appearance: disheveled, morbidly obese - EENT Eyes: EOMI, PERRLA Ears: bilateral: normal - Neck Neck: normal ROM Carotids: bilateral: upstroke normal - Respiratory Respiratory: bilateral: diminished - Cardiovascular Rhythm: regular Heart sounds: normal: S1, S2 - Integumentary Integumentary: normal turgor - Neurologic Neurologic: CNII-XII intact - Musculoskeletal Musculoskeletal: generalized weakness - Psychiatric Psychiatric: appropriate affect, intact judgment & insight - Labs CBC & Chem 7: 03/16/21 06:14 03/16/21 06:14 Labs: Abnormal Lab Results - Last 24 Hours (Table) 03/15/21 03/15/21 03/15/21 Range/Units 11:33 16:33 20:21 WBC (3.8-10.6) k/uL Hct (34.0-46.0) % MCHC (31.0-37.0) g/dL RDW (11.5-15.5) % Potassium (3.5-5.1) mmol/L Chloride (98-107) mmol/L Carbon Dioxide (22-30) mmol/L BUN (7-17) mg/dL Creatinine (0.52-1.04) mg/dL Glucose (74-99) mg/dL POC Glucose (mg/dL) 178 H 159 H 146 H (75-99) mg/dL Total Bilirubin (0.2-1.3) mg/dL AST (14-36) U/L Total Protein (6.3-8.2) g/dL 03/16/21 03/16/21 03/16/21 Range/Units 06:14 06:14 06:51 WBC 13.0 H (3.8-10.6) k/uL Hct 48.7 H (34.0-46.0) % MCHC 30.5 L (31.0-37.0) g/dL RDW 15.7 H (11.5-15.5) % Potassium 3.3 L (3.5-5.1) mmol/L Chloride 92 L (98-107) mmol/L Carbon Dioxide 42 H* (22-30) mmol/L BUN 57 H (7-17) mg/dL Creatinine 1.50 H (0.52-1.04) mg/dL Glucose 148 H (74-99) mg/dL POC Glucose (mg/dL) 136 H (75-99) mg/dL Total Bilirubin 2.3 H (0.2-1.3) mg/dL AST 58 H (14-36) U/L Total Protein 6.2 L (6.3-8.2) g/dL Assessment and Plan Assessment: Sepsis due to urinary tract infection Urinary tract infection Altered mental status due to above and due to hypercapnia due to obesity hypoventilation Obesity hypoventilation syndrome Severe hypokalemia Acute on chronic hypoxic hypercapnic respiratory failure Acute kidney injury likely due to dehydration and intravascular volume depletion Elevated troponin non-ST segment elevated [place] versus demand ischemia cardiovascular services following Plan: Continue potassium replacement as per protocol, try to achieve over 4 BiPAP at nighttime and when necessary during the day Supplemental oxygen in between Broad-spectrum IV antibiotics Continue therapeutic trial of Diamox Gentle rehydration Patient will benefit from sleep study as outpatient Further plan of care as per clinical response of the patient Time with Patient: Greater than 30
--- NOTE | 2021-03-16 11:05 | XR ---
EXAMINATION TYPE: XR chest 1V AP upright DATE OF EXAM: 03/16/2021 COMPARISON: NONE HISTORY: 89-year-old Congestive heart failure TECHNIQUE: Single frontal view of the chest is obtained. FINDINGS: Low lung volumes. Heart size is mildly enlarged. Atherosclerotic aorta. There is a tiny ri ght pleural effusion with adjacent linear airspace opacity likely atelectasis. No left pleural effusi on. No pneumothorax. IMPRESSION: 1. Tiny right pleural effusion with adjacent subsegmental linear atelectasis. 2. Mild cardiomegaly.
[2021-03-16] MEDS: SODIUM CHLORIDE 0.9% 1,000 ML IV SCH (11:24)
[2021-03-16] MEDS: acetaZOLAMIDE 250 MG TAB PO SCH (11:24)
[2021-03-16 11:52] LABS: Glucose,Whole Blood 171 mg/dL (75-99)
[2021-03-16] MEDS: cloNIDine HCL 0.2 MG TAB PO SCH ×2 (15:34→21:31)
--- NOTE | 2021-03-16 15:44 | P.PN ---
Subjective Progress Note Date: 03/16/21 HISTORY OF PRESENT ILLNESS This is an 89-year-old female patient of Dr. 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 Patient resides at [facility], and was noticed to be more hypersomnolent, was having difficulty in opening up her eyes, patient was seen by Dr. Beard yesterday afternoon, for which labs were done, and was noted to have elevated BUN of 90, with a previous BUN of 58. I had gotten a call regarding her mental status change, and decided to be sent to the emergency room. Patient was seen in the emergency room subsequent to this, BUN was 108, creatinine is 1.39, previous of 1.29, with a baseline of 0.88-1.2 over the past 5 years. Troponin was slightly elevated at 0.178, pro-calcitonin in elevated, patient denies any specific events, at Covid test was negative unknown vaccination schedule. We've requested ABG, pCO2 is elevated at 465, pH 7.47, CO2 of 43, glucose 212 JEWELRY ESTIMATOR proBNP of 2040. Ammonia normal at 16 Her med rec were not reconciled today from [facility] to transition her home medications. When seen today in the medical floor, patient is alert, she has short-term memory loss as noted, with no new neurologic monitor changes, consult with Dr. Dr. Hooker from nephrology, consult with Dr. Fregoso from cardiology for elevated trop onin, Hemoccult requested, metoprolol restarted at this time. Pending final med rec. urine drug screen positive for benzos Dr. Ponce from pulmonary for hypercapnic respiratory failure echocardiogram requested BiPAP 12 and 5 to be started. Unable to confirm prednisone 60 mg dose if chronic or burst dosing 03/15: Patient evaluated this morning. Patient resting in bed, she continues to be confused, although she seems more alert today. Nephrology consult appreciated recommends to add normal saline at 50 ml per hour, Lasix on hold. Cardiology consult also appreciated for elevated troponins. Apparently patient had similar mildly elevated troponins in the past. She has also had a recent echocardiogram from last month that showed ejection fraction between 55-60%, no further recommendations from a cardiology standpoint. She continues on ceftriaxone for urinary tract infection, unfortunately urine culture was not obtained due to patient was already started on IV antibiotics. Her vital signs are stable temperature 98.4, heart rate 92, blood pressure mildly elevated 174/79, she's 92% on BiPAP with FiO2 of 28%. Laboratory values showed WBC 14.7, hemoglobin 14.5, sodium 140, potassium 3.0, carbon dioxide 46, BUN 79, creatinine 1.26. One dose of a Acetazolamide 250 mg ordered. 03/16: Repeat chest x-ray reveals tiny right pleural effusion with adjacent subsegmental linear atelectasis. Mild cardiomegaly. Patient continues to have confusion but improved since admission. CO2 remains elevated and patient was started on Diamox yesterday which will be continued. Patient is using BiPAP at nighttime but not tolerating it well and pulling it off patient is followed by pulmonary medicine and nephrology. Repeat blood work reveals WBC 13, hemoglobin 14.9, platelet count 164. Sodium 143, potassium 3.3, chloride 92, CO2 42, BUN 57 creatinine 1.5. Blood sugars are running between 136 and 159. Total bilirubin 2.3, AST 58, ALT 25 and alkaline phosphatase 94. Patient is currently on ceftriaxone which will be continued. Potassium has been replaced. Patient is currently on IV fluids 0.9 normal saline at 50 mL per hour. Noted that patient was on prednisone at the retirement and this is for possible spinal stenosis. Dose decreased to 50 mg daily with plan to taper every 3 days. Patient is maximum assist with physical therapy with recommendations for subacute rehab and 24-hour care. REVIEW OF SYSTEMS Constitutional: No fever, no chills, no night sweats. No weight change. No weakness, fatigue or lethargy. No daytime sleepiness. EENT: No headache. No blurred vision or double vision, no loss of vision. No loss of Hearing, no ringing in the ears, no dizziness. No nasal drainage or congestion. No epistaxis. No sore throat. Lungs: No shortness of breath, cough, no sputum production. No wheezing. Cardiovascular: No chest pain, no lower extremity edema. No palpitations. No paroxysmal nocturnal dyspnea. No orthopnea. No lightheadedness or dizziness. No syncopal episodes. Abdominal: No abdominal pain. No nausea, vomiting. No diarrhea. No constipation. No bloody or tarry stools.. No loss of appetite. Genitourinary: No dysuria, increased frequency, urgency. No urinary retention. Musculoskeletal: No myalgias. No muscle weakness, no gait dysfunction, no frequent falls. No back pain. No neck pain. Integumentary: No wounds, no lesions. No rash or pruritus. No unusual bruising. No change in hair or nails. Neurologic: No aphasia. No facial droop. No change in mentation. No head injury. No headache. No paralysis. No paresthesia. Psychiatric: No depression. No anxiety. No mood swings. Endocrine: No abnormal blood sugars. No weight change. No excessive sweating or thirst. No cold intolerance. PHYSICAL EXAMINATION Gen: This is an 89-year-old female. Patient is resting in bed, no acute distress. HEENT: Head is atraumatic, normocephalic. Pupils equal, round. Sclerae is anicteric. NECK: Supple. No JVD. No lymphadenopathy. No thyromegaly. LUNGS: The lateral rhonchi. No intercostal retractions. HEART: Regular rate and rhythm. No murmur. ABDOMEN: Soft. Bowel sounds are present. No masses. No tenderness. Galvez catheter in place. EXTREMITIES: No pedal edema. No calf tenderness. NEUROLOGICAL: Patient is awake, oriented to person. ASSESSMENT AND PLAN 1. Metabolic encephalopathy, with obtundation, and hypersomnia, has hypercarbia, and azotemia elevated troponins, mild pyuria however WBC of 9 can't rule out UTI. Dr. Ponce consulted for hypercarbic respiratory failure, ABGs requested and reported to be elevated for hypercapnic respiratory failure, BiPAP at 12/5, meds need to be reviewed for metabolic acidosis, hold Zaroxolyn, co ntinue metoprolol. Hold baclofen secondary to mental status changes, no narcotics given at this time, . PT, OT and ST IV continues on Rocephin 2. Acute hypercapnic respiratory failure. Consult with pulmonary medicine appreciated. Patient is on BiPAP intermittently as tolerated. Continue Diamox 250 mg daily. 3. Chronic diastolic heart failure currently compensated, however troponins elevated. monitor daily weights and I&O, monitor electrolytes and renal function. Echocardiogram obtained from January. Cardiology consult appreciated, troponins seen to be chronically elevated 4. Mild intermittent asthma, stable. Continue albuterol inhaler 2 puffs every 4 hours as needed. 5. Pyuria, probable UTI, borderline for urine WBC, on Rocephin 1 g 6. Hypertension. Hold amlodipine 5 mg daily, clonidine 0.2 mg 3 times daily till med rec confirmed, Lopressor 25 mg twice daily. 7. Acute kidney injury and chronic kidney disease stage III. Avoid hypotension and nephrotoxic agents. Hemoccult stools, verified prednisone intake 8. History of CVA in 2018 aspirin 81 mg daily till Hemoccult stools 9. Chronic low back pain and peripheral neuropathy. Continue gabapentin 100 mg twice daily, Tylenol as needed for pain. 10. Short-term memory loss, check B12, TSH was normal in February 15, INR 0.173 cortisol that time was 17. 11. GI prophylaxis. Protonix 40 mg daily. 12. DVT prophylaxis. Continue Lovenox 40 mg subcu daily. 13. COVID-19 testing negative. Patient has been hospitalized during a pandemic. DISCHARGE PLAN Return to [facility]. Impression and plan of care have been directed as dictated by the signing physician. Marcela Love nurse practitioner acting as scribe for signing physician. Objective - Vital Signs Vital signs: Vital Signs Temp 98.1 F 03/16/21 11:21 Pulse 74 03/16/21 11:21 Resp 18 03/16/21 11:21 BP 141/71 03/16/21 11:21 Pulse Ox 96 03/16/21 11:21 Intake & Output 03/15/21 03/16/21 03/16/21 18:59 06:59 18:59 Intake Total 720 240 Output Total 1275 1100 450 Balance -555 -1100 -210 Weight 90.5 kg Intake: Oral 720 240 Output: Urine 1275 1100 450 Straight 700 Other: Voiding Method Indwelling Catheter Indwelling Catheter Indwelling Catheter # Bowel Movements 1 - Labs CBC & Chem 7: 03/16/21 06:14 03/16/21 06:14 Labs: Abnormal Lab Results - Last 24 Hours (Table) 03/15/21 03/15/21 03/16/21 Range/Units 16:33 20:21 06:14 WBC 13.0 H (3.8-10.6) k/uL Hct 48.7 H (34.0-46.0) % MCHC 30.5 L (31.0-37.0) g/dL RDW 15.7 H (11.5-15.5) % Potassium (3.5-5.1) mmol/L Chloride (98-107) mmol/L Carbon Dioxide (22-30) mmol/L BUN (7-17) mg/dL Creatinine (0.52-1.04) mg/dL Glucose (74-99) mg/dL POC Glucose (mg/dL) 159 H 146 H (75-99) mg/dL Total Bilirubin (0.2-1.3) mg/dL AST (14-36) U/L Total Protein (6.3-8.2) g/dL 03/16/21 03/16/21 03/16/21 Range/Units 06:14 06:51 11:50 WBC (3.8-10.6) k/uL Hct (34.0-46.0) % MCHC (31.0-37.0) g/dL RDW (11.5-15.5) % Potassium 3.3 L (3.5-5.1) mmol/L Chloride 92 L (98-107) mmol/L Carbon Dioxide 42 H* (22-30) mmol/L BUN 57 H (7-17) mg/dL Creatinine 1.50 H (0.52-1.04) mg/dL Glucose 148 H (74-99) mg/dL POC Glucose (mg/dL) 136 H 171 H (75-99) mg/dL Total Bilirubin 2.3 H (0.2-1.3) mg/dL AST 58 H (14-36) U/L Total Protein 6.2 L (6.3-8.2) g/dL
[2021-03-16 16:36] LABS: Glucose,Whole Blood 237 mg/dL (75-99)
[2021-03-16] MEDS ORDERED: ASPIRIN 81 MG PO SCH (17:00)
[2021-03-16] MEDS: GABAPENTIN 100 MG CAP PO SCH (17:16)
[2021-03-16] MEDS: ALBUTEROL HFA INHALER INHALATION PRN (19:48)
[2021-03-16 20:18] LABS: Glucose,Whole Blood 156 mg/dL (75-99)
[2021-03-16] MEDS: MELATONIN 3 MG TABLET PO SCH (21:31)
[2021-03-16] MEDS: ATORVASTATIN 10 MG TAB PO SCH (21:32)
[2021-03-17 06:09] LABS: Glucose,Whole Blood 146 mg/dL (75-99)
[2021-03-17] MEDS: SODIUM CHLORIDE 0.9% 1,000 ML IV SCH ×3 (06:35→21:19)
[2021-03-17] MEDS: cloNIDine HCL 0.2 MG TAB PO SCH ×3 (06:35→21:19)
[2021-03-17] MEDS: INSULIN ASPART (NovoLOG) 100 UNIT/ML VIAL SQ SCH ×4 (06:35→21:20)
[2021-03-17] MEDS: ASPIRIN 81 MG PO SCH (08:52)
[2021-03-17] MEDS: amLODIPine 5 MG TAB PO SCH (08:52)
[2021-03-17] MEDS: acetaZOLAMIDE 250 MG TAB PO SCH (08:52)
[2021-03-17] MEDS: METOPROLOL TARTRATE 25 MG TAB PO SCH ×2 (08:52→21:19)
[2021-03-17] MEDS: GABAPENTIN 100 MG CAP PO SCH ×2 (08:52→17:49)
[2021-03-17] MEDS: predniSONE 50 MG TAB PO SCH (08:52)
[2021-03-17 10:19] LABS: Albumin 2.9 g/dL (3.5-5.0); Calcium 8.5 mg/dL (8.4-10.2); Potassium 3.6 mmol/L (3.5-5.1); Total Bilirubin 1.2 mg/dL (0.2-1.3); Total Protein 5.3 g/dL (6.3-8.2)
--- NOTE | 2021-03-17 10:38 | P.PN ---
Subjective Progress Note Date: 03/17/21 HISTORY OF PRESENT ILLNESS This is an 89-year-old female patient of Dr. 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 Patient resides at [facility], and was noticed to be more hypersomnolent, was having difficulty in opening up her eyes, patient was seen by Dr. Beard yesterday afternoon, for which labs were done, and was noted to have elevated BUN of 90, with a previous BUN of 58. I had gotten a call regarding her mental status change, and decided to be sent to the emergency room. Patient was seen in the emergency room subsequent to this, BUN was 108, creatinine is 1.39, previous of 1.29, with a baseline of 0.88-1.2 over the past 5 years. Troponin was slightly elevated at 0.178, pro-calcitonin in elevated, patient denies any specific events, at Covid test was negative unknown vaccination schedule. 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 Ammonia normal at 16 Her med rec were not reconciled today from [facility] to transition her home medications. When seen today in the medical floor, patient is alert, she has short-term memory loss as noted, with no new neurologic monitor changes, consult with Dr. Dr. Hooker from nephrology, consult with Dr. Fregoso from cardiology for elevated trop onin, Hemoccult requested, metoprolol restarted at this time. Pending final med rec. urine drug screen positive for benzos Dr. Ponce from pulmonary for hypercapnic respiratory failure echocardiogram requested BiPAP 12 and 5 to be started. Unable to confirm prednisone 60 mg dose if chronic or burst dosing 03/15: Patient evaluated this morning. Patient resting in bed, she continues to be confused, although she seems more alert today. Nephrology consult appreciated recommends to add normal saline at 50 ml per hour, Lasix on hold. Cardiology consult also appreciated for elevated troponins. Apparently patient had similar mildly elevated troponins in the past. She has also had a recent echocardiogram from last month that showed ejection fraction between 55-60%, no further recommendations from a cardiology standpoint. She continues on ceftriaxone for urinary tract infection, unfortunately urine culture was not obtained due to patient was already started on IV antibiotics. Her vital signs are stable temperature 98.4, heart rate 92, blood pressure mildly elevated 174/79, she's 92% on BiPAP with FiO2 of 28%. Laboratory values showed WBC 14.7, hemoglobin 14.5, sodium 140, potassium 3.0, carbon dioxide 46, BUN 79, creatinine 1.26. One dose of a Acetazolamide 250 mg ordered. 03/16: Repeat chest x-ray reveals tiny right pleural effusion with adjacent subsegmental linear atelectasis. Mild cardiomegaly. Patient continues to have confusion but improved since admission. CO2 remains elevated and patient was started on Diamox yesterday which will be continued. Patient is using BiPAP at nighttime but not tolerating it well and pulling it off patient is followed by pulmonary medicine and nephrology. Repeat blood work reveals WBC 13, hemoglobin 14.9, platelet count 164. Sodium 143, potassium 3.3, chloride 92, CO2 42, BUN 57 creatinine 1.5. Blood sugars are running between 136 and 159. Total bilirubin 2.3, AST 58, ALT 25 and alkaline phosphatase 94. Patient is currently on ceftriaxone which will be continued. Potassium has been replaced. Patient is currently on IV fluids 0.9 normal saline at 50 mL per hour. Noted that patient was on prednisone [facility] the [facility] and this is for possible spinal stenosis. Dose decreased to 50 mg daily with plan to taper every 3 days. Patient is maximum assist with physical therapy with recommendations for subacute rehab and 24-hour care. 03/17: Patient has been afebrile, heart rate 70, blood pressure 132/69, pulse ox 97% on 2 L nasal cannula. Patient was on BiPAP during the night. Patient states that she is feeling much better today. She denies having any cough. Repeat blood work will be ordered for today and tomorrow. She is continued on antibiotics for UTI. Patient will require to continue on BiPAP at the [facility]. Anticipate discharge possibly tomorrow. REVIEW OF SYSTEMS Constitutional: No fever, no chills, no night sweats. No weight change. No weakness, fatigue or lethargy. No daytime sleepiness. EENT: No headache. No blurred vision or double vision, no loss of vision. No loss of Hearing, no ringing in the ears, no dizziness. No nasal drainage or congestion. No epistaxis. No sore throat. Lungs: No shortness of breath, cough, no sputum production. No wheezing. Cardiovascular: No chest pain, no lower extremity edema. No palpitations. No paroxysmal nocturnal dyspnea. No orthopnea. No lightheadedness or dizziness. No syncopal episodes. Abdominal: No abdominal pain. No nausea, vomiting. No diarrhea. No constipation. No bloody or tarry stools.. No loss of appetite. Genitourinary: No dysuria, increased frequency, urgency. No urinary retention. Musculoskeletal: No myalgias. No muscle weakness, no gait dysfunction, no frequent falls. No back pain. No neck pain. Integumentary: No wounds, no lesions. No rash or pruritus. No unusual bruising. No change in hair or nails. Neurologic: No aphasia. No facial droop. Noted change in mentation-improved. No head injury. No headache. No paralysis. No paresthesia. Psychiatric: No depression. No anxiety. No mood swings. Endocrine: No abnormal blood sugars. No weight change. No excessive sweating or thirst. No cold intolerance. PHYSICAL EXAMINATION Gen: This is an 89-year-old female. Patient is resting in bed, no acute distress. HEENT: Head is atraumatic, normocephalic. Pupils equal, round. Sclerae is anicteric. NECK: Supple. No JVD. No lymphadenopathy. No thyromegaly. LUNGS: The lateral rhonchi. No intercostal retractions. HEART: Regular rate and rhythm. No murmur. ABDOMEN: Soft. Bowel sounds are present. No masses. No tenderness. Galvez c atheter in place. EXTREMITIES: No pedal edema. No calf tenderness. NEUROLOGICAL: Patient is awake, oriented to person and place. ASSESSMENT AND PLAN 1. Metabolic encephalopathy, with obtundation, and hypersomnia, has hypercarbia, and azotemia elevated troponins, mild pyuria however WBC of 9 can't rule out UTI. Dr. Ponce consulted for hypercarbic respiratory failure, ABGs requested and reported to be elevated for hypercapnic respiratory failure, BiPAP at 12/5, meds need to be reviewed for metabolic acidosis, hold Zaroxolyn, continue metoprolol. Hold baclofen secondary to mental status changes, no narcotics given at this time, . PT, OT and ST IV continues on Rocephin 2. Acute hypercapnic respiratory failure. Consult with pulmonary medicine appreciated. Patient is on BiPAP intermittently as tolerated. Continue Diamox 250 mg daily. Patient will require continued BiPAP at the [facility]. 3. Chronic diastolic heart failure currently compensated, however troponins elevated. monitor daily weights and I&O, monitor electrolytes and renal function. Echocardiogram obtained from January. Cardiology consult appreciated, troponins seen to be chronically elevated 4. Mild intermittent asthma, stable. Continue albuterol inhaler 2 puffs every 4 hours as needed. 5. Pyuria, probable UTI, borderline for urine WBC, on Rocephin 1 g 6. Hypertension. Continue amlodipine 5 mg daily, clonidine 0.2 mg 3 times daily, Lopressor 25 mg twice daily. 7. Acute kidney injury and chronic kidney disease stage III. Avoid hypotension and nephrotoxic agents. 8. History of CVA in 2017 aspirin 81 mg daily till Hemoccult stools 9. Chronic low back pain and peripheral neuropathy. Continue gabapentin 100 mg twice daily, Tylenol as needed for pain. 10. Short-term memory loss, check B12, TSH was normal in February 15, INR 0.173 cortisol that time was 17. 11. GI prophylaxis. Protonix 40 mg daily. 12. DVT prophylaxis. Continue Lovenox 40 mg subcu daily. 13. COVID-19 testing negative. Patient has been hospitalized during a pandemic. DISCHARGE PLAN Return to [facility] on Tuesday. Impression and plan of care have been directed as dictated by the signing physician. Marcela Love nurse practitioner acting as scribe for signing physician. Objective - Vital Signs Vital signs: Vital Signs Temp 97.7 F 03/17/21 08:00 Pulse 70 03/17/21 08:00 Resp 18 03/17/21 08:00 BP 132/69 03/17/21 08:00 Pulse Ox 97 03/17/21 08:00 Intake & Output 03/16/21 03/17/21 03/17/21 18:59 06:59 18:59 Intake Total 960 720 Output Total 450 400 400 Balance 510 320 -400 Weight 94 kg Intake: Oral 960 720 Output: Urine 450 400 400 Straight 400 Other: Voiding Method Indwelling Catheter Indwelling Catheter - Labs CBC & Chem 7: 03/16/21 06:14 03/16/21 06:14 Labs: Abnormal Lab Results - Last 24 Hours (Table) 03/16/21 03/16/21 03/16/21 Range/Units 11:50 16:35 20:07 POC Glucose (mg/dL) 171 H 237 H 156 H (75-99) mg/dL 03/17/21 Range/Units 06:00 POC Glucose (mg/dL) 146 H (75-99) mg/dL
[2021-03-17] MEDS: ALBUTEROL HFA INHALER INHALATION PRN ×2 (11:29→19:51)
--- NOTE | 2021-03-17 11:34 | PN ---
PROGRESS NOTE Patient is seen for followup for acute kidney injury. Renal function has worsened again today. Her creatinine is up to 1.6. Patient was restarted on IV fluids yesterday at 50 mL an hour. She did have urine retention when she was initially admitted and a Galvez catheter was placed. Her 24-hour urine output is at about 850 mL. This morning patient denies any significant complaints. PHYSICAL EXAMINATION: Blood pressure 132/69, heart rate 70 per minute. She is afebrile. EXAMINATION OF THE HEART: S1, S2. EXAMINATION OF THE LUNGS: Bilateral breath sounds are heard. Abdomen is soft, nontender. Examination of lower extremities shows no evidence of edema. PHARMACIST AIDE exam grossly intact. LABS: Labs show sodium 139, potassium 3.6, chloride 95, CO2 is 39, BUN 51, creatinine 1.6. ASSESSMENT: 1. Acute kidney injury. Renal function continuing to deteriorate. IV fluids were restarted yesterday. Patient's urine output is also slightly lower than the day before. There were plans for trying to take the Galvez catheter out. However, given the worsening renal function, I would probably leave it in. Patient is not significantly hypotensive. An ultrasound of the kidneys will be ordered. Chest x- ray from yesterday does not show significant pulmonary vascular congestion. Therefore, we will continue with the IV fluids. I will also increase the fluids to 75 mL an hour. 2. Urine retention, status post Galvez catheter placement. 3. Metabolic alkalosis, currently improved. 4. Hypokalemia secondary to diuresis, status post replacement. 5. Chronic diastolic congestive heart failure, currently not in congestive heart failure. PLAN: Increase IV fluids to 75 mL an hour. Continue with the Galvez catheter for now. Repeat labs in a.m. If the Galvez catheter is removed, patient will need close monitoring for postvoid residuals. MMODL / IJN: [id number] /
--- NOTE | 2021-03-17 11:38 | P.PN ---
Subjective Progress Note Date: 03/17/21 Principal diagnosis: Sepsis due to urinary tract infection Urinary tract infection Altered mental status due to above and due to hypercapnia due to obesity hypoventilation Obesity hypoventilation syndrome Acute on chronic hypoxic hypercapnic respiratory failure Acute kidney injury likely due to dehydration and intravascular volume depletion Elevated troponin non-ST segment elevated CT versus demand ischemia cardiovascular services following 03/17/2021, patient seen eval examined during the rounds labs reviewed medications reviewed care plan discussed, respiratory status is stable, denies any chest pain shortness of breath patient is confused but awake, on 2 L oxygen, has been off and on BiPAP at nighttime 10 and 5 with 28% oxygen, hemodynamic status stable, chest x-ray performed yesterday shows a small pleural effusion basal subsegmental atelectasis and cardiomegaly no active infiltrate identified 03/16/2021, patient seen eval examined during the rounds labs reviewed medications reviewed care plan discussed, patient is awake and alert, confusion has improved, however CO2 is still up, noted that she he has been started on the Diamox as well, patient has been using BiPAP machine intermittently off and on at nighttime, most of time she pulled it off, 03/15/2021, shouldn't seen evaluated examined awake slightly confused, has been on 2 L oxygen patient did use the BiPAP machine overnight for 5-6 hours, has been on BiPAP 10/5 with 28 percent oxygen, white cell count is 14,700, CO2 is up to 46, BUN/creatinine 70/1.26, potassium is 3 patient has been getting potassium replacement, high CO2 likely related to predominantly hypercapnia as well as some component of metabolic alkalosis due to hypokalemia, will monitor closely and replete potassium before initiating Diamox trial continue BiPAP each night and when necessary during the day Patient is a 89-year-old female sees Dr. Carrero for primary care activity she has problems associated with chronic asthma as well as multiple complex past medical history of dyslipidemia hypertension hypertensive cardiovascular disease, she is fairly bedbound history of stroke in 2018, also chronic peripheral neuropathy patient is a resident of [facility], patient was brought into the hospital because of altered mental status and increased somnolence, also noted to have a high BUN of 90 up from baseline of 58 at [facility], in emergency department patient was placed on BiPAP 12 and 5, currently patient is off of BiPAP on 2 L oxygen, her significant laboratory data were white cell count of 12,600, venous blood gases revealed pCO2 of 65, BUN and creatinine of 108/1.39, Actiq acid was elevated 2.2, UA positive for leukocyte esterase trace, Keon Or up 2.19, BNP over 1999, urine for drug screen negative except benzodiazepine covid is status is negative, patient is currently on IV Rocephin along with side-lying is scale insulin gently being hydrated with IV fluids repeat labs for tomorrow are pending Objective - Vital Signs Vital signs: Vital Signs Temp 97.7 F 03/17/21 08:00 Pulse 70 03/17/21 08:00 Resp 18 03/17/21 08:00 BP 132/69 03/17/21 08:00 Pulse Ox 97 03/17/21 08:00 Intake & Output 03/16/21 03/17/21 03/17/21 18:59 06:59 18:59 Intake Total 960 720 240 Output Total 450 400 400 Balance 510 320 -160 Weight 94 kg Intake: Oral 960 720 240 Output: Urine 450 400 400 Straight 400 Other: Voiding Method Indwelling Catheter Indwelling Catheter - Exam - Constitutional General appearance: disheveled, morbidly obese - EENT Eyes: EOMI, PERRLA Ears: bilateral: normal - Neck Neck: normal ROM Carotids: bilateral: upstroke normal - Respiratory Respiratory: bilateral: diminished - Cardiovascular Rhythm: regular Heart sounds: normal: S1, S2 - Integumentary Integumentary: normal turgor - Neurologic Neurologic: CNII-XII intact - Musculoskeletal Musculoskeletal: generalized weakness - Psychiatric Psychiatric: appropriate affect, intact judgment & insight - Labs CBC & Chem 7: 03/16/21 06:14 03/17/21 09:44 Labs: Abnormal Lab Results - Last 24 Hours (Table) 03/16/21 03/16/21 03/16/21 Range/Units 11:50 16:35 20:07 Chloride (98-107) mmol/L Carbon Dioxide (22-30) mmol/L BUN (7-17) mg/dL Creatinine (0.52-1.04) mg/dL Glucose (74-99) mg/dL POC Glucose (mg/dL) 171 H 237 H 156 H (75-99) mg/dL AST (14-36) U/L Total Protein (6.3-8.2) g/dL Albumin (3.5-5.0) g/dL 03/17/21 03/17/21 Range/Units 06:00 09:44 Chloride 95 L (98-107) mmol/L Carbon Dioxide 39 H (22-30) mmol/L BUN 51 H (7-17) mg/dL Creatinine 1.62 H (0.52-1.04) mg/dL Glucose 164 H (74-99) mg/dL POC Glucose (mg/dL) 146 H (75-99) mg/dL AST 45 H (14-36) U/L Total Protein 5.3 L (6.3-8.2) g/dL Albumin 2.9 L (3.5-5.0) g/dL Assessment and Plan Assessment: Altered mental status due to above and due to hypercapnia due to obesity hypoventilation Obesity hypoventilation syndrome Severe hypokalemia 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
[2021-03-17 11:41] LABS: Glucose,Whole Blood 158 mg/dL (75-99)
--- NOTE | 2021-03-17 14:24 | US ---
EXAMINATION TYPE: US kidneys/renal and bladder DATE OF EXAM: 03/17/2021 COMPARISON: CT & US CLINICAL HISTORY: RF. Renal failure EXAM MEASUREMENTS: Right Kidney: 8.9 x 4.3 x 4.3 cm Left Kidney: 10.0 x 4.2 x 3.8 cm Difficult exam, morbid obese pt, immobile Limited visualization of both kidneys Right Kidney: No evidence of hydro, slightly small in size Left Kidney: Visualized portions appeared wnl Bladder: Unable to visualize There is no evidence for hydronephrosis at this point in time. No nephrolithiasis is seen. Cortical medullary differentiation is maintained. No masses are identified. IMPRESSION: Exam is somewhat limited. No evident hydronephrosis.
[2021-03-17 16:50] LABS: Glucose,Whole Blood 206 mg/dL (75-99)
[2021-03-17 20:37] LABS: Glucose,Whole Blood 173 mg/dL (75-99)
[2021-03-17] MEDS: MELATONIN 3 MG TABLET PO SCH (21:19)
[2021-03-17] MEDS: ATORVASTATIN 10 MG TAB PO SCH (21:19)
[2021-03-18 06:09] LABS: Glucose,Whole Blood 120 mg/dL (75-99)
[2021-03-18] MEDS: INSULIN ASPART (NovoLOG) 100 UNIT/ML VIAL SQ SCH ×3 (06:10→17:29)
[2021-03-18] MEDS: cloNIDine HCL 0.2 MG TAB PO SCH ×2 (06:15→12:19)
[2021-03-18 08:28] LABS: Calcium 8.2 mg/dL (8.4-10.2); Potassium 3.5 mmol/L (3.5-5.1); Total Protein 5.3 g/dL (6.3-8.2)
[2021-03-18 08:29] LABS: HCT 42.2 % (34.0-46.0); HGB 12.7 gm/dL (11.4-16.0); Hypochromasia Marked; MCH 27.6 pg (25.0-35.0); MCHC 30.2 g/dL (31.0-37.0); MCV 91.5 fL (80.0-100.0); Mean Platelet Volume 9.1; Platelet Count 141 k/uL (150-450); RBC 4.61 m/uL (3.80-5.40); RDW 15.8 % (11.5-15.5); WBC 11.5 k/uL (3.8-10.6)
[2021-03-18 09:28] VITALS: RESP 16
[2021-03-18] MEDS: acetaZOLAMIDE 250 MG TAB PO SCH (09:36)
[2021-03-18] MEDS: amLODIPine 5 MG TAB PO SCH (09:36)
[2021-03-18] MEDS: ASPIRIN 81 MG PO SCH (09:36)
[2021-03-18] MEDS: GABAPENTIN 100 MG CAP PO SCH ×2 (09:36→17:29)
[2021-03-18] MEDS: METOPROLOL TARTRATE 25 MG TAB PO SCH (09:36)
[2021-03-18] MEDS: predniSONE 50 MG TAB PO SCH (09:36)
--- NOTE | 2021-03-18 10:39 | PN ---
PROGRESS NOTE Patient is seen for followup for acute kidney injury, prerenal as well as secondary to urine retention. The patient's Galvez catheter was discontinued yesterday. However, she had urine retention again and her catheter was replaced early this morning. Renal function had initially improved and serum creatinine had increased to 1.5 yesterday and patient's IV fluids were increased. Today her creatinine is back down to 1.29. Overall she states she is feeling better. She has been eating okay. PHYSICAL EXAMINATION: On examination today, blood pressure was 110/68, heart rate 63 per minute. She is afebrile. EXAMINATION OF THE HEART: S1, S2. EXAMINATION OF LUNGS: Decreased breath sounds at bases. Abdomen is soft, nontender. Examination of lower extremities shows chronic skin changes. No significant edema noted. LABS: Labs show sodium 139, potassium 3.5, chloride 36, BUN 50, creatinine 1.29, hemoglobin 12.7 g/dL. ASSESSMENT: 1. Acute kidney injury prerenal currently improved with IV hydration. Patient also has urine retention for which she has a Galvez catheter. 2. Urine retention, status post Galvez catheter placement. The catheter was removed, but patient developed urine retention again and her Galvez catheter was reinserted. 3. Hypokalemia secondary to diuresis, status post replacement. 4. Metabolic alkalosis, improved with Diamox. I will discontinue the Diamox today. PLAN: Discontinue Diamox. Decrease IV fluids. Continue with Galvez catheter. Add Flomax. MMODL / IJN: [id number] /
--- NOTE | 2021-03-18 11:08 | P.PN ---
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 Acute kidney injury likely due to dehydration and intravascular volume depletion Elevated troponin non-ST segment elevated MD versus demand ischemia cardiovascular services following 03/18/2021, patient seen eval examined during the rounds labs reviewed medications reviewed care plan discussed, and patient has been doing well in terms pleasantly confused remains on 2 L respiratory status is stable, has been intermittently using BiPAP at nighttime, patient will need a sleep study as outpatient and will arrange it 03/17/2021, patient seen eval examined during the rounds labs reviewed medications reviewed care plan discussed, respiratory status is stable, denies any chest pain shortness of breath patient is confused but awake, on 2 L oxygen, has been off and on BiPAP at nighttime 10 and 5 with 28% oxygen, hemodynamic status stable, chest x-ray performed yesterday shows a small pleural effusion basal subsegmental atelectasis and cardiomegaly no active infiltrate identified 03/16/2021, patient seen eval examined during the rounds labs reviewed medications reviewed care plan discussed, patient is awake and alert, confusion has improved, however CO2 is still up, noted that she he has been started on the Diamox as well, patient has been using BiPAP machine intermittently off and on at nighttime, most of time she pulled it off, 03/15/2021, shouldn't seen evaluated examined awake slightly confused, has been on 2 L oxygen patient did use the BiPAP machine overnight for 5-6 hours, has been on BiPAP 10/5 with 28 percent oxygen, white cell count is 14,700, CO2 is up to 46, BUN/creatinine 70/1.26, potassium is 3 patient has been getting potassium replacement, high CO2 likely related to predominantly hypercapnia as well as some component of metabolic alkalosis due to hypokalemia, will monitor closely and replete potassium before initiating Diamox trial continue BiPAP each night and when necessary during the day Patient is a 89-year-old female sees Dr. Carrero for primary care activity she h as problems associated with chronic asthma as well as multiple complex past medical history of dyslipidemia hypertension hypertensive cardiovascular disease, she is fairly bedbound history of stroke in 2018, also chronic peripheral neuropathy patient is a resident of [facility], patient was brought into the hospital because of altered mental status and increased somnolence, also noted to have a high BUN of 90 up from baseline of 58 at [facility], in emergency department patient was placed on BiPAP 12 and 5, currently patient is off of BiPAP on 2 L oxygen, her significant laboratory data were white cell count of 12,600, venous blood gases revealed pCO2 of 65, BUN and creatinine of 108/1.39, Actiq acid was elevated 2.2, UA positive for leukocyte esterase trace, Keon Or up 2.19, BNP over 2000, urine for drug screen negative except benzodiazepine covid is status is negative, patient is currently on IV Rocephin along with side-lying is scale insulin gently being hydrated with IV fluids repeat labs for tomorrow are pending Objective - Vital Signs Vital signs: Vital Signs Temp 97.6 F 03/18/21 09:26 Pulse 63 03/18/21 09:26 Resp 16 03/18/21 09:26 BP 110/68 03/18/21 09:26 Pulse Ox 97 03/18/21 09:26 Intake & Output 03/17/21 03/18/21 03/18/21 18:59 06:59 18:59 Intake Total 720 525 Output Total 800 600 Balance -80 -75 Weight 96 kg Intake: IV 525 Sodium Chloride 0.9% 1, 525 000 ml @ 75 mls/hr IV . [id number] [facility] Rx#:[id number] Oral 720 Output: Urine 800 600 Straight 800 Other: Voiding Method Indwelling Catheter Incontinent Incontinent # Voids 2 # Bowel Movements 1 - Exam - Constitutional General appearance: disheveled, morbidly obese - EENT Eyes: EOMI, PERRLA Ears: bilateral: normal - Neck Neck: normal ROM Carotids: bilateral: upstroke normal - Respiratory Respiratory: bilateral: diminished - Cardiovascular Rhythm: regular Heart sounds: normal: S1, S2 - Integumentary Integumentary: normal turgor - Neurologic Neurologic: CNII-XII intact - Musculoskeletal Musculoskeletal: generalized weakness - Psychiatric Psychiatric: appropriate affect, intact judgment & insight - Labs CBC & Chem 7: 03/18/21 06:57 03/18/21 06:57 Labs: Abnormal Lab Results - Last 24 Hours (Table) 03/17/21 03/17/2121 Range/Units 11:40 16:49 20:32 WBC (3.8-10.6) k/uL MCHC (31.0-37.0) g/dL RDW (11.5-15.5) % Plt Count (150-450) k/uL Carbon Dioxide (22-30) mmol/L BUN (7-17) mg/dL Creatinine (0.52-1.04) mg/dL Glucose (74-99) mg/dL POC Glucose (mg/dL) 158 H 206 H 173 H (75-99) mg/dL Calcium (8.4-10.2) mg/dL AST (14-36) U/L Total Protein (6.3-8.2) g/dL Albumin (3.5-5.0) g/dL 03/18/21 03/18/21 03/18/21 Range/Units 06:05 06:57 06:57 WBC 11.5 H (3.8-10.6) k/uL MCHC 30.2 L (31.0-37.0) g/dL RDW 15.8 H (11.5-15.5) % Plt Count 141 L (150-450) k/uL Carbon Dioxide 36 H (22-30) mmol/L BUN 50 H (7-17) mg/dL Creatinine 1.29 H (0.52-1.04) mg/dL Glucose 129 H (74-99) mg/dL POC Glucose (mg/dL) 120 H (75-99) mg/dL Calcium 8.2 L (8.4-10.2) mg/dL AST 39 H (14-36) U/L Total Protein 5.3 L (6.3-8.2) g/dL Albumin 3.0 L (3.5-5.0) g/dL Assessment and Plan Assessment: Altered mental status due to above and due to hypercapnia due to obesity hypoven tilation Obesity hypoventilation syndrome Severe hypokalemia 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
--- NOTE | 2021-03-18 11:19 | P.DS ---
Providers Date of admission: 03/14/21 03:58 Expected date of discharge: 03/18/21 Attending physician: Grupo Beard Consults: 03/14/21 02:34 Consult Physician Routine Consulting Provider: Lia Hooker Consult Reason/Comments: uremia Do you want consulting provider notified?: Yes, Notify in am 03/14/21 10:18 Consult Physician Routine Consulting Provider: Edwin Ponce Consult Reason/Comments: Hypercapnia Do you want consulting provider notified?: Yes Primary care physician: [facility] Course: HISTORY OF PRESENT ILLNESS This is an 89-year-old female patient of Dr. 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 Patient resides at [facility], and was noticed to be more hypersomnolent, was having difficulty in opening up her eyes, patient was seen by Dr. Beard yesterday afternoon, for which labs were done, and was noted to have elevated BUN of 90, with a previous BUN of 58. I had gotten a call regarding her mental status change, and decided to be sent to the emergency room. Patient was seen in the emergency room subsequent to this, BUN was 108, creatinine is 1.39, previous of 1.29, with a baseline of 0.88-1.2 over the past 5 years. Troponin was slightly elevated at 0.178, pro-calcitonin in elevated, patient denies any specific events, at Covid test was negative unknown vaccination schedule. We've requested ABG, pCO2 is elevated at 465, pH 7.47, CO2 of 43, glucose 212 SURGERY AID proBNP of 2040. Ammonia normal at 16 Her med rec were not reconciled today from [facility] to transition her home medications. When seen today in the medical floor, patient is alert, she has short-term memory loss as noted, with no new neurologic monitor changes, consult with Dr. Dr. Hooker from nephrology, consult with Dr. Fregoso from cardiology for elevated troponin, Hemoccult requested, metoprolol restarted at this time. Pending final med rec. urine drug screen positive for benzos Dr. Ponce from pulmonary for hypercapnic respiratory failure echocardiogram requested BiPAP 12 and 5 to be started. Unable to confirm prednisone 60 mg dose if chronic or burst dosing 03/15: Patient evaluated this morning. Patient resting in bed, she continues to be confused, although she seems more alert today. Nephrology consult appreciated recommends to add normal saline at 50 ml per hour, Lasix on hold. Cardiology consult also appreciated for elevated troponins. Apparently patient had similar mildly elevated troponins in the past. She has also had a recent echocardiogram from last month that showed ejection fraction between 55-60%, no further recommendations from a cardiology standpoint. She continues on ceftriaxone for urinary tract infection, unfortunately urine culture was not obtained due to patient was already started on IV antibiotics. Her vital signs are stable temperature 98.4, heart rate 92, blood pressure mildly elevated 174/79, she's 92% on BiPAP with FiO2 of 28%. Laboratory values showed WBC 14.7, hemoglobin 14.5, sodium 140, potassium 3.0, carbon dioxide 46, BUN 79, creatinine 1.26. One dose of a Acetazolamide 250 mg ordered. 03/16: Repeat chest x-ray reveals tiny right pleural effusion with adjacent subsegmental linear atelectasis. Mild cardiomegaly. Patient continues to have confusion but improved since admission. CO2 remains elevated and patient was started on Diamox yesterday which will be continued. Patient is using BiPAP at nighttime but not tolerating it well and pulling it off patient is followed by pulmonary medicine and nephrology. Repeat blood work reveals WBC 13, hemoglobin 14.9, platelet count 164. Sodium 143, potassium 3.3, chloride 92, CO2 42, BUN 57 creatinine 1.5. Blood sugars are running between 136 and 159. Total bilirubin 2.3, AST 58, ALT 25 and alkaline phosphatase 94. Patient is currently on ceftriaxone which will be continued. Potassium has been replaced. Patient is currently on IV fluids 0.9 normal saline at 50 mL per hour. Noted that patient was on prednisone at the skilled nursing and this is for possible spinal stenosis. Dose decreased to 50 mg daily with plan to taper every 3 days. Patient is maximum assist with physical therapy with recommendations for subacute rehab and 24-hour care. 03/17: Patient has been afebrile, heart rate 70, blood pressure 132/69, pulse ox 97% on 2 L nasal cannula. Patient was on BiPAP during the night. Patient states that she is feeling much better today. She denies having any cough. Repeat blood work will be ordered for today and tomorrow. She is continued on antibiotics for UTI. Patient will require to continue on BiPAP at the skilled nursing. Anticipate discharge possibly tomorrow. 03/18: She has been seen by Dr. Hooker recommending discontinuing Diamox. Flomax was added. Plan is to continue Galvez catheter. Ultrasound was limited but no evidence of hydronephrosis. Patient has been afebrile, heart rate 63, blood pressure 110/68, pulse ox 97% on 2 L nasal cannula. Repeat blood work reveals W BC 11.5, hemoglobin 12.7, platelet count 141. CO2 36, BUN 15 creatinine 1.29. Blood sugars run between 120 and 206. AST 39. Patient is also followed by Dr. Ponce and has been maintained on BiPAP during the night. Patient will be discharged back to [facility] on the care of Dr. Beard. ASSESSMENT AND PLAN 1. Metabolic encephalopathy, with obtundation, and hypersomnia, has hypercarbia, and azotemia elevated troponins, mild pyuria however WBC of 9 can't rule out UTI. 2. Acute hypercapnic respiratory failure. 3. Chronic diastolic heart failure. 4. Elevated troponins, acute coronary syndrome ruled out. 4. Mild intermittent asthma, stable. 5. Pyuria, probable UTI, borderline. 6. Hypertension. 7. Acute kidney injury and chronic kidney disease stage III. 8. History of CVA in 2018. 9. Chronic low back pain and peripheral neuropathy. 10. Short-term memory loss. 11. COVID-19 testing negative. Patient has been hospitalized during a pandemic. DISCHARGE PLAN Return to [facility] on Tuesday. Impression and plan of care have been directed as dictated by the signing physician. Marcela Love nurse practitioner acting as scribe for signing physician. Patient Condition at Discharge: Poor Plan - Discharge Summary Discharge Rx Participant: No New Discharge Prescriptions: New Melatonin 6 mg PO HS tablet predniSONE 50 mg PO DAILY@0800 tab Cefuroxime [Ceftin] 250 mg PO BID 3 Days #6 tab Tamsulosin [Flomax] 0.4 mg PO DAILY #30 cap Continue Metoprolol Tartrate [Lopressor] 25 mg PO BID@0800,1700 cloNIDine HCL [Catapres] 0.2 mg PO TID@0600,1400,2200 Atorvastatin Calcium [Lipitor] 10 mg PO HS@2100 metOLazone 2.5 mg PO MOTH@0600 amLODIPine [Norvasc] 5 mg PO DAILY@0800 Albuterol Inhaler [Ventolin Hfa Inhaler] 2 puff INHALATION RT-Q4H PRN PRN Reason: Shortness Of Breath Aspirin 81 mg PO DAILY@1700 Magnesium Hydroxide [Milk of Magnesia] 2,400 mg PO DAILY PRN PRN Reason: Constipation Omeprazole 20 mg PO HS@2100 HYDROcodone/APAP 5-325MG [[place] 5-325] 0.5 tab PO Q12H PRN #3 tab PRN Reason: Pain bisacodyL [Dulcolax] 10 mg RECTAL DAILY PRN PRN Reason: Constipation methocarbamoL [Methocarbamol] 500 mg PO BID@0800,2100 Na Phos,M-B/Na Phos,Di-Ba [Fleet Adult] 133 ml RECTAL DAILY PRN PRN Reason: Constipation ALPRAZolam [Xanax] 0.25 mg PO BID@0800,1700 #6 tab Changed Gabapentin [Neurontin] 100 mg PO BID@0800,1700 #6 cap Furosemide [Lasix] 40 mg PO DAILY #0 Discontinued Baclofen 5 mg PO BID@0800,1700 predniSONE [Deltasone] 60 mg PO DAILY@0800 Discharge Medication List Metoprolol Tartrate [Lopressor] 25 mg PO BID@0800,1700 10/15/15 [History] cloNIDine HCL [Catapres] 0.2 mg PO TID@0600,1400,2200 11/27/18 [History] Atorvastatin Calcium [Lipitor] 10 mg PO HS@2100 03/19/19 [History] Albuterol Inhaler [Ventolin Hfa Inhaler] 2 puff INHALATION RT-Q4H PRN 02/15/21 [History] amLODIPine [Norvasc] 5 mg PO DAILY@0800 02/15/21 [History] metOLazone 2.5 mg PO MOTH@0600 02/15/21 [History] Aspirin 81 mg PO DAILY@1700 03/14/21 [History] Magnesium Hydroxide [Milk of Magnesia] 2,400 mg PO DAILY PRN 03/14/21 [History] Na Phos,M-B/Na Phos,Di-Ba [Fleet Adult] 133 ml RECTAL DAILY PRN 03/14/21 [History] Omeprazole 20 mg PO HS@209903/14/21 [History] bisacodyL [Dulcolax] 10 mg RECTAL DAILY PRN 03/14/21 [History] methocarbamoL [Methocarbamol] 500 mg PO BID@0800,2100 03/14/21 [History] ALPRAZolam [Xanax] 0.25 mg PO BID@0800,1700 #6 tab 03/18/21 [Rx] Cefuroxime [Ceftin] 250 mg PO BID 3 Days #6 tab 03/18/21 [Rx] Furosemide [Lasix] 40 mg PO DAILY #0 03/18/21 [Rx] Gabapentin [Neurontin] 100 mg PO BID@0800,1700 #6 cap 03/18/21 [Rx] HYDROcodone/APAP 5-325MG [[place] 5-325] 0.5 tab PO Q12H PRN #3 tab 03/18/21 [Rx] Melatonin 6 mg PO HS tablet 03/18/21 [Rx] Tamsulosin [Flomax] 0.4 mg PO DAILY #30 cap 03/18/21 [Rx] predniSONE 50 mg PO DAILY@0800 tab 03/18/21 [Rx] Follow up Appointment(s)/Referral(s): Edwin Ponce MD [STAFF PHYSICIAN] - 1 Week Grupo Beard MD [Primary Care Provider] - 1 Week (at [facility]) Activity/Diet/Wound Care/Special Instructions: Discontinue Galvez catheter in 3 days. Bipap IP 10, EP 5, to be utilized at night and during the day when sleeping as tolerated. Discharge Disposition: TRANSFER TO SNF/ECF
[2021-03-18 11:43] LABS: Glucose,Whole Blood 282 mg/dL (75-99)
[2021-03-18] MEDS ORDERED: LACTOBACILLUS ACIDOPH & BULGAR 1 EACH PACKET PO SCH (13:45)
[2021-03-18 16:18] VITALS: BP 125/80; PULSE 62; TEMP 98
[2021-03-18 17:01] LABS: Glucose,Whole Blood 190 mg/dL (75-99)
[2021-03-18] MEDS ORDERED: TAMSULOSIN 0.4 MG CAP.ER.24H PO SCH (18:30)
--- NOTE | 2021-04-14 06:15 | CDI ---
Documentation Clarification Form Date: 04/14/2021 06:01:00 AM From: Joann Cameron Admit Date: 03/14/2021 03:58:00 AM Patient Name: Sindi Fairchild Visit Number: [id number] Discharge Date: 03/18/2021 06:35:00 PM ATTENTION: The Clinical Documentation Specialists (CDI) and [facility] Coding Staff appreciate your assistance in clarifying documentation. Please respond to the clarification below the line at the bottom and electronically sign. The CDI & [facility] Coding staff will review the response and follow-up if needed. Please note: Queries are made part of the Legal Health Record. If you have any questions, please contact the author of this message via ITS. Dr. Grupo Beard The patient presented with altered mental status. Per pulmonary consult and PN's patient with Sepsis and UtI causing metabolic encephalopathy. This is only documented by pulmonology. Please clarify if patient had sepsis or was it ruled out. History/Risk Factors: Patient with metabolic encephalopathy and UTI Clinical Indicators: WBC: 8.8 Lactic acid: 1.3 Vitals signs: 98.0 F. on presentation 101.4F 110, 20, 149/76 97% RA Treatment: Antibiotics ID Consult: bacteremia and UTI Antibiotics: Rocephin Meropenem In your professional opinion, please clarify if these findings signify one of the following conditions: [xx ] Sepsis POA [ ] Sepsis, Not POA [ ] Sepsis ruled out [ ] Severe Sepsis with organ failure [ ] Septic Shock [ ] SIRS, without underlying infectious process [ ] Other, please specify [ ] Unable to determine SIRS Criteria: 2 or more of the following may indicate SIRS -Temperature < 96.8F (36C) or > 101.0F (38.3C) -Heart Rate > 90 bpm -Respiratory Rate > 20 breaths/min or PaCO2 < 32 mmHg -White Blood Cell Count > 12,000 or < 4,000 cells/mm3 or > 10% bands LARAD
== END 2021-03-18 18:35 | DRG 871 ==
LOC: EC 00:32 → 3SCARD 03:58
PROVIDERS: ADMIT Internal Medicine Geriatric Medicine; ATTEND Internal Medicine Geriatric Medicine
PROC: 5A09357 Assistance with Respiratory Ventilation, Less than 24 Consecutive Hours, Continuous Positive Airway Pressure (ICD-10-PCS; principal; 2021-03-14)
DX: A41.9 Sepsis, unspecified organism (principal); G93.41 Metabolic encephalopathy; J96.21 Acute and chronic respiratory failure with hypoxia; J96.22 Acute and chronic respiratory failure with hypercapnia; E66.2 Morbid (severe) obesity with alveolar hypoventilation; E87.3 Alkalosis; I13.0 Hypertensive heart and chronic kidney disease with heart failure and stage 1 through stage 4 chronic kidney disease, or unspecified chronic kidney disease; I50.32 Chronic diastolic (congestive) heart failure; J98.11 Atelectasis; N17.9 Acute kidney failure, unspecified; N39.0 Urinary tract infection, site not specified; E11.22 Type 2 diabetes mellitus with diabetic chronic kidney disease; E11.42 Type 2 diabetes mellitus with diabetic polyneuropathy; E78.5 Hyperlipidemia, unspecified; E86.0 Dehydration; E87.6 Hypokalemia; G47.10 Hypersomnia, unspecified; G89.29 Other chronic pain; I27.20 Pulmonary hypertension, unspecified; J45.20 Mild intermittent asthma, uncomplicated; Z20.822 Contact with and (suspected) exposure to COVID-19; N18.30 Chronic kidney disease, stage 3 unspecified; T38.0X5A Adverse effect of glucocorticoids and synthetic analogues, initial encounter; T50.2X5A Adverse effect of carbonic-anhydrase inhibitors, benzothiadiazides and other diuretics, initial encounter; Z91.81 History of falling; R41.3 Other amnesia; M54.5 Low back pain; R77.8 Other specified abnormalities of plasma proteins; Z79.82 Long term (current) use of aspirin; Z79.899 Other long term (current) drug therapy; H40.9 Unspecified glaucoma; Z80.3 Family history of malignant neoplasm of breast; Z81.1 Family history of alcohol abuse and dependence; Z86.73 Personal history of transient ischemic attack (TIA), and cerebral infarction without residual deficits; Z74.01 Bed confinement status; Z88.2 Allergy status to sulfonamides; Z88.8 Allergy status to other drugs, medicaments and biological substances; Z87.01 Personal history of pneumonia (recurrent); Z98.42 Cataract extraction status, left eye; Z98.41 Cataract extraction status, right eye; Z79.52 Long term (current) use of systemic steroids
CPT/HCPCS: 36415; 36600; 70450; 71045; 76770; 80053; 80306; 81001; 82140; 82803; 82805; 83605; 83880; 84484; 85025; 85027; 85610; 85730; 87635; 93005; 94640; 94660; 96374; 99285